=== PATIENT | female | born 1965 | race Caucasian/White ===

== ENCOUNTER → 2016-12-15 | Outpatient (CLI) | payer BC | LOC: M OUTALCOH 13:12 | PROVIDERS: ATTEND Psychiatry & Neurology Psychiatry | DX: Z13.9 Encounter for screening, unspecified (principal); F10.20 Alcohol dependence, uncomplicated ==

== ENCOUNTER 2017-01-05 14:30 | Outpatient (RCR) | payer BC | END 2017-01-07 | LOC: M OUTALCOH 14:30 | PROVIDERS: ATTEND Psychiatry & Neurology Psychiatry | DX: F10.20 Alcohol dependence, uncomplicated (principal); F17.200 Nicotine dependence, unspecified, uncomplicated ==

== ENCOUNTER 2017-02-01 16:00 | Outpatient (RCR) | payer BC, OTHER | END 2017-02-06 | LOC: M OUTALCOH 16:00 | PROVIDERS: ATTEND Psychiatry & Neurology Psychiatry | DX: F10.20 Alcohol dependence, uncomplicated (principal); F17.200 Nicotine dependence, unspecified, uncomplicated ==

== ENCOUNTER → 2017-02-09 | Outpatient (CLI) | payer OTHER, BC ==
--- NOTE | 2017-02-23 00:15 | ECWPNPC ---
PATIENT NAME: LUIS KHALIL : 1965 GENDER: FEMALE VISIT DATE: 02/09/2017 DISCHARGE DATE: 02/09/17 1318 VISIT LOCKED DATE TIME: PHYSICIAN: GEOVANNY WELLS RESOURCE: GEOVANNY WELLS REASON FOR APPOINTMENT 1. W/C NECK, MID/LOW BACK HISTORY OF PRESENT ILLNESS FALL RISK SCREENIN51 Y/O FEMALE REFERRED BY [facility],DR. CABRERA FOR WORK RELATED NECK,MID AND LOW BACK PAIN.PATIENT FELL ON ICE IN [facility] ON October. 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 ER THE FOLLOWING DAY.XRAYS OF MID AND LOWER BACK WERE PERFORMED AND SHE WAS TAKEN OUT OF WORK.SAW FOR FOLLOW UP A FEW WEEKS LATTER AND HE STARTED HER ON MEDICATION AND WAS SENT TO PT.THAT HELPED WITH IMPROVED MOBILITY BUT DIDNT IMPROVE PAIN MUCH.WAS REFERRED TO DR. SHAIKH AT [facility] AND HAD TPI MID BACK X2 WITHOUT IMPROVEMENT.HAD LEFT LUMBAR FACET BLOCK WITH 3 MONTH IMPROVEMENT.HAD LEFT CERVICAL FACET BLOCK WITH ONE MONTH IMPROVEMENT.HAVING SEVERE NECK PAIN TODAY THAT RADIATES INTO SCAPULAR AREA.HAS INTERMITTENT MID BACK PAIN.LOW BACK PAIN IS DESCRIBED INTERMITTENT SEVERE PAIN THAT SHOOTS DOWN BOTH LEGS.REPORTING RIGHT FOOT NUMBNESS AND UPPER BODY ARM AND HAND PARATHESIAS.DENIES BOWEL OR BLADDER INCONTINENCE.CURRENTLY USING HYDROCODONE 5/325 1/2 TO 1 TABLET Q8H PRN PAIN THAT SHE FINDS HELPFUL WITHOUT SIDE EFFECTS.HAS BEEN DEALING WITH SEVERE DAILY HEADACHES SINCE FALL.RATING PAIN VAS 7/10.DENIES RECENT FEVER,ILLNESS OR WEIGHT LOSS.DENIES BOWEL OR BLADDER INCONTINENCE. SCREENING :NO FALLS IN THE PAST YEAR PAIN SCREENING: PATIENT HAS A COMPLAINT OF ACUTE OR CHRONIC PAIN :YES CURRENT MEDICATIONS TAKING MULTIVITAMINS TABLET 1 TAB ORALLY DAILY TAKING VITAMIN B12 100 MCG TABLET 1 TABLET ORALLY ONCE A DAY TAKING OMEPRAZOLE 20 MG CAPSULE DELAYED RELEASE 1 CAPSULE ORALLY BID TAKING ADVAIR DISKUS 250-50 MCG/DOSE AEROSOL POWDER BREATH ACTIVATED 1 PUFF INHALATION TWICE A DAY TAKING ALBUTEROL SULFATE HFA 108 (90 BASE) MCG/ACT AEROSOL SOLUTION 2 PUFFS INHALATION DAILY PRN TAKING AMBIEN CR 12.5 MG TABLET EXTENDED RELEASE 1 TABLET ORALLY BEFORE BEDTIME, NOTES: ISTOP [id number] TAKING LEXAPRO 20 MG TABLET 1 TAB ORALLY ONCE A DAY TAKING BUTORPHANOL TARTRATE 10 MG/ML SOLUTION 1 SPRAY NEEDED NASALLY EVERY 8 HRS PRN MDD=2 TAKING HYDROCODONE-ACETAMINOPHEN 5-325 MG TABLET 1 TABLET NEEDED (MDD 2) ORALLY BID NOT-TAKING LEXAPRO 10 MG TABLET 1 TABLET ORALLY ONCE A DAY NOT-TAKING BUTORPHANOL TARTRATE 10 MG/ML SOLUTION DISP SPRAY 1 ML NEEDED NASALLY EVERY 8 HRS MDD=3ML MEDICATION LIST REVIEWED AND RECONCILED WITH THE PATIENT PAST MEDICAL HISTORY HYPERTENSION ASTHMA GERD ELEVATED CHOLESTEROL PCO S. MIGRANES OBESITY HIGH-203 SVJ=382 BACK INJURY 1986, 2012 ALLERGIES SIMVASTATIN: FATIGUE: SIDE EFFECTS IMITREX: NAUSEA: SIDE EFFECTS MAXALT BILL HIKER: NAUSEA: SIDE EFFECTS SURGICAL HISTORY HYSTERECTOMY 2010 TUBAL LIGATION 1985 EXPLORITORY LAPROSCOPIC 1976 GASTRICBYPASS 05/03/2013 LYMPHECTOMY ON LEFT 07-02-2013 TRIGGER POINT INJECTIONS SHOULDER 2015 FACET JOIN INJECTIONS LUMBAR 2015 FAMILY HISTORY FATHER: , DIABETES, HYPERTENSION, HYPERLIPIDEMIA, DIAGNOSED WITH HEART DISEASE MOTHER: ALIVE, HYPERTENSION, HYPERLIPIDEMIA, DIAGNOSED WITH HYPERTENSION SIBLINGS: ALIVE SON(S): ALIVE 1 BROTHER(S) , 1 SISTER(S) - HEALTHY. 2 SON(S) - HEALTHY. FAMILY HISTORY IS POSITIVE FOR DIABETES, HYPERTENSION, HEART DISEASE. MATERNAL AUNT AND GRANDMOTHER WITH BREAST CANCER. SOCIAL HISTORY GENERAL: TOBACCO USE ARE YOU A:CURRENT SMOKER HOW MANY CIGARETTES A DAY DO YOU SMOKE?6-10 HOW SOON AFTER YOU WAKE UP DO YOU SMOKE YOUR FIRST CIGARETTE?31-60 MIN HOW OFTEN DO YOU SMOKE CIGARETTES?EVERY DAY PATIENT COUNSELED ON THE DANGERS OF TOBACCO USE AND URGED TO QUIT:02/08/2017 ARE YOU INTERESTED IN QUITTING?NOT READY TO QUIT COUNSELED THE PATIENT ON SMOKING EFFECTS, EDUCATION [id number]/02/2017 ALCOHOL SCREENING DID YOU HAVE A DRINK CONTAINING ALCOHOL IN THE PAST YEAR?YES HOW OFTEN DID YOU HAVE SIX OR MORE DRINKS ON ONE OCCASION IN THE PAST YEAR?LESS THAN MONTHLY (1 POINT) HOW MANY DRINKS DID YOU HAVE ON A TYPICAL DAY WHEN YOU WERE DRINKING IN THE PAST YEAR?3 OR 4 (1 POINT) HOW OFTEN DID YOU HAVE A DRINK CONTAINING ALCOHOL IN THE PAST YEAR?TWO TO FOUR TIMES A MONTH (2 POINTS) POINTS4 INTERPRETATIONPOSITIVE RECREATIONAL DRUG USE DENIES. CAFFEINE 1-2/DAY. 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 DIET: REGULAR. EXERCISE: REGULAR. MARITAL STATUS: . OTHERS AT HOME: SPOUSE. PETS: DOG. SCIENTOLOGIST NO MORMONISM BELIEFS THAT WOULD IMPACT HEALTH CARE. LANGUAGE AZERI. 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 LEARNING BARRIERS / SPECIAL NEEDS CHANGE FROM LAST VISIT?NO BARRIERS TO LEARNING?NO HEARING IMPAIRED?NO VISION IMPAIRED?YES COGNITIVELY IMPAIRED?NO :CORRECTIVE LENSES READINESS TO LEARN?YES LEARNING PREFERENCES?NO LEARNING CAPABILITIES PRESENT?YES EMOTIONAL BARRIERS?NO SPECIAL DEVICES?NO GLOBAL MARKETING OPERATIONS MANAGER NEEDED?NO NEW PATIENT PAIN DIARY PATIENT DESCRIBES PAIN :ACHING, BURNING, HAVE IT ALL THE TIME, SHARP, STABBING, TENDER, SORE, SHOOTING FROM 0-10, WHAT LEVEL IS YOUR PAIN TODAY?6 PRECIPITATING FACTORS PT STATES THAT EXCESSIVE LIFTING, BENDING AND WALKING WILL INCREASE PAIN ALLEVIATING FACTORS PAIN MEDS, STRETCHING 3-4 TIMES PER WEEK IMPACT ON FUNCTION LIGHT DUTY AT WORK, RESTRICTS MOBILITY, HAS DIFFICULTY WITH PICKING UP GRANDCHILDREN, UNABLE TO FISH AND KAYAK SHE HAD IN THE PAST WHEN DID YOU LAST EAT?02/09/2017 WHEN DID YOU LAST DRINK?02/09/2017 WHAT DID YOU LAST DRINK? WATER NAME OF PERSON DRIVING YOU HOME SELF IS THERE A CHANCE YOU COULD BE ?NO HAVE YOU BEEN SICK IN THE LAST WEEK (COLD, COUGH, FEVER, FLU, ETC)NO DO YOU TAKE ANY BLOOD THINNERS?NO ANY CHANGE IN BOWEL OR BLADDER CONTROL?YES PT STATES THAT SHE IS HAVING INCREASED ISSUES WITH INCONTINENCE, STATES THAT SHE HAD STRESS INCONTINENCE IN PAST AND NOW IT IS UNCONTROLLED ARE YOU ALLERGIC TO SHELLFISH OR IV DYE?NO ARE YOU DIABETIC?NO DO YOU HAVE A PACEMAKER OR DEFIBRILLATOR?NO ANY NEW PROBLEMS WITH MEDICINES OR NEW ALLERGIESNO ANY NEW PATTERNS OF PAIN OR NUMBNESS?NO ANY CHANGE IN YOUR MEDICAL CONDITION?NO HAVE YOU FALLEN IN THE LAST 6 MONTHS?NO DO YOU USE ANY TYPE OF TOBACCO (SMOKE, SMOKELESS, CHEW, ETC.)YES ARE YOU ABUSED, NEGLECTED, OR IN AN UNSAFE ENVIRONMENT?NO DO YOU HAVE THOUGHTS OF HURTING YOURSELF OR SOMEONE ELSE?NO DO YOU NEED ANY PRESCRIPTIONS?YES WOULD LIKE TO DISCUSS PAIN MEDICATION OPTIONS DO YOU HAVE ANY OTHER QUESTIONS OR CONCERNS?NO INTENSITY SCALE REVIEWEDNUMBER SCORE6 PAIN CLINIC PFS, CLERGY, PUBLIC HEALTH REFERRALS PFS REFERRAL NEEDED?NO WAS THE PROVIDER NOTIFIED OF ANY PERTINENT INFO?YES REVIEWED BY: DS. ADVANCED DIRECTIVES HEALTH CARE PROXY?NO WOULD YOU LIKE MORE INFORMATION?NO QUIT SMOKING AUGUST 2012. HOSPITALIZATION/MAJOR DIAGNOSTIC PROCEDURE HYSTERECTOMY 2011 CHILDBIRTH 1982, 1984 GASTRIC BYPASS 2012 REVIEW OF SYSTEMS CONSTITUTIONAL: ANY CHANGE IN YOUR MEDICAL CONDITION? NO . CHILLS NO . FEVER NO . INFECTION: DO YOU HAVE NEW INFECTIONS? NO . DO YOU HAVE HISTORY OF MRSA? NO . MUSCULOSKELETAL: ANY NEW PATTERNS OF PAIN OR NUMBNESS? NO . SYTEMIC LUPUS NO . GASTROENTEROLOGY: ANY NEW CHANGE IN BOWEL CONTROL? NO . BARRETTS ESOPHAGUS NO . CIRRHOSIS NO . HEPATITIS NO . LIVER FAILURE NO . ACID REFLUX NO . UNEXPLAINED WEIGHT LOSS NO . GENITOURINARY: ANY NEW CHANGE IN BLADDER CONTROL? NO . IS THERE A CHANCE YOU COULD BE ? NO . HEMATOLOGY/LYMPH: DO YOU TAKE ANY BLOOD THINNERS? (FOR EXAMPLE- COUMADIN, PLAVIX, AGGRENOX, PLATEL, PRADAXA, OR XARELTO) NO . WHEN WAS YOUR LAST DOSE? DATE: TIME: . LOW PLATELET COUNT NO . SICKLE CELL DISEASE NO . VON WILLIEBRANDS NO . FACTOR V LEIDEN NO . THALLASEMIA NO . ANEMIA NO . EASY BRUISING NO . NEUROLOGY: HAVE YOU FALLEN IN THE PAST 6 MONTHS? NO . ANY NEW EXTREMITY NUMBNESS OR WEAKNESS? NO . HEAD INJURY NO . DEMENTIA NO . CEREBRAL PALSY NO . MULTIPLE SCLEROSIS NO . DIZZINESS NO . HEADACHE NO . STROKES NO . VERTIGO NO . CARDIOLOGY: DO YOU HAVE A PACEMAKER OR DEFIBRILLATOR? NO . ANGINA NO . HEART ATTACK NO . HEART SURGERY NO . CONGESTIVE HEART FAILURE/FLUID OVERLOAD NO . CHEST PAIN NO . HIGH BLOOD PRESSURE NO . IRREGULAR HEART BEAT NO . RESPIRATORY: HAVE YOU BEEN SICK IN THE PAST WEEK? NO . FEVER NO . FLU LIKE SYMPTOMS? NO . CPAP NO . BYPAP NO . ASTHMA NO . EMPHYSEMA NO . CHRONIC LUNG DISEASES NO . SHORTNESS OF BREATH ON EXERTION NO . COUGH NO . SNORING NO . INTEGUMENTARY: DO YOU HAVE ANY RASHES OR OPEN SORES? NO . ALLERGIC/IMMUNO: ARE YOU ALLERGIC TO SHELLFISH OR IV DYE? NO . ANY NEW ALLERGIES? NO . PSYCHIATRIC: DO YOU HAVE THOUGHTS OF HURTING YOURSELF OR SOMEONE ELSE? NO . ARE YOU ABUSED, NEGLECTED, OR IN AN UNSAFE ENVIRONMENT? NO . ENDOCRINOLOGY: ARE YOU DIABETIC? NO . THYROID DISORDER NO . OTHER: DO YOU NEED ANY PRESCRIPTIONS? NO . IF YES, PLEASE LIST: ____ . ANY NEW PROBLEMS WITH YOUR MEDICATIONS? NO . WHEN DID YOU LAST EAT? ____ . WHEN DID YOU LAST DRINK? ____ . WHAT DID YOU LAST DRINK? ____ . NAME OF PERSON DRIVING YOU HOME? ____ . DO YOU HAVE ANY OTHER QUESTIONS OR CONCERNS PT STATES THAT SHE FELL IN PARKING LOT AT [facility] ON 10/26/2015 WHILE WALKING INTO WORK, SLIPPED ON ICE, BUMPER HIT RIGHT BETWEEN SHOULDER BLADES, HIT HEAD ON ROOF, AND LANDED ON GROUND ON HER LOWER BACK. PT STATES THAT SHE WORKED ALL DAY AND REPORTED TO ED THE FOLLOWING DAY. . REVIEWED BY: PROVIDER: GEOVANNY MARIEE . VITAL SIGNS WT 141 LBS, HT 62.5 IN, BMI 25.38 INDEX, BP 138/65 MM HG, HR 80 /MIN, RR 18 /MIN, TEMP 98.8 F, OXYGEN SAT % 98, SAFE IN ENV? (Y/N) Y, NA INITIALS AW 1148, REVIEWED BY: LIZET. EXAMINATION GENERAL EXAMINATION: GENERAL APPEARANCE:ANXIOUS. PSYCHAFFECT NORMAL. LUNGS:LUNG ARCEO ARE CLEAR TO AUSCULTATION BILATERALLY. GOOD MOVEMENT OF AIR. HEART:S1, S2 IN A REGULAR RATE AND RHYTHM. NO SIGNIFICANT MURMURS, RUBS OR GALLOPS NOTED. ABDOMEN:SOFT, NON-TENDER, NO ORGANOMEGALY, BOWEL SOUNDS ARE NORMAL. CERVICAL SPINE/NECK: RANGE OF MOTION OF NECK:LIMITED IN ALL DIRECTIONS. REFLEXES:2 PLUS BILATERALLY. SENSATIONS:NORMAL BILATERALLY. VERTEBRAL SPINE TENDERNESS:SPECIFIC FACET TENDERNESS C4/5-C67. TRAPEZIUS TENDERNESS:PRESENT BILATERALLY. MYOFASCIAL TRIGGER POINTS:NOTED OVER TRAPEZIOUS BILAT.. LUMBAR SPINE/LOWER BACK: LOWER BACK:THERE IS TENDERNESS AT LOWER BACK AND THE PARA SPINAL MUSCLE GROUP. MOTOR SYSTEM:5/5 BLE. SENSORY EXAM:NORMAL. REFLEXES:2/4 AND SYMMETRIC BLE. ASSESSMENTS CERVICALGIA - M54.2 (PRIMARY) PAIN IN THORACIC SPINE - M54.6 LUMBAGO OF LUMBOSACARAL REGION WITH SCIATICA - M54.40 TREATMENT CERVICALGIA CONTINUE HYDROCODONE-ACETAMINOPHEN TABLET, 5-325 MG, 1 TABLET NEEDED (MDD 2), ORALLY, BID PRN MDD2, 30 DAY(S), 60, REFILLS 0 INJECTION FACET JOINT/NERVE CERVICAL LEFTGEOVANNY WELLS 02/09/2017 1:06:25 PM > BILAT C4/5-C5/6 THERAPEUTIC FACET BLOCK INJECTION FACET JOINT/NERVE CERVICAL RIGHT PROCEDURE CODES FA211 ESTABILISHED PATIENT [facility] FACILITY CHARGE DISPOSITION & COMMUNICATION FOLLOW UP 3 WEEKSF/U W DR FORREST ELECTRONICALLY SIGNED BY JAYLENE PELAEZ ON 02/22/2017 AT 01:47 PM EDT DISCLAIMER : THIS IS A VISIT SUMMARY EXTRACTED FROM THE [employer] CHART. IT IS NOT A COPY OF THE [employer] PROGRESS NOTE. MTDD
== END ==
LOC: M PAIN 11:20
PROVIDERS: ATTEND Nurse Practitioner Family
DX: M54.2 Cervicalgia (principal); M54.6 Pain in thoracic spine; M54.40 Lumbago with sciatica, unspecified side; Z79.891 Long term (current) use of opiate analgesic; Z79.899 Other long term (current) drug therapy; F17.210 Nicotine dependence, cigarettes, uncomplicated; Z88.8 Allergy status to other drugs, medicaments and biological substances

== ENCOUNTER → 2017-02-14 | Outpatient (REF) | payer BC | LOC: M SFHCCLAY 16:35 | PROVIDERS: ATTEND Family Medicine | DX: R35.0 Frequency of micturition (principal) ==

== ENCOUNTER → 2017-03-02 | Outpatient (CLI) | payer OTHER, BC ==
[~2017-03-02] MED LIST: BUTO10SO; GABA-279 PO; HYDR-3713 PO; LEXA1TAB2 PO; OMEP20CA3 PO; TIZA2CAP3 PO; VALI5TAB PO
--- NOTE | 2017-03-13 23:35 | ECWPNPC ---
PATIENT NAME: LUIS KHALIL : 1965 GENDER: FEMALE VISIT DATE: 03/02/2017 DISCHARGE DATE: 03/02/17 1036 VISIT LOCKED DATE TIME: PHYSICIAN: FAIZAN FORREST RESOURCE: FAIZAN FORREST REASON FOR APPOINTMENT 1. W/C NECK/THORACIC/LUMBAR PAIN HISTORY OF PRESENT ILLNESS HISTORY OF PRESENT ILLNESS: PAIN THE PATIENT DESCRIBES THE PAIN... 51 YEAR OLD FEMALE PATIENT WITH HISTORY OF CHRONIC BACK PAIN. PATIENT DESCRIBES THE PAIN ACHING, SHARP, STABBING, SORE, AND SHOOTING WITH A PAIN SCORE OF 7/10. 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 PATIENT HAS RECEIVED INJECTION FROM PAIN SOLUTIONS AND HAD 3 MONTH RELIEF FROM A LUMBAR FACET BLOCK. PATIENT STATES THAT PHYSICAL THERAPY AIDED IN MOBILITY BUT NOT IN PAIN RELIEF. MRS. KHALIL STATES THAT SHE IS USING HYDROCODONE BUT WOULD LIKE A DIFFERENT MEDICATION TO SEE IF SHE IS ABLE TO GET BETTER RELIEF. PATIENT IS ALSO USING TIZANIDINE FOR THE MUSCLE SPASMS AND USING THEM NEEDED. PATIENT REPORTS TRYING CYMBALTA, LYRICA, AND GABAPENTIN BUT DOES NOT WANT TO CONTINUE TO USE IT DUE TO THE WAY IT MADE THE PATIENT FEELS. MRS. KHALIL REPORTS HAVING NUMBNESS AND TINGLY SENSATION DOWN THE ARMS TO THE HANDS. PATIENT DENIES UNEXPLAINABLE WEIGHT LOSS, FEVER, CHILLS, NEW CHANGES ON HER URINARY OR BOWEL CONTROL. FALL RISK SCREENING: SCREENING :NO FALLS IN THE PAST YEAR CURRENT MEDICATIONS TAKING MULTIVITAMINS TABLET 1 TAB ORALLY DAILY TAKING VITAMIN B12 100 MCG TABLET 1 TABLET ORALLY ONCE A DAY TAKING OMEPRAZOLE 20 MG CAPSULE DELAYED RELEASE 1 CAPSULE ORALLY TWICE A DAY TAKING ADVAIR DISKUS 250-50 MCG/DOSE AEROSOL POWDER BREATH ACTIVATED 1 PUFF INHALATION TWICE A DAY TAKING ALBUTEROL SULFATE HFA 108 (90 BASE) MCG/ACT AEROSOL SOLUTION 2 PUFFS INHALATION DAILY PRN TAKING AMBIEN CR 12.5 MG TABLET EXTENDED RELEASE 1 TABLET ORALLY BEFORE BEDTIME, NOTES: ISTOP [id number] TAKING LEXAPRO 20 MG TABLET 1 TAB ORALLY ONCE A DAY TAKING HYDROCODONE-ACETAMINOPHEN 5-325 MG TABLET 1 TABLET NEEDED (MDD 2) ORALLY BID PRN MDD2 TAKING BUTORPHANOL TARTRATE 10 MG/ML SOLUTION 1 SPRAY NEEDED NASALLY EVERY 8 HRS PRN MDD=2 TAKING TIZANIDINE HCL 4 MG TABLET 1 TABLET NEEDED ORALLY THREE TIMES A DAY NOT-TAKING LEXAPRO 10 MG TABLET 1 TABLET ORALLY ONCE A DAY NOT-TAKING BUTORPHANOL TARTRATE 10 MG/ML SOLUTION DISP SPRAY 1 ML NEEDED NASALLY EVERY 8 HRS MDD=3ML MEDICATION LIST REVIEWED AND RECONCILED WITH THE PATIENT PAST MEDICAL HISTORY HYPERTENSION ASTHMA GERD ELEVATED CHOLESTEROL PCO S. MIGRANES OBESITY HIGH-203 VOR=073 BACK INJURY 1986, 2012 ALLERGIES SIMVASTATIN: FATIGUE: SIDE EFFECTS IMITREX: NAUSEA: SIDE EFFECTS MAXALT PRICE CLERK: NAUSEA: SIDE EFFECTS SURGICAL HISTORY HYSTERECTOMY 2010 TUBAL LIGATION 1985 EXPLORITORY LAPROSCOPIC 1977 GASTRICBYPASS 05/03/2013 LYMPHECTOMY ON LEFT 07-02-2013 TRIGGER POINT INJECTIONS SHOULDER 2015 FACET JOIN INJECTIONS LUMBAR 2015 FAMILY HISTORY FATHER: , DIABETES, HYPERTENSION, HYPERLIPIDEMIA, DIAGNOSED WITH HEART DISEASE MOTHER: ALIVE, HYPERTENSION, HYPERLIPIDEMIA, DIAGNOSED WITH HYPERTENSION SIBLINGS: ALIVE SON(S): ALIVE 1 BROTHER(S) , 1 SISTER(S) - HEALTHY. 2 SON(S) - HEALTHY. FAMILY HISTORY IS POSITIVE FOR DIABETES, HYPERTENSION, HEART DISEASE. MATERNAL AUNT AND GRANDMOTHER WITH BREAST CANCER. SOCIAL HISTORY GENERAL: TOBACCO USE ARE YOU A:CURRENT SMOKER HOW MANY CIGARETTES A DAY DO YOU SMOKE?6-10 HOW SOON AFTER YOU WAKE UP DO YOU SMOKE YOUR FIRST CIGARETTE?31-60 MIN HOW OFTEN DO YOU SMOKE CIGARETTES?EVERY DAY PATIENT COUNSELED ON THE DANGERS OF TOBACCO USE AND URGED TO QUIT:02/14/2017 ARE YOU INTERESTED IN QUITTING?NOT READY TO QUIT COUNSELED THE PATIENT ON SMOKING EFFECTS, EDUCATION [id number]/08/2017 SMOKING CESSATION INFORMATION GIVEN02/14/2017 ALCOHOL SCREENING DID YOU HAVE A DRINK CONTAINING ALCOHOL IN THE PAST YEAR?YES HOW OFTEN DID YOU HAVE SIX OR MORE DRINKS ON ONE OCCASION IN THE PAST YEAR?LESS THAN MONTHLY (1 POINT) HOW MANY DRINKS DID YOU HAVE ON A TYPICAL DAY WHEN YOU WERE DRINKING IN THE PAST YEAR?3 OR 4 (1 POINT) HOW OFTEN DID YOU HAVE A DRINK CONTAINING ALCOHOL IN THE PAST YEAR?TWO TO FOUR TIMES A MONTH (2 POINTS) POINTS4 INTERPRETATIONPOSITIVE RECREATIONAL DRUG USE DENIES. CAFFEINE 1-2/DAY. 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 DIET: REGULAR. EXERCISE: REGULAR. MARITAL STATUS: . OTHERS AT HOME: SPOUSE. PETS: DOG. RESTORATIONIST NO YAZIDISM BELIEFS THAT WOULD IMPACT HEALTH CARE. LANGUAGE PALESTINIAN. 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 LEARNING BARRIERS / SPECIAL NEEDS CHANGE FROM LAST VISIT?NO BARRIERS TO LEARNING?NO HEARING IMPAIRED?NO VISION IMPAIRED?YES :CORRECTIVE LENSES COGNITIVELY IMPAIRED?NO READINESS TO LEARN?YES LEARNING PREFERENCES?NO LEARNING CAPABILITIES PRESENT?YES EMOTIONAL BARRIERS?NO SPECIAL DEVICES?NO AUDIO VIDEO REPAIRER NEEDED?NO NEW PATIENT PAIN DIARY PATIENT DESCRIBES PAIN :ACHING, BURNING, HAVE IT ALL THE TIME, SHARP, STABBING, TENDER, SORE, SHOOTING FROM 0-10, WHAT LEVEL IS YOUR PAIN TODAY?6 PRECIPITATING FACTORS PT STATES THAT EXCESSIVE LIFTING, BENDING AND WALKING WILL INCREASE PAIN ALLEVIATING FACTORS PAIN MEDS, STRETCHING 3-4 TIMES PER WEEK IMPACT ON FUNCTION LIGHT DUTY AT WORK, RESTRICTS MOBILITY, HAS DIFFICULTY WITH PICKING UP GRANDCHILDREN, UNABLE TO FISH AND KAYAK SHE HAD IN THE PAST WHEN DID YOU LAST EAT?02/09/2017 WHEN DID YOU LAST DRINK?02/09/2017 WHAT DID YOU LAST DRINK? WATER NAME OF PERSON DRIVING YOU HOME SELF IS THERE A CHANCE YOU COULD BE ?NO HAVE YOU BEEN SICK IN THE LAST WEEK (COLD, COUGH, FEVER, FLU, ETC)NO DO YOU TAKE ANY BLOOD THINNERS?NO ANY CHANGE IN BOWEL OR BLADDER CONTROL?YES PT STATES THAT SHE IS HAVING INCREASED ISSUES WITH INCONTINENCE, STATES THAT SHE HAD STRESS INCONTINENCE IN PAST AND NOW IT IS UNCONTROLLED ARE YOU ALLERGIC TO SHELLFISH OR IV DYE?NO ARE YOU DIABETIC?NO DO YOU HAVE A PACEMAKER OR DEFIBRILLATOR?NO ANY NEW PROBLEMS WITH MEDICINES OR NEW ALLERGIESNO ANY NEW PATTERNS OF PAIN OR NUMBNESS?NO ANY CHANGE IN YOUR MEDICAL CONDITION?NO HAVE YOU FALLEN IN THE LAST 6 MONTHS?NO DO YOU USE ANY TYPE OF TOBACCO (SMOKE, SMOKELESS, CHEW, ETC.)YES ARE YOU ABUSED, NEGLECTED, OR IN AN UNSAFE ENVIRONMENT?NO DO YOU HAVE THOUGHTS OF HURTING YOURSELF OR SOMEONE ELSE?NO DO YOU NEED ANY PRESCRIPTIONS?YES WOULD LIKE TO DISCUSS PAIN MEDICATION OPTIONS DO YOU HAVE ANY OTHER QUESTIONS OR CONCERNS?NO INTENSITY SCALE REVIEWEDNUMBER SCORE6 PAIN CLINIC PFS, CLERGY, PUBLIC HEALTH REFERRALS PFS REFERRAL NEEDED?NO WAS THE PROVIDER NOTIFIED OF ANY PERTINENT INFO?YES REVIEWED BY: DS. ADVANCED DIRECTIVES HEALTH CARE PROXY?NO WOULD YOU LIKE MORE INFORMATION?NO QUIT SMOKING AUGUST 2012. HOSPITALIZATION/MAJOR DIAGNOSTIC PROCEDURE HYSTERECTOMY 2011 CHILDBIRTH 1982, 1984 GASTRIC BYPASS 2012 REVIEW OF SYSTEMS CONSTITUTIONAL: ANY CHANGE IN YOUR MEDICAL CONDITION? NO . CHILLS NO . FEVER NO . INFECTION: DO YOU HAVE NEW INFECTIONS? NO . DO YOU HAVE HISTORY OF MRSA? NO . MUSCULOSKELETAL: ANY NEW PATTERNS OF PAIN OR NUMBNESS? NO . GASTROENTEROLOGY: ANY NEW CHANGE IN BOWEL CONTROL? NO . GENITOURINARY: ANY NEW CHANGE IN BLADDER CONTROL? NO . IS THERE A CHANCE YOU COULD BE ? NO . HEMATOLOGY/LYMPH: DO YOU TAKE ANY BLOOD THINNERS? (FOR EXAMPLE- COUMADIN, PLAVIX, AGGRENOX, PLATEL, PRADAXA, OR XARELTO) NO . WHEN WAS YOUR LAST DOSE? DATE: TIME: . NEUROLOGY: HAVE YOU FALLEN IN THE PAST 6 MONTHS? NO . ANY NEW EXTREMITY NUMBNESS OR WEAKNESS? NO . CARDIOLOGY: DO YOU HAVE A PACEMAKER OR DEFIBRILLATOR? NO . RESPIRATORY: HAVE YOU BEEN SICK IN THE PAST WEEK? NO . FEVER NO . FLU LIKE SYMPTOMS? NO . COUGH NO . INTEGUMENTARY: DO YOU HAVE ANY RASHES OR OPEN SORES? NO . ALLERGIC/IMMUNO: ARE YOU ALLERGIC TO SHELLFISH OR IV DYE? NO . ANY NEW ALLERGIES? NO . PSYCHIATRIC: DO YOU HAVE THOUGHTS OF HURTING YOURSELF OR SOMEONE ELSE? NO . ARE YOU ABUSED, NEGLECTED, OR IN AN UNSAFE ENVIRONMENT? NO . ENDOCRINOLOGY: ARE YOU DIABETIC? NO . OTHER: DO YOU NEED ANY PRESCRIPTIONS? YES . IF YES, PLEASE LIST: PAIN MEDS HYDROCODONE . ANY NEW PROBLEMS WITH YOUR MEDICATIONS? NO . WHEN DID YOU LAST EAT? ____ . WHEN DID YOU LAST DRINK? ____ . WHAT DID YOU LAST DRINK? ____ . NAME OF PERSON DRIVING YOU HOME? ____ . DO YOU HAVE ANY OTHER QUESTIONS OR CONCERNS NO . REVIEWED BY: PROVIDER: FAIZAN FORREST MD . VITAL SIGNS WT 142 LBS, HT 62.5 IN, BMI 25.56 INDEX, BP 135/66 MM HG, HR 54 /MIN, RR 16 /MIN, TEMP 97.1 F, OXYGEN SAT % 99%, NA INITIALS SC 08:46, REVIEWED BY: NICOLE. EXAMINATION : PATIENT IS ALERT O X 3 AND COOPERATIVE. TENDERNESS IN THE CERVICAL AREA AND PARASPINAL MUSCLE GROUP. BANDS OF TISSUE, RESTRICTION OF MOVEMENT, AND PRESENCE OF TRIGGER POINTS IN THE CERVICAL AREA. PATIENT ABLE TO EXTEND AND FLEX THE NECK 10 DEGREES AND LATERAL ROTATION TO THE LEFT 10 DEGREES AND RIGHT 5 DEGREES. MRI OF THE CERVICAL SPINE DONE ON 07/20/16 SHOWS SPONDYLOSIS, ATROPHY, AND MULTIPLE BULGING DISCS. TENDERNESS IN THE LOWER BACK AND PARASPINAL MUSCLE GROUP. PATIENT HAVE TO FLEX THE BACK 45 DEGREES AND EXTEND 15 DEGREES. RIGHT LEG IS WEAKER THEN THE LEFT AT EXTENSION AND FLEXION. MRI DONE ON 01/30/16 SHOWS BULGING DISC AND ATROPHY CHANGES. ASSESSMENTS SPONDYLOSIS WITHOUT MYELOPATHY OR RADICULOPATHY, CERVICAL REGION - M47.812 (PRIMARY) SPONDYLOSIS WITHOUT MYELOPATHY OR RADICULOPATHY, LUMBAR REGION - M47.816 SPONDYLOSIS WITHOUT MYELOPATHY OR RADICULOPATHY, LUMBOSACRAL REGION - M47.817 MYALGIA - M79.1 TREATMENT SPONDYLOSIS WITHOUT MYELOPATHY OR RADICULOPATHY, CERVICAL REGION REFILL HYDROCODONE-ACETAMINOPHEN TABLET, 5-325 MG, 1 TABLET NEEDED, ORALLY, EVERY 6 HOURS NEEDED MDD3, 30 DAY(S), 75, REFILLS 0 REFILL TIZANIDINE HCL TABLET, 2 MG, 1 TO 2 TABLET NEEDED, ORALLY FOR SPASMS AND PAIN, EVERY 8 HOURS NEEDED MDD4, 30 DAY(S), 40, REFILLS 2 START GABAPENTIN CAPSULE, 100 MG, DIRECTED, ORALLY FOR PAIN, BEFORE BEDTIME, 30 DAY(S), 30, REFILLS 2 NOTES: WE DISCUSSED SEVERAL ISSUES WITH MRS. KHALIL'S PAIN MANAGEMENT CASE. AT THIS TIME THE PATIENT WILL CONTINUE TO USE HYDROCODONE FOR THE SOMATIC PAIN AND TIZANIDINE FOR THE MUSCLE SPASMS. I WOULD LIKE THE PATIENT TO START USING GABAPENTIN FOR THE NEUROPATHIC PAIN DOWN THE ARMS AND LEGS. PATIENT DENIES ABUSE OF ANY MEDICATION, DENIES USE OF ILLEGAL SUBSTANCES, AND STATES THAT SHE IS ONLY USING THE MEDICATION FOR PAIN MANAGEMENT. WE DISCUSSED INJECTIONS THAT MAY AID THE PATIENT IN PAIN RELIEF. DUE TO THE MOST SEVERE PAIN IN THE NECK AND THE ARTHRITIS I WOULD LIKE TO MOVE FORWARD WITH A CERVICAL FACET BLOCK WITH IV SEDATION DUE TO PAIN, DISCOMFORT, AND ANXIETY ASSOCIATED WITH THE PROCEDURE. WE DISCUSSED THE RISKS, BENEFITS, AND ALTNERATIVES OF THE INJECTION AND THE PATIENT WOULD LIKE TO PROCEED AT THIS TIME. INSTRUCTIONS WERE GIVEN, QUESTIONS WERE ANSWERED, PATIENT REPORTS UNDERSTANDING AND AGREES WITH THE PLAN. I, YOSHI NEFF, DOCUMENTED THE ABOVE INFORMATION ACTING A SCRIBE FOR DR. FORREST. I HAVE REVIEWED THE ABOVE DOCUMENT, WRITTEN BY YOSHI CANO AND I VERIFY THAT IT IS ACCURATE. PROCEDURES PN WORKMANS' COMP OPINION IN YOUR OPINION, WAS THE INCIDENT THAT THE PATIENT DESCRIBED THE COMPETENT MEDICAL CAUSE OF THIS INJURY/ILLNESS? YES ARE THE PATIENT'S COMPLAINTS CONSISTENT WITH HIS/HER HISTORY OF THE INJURY/ILLNESS? YES IS THE PATIENT'S HISTORY OF THE INJURY/ILLNESS CONSISTENT WITH YOUR OBJECTIVE FINDING? YES WHAT IS THE PERCENTAGE OF TEMPORARY IMPAIRMENT? MODERATE TO MARKED = 66.7% IS THE PATIENT WORKING? YES LIGHT DUTY DOCTOR ON SITE: FAIZAN SETVENS MD PROCEDURE CODES FA211 ESTABILISHED PATIENT [facility] FACILITY CHARGE G8427 DOC MEDS VERIFIED W/PT OR RE G8730 PAIN ASSESS POS TOOL F/U PLAN DOC DISPOSITION & COMMUNICATION FOLLOW UP CFBT AFTER APPROVAL ELECTRONICALLY SIGNED BY FAIZAN FORREST MD ON 03/13/2017 AT 06:03 PM EDT DISCLAIMER : THIS IS A VISIT SUMMARY EXTRACTED FROM THE [employer] CHART. IT IS NOT A COPY OF THE [employer] PROGRESS NOTE. CARMITA
== END ==
LOC: M PAIN 08:30
PROVIDERS: ATTEND Anesthesiology
DX: M47.812 Spondylosis without myelopathy or radiculopathy, cervical region (principal); M47.816 Spondylosis without myelopathy or radiculopathy, lumbar region; M47.817 Spondylosis without myelopathy or radiculopathy, lumbosacral region; M79.1 Myalgia; Z79.891 Long term (current) use of opiate analgesic; Z79.899 Other long term (current) drug therapy; F17.210 Nicotine dependence, cigarettes, uncomplicated; Z88.8 Allergy status to other drugs, medicaments and biological substances

== ENCOUNTER 2017-03-08 16:00 | Outpatient (RCR) | payer BC | END 2017-03-09 | LOC: M OUTALCOH 16:00 | PROVIDERS: ATTEND Psychiatry & Neurology Psychiatry | DX: F10.20 Alcohol dependence, uncomplicated (principal); F17.200 Nicotine dependence, unspecified, uncomplicated ==

== ENCOUNTER 2017-03-11 07:27 | Emergency (ER) | payer BC, OTHER ==
[~2017-03-11] VITALS: Ht 157.5 cm; Wt 63.5 kg
[2017-03-11] MEDS ORDERED: TIZA2CAP3 PO (07:38)
[2017-03-11] MEDS ORDERED: OMEP20CA3 PO (07:38)
[2017-03-11] MEDS ORDERED: GABA-279 PO (07:38)
[2017-03-11] MEDS ORDERED: HYDR-3713 PO (07:38)
[2017-03-11] MEDS ORDERED: BUTO10SO (07:38)
[2017-03-11] MEDS ORDERED: LEXA1TAB2 PO (07:38)
[2017-03-11] MEDS ORDERED: KETOROLAC 60 MG/2 ML VIAL (J1885) IM ONE (08:30)
[2017-03-11] MEDS ORDERED: VALI5TAB PO (08:35)
[2017-03-11 08:46] VITALS: BP 116/60
== END 2017-03-11 08:49 | disposition home or self-care (01) ==
LOC: M ED 08:00
DX: S20.401A Unspecified superficial injuries of right back wall of thorax, initial encounter (principal); X58.XXXA Exposure to other specified factors, initial encounter; Y92.89 Other specified places as the place of occurrence of the external cause; Y93.89 Activity, other specified; Y99.8 Other external cause status; J45.909 Unspecified asthma, uncomplicated; F33.9 Major depressive disorder, recurrent, unspecified; K21.9 Gastro-esophageal reflux disease without esophagitis; Z98.84 Bariatric surgery status; Z79.899 Other long term (current) drug therapy; F17.210 Nicotine dependence, cigarettes, uncomplicated
CPT/HCPCS: 96372; 99282; J1885

== ENCOUNTER → 2017-03-16 | Outpatient (CLI) | payer BC ==
[2017-03-16 07:45] LABS: BASO % 0.8 % (0.0-1.0); EOS # 0.2 K/mm3 (0.0-0.50); EOS % 4.3 % (0.0-3.0); LARGE UNSTAINED CELL # 0.1 K/mm3 (0.0-0.4); LARGE UNSTAINED CELL % 2.6 % (0.0-4.0); LYMPH # 1.9 K/mm3 (1.5-4.5); LYMPH % 45.4 % (24.0-44.0); MEAN CORPUSCULAR HEMOGLOBIN 30.6 pg (27.0-33.0); MEAN CORPUSCULAR HGB CONC 33.8 g/dl (32.0-36.5); MEAN CORPUSCULAR VOLUME 90.7 fl (80.0-96.0); MONO # 0.3 K/mm3 (0.0-0.8); MONO % 6.4 % (0.0-5.0); NEUTROPHILS # 1.6 K/mm3 (1.8-7.7); NEUTROPHILS % 40.5 % (36.0-66.0); PLATELET COUNT, AUTOMATED 240 k/mm3 (150-450); RED CELL DISTRIBUTION WIDTH 12.7 % (11.5-14.5)
[2017-03-16 08:11] LABS: ALBUMIN 4.1 GM/DL (3.2-5.2); ALBUMIN/GLOBULIN RATIO 1.37 (1.00-1.93); ALKALINE PHOSPHATASE 71 U/L (45-117); ALT/SGPT 33 U/L (12-78); ANION GAP 6 MEQ/L (8-16); AST/SGOT 19 U/L (15-37); BILIRUBIN,TOTAL 0.5 MG/DL (0.2-1.0); BLOOD UREA NITROGEN 12 MG/DL (7-18); CALCIUM LEVEL 8.8 MG/DL (8.5-10.1); CARBON DIOXIDE LEVEL 28 MEQ/L (21-32); CHLORIDE LEVEL 105 MEQ/L (98-107); CHOLESTEROL LEVEL 222 MG/DL (<200); CREATININE FOR GFR 0.69 MG/DL (0.55-1.02); FERRITIN 10 NG/ML (8-252); GLOMERULAR FILTRATION RATE > 60.0 (>51); GLUCOSE, FASTING 84 MG/DL (70-105); PERCENT SATURATION 10.5 % (13.2-37.4); SODIUM LEVEL 139 MEQ/L (136-145); TOTAL IRON BINDING CAPACITY 496 UG/DL (250-450); TOTAL PROTEIN 7.1 GM/DL (6.4-8.2); TRIGLYCERIDES LEVEL 85 MG/DL (<150)
[2017-03-16 09:55] LABS: VITAMIN B12 LEVEL 1010 PG/ML
[2017-03-16 09:56] LABS: FOLATE > 24.0 NG/ML
== END ==
LOC: M LAB 06:39
PROVIDERS: ATTEND Nurse Practitioner Family
DX: Z98.84 Bariatric surgery status (principal)

== ENCOUNTER 2017-04-01 14:30 | Outpatient (RCR) | payer BC | END 2017-04-08 | LOC: M OUTALCOH 14:30 | PROVIDERS: ATTEND Psychiatry & Neurology Psychiatry | DX: F10.20 Alcohol dependence, uncomplicated (principal); F17.200 Nicotine dependence, unspecified, uncomplicated ==

== ENCOUNTER 2017-05-02 15:00 | Outpatient (RCR) | payer BC | END 2017-05-09 | LOC: M OUTALCOH 15:00 | PROVIDERS: ATTEND Psychiatry & Neurology Psychiatry | DX: F10.20 Alcohol dependence, uncomplicated (principal); F17.200 Nicotine dependence, unspecified, uncomplicated ==

== ENCOUNTER → 2017-05-18 | Outpatient (CLI) | payer BC ==
[~2017-05-18] MED LIST changes: +BUPIVACAINE HCL 0.25% 30 ML VIAL As Ordered ONE; +ISOVUE-M 300 61% 15ML VIAL (Q9967) As Ordered ONE; +LIDOCAINE 1% SDV INJ 30 ML VIAL As Ordered ONE; +TRIAMCINOLONE ACETONIDE SUSP 40 MG/ML VIAL (J3301) As Ordered ONE; +diazePAM 5 MG TAB As Ordered ONE; +oxyCODONE 5MG TAB As Ordered ONE
--- NOTE | 2017-05-18 17:06 | REP ---
FACET BLOCK: The images were reviewed with Dr. Coburn. The patient has a history of neck pain. The portable C-Arm was provided in the OR for Dr. Ramires for fluoroscopic guidance. One intraoperative fluoroscopic spot film was obtained for needle placement verification for bilateral cervical facet injection. The film is on the PACs system and is available for review. 8 seconds of fluoroscopy time was utilized for this procedure. Reviewed by MARLENI Dominguez 05/19/2017 05:28 PEdited and Signed by Bijan Coburn MD 05/20/2017 04:56 P
--- NOTE | 2017-06-07 01:51 | ECWPNPC ---
PATIENT NAME: LUIS KHALIL : 1965 GENDER: FEMALE VISIT DATE: 05/18/2017 DISCHARGE DATE: 05/18/17 1135 VISIT LOCKED DATE TIME: PHYSICIAN: FAIZAN FORREST RESOURCE: FAIZAN FORREST REASON FOR APPOINTMENT 1. CERVICAL FACET WC HISTORY OF PRESENT ILLNESS HISTORY OF PRESENT ILLNESS: PAIN THE PATIENT DESCRIBES THE PAIN... FALL RISK SCREENING: SCREENING :NO FALLS IN THE PAST YEAR CURRENT MEDICATIONS TAKING MULTIVITAMINS TABLET 1 TAB ORALLY DAILY, NOTES: 05/17/17@299 TAKING VITAMIN B12 100 MCG TABLET 1 TABLET ORALLY ONCE A DAY, NOTES: 05/17/17 TAKING OMEPRAZOLE 20 MG CAPSULE DELAYED RELEASE 1 CAPSULE ORALLY TWICE A DAY, NOTES: 05/17/17 TAKING ADVAIR DISKUS 250-50 MCG/DOSE AEROSOL POWDER BREATH ACTIVATED 1 PUFF INHALATION TWICE A DAY, NOTES: 1 MONTH AGO TAKING ALBUTEROL SULFATE HFA 108 (90 BASE) MCG/ACT AEROSOL SOLUTION 2 PUFFS INHALATION DAILY PRN, NOTES: 2 WEEKS AGO TAKING LEXAPRO 20 MG TABLET 1 TAB ORALLY ONCE A DAY, NOTES: 1 1/2 MONTHS AGO TAKING TIZANIDINE HCL 2 MG TABLET 1 TO 2 TABLET NEEDED ORALLY FOR SPASMS AND PAIN EVERY 8 HOURS NEEDED MDD4, NOTES: @1300 TAKING BUTORPHANOL TARTRATE 10 MG/ML SOLUTION 1 SPRAY NEEDED NASALLY EVERY 8 HRS PRN MDD=2, NOTES: 1 MONTH AGO TAKING AMBIEN CR 12.5 MG TABLET EXTENDED RELEASE 1 TABLET ORALLY BEFORE BEDTIME, NOTES: 05/17/17 TAKING HYDROCODONE-ACETAMINOPHEN 5-325 MG TABLET 1 TABLET NEEDED ORALLY EVERY 6 HOURS NEEDED MDD3, NOTES: 05/17/17 NOT-TAKING GABAPENTIN 100 MG CAPSULE DIRECTED ORALLY FOR PAIN BEFORE BEDTIME MEDICATION LIST REVIEWED AND RECONCILED WITH THE PATIENT PAST MEDICAL HISTORY HYPERTENSION ASTHMA GERD ELEVATED CHOLESTEROL PCO S. MIGRANES OBESITY HIGH-203 DCU=991 BACK INJURY 1986, 2012 ALLERGIES SIMVASTATIN: FATIGUE: SIDE EFFECTS IMITREX: NAUSEA: SIDE EFFECTS MAXALT REMOTE INPATIENT CODER: NAUSEA: SIDE EFFECTS SURGICAL HISTORY HYSTERECTOMY 2010 TUBAL LIGATION 1986 EXPLORITORY LAPROSCOPIC 1977 GASTRICBYPASS 05/03/2013 LYMPHECTOMY ON LEFT 07-02-2013 TRIGGER POINT INJECTIONS SHOULDER 2016 FACET JOIN INJECTIONS LUMBAR 2016 SOCIAL HISTORY GENERAL: TOBACCO USE ARE YOU A:CURRENT SMOKER HOW MANY CIGARETTES A DAY DO YOU SMOKE?6-10 HOW SOON AFTER YOU WAKE UP DO YOU SMOKE YOUR FIRST CIGARETTE?31-60 MIN HOW OFTEN DO YOU SMOKE CIGARETTES?EVERY DAY PATIENT COUNSELED ON THE DANGERS OF TOBACCO USE AND URGED TO QUIT:05/18/2017 ARE YOU INTERESTED IN QUITTING?NOT READY TO QUIT COUNSELED THE PATIENT ON SMOKING EFFECTS, EDUCATION [id number]/09/2017 SMOKING CESSATION INFORMATION GIVEN05/18/2017 ALCOHOL SCREENING DID YOU HAVE A DRINK CONTAINING ALCOHOL IN THE PAST YEAR?YES HOW OFTEN DID YOU HAVE A DRINK CONTAINING ALCOHOL IN THE PAST YEAR?TWO TO FOUR TIMES A MONTH (2 POINTS) HOW MANY DRINKS DID YOU HAVE ON A TYPICAL DAY WHEN YOU WERE DRINKING IN THE PAST YEAR?3 OR 4 (1 POINT) HOW OFTEN DID YOU HAVE SIX OR MORE DRINKS ON ONE OCCASION IN THE PAST YEAR?LESS THAN MONTHLY (1 POINT) POINTS4 INTERPRETATIONPOSITIVE RECREATIONAL DRUG USE DENIES. CAFFEINE 1-2/DAY. 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 DIET: REGULAR. EXERCISE: REGULAR. MARITAL STATUS: . OTHERS AT HOME: SPOUSE. PETS: DOG. HINDU NO JEWISH BELIEFS THAT WOULD IMPACT HEALTH CARE. LANGUAGE [employer]. 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 LEARNING BARRIERS / SPECIAL NEEDS CHANGE FROM LAST VISIT?NO BARRIERS TO LEARNING?NO HEARING IMPAIRED?NO VISION IMPAIRED?YES :CORRECTIVE LENSES COGNITIVELY IMPAIRED?NO READINESS TO LEARN?YES LEARNING PREFERENCES?NO LEARNING CAPABILITIES PRESENT?YES EMOTIONAL BARRIERS?NO SPECIAL DEVICES?NO POACHER OPERATOR NEEDED?NO NEW PATIENT PAIN DIARY PATIENT DESCRIBES PAIN :ACHING, BURNING, HAVE IT ALL THE TIME, SHARP, STABBING, TENDER, SORE, SHOOTING FROM 0-10, WHAT LEVEL IS YOUR PAIN TODAY?6 PRECIPITATING FACTORS PT STATES THAT EXCESSIVE LIFTING, BENDING AND WALKING WILL INCREASE PAIN ALLEVIATING FACTORS PAIN MEDS, STRETCHING 3-4 TIMES PER WEEK IMPACT ON FUNCTION LIGHT DUTY AT WORK, RESTRICTS MOBILITY, HAS DIFFICULTY WITH PICKING UP GRANDCHILDREN, UNABLE TO FISH AND KAYAK SHE HAD IN THE PAST WHEN DID YOU LAST EAT?02/09/2017 WHEN DID YOU LAST DRINK?02/09/2017 WHAT DID YOU LAST DRINK? WATER NAME OF PERSON DRIVING YOU HOME SELF IS THERE A CHANCE YOU COULD BE ?NO HAVE YOU BEEN SICK IN THE LAST WEEK (COLD, COUGH, FEVER, FLU, ETC)NO DO YOU TAKE ANY BLOOD THINNERS?NO ANY CHANGE IN BOWEL OR BLADDER CONTROL?YES PT STATES THAT SHE IS HAVING INCREASED ISSUES WITH INCONTINENCE, STATES THAT SHE HAD STRESS INCONTINENCE IN PAST AND NOW IT IS UNCONTROLLED ARE YOU ALLERGIC TO SHELLFISH OR IV DYE?NO ARE YOU DIABETIC?NO DO YOU HAVE A PACEMAKER OR DEFIBRILLATOR?NO ANY NEW PROBLEMS WITH MEDICINES OR NEW ALLERGIESNO ANY NEW PATTERNS OF PAIN OR NUMBNESS?NO ANY CHANGE IN YOUR MEDICAL CONDITION?NO HAVE YOU FALLEN IN THE LAST 6 MONTHS?NO DO YOU USE ANY TYPE OF TOBACCO (SMOKE, SMOKELESS, CHEW, ETC.)YES ARE YOU ABUSED, NEGLECTED, OR IN AN UNSAFE ENVIRONMENT?NO DO YOU HAVE THOUGHTS OF HURTING YOURSELF OR SOMEONE ELSE?NO DO YOU NEED ANY PRESCRIPTIONS?YES WOULD LIKE TO DISCUSS PAIN MEDICATION OPTIONS DO YOU HAVE ANY OTHER QUESTIONS OR CONCERNS?NO INTENSITY SCALE REVIEWEDNUMBER SCORE6 PAIN CLINIC PFS, CLERGY, PUBLIC HEALTH REFERRALS PFS REFERRAL NEEDED?NO WAS THE PROVIDER NOTIFIED OF ANY PERTINENT INFO?YES REVIEWED BY: DS. ADVANCE DIRECTIVES HEALTH CARE PROXY?NO WOULD YOU LIKE MORE INFORMATION?NO DOMESTIC VIOLENCE DO YOU FEEL SAFE IN YOUR ENVIRONMENT?YES QUIT SMOKING AUGUST 2012. HOSPITALIZATION/MAJOR DIAGNOSTIC PROCEDURE HYSTERECTOMY 2011 CHILDBIRTH 1982, 1984 GASTRIC BYPASS 2012 SURGERY REVIEW OF SYSTEMS REVIEWED BY: PROVIDER: . CONSTITUTIONAL: ANY CHANGE IN YOUR MEDICAL CONDITION? NO . CHILLS NO . FEVER NO . INFECTION: DO YOU HAVE NEW INFECTIONS? NO . DO YOU HAVE HISTORY OF MRSA? NO . MUSCULOSKELETAL: ANY NEW PATTERNS OF PAIN OR NUMBNESS? NO . GASTROENTEROLOGY: ANY NEW CHANGE IN BOWEL CONTROL? NO . GENITOURINARY: ANY NEW CHANGE IN BLADDER CONTROL? YES . IS THERE A CHANCE YOU COULD BE ? NO . HEMATOLOGY/LYMPH: DO YOU TAKE ANY BLOOD THINNERS? (FOR EXAMPLE- COUMADIN, PLAVIX, AGGRENOX, PLATEL, PRADAXA, OR XARELTO) NO . WHEN WAS YOUR LAST DOSE? DATE: TIME: . NEUROLOGY: HAVE YOU FALLEN IN THE PAST 6 MONTHS? NO . ANY NEW EXTREMITY NUMBNESS OR WEAKNESS? NO . CARDIOLOGY: DO YOU HAVE A PACEMAKER OR DEFIBRILLATOR? NO . RESPIRATORY: HAVE YOU BEEN SICK IN THE PAST WEEK? NO . FEVER NO . FLU LIKE SYMPTOMS? NO . COUGH NO . INTEGUMENTARY: DO YOU HAVE ANY RASHES OR OPEN SORES? NO . ALLERGIC/IMMUNO: ARE YOU ALLERGIC TO SHELLFISH OR IV DYE? NO . ANY NEW ALLERGIES? NO . PSYCHIATRIC: DO YOU HAVE THOUGHTS OF HURTING YOURSELF OR SOMEONE ELSE? NO . ARE YOU ABUSED, NEGLECTED, OR IN AN UNSAFE ENVIRONMENT? NO . ENDOCRINOLOGY: ARE YOU DIABETIC? NO . OTHER: DO YOU NEED ANY PRESCRIPTIONS? YES . IF YES, PLEASE LIST: ____HYDROCODONE 5/325 . ANY NEW PROBLEMS WITH YOUR MEDICATIONS? NO . WHEN DID YOU LAST EAT? ____/04/25 . WHEN DID YOU LAST DRINK? ____0500 . WHAT DID YOU LAST DRINK? ____WATER . NAME OF PERSON DRIVING YOU HOME? ____PHYLLIS . DO YOU HAVE ANY OTHER QUESTIONS OR CONCERNS NO . VITAL SIGNS WT 142 LBS,1 LBS, HT 62.5 IN, BMI 255.73 INDEX, BP 138/60 MM HG, HR 65 /MIN, RR 18 /MIN, TEMP 98.1 F, OXYGEN SAT % 99%, NA INITIALS SC 08:47, REVIEWED BY: VD. ASSESSMENTS SPONDYLOSIS WITHOUT MYELOPATHY OR RADICULOPATHY, CERVICAL REGION - M47.812 (PRIMARY) TREATMENT OTHERS START HYDROCODONE-ACETAMINOPHEN TABLET, 5-325 MG, 1 TABLET NEEDED, ORALLY FOR PAIN, EVERY 6 HRS MDD3, 30 DAY(S), 75, REFILLS 0 PROCEDURES PN CERVICAL FACET BLOCK LOW BILATERAL CERVICAL PRE PROCEDURE DIAGNOSIS CERVICAL SPONDYLOSIS POST PROCEDURE DIAGNOSIS CERVICAL SPONDYLOSIS PROCEDURE BILATERAL C4-C5 AND BILATERAL C5-C6 CERVICAL FACET BLOCK SURGEON DR. FAIZAN FORREST FILM TECHNICIAN NONE ANESTHESIA LOCAL PRE PROCEDURE NOTE THE PATIENT HAS HISTORY OF CHRONIC CERVICAL PAIN. I EVALUATE THE PATIENT AND REVIEWED THE CHART. I WENT OVER THE RISKS, ALTERNATIVES, AND BENEFITS ASSOCIATED WITH THIS PROCEDURE. THE PATIENT WOULD LIKE TO PROCEED AND GIVE CONSENT TO PERFORMED THE PROCEDURE. THE PATIENT DENIES UNEXPLAINABLE WEIGHT LOSS, FEVER, CHILLS, OR NEW CHANGES IN URINARY OR BOWEL CONTROL. DESCRIPTION OF PROCEDURE THE PATIENT WAS BROUGHT TO THE PROCEDURE ROOM AND PLACED IN THE PRONE POSITION. THE CERVICOTHORACIC AREA WAS CLEANED WITH CHLORAPREP SOLUTION AND DRAPED ASEPTICALLY. THE PROCEDURE WAS DONE UNDER STERILE CONDITIONS. I CHECKED LATERALITY AND THE LEVEL WHERE THE PROCEDURE WAS GOING TO BE PERFORMED WITH THE PATIENT AND THE SUPPORTING STAFF AT THE MOMENT OF THE TIME OUT IN THE PROCEDURE ROOM. UNDER FLUOROSCOPIC GUIDANCE, TARGET POINT WAS SELECTED AT THE RIGHT AND LEFT C4-C5 AND RIGHT AND LEFT C5-C6 CERVICAL FACET JOINT. TARGET POINTS WERE SELECTED AFTER LATERAL ROTATION AND TILT OF THE MAGNIFIER OF THE C-ARM. LIDOCAINE 0.5% WAS USED TO NUMB THE SKIN AND THE SUBCUTANEOUS TISSUE BELOW IT. SPINAL NEEDLES, 22-GAUGE, WERE ADVANCED UNDER FLUOROSCOPIC GUIDANCE AND FOLLOWING PATIENT FEEDBACK UNTIL THE TARGETS WERE TOUCHED. THE POSITION OF THE NEEDLES WAS VERIFIED WITH AP AND LATERAL VIEWS. AFTER PROPER POSITION OF THE NEEDLES WAS ACHIEVED, ISOVUE M DYE 30, 0.1 ML WAS INJECTED SHOWING SPREAD OF THE DYE. THEN A SOLUTION OF 0.9 ML OF BUPIVACAINE 0.125% AND KENALOG 10 MG WAS INJECTED AT EACH SITE. THERE WAS NO EVIDENCE OF BLOOD, PARESTHESIA OR CEREBROSPINAL FLUID DURING THE PROCEDURE. THE PATIENT WAS SENT TO THE RECOVERY ROOM. THE PATIENT WAS MOVING THE EXTREMITIES AND DOING WELL. THERE WAS NO COMPLICATION DURING THE PROCEDURE. FLUOROSCOPY TIME WAS [] SECONDS POST PROCEDURE NOTE THE PATIENT WILL BE SEEN IN A FOLLOW UP IN THE NEXT FEW WEEKS. INSTRUCTIONS WERE GIVEN, QUESTIONS WERE ANSWERED, AND THE PATIENT EXPRESSED UNDERSTANDING AND AGREES WITH THE PLAN. I, YOSHI NEFF, DOCUMENTED THE ABOVE INFORMATION ACTING A SCRIBE FOR DR. FORREST. I HAVE REVIEWED THE ABOVE DOCUMENT, WRITTEN BY YOSHI CANO AND I VERIFY THAT IT IS ACCURATE PN WORKMANS' COMP OPINION IN YOUR OPINION, WAS THE INCIDENT THAT THE PATIENT DESCRIBED THE COMPETENT MEDICAL CAUSE OF THIS INJURY/ILLNESS? YES ARE THE PATIENT'S COMPLAINTS CONSISTENT WITH HIS/HER HISTORY OF THE INJURY/ILLNESS? YES IS THE PATIENT'S HISTORY OF THE INJURY/ILLNESS CONSISTENT WITH YOUR OBJECTIVE FINDING? YES WHAT IS THE PERCENTAGE OF TEMPORARY IMPAIRMENT? MODERATE TO MARKED = 66.7% IS THE PATIENT WORKING? NO DOCTOR ON SITE: FAIZAN STEVENS MD DIAGNOSTIC IMAGING [facility] FACET BLOCK (PAIN)[id number] PROCEDURE CODES 64039 INJ PARAVERT F JNT C/T 1 LEV 98198 INJ PARAVERT F JNT C/T 2 LEV 6045F RADXPS IN END [id number] PXD DISPOSITION & COMMUNICATION FOLLOW UP 3 WEEKS ELECTRONICALLY SIGNED BY FAIZAN FORREST MD ON 06/06/2017 AT 11:39 AM EDT DISCLAIMER : THIS IS A VISIT SUMMARY EXTRACTED FROM THE [employer] CHART. IT IS NOT A COPY OF THE [employer] PROGRESS NOTE. CARMITA
== END ==
LOC: M PAIN 09:00
PROVIDERS: ATTEND Anesthesiology
DX: G89.29 Other chronic pain (principal); M47.812 Spondylosis without myelopathy or radiculopathy, cervical region; Z79.891 Long term (current) use of opiate analgesic; Z79.899 Other long term (current) drug therapy; F17.210 Nicotine dependence, cigarettes, uncomplicated; Z88.8 Allergy status to other drugs, medicaments and biological substances; I10 Essential (primary) hypertension; E78.5 Hyperlipidemia, unspecified; J45.909 Unspecified asthma, uncomplicated; K21.9 Gastro-esophageal reflux disease without esophagitis; Z98.84 Bariatric surgery status; E55.9 Vitamin D deficiency, unspecified; R73.9 Hyperglycemia, unspecified; F41.8 Other specified anxiety disorders
CPT/HCPCS: 64490; 64491; J3301; Q9967

== ENCOUNTER 2017-05-24 09:00 | Outpatient (RCR) | payer BC ==
[~2017-05-24 09:00] MED LIST changes: -BUPIVACAINE HCL 0.25% 30 ML VIAL As Ordered ONE; -ISOVUE-M 300 61% 15ML VIAL (Q9967) As Ordered ONE; -LIDOCAINE 1% SDV INJ 30 ML VIAL As Ordered ONE; -TRIAMCINOLONE ACETONIDE SUSP 40 MG/ML VIAL (J3301) As Ordered ONE; -diazePAM 5 MG TAB As Ordered ONE; -oxyCODONE 5MG TAB As Ordered ONE
== END 2017-06-09 ==
LOC: M OUTALCOH 09:00
PROVIDERS: ATTEND Psychiatry & Neurology Psychiatry
DX: F10.20 Alcohol dependence, uncomplicated (principal); F17.200 Nicotine dependence, unspecified, uncomplicated

== ENCOUNTER → 2017-05-25 | Outpatient (CLI) | payer OTHER, BC ==
--- NOTE | 2017-06-23 00:34 | ECWPNPC ---
PATIENT NAME: LUIS KHALIL : 1965 GENDER: FEMALE VISIT DATE: 05/25/2017 DISCHARGE DATE: 05/25/17 1415 VISIT LOCKED DATE TIME: PHYSICIAN: GEOVANNY WELLS RESOURCE: GEOVANNY WELLS REASON FOR APPOINTMENT 1. POST CERV FACET HISTORY OF PRESENT ILLNESS HISTORY OF PRESENT ILLNESS: PAIN THE PATIENT DESCRIBES THE PAIN... FALL RISK SCREENIN51 Y/O FEMALE REFERRED BY [facility],DR. CABRERA FOR WORK RELATED NECK,MID AND LOW BACK PAIN.PATIENT FELL ON ICE IN [facility] PARKING [facility] ON October. HERE FOR POST PROCEDURE F/U.HAD BILAT CERVICAL FACET BLOCK ON 05-18-17.REPORTING >75% IMPROVEMENT THAT CONTINUES TODAY.REPORTING IMPROVEMENT WITH ROJM OF NECK.REPORTING SIDE EFFECTS WITH GABAPENTIN THAT WAS STARTED AT LAST VISIT.MAKES HER DROWSY.CHIEF AREA OF PAIN IS BILATERAL TRAPEZIUS AND RHOMBOID MUSCULATURE. HAS INTERMITTENT MID BACK PAIN.LOW BACK PAIN IS DESCRIBED INTERMITTENT SEVERE PAIN THAT SHOOTS DOWN BOTH LEGS.CURRENTLY USING HYDROCODONE 5/325 1/2 TO 1 TABLET Q8H PRN PAIN THAT SHE FINDS HELPFUL WITHOUT SIDE EFFECTS.RATING PAIN VAS 6/10.DENIES RECENT FEVER,ILLNESS OR WEIGHT LOSS.DENIES BOWEL OR BLADDER INCONTINENCE. SCREENING :NO FALLS IN THE PAST YEAR :NO FALLS IN THE PAST YEAR CURRENT MEDICATIONS TAKING MULTIVITAMINS TABLET 1 TAB ORALLY DAILY TAKING VITAMIN B12 100 MCG TABLET 1 TABLET ORALLY ONCE A DAY TAKING OMEPRAZOLE 20 MG CAPSULE DELAYED RELEASE 1 CAPSULE ORALLY TWICE A DAY TAKING ADVAIR DISKUS 250-50 MCG/DOSE AEROSOL POWDER BREATH ACTIVATED 1 PUFF INHALATION TWICE A DAY TAKING ALBUTEROL SULFATE HFA 108 (90 BASE) MCG/ACT AEROSOL SOLUTION 2 PUFFS INHALATION DAILY PRN TAKING LEXAPRO 20 MG TABLET 1 TAB ORALLY ONCE A DAY TAKING TIZANIDINE HCL 2 MG TABLET 1 TO 2 TABLET NEEDED ORALLY FOR SPASMS AND PAIN EVERY 8 HOURS NEEDED MDD4 TAKING BUTORPHANOL TARTRATE 10 MG/ML SOLUTION 1 SPRAY NEEDED NASALLY EVERY 8 HRS PRN MDD=2 TAKING AMBIEN CR 12.5 MG TABLET EXTENDED RELEASE 1 TABLET ORALLY BEFORE BEDTIME TAKING HYDROCODONE-ACETAMINOPHEN 5-325 MG TABLET 1 TABLET NEEDED ORALLY EVERY 6 HOURS NEEDED MDD3 TAKING GABAPENTIN 100 MG CAPSULE DIRECTED ORALLY FOR PAIN BEFORE BEDTIME TAKING HYDROCODONE-ACETAMINOPHEN 5-325 MG TABLET 1 TABLET NEEDED ORALLY FOR PAIN EVERY 6 HRS MDD3 TAKING TIZANIDINE HCL 2 MG CAPSULE 1 CAPSULE NEEDED ORALLY FOR SPSMS AND PAIN BEFORE BEDTIME MDD1 MEDICATION LIST REVIEWED AND RECONCILED WITH THE PATIENT PAST MEDICAL HISTORY HYPERTENSION ASTHMA GERD ELEVATED CHOLESTEROL PCO S. MIGRANES OBESITY HIGH-203 QKE=789 BACK INJURY 1986, 2012 ALLERGIES SIMVASTATIN: FATIGUE: SIDE EFFECTS IMITREX: NAUSEA: SIDE EFFECTS MAXALT CHIEF CONTROLLER: NAUSEA: SIDE EFFECTS REVIEW OF SYSTEMS REVIEWED BY: PROVIDER: GEOVANNY MARIEE . CONSTITUTIONAL: ANY CHANGE IN YOUR MEDICAL CONDITION? NO . CHILLS NO . FEVER NO . INFECTION: DO YOU HAVE NEW INFECTIONS? NO . DO YOU HAVE HISTORY OF MRSA? NO . MUSCULOSKELETAL: ANY NEW PATTERNS OF PAIN OR NUMBNESS? NO . GASTROENTEROLOGY: ANY NEW CHANGE IN BOWEL CONTROL? NO . GENITOURINARY: ANY NEW CHANGE IN BLADDER CONTROL? YES, IS FOLLOWING UP WITH UROLOGY . IS THERE A CHANCE YOU COULD BE ? NO . HEMATOLOGY/LYMPH: DO YOU TAKE ANY BLOOD THINNERS? (FOR EXAMPLE- COUMADIN, PLAVIX, AGGRENOX, PLATEL, PRADAXA, OR XARELTO) NO . WHEN WAS YOUR LAST DOSE? DATE: TIME: . NEUROLOGY: HAVE YOU FALLEN IN THE PAST 6 MONTHS? NO . ANY NEW EXTREMITY NUMBNESS OR WEAKNESS? NO . CARDIOLOGY: DO YOU HAVE A PACEMAKER OR DEFIBRILLATOR? NO . RESPIRATORY: HAVE YOU BEEN SICK IN THE PAST WEEK? NO . FEVER NO . FLU LIKE SYMPTOMS? NO . COUGH NO . INTEGUMENTARY: DO YOU HAVE ANY RASHES OR OPEN SORES? NO . ALLERGIC/IMMUNO: ARE YOU ALLERGIC TO SHELLFISH OR IV DYE? NO . ANY NEW ALLERGIES? NO . PSYCHIATRIC: DO YOU HAVE THOUGHTS OF HURTING YOURSELF OR SOMEONE ELSE? NO . ARE YOU ABUSED, NEGLECTED, OR IN AN UNSAFE ENVIRONMENT? NO . ENDOCRINOLOGY: ARE YOU DIABETIC? NO . OTHER: DO YOU NEED ANY PRESCRIPTIONS? NO . IF YES, PLEASE LIST: ____ . ANY NEW PROBLEMS WITH YOUR MEDICATIONS? NO . WHEN DID YOU LAST EAT? ____ . WHEN DID YOU LAST DRINK? ____ . WHAT DID YOU LAST DRINK? ____ . NAME OF PERSON DRIVING YOU HOME? ____ . DO YOU HAVE ANY OTHER QUESTIONS OR CONCERNS NO . VITAL SIGNS WT 140 LBS, HT 62.5 IN, BMI 25.20 INDEX, BP 117/73 MM HG, HR 61 /MIN, RR 18 /MIN, TEMP 98.2 F, OXYGEN SAT % 99%, NA INITIALS AW 1354, REVIEWED BY: NL. EXAMINATION GENERAL EXAMINATION: GENERAL APPEARANCE:ANXIOUS. PSYCHAFFECT NORMAL. LUNGS:LUNG ARCEO ARE CLEAR TO AUSCULTATION BILATERALLY. GOOD MOVEMENT OF AIR. HEART:S1, S2 IN A REGULAR RATE AND RHYTHM. NO SIGNIFICANT MURMURS, RUBS OR GALLOPS NOTED. ABDOMEN:SOFT, NON-TENDER, NO ORGANOMEGALY, BOWEL SOUNDS ARE NORMAL. CERVICAL SPINE/NECK: RANGE OF MOTION OF NECK:LIMITED IN ALL DIRECTIONS. REFLEXES:2 PLUS BILATERALLY. SENSATIONS:NORMAL BILATERALLY. VERTEBRAL SPINE TENDERNESS:SPECIFIC FACET TENDERNESS C4/5-C67. TRAPEZIUS TENDERNESS:PRESENT BILATERALLY. MYOFASCIAL TRIGGER POINTS:NOTED OVER TRAPEZIOUS BILAT.. LUMBAR SPINE/LOWER BACK: LOWER BACK:THERE IS TENDERNESS AT LOWER BACK AND THE PARA SPINAL MUSCLE GROUP. MOTOR SYSTEM:5/5 BLE. SENSORY EXAM:NORMAL. REFLEXES:2/4 AND SYMMETRIC BLE. ASSESSMENTS CERVICALGIA - M54.2 (PRIMARY) PAIN IN THORACIC SPINE - M54.6 LUMBAGO OF LUMBOSACARAL REGION WITH SCIATICA - M54.40 MYALGIA - M79.1 TREATMENT CERVICALGIA REFILL HYDROCODONE-ACETAMINOPHEN TABLET, 5-325 MG, 1 TABLET NEEDED, ORALLY FOR PAIN, EVERY 6 HRS MDD3, 30 DAY(S), 75, REFILLS 0 STOP GABAPENTIN CAPSULE, 100 MG, DIRECTED, ORALLY FOR PAIN, BEFORE BEDTIME REFILL TIZANIDINE HCL CAPSULE, 2 MG, 1 CAPSULE NEEDED, ORALLY FOR SPSMS AND PAIN, BEFORE BEDTIME MDD1, 30 DAY(S), 30, REFILLS 1 NOTES: REQUEST TPI NECK COMP. OTHERS NOTES: TRIGGER POINT INJECTION MATERIAL WAS PRINTED. PROCEDURES PN WORKMANS' COMP OPINION IN YOUR OPINION, WAS THE INCIDENT THAT THE PATIENT DESCRIBED THE COMPETENT MEDICAL CAUSE OF THIS INJURY/ILLNESS? YES ARE THE PATIENT'S COMPLAINTS CONSISTENT WITH HIS/HER HISTORY OF THE INJURY/ILLNESS? YES IS THE PATIENT'S HISTORY OF THE INJURY/ILLNESS CONSISTENT WITH YOUR OBJECTIVE FINDING? YES WHAT IS THE PERCENTAGE OF TEMPORARY IMPAIRMENT? MODERATE TO MARKED = 66.7% IS THE PATIENT WORKING? YES DOCTOR ON SITE: FAIZAN STEVENS MD PREVENTIVE MEDICINE GAVE INFO ON TRIGGER POINT INJECTIONS AND PRE PROCEDURE CARE / PT EXPRESSED UNDERSTANDING. PROCEDURE CODES FA211 ESTABILISHED PATIENT [facility] FACILITY CHARGE DISPOSITION & COMMUNICATION FOLLOW UP 6 WEEKS (REASON: REUEST TPI NECK COMP) ELECTRONICALLY SIGNED BY JAYLENE PELAEZ ON 06/22/2017 AT 04:34 PM EDT DISCLAIMER : THIS IS A VISIT SUMMARY EXTRACTED FROM THE [employer] CHART. IT IS NOT A COPY OF THE [employer] PROGRESS NOTE. CARMITA
== END ==
LOC: M PAIN 13:30
PROVIDERS: ATTEND Nurse Practitioner Family
DX: M54.2 Cervicalgia (principal); M54.6 Pain in thoracic spine; M54.40 Lumbago with sciatica, unspecified side; M79.1 Myalgia; I10 Essential (primary) hypertension; J45.909 Unspecified asthma, uncomplicated; K21.9 Gastro-esophageal reflux disease without esophagitis; E78.5 Hyperlipidemia, unspecified; E78.00 Pure hypercholesterolemia, unspecified; G43.909 Migraine, unspecified, not intractable, without status migrainosus; Z79.891 Long term (current) use of opiate analgesic; Z79.899 Other long term (current) drug therapy; Z88.8 Allergy status to other drugs, medicaments and biological substances

== ENCOUNTER → 2017-06-14 | Outpatient (REF) | payer BC ==
[2017-06-14 14:31] LABS: CALCIUM OXALATE CRYSTALS LARGE
== END ==
LOC: M LAB REF 14:04
PROVIDERS: ATTEND Physician Assistant Medical
DX: N39.0 Urinary tract infection, site not specified (principal)

== ENCOUNTER → 2017-06-14 | Outpatient (CLI) | payer BC ==
--- NOTE | 2017-06-14 13:07 | REPMRS ---
Patient History The patient states she had a clinical breast exam in 2016. Patient is postmenopausal. Family history of breast cancer in maternal aunt at age 65 and breast cancer in maternal grandmother at age 70. Digital Mammo Screening Bilat: June 14, 2017 - Exam #: [id number] Bilateral CC and MLO view(s) were taken. Technologist: Soledad Gonzalez Technologist Prior study comparison: April 07, 2015, digital mammo diagnostic bilateral performed at [facility]. April 04, 2014, digital mammo diagnostic bilateral performed at [facility]. January 25, 2013, bilateral digital mammo screening bilat performed at [facility]. FINDINGS: There are scattered fibroglandular densities. There has been no change in the appearance of the mammogram from the prior studies. There is a mild amount of scattered fibroglandular density which is fairly symmetric. There is no interval development of dominant mass, architectural distortion, or clustered microcalcification suggestive of malignancy. ASSESSMENT: BI-RADS/ACR category 1 mammogram. Negative. Recommendation Routine screening mammogram in 1 year (for women over age 40). This mammogram was interpreted with the aid of an FDA-approved computer-aided dectection system. Electronically Signed By: Chinmay Leon MD 06/14/17 0283
== END ==
LOC: M RAD 12:36
PROVIDERS: ATTEND Nurse Practitioner Family
DX: Z12.31 Encounter for screening mammogram for malignant neoplasm of breast (principal)

== ENCOUNTER → 2017-07-08 | Outpatient (CLI) | payer OTHER, BC ==
--- NOTE | 2017-07-18 23:48 | ECWPNPC ---
PATIENT NAME: LUIS KHALIL : 1965 GENDER: FEMALE VISIT DATE: 07/08/2017 DISCHARGE DATE: 07/08/17 1203 VISIT LOCKED DATE TIME: PHYSICIAN: FAIZAN FORREST RESOURCE: FAIZAN FORREST REASON FOR APPOINTMENT 1. NECK PAIN W.C HISTORY OF PRESENT ILLNESS HISTORY OF PRESENT ILLNESS: PAIN THE PATIENT DESCRIBES THE PAIN... 51 YEAR OLD FEMALE PATIENT WITH HISTORY OF CHRONIC BACK PAIN. PATIENT DESCRIBES THE PAIN ACHING, SHARP, STABBING, SORE, AND SHOOTING WITH A PAIN SCORE OF 7/10. 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 PATIENT WENT TO THE ER A DAY LATER. PATIENT STATES THAT PHYSICAL THERAPY AIDED IN MOBILITY BUT NOT IN PAIN RELIEF. MRS. KHALIL STATES THAT SHE IS USING HYDROCODONE AND TIZANIDINE AND STATES THAT THE MEDICATION TAKES THE EDGE OFF BUT SHE STILL HAS SIGNIFICANT PAIN. MRS. KHALIL REPORTS HAVING NUMBNESS AND TINGLY SENSATION DOWN THE ARMS TO THE HANDS. PATIENT DENIES UNEXPLAINABLE WEIGHT LOSS, FEVER, CHILLS, NEW CHANGES ON HER URINARY OR BOWEL CONTROL. FALL RISK SCREENING: SCREENING :NO FALLS IN THE PAST YEAR CURRENT MEDICATIONS TAKING MULTIVITAMINS TABLET 1 TAB ORALLY DAILY TAKING VITAMIN B12 100 MCG TABLET 1 TABLET ORALLY ONCE A DAY TAKING TIZANIDINE HCL 2 MG TABLET 1 TO 2 TABLET NEEDED ORALLY FOR SPASMS AND PAIN EVERY 8 HOURS NEEDED MDD4 TAKING HYDROCODONE-ACETAMINOPHEN 5-325 MG TABLET 1 TABLET NEEDED ORALLY FOR PAIN EVERY 6 HRS MDD3 TAKING ADVAIR DISKUS 250-50 MCG/DOSE AEROSOL POWDER BREATH ACTIVATED 1 PUFF INHALATION TWICE A DAY TAKING OMEPRAZOLE 20 MG CAPSULE DELAYED RELEASE 1 CAPSULE ORALLY TWICE A DAY TAKING LEXAPRO 20 MG TABLET 1 TAB ORALLY ONCE A DAY TAKING AMBIEN CR 12.5 MG TABLET EXTENDED RELEASE 1 TABLET ORALLY BEFORE BEDTIME TAKING ALBUTEROL SULFATE HFA 108 (90 BASE) MCG/ACT AEROSOL SOLUTION 2 PUFFS INHALATION DAILY PRN TAKING BUTORPHANOL TARTRATE 10 MG/ML SOLUTION 1 SPRAY NEEDED NASALLY EVERY 8 HRS PRN MDD=2 NOT-TAKING HYDROCODONE-ACETAMINOPHEN 5-325 MG TABLET 1 TABLET NEEDED ORALLY EVERY 6 HOURS NEEDED MDD3 NOT-TAKING TIZANIDINE HCL 2 MG CAPSULE 1 CAPSULE NEEDED ORALLY FOR SPSMS AND PAIN BEFORE BEDTIME MDD1 MEDICATION LIST REVIEWED AND RECONCILED WITH THE PATIENT PAST MEDICAL HISTORY HYPERTENSION ASTHMA GERD ELEVATED CHOLESTEROL PCO S. MIGRANES OBESITY HIGH-203 XNS=116 BACK INJURY 1986, 2012 ALLERGIES SIMVASTATIN: FATIGUE: SIDE EFFECTS IMITREX: NAUSEA: SIDE EFFECTS MAXALT STEMMER MACHINE: NAUSEA: SIDE EFFECTS SURGICAL HISTORY HYSTERECTOMY 2011 TUBAL LIGATION 1986 EXPLORITORY LAPROSCOPIC 1977 GASTRICBYPASS 05/03/2013 LYMPHECTOMY ON LEFT 07-02-2013 TRIGGER POINT INJECTIONS SHOULDER 2016 FACET JOIN INJECTIONS LUMBAR 2016 SOCIAL HISTORY GENERAL: TOBACCO USE ARE YOU A:CURRENT SMOKER HOW MANY CIGARETTES A DAY DO YOU SMOKE?6-10 HOW SOON AFTER YOU WAKE UP DO YOU SMOKE YOUR FIRST CIGARETTE?31-60 MIN HOW OFTEN DO YOU SMOKE CIGARETTES?EVERY DAY PATIENT COUNSELED ON THE DANGERS OF TOBACCO USE AND URGED TO QUIT:05/18/2017 ARE YOU INTERESTED IN QUITTING?NOT READY TO QUIT COUNSELED THE PATIENT ON SMOKING EFFECTS, EDUCATION [id number]/09/2017 SMOKING CESSATION INFORMATION GIVEN05/18/2017 ALCOHOL SCREENING DID YOU HAVE A DRINK CONTAINING ALCOHOL IN THE PAST YEAR?YES HOW OFTEN DID YOU HAVE A DRINK CONTAINING ALCOHOL IN THE PAST YEAR?TWO TO FOUR TIMES A MONTH (2 POINTS) HOW MANY DRINKS DID YOU HAVE ON A TYPICAL DAY WHEN YOU WERE DRINKING IN THE PAST YEAR?3 OR 4 (1 POINT) HOW OFTEN DID YOU HAVE SIX OR MORE DRINKS ON ONE OCCASION IN THE PAST YEAR?LESS THAN MONTHLY (1 POINT) POINTS4 INTERPRETATIONPOSITIVE RECREATIONAL DRUG USE DENIES. CAFFEINE 1-2/DAY. 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 DIET: REGULAR. EXERCISE: REGULAR. MARITAL STATUS: . OTHERS AT HOME: SPOUSE. PETS: DOG. WORSHIP NO HINDUISM BELIEFS THAT WOULD IMPACT HEALTH CARE. LANGUAGE [employer]. 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 WATER NAME OF PERSON DRIVING YOU HOME SELF IS THERE A CHANCE YOU COULD BE ?NO HAVE YOU BEEN SICK IN THE LAST WEEK (COLD, COUGH, FEVER, FLU, ETC)NO DO YOU TAKE ANY BLOOD THINNERS?NO ANY CHANGE IN BOWEL OR BLADDER CONTROL?YES PT STATES THAT SHE IS HAVING INCREASED ISSUES WITH INCONTINENCE, STATES THAT SHE HAD STRESS INCONTINENCE IN PAST AND NOW IT IS UNCONTROLLED ARE YOU ALLERGIC TO SHELLFISH OR IV DYE?NO ARE YOU DIABETIC?NO DO YOU HAVE A PACEMAKER OR DEFIBRILLATOR?NO ANY NEW PROBLEMS WITH MEDICINES OR NEW ALLERGIESNO ANY NEW PATTERNS OF PAIN OR NUMBNESS?NO ANY CHANGE IN YOUR MEDICAL CONDITION?NO HAVE YOU FALLEN IN THE LAST 6 MONTHS?NO DO YOU USE ANY TYPE OF TOBACCO (SMOKE, SMOKELESS, CHEW, ETC.)YES ARE YOU ABUSED, NEGLECTED, OR IN AN UNSAFE ENVIRONMENT?NO DO YOU HAVE THOUGHTS OF HURTING YOURSELF OR SOMEONE ELSE?NO DO YOU NEED ANY PRESCRIPTIONS?YES WOULD LIKE TO DISCUSS PAIN MEDICATION OPTIONS DO YOU HAVE ANY OTHER QUESTIONS OR CONCERNS?NO INTENSITY SCALE REVIEWEDNUMBER SCORE6 PAIN CLINIC PFS, CLERGY, PUBLIC HEALTH REFERRALS PFS REFERRAL NEEDED?NO WAS THE PROVIDER NOTIFIED OF ANY PERTINENT INFO?YES HAS THE PATIENT BEEN EDUCATED REGARDING HIS/HER PLAN OF CARE?YES HAS THE PATIENT BEEN EDUCATED REGARDING PAIN, THE RISK FOR PAIN, THE IMPORTANCE OF EFFECTIVE PAIN MANAGEMENT, AND THE PAIN ASSESSMENT PROCESS?YES REVIEWED BY: LIZET. ADVANCE DIRECTIVES HEALTH CARE PROXY?NO WOULD YOU LIKE MORE INFORMATION?NO DOMESTIC VIOLENCE DO YOU FEEL SAFE IN YOUR ENVIRONMENT?YES QUIT SMOKING AUGUST 2012. HOSPITALIZATION/MAJOR DIAGNOSTIC PROCEDURE HYSTERECTOMY 2010 CHILDBIRTH 1982, 1984 GASTRIC BYPASS 2012 SURGERY REVIEW OF SYSTEMS REVIEWED BY: PROVIDER: FAIZAN FORREST MD . CONSTITUTIONAL: ANY CHANGE IN YOUR MEDICAL CONDITION? YES, LEFT LEG HAS GIVEN OUT X2 CAUSING FALLS, PT C/O LEG CRAMPS . CHILLS NO . FEVER NO . INFECTION: DO YOU HAVE NEW INFECTIONS? NO . DO YOU HAVE HISTORY OF MRSA? NO . MUSCULOSKELETAL: ANY NEW PATTERNS OF PAIN OR NUMBNESS? NO . GASTROENTEROLOGY: ANY NEW CHANGE IN BOWEL CONTROL? NO . GENITOURINARY: ANY NEW CHANGE IN BLADDER CONTROL? NO . IS THERE A CHANCE YOU COULD BE ? NO . HEMATOLOGY/LYMPH: DO YOU TAKE ANY BLOOD THINNERS? (FOR EXAMPLE- COUMADIN, PLAVIX, AGGRENOX, PLATEL, PRADAXA, OR XARELTO) NO . WHEN WAS YOUR LAST DOSE? DATE: TIME: . NEUROLOGY: HAVE YOU FALLEN IN THE PAST 6 MONTHS? YES, PT STATES SHE FELL X2 FOR LEFT LEG GIVING OUT, PT DENIES SEEKING MEDICAL [place] . ANY NEW EXTREMITY NUMBNESS OR WEAKNESS? NO . CARDIOLOGY: DO YOU HAVE A PACEMAKER OR DEFIBRILLATOR? NO . RESPIRATORY: HAVE YOU BEEN SICK IN THE PAST WEEK? NO . FEVER NO . FLU LIKE SYMPTOMS? NO . COUGH NO . INTEGUMENTARY: DO YOU HAVE ANY RASHES OR OPEN SORES? NO . ALLERGIC/IMMUNO: ARE YOU ALLERGIC TO SHELLFISH OR IV DYE? NO . ANY NEW ALLERGIES? NO . PSYCHIATRIC: DO YOU HAVE THOUGHTS OF HURTING YOURSELF OR SOMEONE ELSE? NO . ARE YOU ABUSED, NEGLECTED, OR IN AN UNSAFE ENVIRONMENT? NO . ENDOCRINOLOGY: ARE YOU DIABETIC? NO . OTHER: DO YOU NEED ANY PRESCRIPTIONS? YES, HYDROCODONE . IF YES, PLEASE LIST: ____ . ANY NEW PROBLEMS WITH YOUR MEDICATIONS? NO . WHEN DID YOU LAST EAT? ____ . WHEN DID YOU LAST DRINK? ____ . WHAT DID YOU LAST DRINK? ____ . NAME OF PERSON DRIVING YOU HOME? ____ . DO YOU HAVE ANY OTHER QUESTIONS OR CONCERNS YES, LEFT LEG HAS GIVEN OUT ON PT X2. PT EXPRESSES FRUSTRATION WITH COMMUNICATION WITH PAIN CLINIC VIA TELEPHONE . VITAL SIGNS WT 140 LBS, HT 62.5 IN, BMI 25.20 INDEX, BP 155/90 MM HG, HR 68 /MIN, RR 16 /MIN, TEMP 98.6 F, OXYGEN SAT % 99, REVIEWED BY: EM. EXAMINATION : PATIENT IS ALERT O X 3 AND COOPERATIVE. TENDERNESS IN THE CERVICAL AREA AND PARASPINAL MUSCLE GROUP. BANDS OF TISSUE, RESTRICTION OF MOVEMENT, AND PRESENCE OF TRIGGER POINTS IN THE CERVICAL AREA. PATIENT ABLE TO EXTEND AND FLEX THE NECK 10 DEGREES AND LATERAL ROTATION TO THE LEFT 10 DEGREES AND RIGHT 5 DEGREES. MRI OF THE CERVICAL SPINE DONE ON 07/20/16 SHOWS SPONDYLOSIS, ATROPHY, AND MULTIPLE BULGING DISCS. TENDERNESS IN THE LOWER BACK AND PARASPINAL MUSCLE GROUP. PATIENT HAVE TO FLEX THE BACK 45 DEGREES AND EXTEND 15 DEGREES. RIGHT LEG IS WEAKER THEN THE LEFT AT EXTENSION AND FLEXION. MRI DONE ON 01/30/16 SHOWS BULGING DISC AND ATROPHY CHANGES. ASSESSMENTS SACROILIITIS, NOT ELSEWHERE CLASSIFIED - M46.1 (PRIMARY) SPONDYLOSIS OF CERVICAL REGION WITHOUT MYELOPATHY OR RADICULOPATHY - M47.812 CERVICALGIA - M54.2 SPONDYLOSIS OF LUMBAR REGION WITHOUT MYELOPATHY OR RADICULOPATHY - M47.816 SPONDYLOSIS OF LUMBOSACRAL REGION WITHOUT MYELOPATHY OR RADICULOPATHY - M47.817 TREATMENT SACROILIITIS, NOT ELSEWHERE CLASSIFIED NOTES: WE DISCUSSED SEVERAL ISSUES WITH MRS. KHALIL'S PAIN MANAGEMENT CASE. AT THIS TIME THE PATIENT WILL CONTINUE TO USE HYDROCODONE FOR THE SOMATIC PAIN AND TIZANIDINE FOR THE MUSCLE SPASMS. PATIENT REPORTS THE GABAPENTIN AND CYMBALTA NOT AIDING IN NEUROPATHIC PAIN RELIEF. PATIENT DENIES ABUSE OF ANY MEDICATION, DENIES USE OF ILLEGAL SUBSTANCES, AND STATES THAT SHE IS ONLY USING THE MEDICATION FOR PAIN MANAGEMENT. [employer] REVIEWED [id number]. PATIENT WAS REMINDED TO BRING ALL MEDICATIONS TO EVERY VISIT. DUE TO THE SEVERE PAIN IN THE LOWER BACK AND WHERE THE PATIENT STATES HER WORST PAIN IS I WOULD LIKE TO PROCEED WITH A SACROILIAC JOINT INJECTION. WE DISCUSSED THE RISKS, BENENFITS, AND ALTNERATIVES OF THE INJECTION AND THE PATIENT WOULD LIKE TO PROCEED AT THIS TIME. PATIENT RECEIVED A BILATERAL CERVICAL FACET BLOCK ON 05/17/17 AND REPORTS HAVING OVER 50% RELIEF FROM THE INJECTION FOR OVER 7 WEEKS WITH INCREASED MOBILITY AND FUNCTIONALITY. PATIENT REPORTS SHE IS ABLE TO TURN HER HEAD A LOT EASIER AND WAS ABLE TO REDUCE HER MEDICATION USAGE FROM THE INJECTION. INSTRUCTIONS WERE GIVEN, QUESTIONS WERE ANSWERED, PATIENT REPORTS UNDERSTANDING AND AGREES WITH THE PLAN. I, YOSHI NEFF, DOCUMENTED THE ABOVE INFORMATION ACTING A SCRIBE FOR DR. FORREST. I HAVE REVIEWED THE ABOVE DOCUMENT, WRITTEN BY YOSHI CANO AND I VERIFY THAT IT IS ACCURATE. CERVICALGIA CONTINUE HYDROCODONE-ACETAMINOPHEN TABLET, 5-325 MG, 1 TABLET NEEDED, ORALLY FOR PAIN, EVERY 6 HRS MDD3, 30 DAYS, 75, REFILLS 0 NOTES: SACROILIAC JOINT BLOCK AFTER APPROVAL. OTHERS REFILL TIZANIDINE HCL TABLET, 4 MG, 1 TABLET NEEDED, ORALLY, BEFORE BEDTIME MAY REPEAT IN 5 HRS MDD2, 30 DAY(S), 50, REFILLS 1 PROCEDURES PN WORKMANS' COMP OPINION IN YOUR OPINION, WAS THE INCIDENT THAT THE PATIENT DESCRIBED THE COMPETENT MEDICAL CAUSE OF THIS INJURY/ILLNESS? YES ARE THE PATIENT'S COMPLAINTS CONSISTENT WITH HIS/HER HISTORY OF THE INJURY/ILLNESS? YES IS THE PATIENT'S HISTORY OF THE INJURY/ILLNESS CONSISTENT WITH YOUR OBJECTIVE FINDING? YES WHAT IS THE PERCENTAGE OF TEMPORARY IMPAIRMENT? MODERATE TO MARKED = 66.7% IS THE PATIENT WORKING? YES DOCTOR ON SITE: FAIZAN STEVENS MD PROCEDURE CODES FA211 ESTABILISHED PATIENT [facility] FACILITY CHARGE [id number] DOC MEDS VERIFIED W/PT OR RE G8730 PAIN ASSESS POS TOOL F/U PLAN DOC DISPOSITION & COMMUNICATION FOLLOW UP SIJ AFTER APPROVAL ELECTRONICALLY SIGNED BY FAIZAN FORREST MD ON 07/18/2017 AT 04:42 PM EDT DISCLAIMER : THIS IS A VISIT SUMMARY EXTRACTED FROM THE [employer] CHART. IT IS NOT A COPY OF THE [employer] PROGRESS NOTE. CARMITA
== END ==
LOC: M PAIN 09:30
PROVIDERS: ATTEND Anesthesiology
DX: M46.1 Sacroiliitis, not elsewhere classified (principal); M47.812 Spondylosis without myelopathy or radiculopathy, cervical region; M54.2 Cervicalgia; M47.816 Spondylosis without myelopathy or radiculopathy, lumbar region; M47.817 Spondylosis without myelopathy or radiculopathy, lumbosacral region; G89.29 Other chronic pain; I10 Essential (primary) hypertension; E78.5 Hyperlipidemia, unspecified; J45.909 Unspecified asthma, uncomplicated; K21.9 Gastro-esophageal reflux disease without esophagitis; Z79.891 Long term (current) use of opiate analgesic; Z79.899 Other long term (current) drug therapy; F17.210 Nicotine dependence, cigarettes, uncomplicated; Z88.8 Allergy status to other drugs, medicaments and biological substances; Z98.84 Bariatric surgery status

== ENCOUNTER → 2017-09-16 | Outpatient (CLI) | payer OTHER, BC ==
--- NOTE | 2017-10-03 23:13 | ECWPNPC ---
PATIENT NAME: LUIS KHALIL : 1965 GENDER: FEMALE VISIT DATE: 09/16/2017 DISCHARGE DATE: 09/16/17 1012 VISIT LOCKED DATE TIME: PHYSICIAN: FAIZAN FORREST RESOURCE: FAIZAN FORREST REASON FOR APPOINTMENT 1. W/C NECK AND BACK PAIN HISTORY OF PRESENT ILLNESS HISTORY OF PRESENT ILLNESS: PAIN THE PATIENT DESCRIBES THE PAIN... 52 YEAR OLD FEMALE PATIENT WITH HISTORY OF CHRONIC BACK PAIN. PATIENT DESCRIBES THE PAIN ACHING, SHARP, STABBING, SORE, AND SHOOTING WITH A PAIN SCORE OF 7/10. 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 PATIENT WENT TO THE ER A DAY LATER. PATIENT STATES THAT PHYSICAL THERAPY AIDED IN MOBILITY BUT NOT IN PAIN RELIEF. MRS. KHALIL STATES THAT SHE IS USING HYDROCODONE AND TIZANIDINE AND STATES THAT THE MEDICATION TAKES THE EDGE OFF BUT SHE STILL HAS SIGNIFICANT PAIN. MRS. KHALIL REPORTS HAVING SEVERE NECK PAIN WITH RADIATION TO THE HEAD. PAIN HAS BEEN INCENSING IN NEXT MONTH AFFECTING SEVERELY NORMAL ACTIVITIES. PATIENT REPORTS DROPPING THINGS DUE TO NUMBNESS IN THE ARMS AND HANDS. PATIENT DENIES UNEXPLAINABLE WEIGHT LOSS, FEVER, CHILLS, NEW CHANGES ON HER URINARY OR BOWEL CONTROL. FALL RISK SCREENING: SCREENING :NO FALLS IN THE PAST YEAR CURRENT MEDICATIONS TAKING MULTIVITAMINS TABLET 1 TAB ORALLY DAILY TAKING VITAMIN B12 100 MCG TABLET 1 TABLET ORALLY ONCE A DAY TAKING ADVAIR DISKUS 250-50 MCG/DOSE AEROSOL POWDER BREATH ACTIVATED 1 PUFF INHALATION TWICE A DAY TAKING OMEPRAZOLE 20 MG CAPSULE DELAYED RELEASE 1 CAPSULE ORALLY TWICE A DAY TAKING LEXAPRO 20 MG TABLET 1 TAB ORALLY ONCE A DAY TAKING ALBUTEROL SULFATE HFA 108 (90 BASE) MCG/ACT AEROSOL SOLUTION 2 PUFFS INHALATION DAILY PRN TAKING HYDROCODONE-ACETAMINOPHEN 5-325 MG TABLET 1 TABLET NEEDED ORALLY FOR PAIN EVERY 6 HRS MDD3 TAKING TIZANIDINE HCL 4 MG TABLET 1 TABLET NEEDED ORALLY BEFORE BEDTIME MAY REPEAT IN 5 HRS MDD2 TAKING BUTORPHANOL TARTRATE 10 MG/ML SOLUTION 1 SPRAY NEEDED NASALLY EVERY 8 HRS PRN MDD=2 TAKING AMBIEN CR 12.5 MG TABLET EXTENDED RELEASE 1 TABLET ORALLY BEFORE BEDTIME UNKNOWN HYDROCODONE-ACETAMINOPHEN 5-325 MG TABLET 1 TABLET NEEDED ORALLY EVERY 6 HOURS NEEDED MDD3 UNKNOWN TIZANIDINE HCL 2 MG CAPSULE 1 CAPSULE NEEDED ORALLY FOR SPSMS AND PAIN BEFORE BEDTIME MDD1 MEDICATION LIST REVIEWED AND RECONCILED WITH THE PATIENT PAST MEDICAL HISTORY HYPERTENSION ASTHMA GERD ELEVATED CHOLESTEROL PCO S. MIGRANES OBESITY HIGH-203 SBX=566 BACK INJURY 1986, 2012 ALLERGIES SIMVASTATIN: FATIGUE: SIDE EFFECTS IMITREX: NAUSEA: SIDE EFFECTS MAXALT FILBERT GROWER: NAUSEA: SIDE EFFECTS REVIEW OF SYSTEMS REVIEWED BY: PROVIDER: FAIZAN FORREST MD . CONSTITUTIONAL: ANY CHANGE IN YOUR MEDICAL CONDITION? NO . CHILLS NO . FEVER NO . INFECTION: DO YOU HAVE NEW INFECTIONS? NO . DO YOU HAVE HISTORY OF MRSA? NO . MUSCULOSKELETAL: ANY NEW PATTERNS OF PAIN OR NUMBNESS? NEW NUMBNESS IN FACE FROM MIGRAINE, YES . GASTROENTEROLOGY: ANY NEW CHANGE IN BOWEL CONTROL? NO . GENITOURINARY: ANY NEW CHANGE IN BLADDER CONTROL? NO . IS THERE A CHANCE YOU COULD BE ? NO . HEMATOLOGY/LYMPH: DO YOU TAKE ANY BLOOD THINNERS? (FOR EXAMPLE- COUMADIN, PLAVIX, AGGRENOX, PLATEL, PRADAXA, OR XARELTO) NO . WHEN WAS YOUR LAST DOSE? DATE: TIME: . NEUROLOGY: HAVE YOU FALLEN IN THE PAST 6 MONTHS? NO . ANY NEW EXTREMITY NUMBNESS OR WEAKNESS? NO . CARDIOLOGY: DO YOU HAVE A PACEMAKER OR DEFIBRILLATOR? NO . RESPIRATORY: HAVE YOU BEEN SICK IN THE PAST WEEK? NO . FEVER NO . FLU LIKE SYMPTOMS? NO . COUGH NO . INTEGUMENTARY: DO YOU HAVE ANY RASHES OR OPEN SORES? NO . ALLERGIC/IMMUNO: ARE YOU ALLERGIC TO SHELLFISH OR IV DYE? NO . ANY NEW ALLERGIES? NO . PSYCHIATRIC: DO YOU HAVE THOUGHTS OF HURTING YOURSELF OR SOMEONE ELSE? NO . ARE YOU ABUSED, NEGLECTED, OR IN AN UNSAFE ENVIRONMENT? NO . ENDOCRINOLOGY: ARE YOU DIABETIC? NO . OTHER: DO YOU NEED ANY PRESCRIPTIONS? YES PT IS OUT OF HYDROCODONE . IF YES, PLEASE LIST: ____ . ANY NEW PROBLEMS WITH YOUR MEDICATIONS? NO . WHEN DID YOU LAST EAT? ____ . WHEN DID YOU LAST DRINK? ____ . WHAT DID YOU LAST DRINK? ____ . NAME OF PERSON DRIVING YOU HOME? ____ . DO YOU HAVE ANY OTHER QUESTIONS OR CONCERNS NO . VITAL SIGNS WT 141.2 LBS, HT 62.5 IN, BMI 25.41 INDEX, BP 142/78 MM HG, HR 77 /MIN, RR 16 /MIN, TEMP 97.7 F, OXYGEN SAT % 100%, NA INITIALS TL 0912. EXAMINATION : PATIENT IS ALERT O X 3 AND COOPERATIVE. TENDERNESS IN THE CERVICAL AREA AND PARASPINAL MUSCLE GROUP. BANDS OF TISSUE, RESTRICTION OF MOVEMENT, AND PRESENCE OF TRIGGER POINTS IN THE CERVICAL AREA. PATIENT ABLE TO EXTEND 20 DEGREES AND FLEX THE NECK 30 DEGREES AND LATERAL ROTATION TO THE LEFT 55 DEGREES AND RIGHT 45 DEGREES. ABLE TO ABDUCT THE ARMS TO SHOULDER LEVEL. MRI OF THE CERVICAL SPINE DONE ON 07/20/16 SHOWS SPONDYLOSIS, ATROPHY, AND MULTIPLE BULGING DISCS. TENDERNESS IN THE LOWER BACK AND PARASPINAL MUSCLE GROUP. PATIENT HAVE TO FLEX THE BACK 45 DEGREES AND EXTEND 15 DEGREES. RIGHT LEG IS WEAKER THEN THE LEFT AT EXTENSION AND FLEXION. MRI DONE ON 01/30/16 SHOWS BULGING DISC AND ATROPHY CHANGES. 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 KHALIL'S PAIN MANAGEMENT CASE. PATIENT WILL CONTINUE TO USE TIZANIDINE AT NIGHT TO AID IN FROM THE MUSCLE SPASTICITY NEEDED. HYDROCODONE WILL BE INCREASED TO 7.5 MG DUE TO THE PATIENT NOT GETTING GOOD RELIEF FROM THE 5MG. MRS. KHALIL IS USING THIS MEDICATION FOR THE SOMATIC PAIN. PATIENT HAS TRIED OTHER MEDICATIONS BUT HAS HAD ADVERSE SIDE EFFECTS FROM THE MEDICATION. PATIENT DENIES ABUSE OF ANY MEDICATION, DENIES USE OF ILLEGAL SUBSTACNES, AND STATES THAT SHE IS ONLY USING THE MEDICATION FOR PAIN MANAGEMENT. [facility] REVIEWED [id number]. PATIENT WILL PERFORM A URINE TOXICOLOGY AT TODAY'S VISIT. NARCOTIC AGREEMENT WAS SIGNED 02/09/17. PATIENT RECEIVED A BILATERAL CERVICAL FACET BLOCK ON 05/17/17 AND REPORTS HAVING OVER 75% RELIEF FROM THE INJECTION FOR OVER 2 MONTHS WITH INCREASED MOBILITY AND FUNCTIONALITY. PATIENT REPORTS SHE WAS ABLE TO TURN HER HEAD A LOT EASIER AND WAS ABLE TO REDUCE HER MEDICATION USAGE FROM THE INJECTION. DUE TO THE PAIN RETURNING AND BECOMING SEVERE I WOULD LIKE TO PROCEED WITH ANOTHER BILATERAL CERVICAL FACET BLOCK AT C4-C5 AND BILATERAL C5-C6. WE DISCUSSED THE RISKS, BENEFITS, AND ALTNERATIVES OF THE INJECTION INSTRUCTIONS WERE GIVEN, QUESTIONS WERE ANSWERED, PATIENT REPORTS UNDERSTANDING AND AGREES WITH THE PLAN. I, YOSHI NEFF, DOCUMENTED THE ABOVE INFORMATION ACTING A SCRIBE FOR DR. FORREST. I HAVE REVIEWED THE ABOVE DOCUMENT, WRITTEN BY YOSHI CANO AND I VERIFY THAT IT IS ACCURATE. PROCEDURES PN WORKMANS' COMP OPINION IN YOUR OPINION, WAS THE INCIDENT THAT THE PATIENT DESCRIBED THE COMPETENT MEDICAL CAUSE OF THIS INJURY/ILLNESS? YES ARE THE PATIENT'S COMPLAINTS CONSISTENT WITH HIS/HER HISTORY OF THE INJURY/ILLNESS? YES IS THE PATIENT'S HISTORY OF THE INJURY/ILLNESS CONSISTENT WITH YOUR OBJECTIVE FINDING? YES WHAT IS THE PERCENTAGE OF TEMPORARY IMPAIRMENT? MODERATE TO MARKED = 66.7% IS THE PATIENT WORKING? YES DOCTOR ON SITE: FAIZAN STEVENS MD PROCEDURE CODES FA211 ESTABILISHED PATIENT [facility] FACILITY CHARGE G8427 DOC MEDS VERIFIED W/PT OR RE G8730 PAIN ASSESS POS TOOL F/U PLAN DOC DISPOSITION & COMMUNICATION FOLLOW UP CFBT AFTER APPROVAL ELECTRONICALLY SIGNED BY FAIZAN FORREST MD ON 10/03/2017 AT 06:58 PM EST DISCLAIMER : THIS IS A VISIT SUMMARY EXTRACTED FROM THE [employer] ([employer] CHART. IT IS NOT A COPY OF THE [employer] PROGRESS NOTE. CARMITA
== END ==
LOC: M PAIN 09:15
PROVIDERS: ATTEND Anesthesiology
DX: M47.812 Spondylosis without myelopathy or radiculopathy, cervical region (principal); M54.2 Cervicalgia; M47.816 Spondylosis without myelopathy or radiculopathy, lumbar region; M47.817 Spondylosis without myelopathy or radiculopathy, lumbosacral region; G89.29 Other chronic pain; G43.909 Migraine, unspecified, not intractable, without status migrainosus; Z79.891 Long term (current) use of opiate analgesic; Z79.899 Other long term (current) drug therapy; Z88.8 Allergy status to other drugs, medicaments and biological substances

== ENCOUNTER → 2017-10-18 | Outpatient (CLI) | payer OTHER, BC | LOC: M PAIN 08:30 | DX: G89.29 Other chronic pain (principal); M47.812 Spondylosis without myelopathy or radiculopathy, cervical region; I10 Essential (primary) hypertension; K21.9 Gastro-esophageal reflux disease without esophagitis; J45.909 Unspecified asthma, uncomplicated; F17.210 Nicotine dependence, cigarettes, uncomplicated; Z79.891 Long term (current) use of opiate analgesic; Z79.899 Other long term (current) drug therapy | CPT/HCPCS: 64490 ==

== ENCOUNTER → 2017-11-09 | Outpatient (CLI) | payer OTHER | LOC: M PAIN 13:00 | DX: M47.812 Spondylosis without myelopathy or radiculopathy, cervical region (principal); G43.909 Migraine, unspecified, not intractable, without status migrainosus; I10 Essential (primary) hypertension; J45.909 Unspecified asthma, uncomplicated; K21.9 Gastro-esophageal reflux disease without esophagitis; E78.00 Pure hypercholesterolemia, unspecified; F17.210 Nicotine dependence, cigarettes, uncomplicated; Z79.899 Other long term (current) drug therapy; Z88.8 Allergy status to other drugs, medicaments and biological substances | CPT/HCPCS: G0463 ==

== ENCOUNTER → 2017-12-09 | Outpatient (CLI) | payer BC, OTHER | LOC: M PAIN 13:15 | DX: Z53.29 Procedure and treatment not carried out because of patient's decision for other reasons (principal) ==

== ENCOUNTER → 2018-01-12 | Outpatient (CLI) | payer OTHER | LOC: M PAIN 09:30 | DX: M51.26 Other intervertebral disc displacement, lumbar region (principal); M47.812 Spondylosis without myelopathy or radiculopathy, cervical region; M79.1 Myalgia; M54.16 Radiculopathy, lumbar region; I10 Essential (primary) hypertension; J45.909 Unspecified asthma, uncomplicated; K21.9 Gastro-esophageal reflux disease without esophagitis; E78.00 Pure hypercholesterolemia, unspecified; G43.909 Migraine, unspecified, not intractable, without status migrainosus; F17.210 Nicotine dependence, cigarettes, uncomplicated; Z79.899 Other long term (current) drug therapy; Z88.8 Allergy status to other drugs, medicaments and biological substances | CPT/HCPCS: G0463 ==

== ENCOUNTER → 2018-02-14 | Outpatient (CLI) | payer OTHER | LOC: M PAIN 13:00 | DX: M79.1 Myalgia (principal); M54.2 Cervicalgia; G89.29 Other chronic pain; I10 Essential (primary) hypertension; J45.909 Unspecified asthma, uncomplicated; K21.9 Gastro-esophageal reflux disease without esophagitis; E78.00 Pure hypercholesterolemia, unspecified; G43.909 Migraine, unspecified, not intractable, without status migrainosus; Z79.891 Long term (current) use of opiate analgesic; Z79.899 Other long term (current) drug therapy | CPT/HCPCS: G0463 ==

== ENCOUNTER → 2018-04-07 | Outpatient (CLI) | payer BC, SELFPAY ==
[2018-04-07 10:45] LABS: APPEARANCE, URINE MANUAL CLEAR (CLEAR); BILIRUBIN, URINE MANUAL NEGATIVE (NEGATIVE); BLOOD URINE MANUAL NEGATIVE (NEGATIVE); COLOR, URINE MANUAL YELLOW (YELLOW); GLUCOSE, URINE (UA) MANUAL NEGATIVE (NEGATIVE); KETONE, URINE MANUAL 1+ mg/dL (NEGATIVE); LEUKOCYTE ESTERASE, URINE MAN NEGATIVE (NEGATIVE); NITRITE, URINE MANUAL NEGATIVE (NEGATIVE); PROTEIN, URINE MANUAL NEGATIVE (NEGATIVE); SPECIFIC GRAVITY,URINE MANUAL 1.025 (1.002-1.035); UROBILINOGEN, URINE MANUAL NORMAL (NORMAL)
[2018-04-07 10:46] LABS: MICROSCOPIC INDICATED? MAN YES (NO)
[2018-04-07 10:58] LABS: RBC, URINE NONE SEEN /hpf (0-3); SQUAMOUS EPITHELIAL CELL URINE SMALL AMOUNT /hpf (SMALL AMT); WBC, URINE NONE SEEN /hpf (0-3)
[2018-04-07 10:59] LABS: BACTERIA, URINE SMALL AMOUNT; HYALINE CAST, URINE NONE SEEN /lpf (0-1); MICROSCOPIC EXAM PERFORMED; MUCUS, URINE SMALL AMOUNT (NEGATIVE)
== END ==
LOC: M LAB 10:08
DX: R30.0 Dysuria (principal)
CPT/HCPCS: 81000

== ENCOUNTER 2018-04-19 12:55 | Outpatient (RCR) | payer OTHER | END 2018-05-09 | LOC: M PT 12:55 | DX: Z51.89 Encounter for other specified aftercare (principal); M54.2 Cervicalgia; M79.1 Myalgia | CPT/HCPCS: 97010 ==

== ENCOUNTER → 2018-05-04 | Outpatient (CLI) | payer OTHER | LOC: M PAIN 09:15 | DX: M51.26 Other intervertebral disc displacement, lumbar region (principal); M47.812 Spondylosis without myelopathy or radiculopathy, cervical region; M79.1 Myalgia; M54.16 Radiculopathy, lumbar region; I10 Essential (primary) hypertension; J45.909 Unspecified asthma, uncomplicated; K21.9 Gastro-esophageal reflux disease without esophagitis; G43.909 Migraine, unspecified, not intractable, without status migrainosus; F17.210 Nicotine dependence, cigarettes, uncomplicated; Z79.891 Long term (current) use of opiate analgesic; Z79.899 Other long term (current) drug therapy; Z88.8 Allergy status to other drugs, medicaments and biological substances; Z98.84 Bariatric surgery status | CPT/HCPCS: G0463 ==

== ENCOUNTER 2018-05-10 13:07 | Outpatient (RCR) | payer OTHER | END 2018-06-09 | LOC: M PT 05-24 12:56 | DX: Z51.89 Encounter for other specified aftercare (principal); M79.1 Myalgia; M54.2 Cervicalgia | CPT/HCPCS: 97010 ==

== ENCOUNTER 2018-06-16 06:27 | Emergency (ER) | payer OTHER, BC ==
[2018-06-16] MEDS: ONDANSETRON 4 MG TAB (S0181) PO (07:26)
[2018-06-16 07:39] LABS: BASO # 0.1 10^3/uL (0.0-0.2); EOS # 0.2 10^3/uL (0.0-0.50); EOS % 3.7 % (0.0-3.0); HEMATOCRIT 37.3 % (36.0-47.0); HEMOGLOBIN 12.3 g/dl (12.0-15.5); IMMATURE GRANULOCYTE % 0.2 % (0-3.0); LYMPH # 2.1 10^3/uL (1.5-4.5); LYMPH % 42.6 % (24.0-44.0); MEAN CORPUSCULAR HEMOGLOBIN 28.5 pg (27.0-33.0); MEAN CORPUSCULAR VOLUME 86.3 fl (80.0-96.0); MONO # 0.4 10^3/uL (0.0-0.8); MONO % 7.5 % (0.0-5.0); NEUTROPHILS # 2.2 10^3/uL (1.8-7.7); PLATELET COUNT, AUTOMATED 233 10^3/uL (150-450); RED BLOOD COUNT 4.32 10^6/uL (4.00-5.40); RED CELL DISTRIBUTION WIDTH 13.9 % (11.5-14.5); WHITE BLOOD COUNT 4.9 10^3/uL (4.0-10.0)
[2018-06-16 08:00] LABS: ANION GAP 10 MEQ/L (8-16); BLOOD UREA NITROGEN 19 MG/DL (7-18); CALCIUM LEVEL 8.3 MG/DL (8.5-10.1); CARBON DIOXIDE LEVEL 22 MEQ/L (21-32); CHLORIDE LEVEL 107 MEQ/L (98-107); CREATININE FOR GFR 0.56 MG/DL (0.55-1.30); GLOMERULAR FILTRATION RATE > 60.0 (>51); GLUCOSE, FASTING 82 MG/DL (70-100); POTASSIUM SERUM 3.6 MEQ/L (3.5-5.1); SODIUM LEVEL 139 MEQ/L (136-145)
[2018-06-16 08:55] LABS: APPEARANCE, URINE CLOUDY (CLEAR); BACTERIA, URINE AUTO 1+ (NEGATIVE); BILIRUBIN, URINE AUTO NEGATIVE (NEGATIVE); BLOOD, URINE BLOOD 1+ (NEGATIVE); COLOR, URINE YELLOW (YELLOW); GLUCOSE, URINE (UA) AUTO NEGATIVE (NEGATIVE); KETONE, URINE AUTO 1+ mg/dL (NEGATIVE); LEUKOCYTE ESTERASE, URINE AUTO NEGATIVE (NEGATIVE); MUCUS, URINE LARGE (NEGATIVE); NITRITE, URINE AUTO NEGATIVE (NEGATIVE); PROTEIN, URINE AUTO NEGATIVE (NEGATIVE); RBC, URINE AUTO 13 /HPF (0-3); SPECIFIC GRAVITY URINE AUTO 1.027 (1.002-1.035); SQUAMOUS EPITHELIAL CELL UR AU 14 /HPF (0-6); UROBILINOGEN, URINE AUTO 0.2 mg/dL (0.0-2.0); WBC, URINE AUTO 1 /HPF (0-3)
== END 2018-06-16 09:23 | disposition home or self-care (01) ==
LOC: M ED 06:27
DX: S06.0X0A Concussion without loss of consciousness, initial encounter (principal); R03.0 Elevated blood-pressure reading, without diagnosis of hypertension; M54.2 Cervicalgia; W01.198A Fall on same level from slipping, tripping and stumbling with subsequent striking against other object, initial encounter; Y92.89 Other specified places as the place of occurrence of the external cause; Z79.899 Other long term (current) drug therapy
CPT/HCPCS: 72072

== ENCOUNTER 2018-06-19 07:56 | Outpatient (RCR) | payer OTHER | END 2018-07-09 | LOC: M PT 07:56 | DX: Z51.89 Encounter for other specified aftercare (principal); M54.2 Cervicalgia; M79.1 Myalgia | CPT/HCPCS: 97010 ==

== ENCOUNTER 2018-07-21 12:56 | Outpatient (RCR) | payer OTHER | END 2018-08-09 | LOC: M PT 12:56 | DX: M54.2 Cervicalgia (principal); M79.10 Myalgia, unspecified site | CPT/HCPCS: 97010 ==

== ENCOUNTER → 2018-08-02 | Outpatient (CLI) | payer BC | LOC: M RAD 06:41 | DX: M79.89 Other specified soft tissue disorders (principal) | CPT/HCPCS: 77066 ==

== ENCOUNTER → 2018-08-21 | Outpatient (CLI) | payer OTHER ==
[~2018-08-21] MED LIST changes: -BUTO10SO; -GABA-279 PO; -HYDR-3713 PO; +ISOVUE-M 300 61% 15ML VIAL (Q9967) As Ordered; -LEXA1TAB2 PO; +LIDOCAINE 1% SDV INJ 30 ML VIAL As Ordered; -OMEP20CA3 PO; -TIZA2CAP3 PO; -VALI5TAB PO; +diazePAM 5 MG TAB As Ordered; +methylPREDNISolone SUSP 40 MG/ML (DEPO-medrol) VIAL (J1030) As Ordered; +oxyCODONE 5MG TAB As Ordered
== END ==
LOC: M PAIN 08:30
DX: G89.29 Other chronic pain (principal); M51.16 Intervertebral disc disorders with radiculopathy, lumbar region; I10 Essential (primary) hypertension; J45.909 Unspecified asthma, uncomplicated; K21.9 Gastro-esophageal reflux disease without esophagitis; E78.00 Pure hypercholesterolemia, unspecified; G43.909 Migraine, unspecified, not intractable, without status migrainosus; F17.210 Nicotine dependence, cigarettes, uncomplicated; Z79.899 Other long term (current) drug therapy; Z88.8 Allergy status to other drugs, medicaments and biological substances; Z98.84 Bariatric surgery status
CPT/HCPCS: J1030

== ENCOUNTER → 2018-09-11 | Outpatient (CLI) | payer OTHER | LOC: M PAIN 12:45 | DX: M50.10 Cervical disc disorder with radiculopathy, unspecified cervical region (principal); M54.5 Low back pain; M51.16 Intervertebral disc disorders with radiculopathy, lumbar region; G89.29 Other chronic pain; I10 Essential (primary) hypertension; J45.909 Unspecified asthma, uncomplicated; E78.00 Pure hypercholesterolemia, unspecified; G43.909 Migraine, unspecified, not intractable, without status migrainosus; F17.210 Nicotine dependence, cigarettes, uncomplicated; Z79.899 Other long term (current) drug therapy; Z88.8 Allergy status to other drugs, medicaments and biological substances; Z87.39 Personal history of other diseases of the musculoskeletal system and connective tissue; Z98.84 Bariatric surgery status | CPT/HCPCS: G0463 ==

== ENCOUNTER 2018-10-06 12:56 | Outpatient (RCR) | payer OTHER ==
[~2018-10-06 12:56] MED LIST changes: +BUTO10SO; +GABA-1171 PO; +HYDR-3713 PO; -ISOVUE-M 300 61% 15ML VIAL (Q9967) As Ordered; +LEXA1TAB2 PO; -LIDOCAINE 1% SDV INJ 30 ML VIAL As Ordered; +OMEP20CA3 PO; +TIZA2CAP PO; +VALI5TAB PO; -diazePAM 5 MG TAB As Ordered; -methylPREDNISolone SUSP 40 MG/ML (DEPO-medrol) VIAL (J1030) As Ordered; -oxyCODONE 5MG TAB As Ordered
== END 2018-10-09 ==
LOC: M PT 12:56
PROVIDERS: ATTEND Anesthesiology
DX: M79.10 Myalgia, unspecified site (principal)

== ENCOUNTER → 2018-10-18 | Outpatient (CLI) | payer OTHER ==
--- NOTE | 2018-11-06 01:07 | ECWPNPC ---
PATIENT NAME: LUIS KHALIL : 1965 GENDER: FEMALE VISIT DATE: 10/18/2018 DISCHARGE DATE: 10/18/18 1452 VISIT LOCKED DATE TIME: PHYSICIAN: FAIZAN FORREST MD RESOURCE: FAIZAN FORREST MD REASON FOR APPOINTMENT 1. W/C MEDICATION REVIEW HISTORY OF PRESENT ILLNESS HISTORY OF PRESENT ILLNESS: PAIN THE PATIENT DESCRIBES THE PAIN... 53 YEAR OLD FEMALE PATIENT WITH A HISTORY OF CHRONIC NECK AND BACK PAIN. THE PATIENT DESCRIBES THE PAIN ACHING, BURNING, SORE, TENDER, SHARP, STABBING, SHOOTING, AND CONTINUOUS WITH A PAIN SCORE OF 6-10/10 DEPENDING ON PHYSICAL ACTIVITY. 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 THE PATIENT SAYS THAT THE PAIN IN HER MID BACK AREA IS THE WORST RIGHT NOW. THE PATIENT IS CURRENTLY USING HYDROCODONE AND TIZANIDINE TO AID IN PAIN RELIEF. THE PATIENT SAYS THE TIZANIDINE HELPS WITH THE SPASMS AT NIGHT, BUT THE HYDROCODONE HAS NOT BEEN HELPING MUCH LATELY. THE PATIENT TRIED USING NUCYNTA, BUT SAYS THAT SHE DID NOT LIKE THE WAY IT MADE HER FEEL. PATIENT DENIES UNEXPLAINABLE WEIGHT LOSS, FEVER, CHILLS, NEW CHANGES ON HER URINARY OR BOWEL CONTROL. FALL RISK SCREENING: SCREENING :NO FALLS IN THE PAST YEAR CURRENT MEDICATIONS TAKING NUCYNTA 50 MG TABLET 1 TABLET ORALLY EVERY 6 HRS PRN FOR PAIN MDD3 TAKING ALBUTEROL SULFATE HFA 108 (90 BASE) MCG/ACT AEROSOL SOLUTION 2 PUFFS INHALATION DAILY PRN- CHET TAKING BUTORPHANOL TARTRATE 10 MG/ML SOLUTION 1 SPRAY NEEDED NASALLY EVERY 8 HRS PRN MDD=2 TAKING OMEPRAZOLE 20 MG CAPSULE DELAYED RELEASE 1 CAPSULE ORALLY TWICE A DAY TAKING VITAMIN D-3 1000 UNIT CAPSULE 1 CAPSULE ORALLY ONCE A DAY TAKING VITAMIN B12 100 MCG TABLET 1 TABLET ORALLY ONCE A DAY TAKING MULTIVITAMINS TABLET 1 TAB ORALLY DAILY TAKING BIOTIN 10 MG CAPSULE ORALLY DAILY TAKING TIZANIDINE HCL 4 MG TABLET 1 TABLET NEEDED ORALLY BEFORE BEDTIME MAY REPEAT IN 5 HRS MDD2 TAKING HYDROCODONE-ACETAMINOPHEN 7.5-325 MG TABLET 1 TABLET NEEDED ORALLY EVERY 6 HRS PRN PAIN MDD3, NOTES: OKAY TO FILL NOW TAKING AMBIEN CR 12.5 MG TABLET EXTENDED RELEASE 1 TABLET ORALLY BEFORE BEDTIME, NOTES: [id number] NOT-TAKING ADVAIR DISKUS 250-50 MCG/DOSE AEROSOL POWDER BREATH ACTIVATED 1 PUFF INHALATION TWICE A DAY, NOTES: NONE RECENTLY MEDICATION LIST REVIEWED AND RECONCILED WITH THE PATIENT PAST MEDICAL HISTORY HYPERTENSION ASTHMA GERD ELEVATED CHOLESTEROL PCO S. MIGRANES OBESITY HIGH-203 RCV=584 BACK INJURY 1986, 2015 ALLERGIES SIMVASTATIN: FATIGUE: SIDE EFFECTS IMITREX: NAUSEA: SIDE EFFECTS MAXALT RIB SAWYER: NAUSEA: SIDE EFFECTS LYRICA: CONFUSION: SIDE EFFECTS GABAPENTIN: CONFUSION: SIDE EFFECTS SURGICAL HISTORY HYSTERECTOMY 2010 TUBAL LIGATION 1985 EXPLORITORY LAPROSCOPIC 1976 GASTRICBYPASS 05/03/2013 LYMPHECTOMY ON LEFT 07-02-2013 TRIGGER POINT INJECTIONS SHOULDER 2015 FACET JOIN INJECTIONS LUMBAR 2015 FAMILY HISTORY FATHER: , DIABETES, HYPERTENSION, HYPERLIPIDEMIA, DIAGNOSED WITH HEART DISEASE MOTHER: ALIVE, HYPERTENSION, HYPERLIPIDEMIA, DIAGNOSED WITH HYPERTENSION SIBLINGS: ALIVE SON(S): ALIVE 1 BROTHER(S) , 1 SISTER(S) - HEALTHY. 2 SON(S) - HEALTHY. FAMILY HISTORY IS POSITIVE FOR DIABETES, HYPERTENSION, HEART DISEASE. MATERNAL AUNT AND GRANDMOTHER WITH BREAST CANCER. SOCIAL HISTORY GENERAL: TOBACCO USE ARE YOU A:CURRENT SMOKER ARE YOU INTERESTED IN QUITTING?NOT READY TO QUIT COUNSELED THE PATIENT ON SMOKING EFFECTS, EDUCATION [id number]/09/2019 HOW MANY CIGARETTES A DAY DO YOU SMOKE?11-20 HOW OFTEN DO YOU SMOKE CIGARETTES?EVERY DAY PATIENT COUNSELED ON THE DANGERS OF TOBACCO USE AND URGED TO QUIT:10/18/2018 SMOKING CESSATION INFORMATION GIVEN09/11/2018 DECLINED ANY DEIRE TO QUIT SMOKING AT THIS TIME VAPORNO E-CIGARETTENO ALCOHOL SCREENING DID YOU HAVE A DRINK CONTAINING ALCOHOL IN THE PAST YEAR?YES HOW OFTEN DID YOU HAVE SIX OR MORE DRINKS ON ONE OCCASION IN THE PAST YEAR?NEVER (0 POINTS) HOW MANY DRINKS DID YOU HAVE ON A TYPICAL DAY WHEN YOU WERE DRINKING IN THE PAST YEAR?1 OR 2 (0 POINTS) HOW OFTEN DID YOU HAVE A DRINK CONTAINING ALCOHOL IN THE PAST YEAR?MONTHLY OR LESS (1 POINT) POINTS1 INTERPRETATIONNEGATIVE RECREATIONAL DRUG USE DRUG USE?NO CAFFEINE CAFFEINE USE?YES HOW OFTEN AND HOW MUCH? TWICE WEEKLY HIV / HEP-C SCREENING HIV TEST OFFERED TO PATIENT:YES DATE OFFERED:07/24/2018 TEST ACCEPTED:NO HEP-C TEST OFFERED TO PATIENT:YES DATE OFFERED:07/24/2018 REASON:PATIENT DECLINED TEST ACCEPTED:NO REASON:PATIENT DECLINED BROCHURE PROVIDED TO PATIENTYES LATTER DAY NO YARSANI BELIEFS THAT WOULD IMPACT HEALTH CARE. LANGUAGE SAMOAN. 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 LEARNING BARRIERS / SPECIAL NEEDS CHANGE FROM LAST VISIT?NO BARRIERS TO LEARNING?NO HEARING IMPAIRED?YES VISION IMPAIRED?YES COGNITIVELY IMPAIRED?NO : LEFT EAR NO HEARING AIDS : CORRECTED LENSES READINESS TO LEARN?YES LEARNING PREFERENCES?NO LEARNING CAPABILITIES PRESENT?YES EMOTIONAL BARRIERS?NO SPECIAL DEVICES?NO WINDOWS SERVER SUPPORT TECHNICIAN NEEDED?NO DOMESTIC VIOLENCE DO YOU FEEL SAFE IN YOUR ENVIRONMENT?YES OCCUPATION: [employer]. DIET: REGULAR. EXERCISE: REGULAR. MARITAL STATUS: . OTHERS AT HOME: SPOUSE. 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 WATER NAME OF PERSON DRIVING YOU HOME SELF IS THERE A CHANCE YOU COULD BE ?NO HAVE YOU BEEN SICK IN THE LAST WEEK (COLD, COUGH, FEVER, FLU, ETC)NO DO YOU TAKE ANY BLOOD THINNERS?NO ANY CHANGE IN BOWEL OR BLADDER CONTROL?NO PT STATES THAT SHE IS HAVING INCREASED ISSUES WITH INCONTINENCE, STATES THAT SHE HAD STRESS INCONTINENCE IN PAST AND NOW IT IS UNCONTROLLED ARE YOU ALLERGIC TO SHELLFISH OR IV DYE?NO ARE YOU DIABETIC?NO DO YOU HAVE A PACEMAKER OR DEFIBRILLATOR?NO ANY NEW PROBLEMS WITH MEDICINES OR NEW ALLERGIESNO ANY NEW PATTERNS OF PAIN OR NUMBNESS?NO ANY CHANGE IN YOUR MEDICAL CONDITION?NO HAVE YOU FALLEN IN THE LAST 6 MONTHS?NO DO YOU USE ANY TYPE OF TOBACCO (SMOKE, SMOKELESS, CHEW, ETC.)YES ARE YOU ABUSED, NEGLECTED, OR IN AN UNSAFE ENVIRONMENT?NO DO YOU HAVE THOUGHTS OF HURTING YOURSELF OR SOMEONE ELSE?NO DO YOU NEED ANY PRESCRIPTIONS?NO DO YOU HAVE ANY OTHER QUESTIONS OR CONCERNS?NO INTENSITY SCALE REVIEWEDNUMBER SCORE6 PAIN CLINIC PFS, CLERGY, PUBLIC HEALTH REFERRALS PFS REFERRAL NEEDED?NO WAS THE PROVIDER NOTIFIED OF ANY PERTINENT INFO?YES HAS THE PATIENT BEEN EDUCATED REGARDING HIS/HER PLAN OF CARE?YES HAS THE PATIENT BEEN EDUCATED REGARDING PAIN, THE RISK FOR PAIN, THE IMPORTANCE OF EFFECTIVE PAIN MANAGEMENT, AND THE PAIN ASSESSMENT PROCESS?YES PLEASE DOCUMENT ANY ADDTIONAL DETAILS. CERVICAL FACET BLOCK ADVANCE DIRECTIVE ADVANCE DIRECTIVE DISCUSSED WITH PATIENT:YES DECLINED INFORMATION ON HCP. REVIEWED NL 09/11/18REVIEWED WITH PATIENT 10/18/18 1336 JS. HOSPITALIZATION/MAJOR DIAGNOSTIC PROCEDURE HYSTERECTOMY 2011 CHILDBIRTH 1982, 1984 GASTRIC BYPASS 2013 SURGERY [id number] 05/2018 REVIEW OF SYSTEMS REVIEWED BY: PROVIDER: FAIZAN FORREST MD . CONSTITUTIONAL: ANY CHANGE IN YOUR MEDICAL CONDITION? NO . CHILLS NO . FEVER NO . INFECTION: DO YOU HAVE NEW INFECTIONS? NO . DO YOU HAVE HISTORY OF MRSA? NO . MUSCULOSKELETAL: ANY NEW PATTERNS OF PAIN OR NUMBNESS? NO . GASTROENTEROLOGY: ANY NEW CHANGE IN BOWEL CONTROL? NO . GENITOURINARY: ANY NEW CHANGE IN BLADDER CONTROL? NO . IS THERE A CHANCE YOU COULD BE ? NO . HEMATOLOGY/LYMPH: DO YOU TAKE ANY BLOOD THINNERS? (FOR EXAMPLE- COUMADIN, PLAVIX, AGGRENOX, PLATEL, PRADAXA, OR XARELTO) NO . WHEN WAS YOUR LAST DOSE? DATE: TIME: . NEUROLOGY: HAVE YOU FALLEN IN THE PAST 6 MONTHS? YES, STATES FALL THIS SUMMER, DISCUSSED AT PREVIOUS VISIT . ANY NEW EXTREMITY NUMBNESS OR WEAKNESS? YES, STATES LEFT ARM NUMBNESS AND WEAKNESS, WORSENING WITH DECREASED ROM . CARDIOLOGY: DO YOU HAVE A PACEMAKER OR DEFIBRILLATOR? NO . RESPIRATORY: HAVE YOU BEEN SICK IN THE PAST WEEK? NO . FEVER NO . FLU LIKE SYMPTOMS? NO . COUGH NO . INTEGUMENTARY: DO YOU HAVE ANY RASHES OR OPEN SORES? NO . ALLERGIC/IMMUNO: ARE YOU ALLERGIC TO SHELLFISH OR IV DYE? NO . ANY NEW ALLERGIES? NO . PSYCHIATRIC: DO YOU HAVE THOUGHTS OF HURTING YOURSELF OR SOMEONE ELSE? NO . ARE YOU ABUSED, NEGLECTED, OR IN AN UNSAFE ENVIRONMENT? NO . ENDOCRINOLOGY: ARE YOU DIABETIC? NO . OTHER: DO YOU NEED ANY PRESCRIPTIONS? YES . IF YES, PLEASE LIST: ____HYDROCODONE . ANY NEW PROBLEMS WITH YOUR MEDICATIONS? YES, STATES PROBLEMS WITH NUCYNTA, MAKES HER EXTREMELY DAZED, DROWSY,AND CONFUSED . WHEN DID YOU LAST EAT? ____ . WHEN DID YOU LAST DRINK? ____ . WHAT DID YOU LAST DRINK? ____ . NAME OF PERSON DRIVING YOU HOME? ____ . DO YOU HAVE ANY OTHER QUESTIONS OR CONCERNS NO . VITAL SIGNS WT 139.6 LBS, HT 62.5 IN, BMI 25.12 INDEX, BP 171/91 MM HG, REPEAT BP 132/72 MANUAL, HR 86 /MIN, RR 16 /MIN, TEMP 98.1 F, OXYGEN SAT % 99%, SAFE IN ENV? (Y/N) YES, NA INITIALS AW 1321, REVIEWED BY: JS. EXAMINATION GENERAL EXAMINATION: PATIENT IS ALERT O X 3 AND COOPERATIVE. TENDERNESS IN THE MID BACK AREA. PAIN INCREASES OVER THE THORACIC FACET JOINTS WITH EXTENSION AND LATERAL ROTATION OF THE BACK. ASSESSMENTS SPONDYLOSIS OF THORACIC REGION WITHOUT MYELOPATHY OR RADICULOPATHY - M47.814 (PRIMARY) LUMBAR DISC DISPLACEMENT WITHOUT MYELOPATHY - M51.26 TREATMENT SPONDYLOSIS OF THORACIC REGION WITHOUT MYELOPATHY OR RADICULOPATHY CLINICAL NOTES: WE DISCUSSED SEVERAL ISSUES WITH MRS. KHALIL'S PAIN MANAGEMENT CASE. DUE TO THE THORACIC SPONDYLOSIS, I WOULD LIKE TO MOVE FORWARD WITH A BILATERAL THORACIC THERAPEUTIC FACET BLOCK AT THIS TIME. WE DISCUSSED THE BENEFITS, RISKS, AND ALTERNATIVES OF THE INJECTION AND THE PATIENT WOULD LIKE TO PROCEED. I WOULD LIKE THE PATIENT TO START USING OXYCODONE TO SEE IF THAT WILL GET HER PAIN UNDER CONTROL AND I WILL REFILL HER HYDROCODONE A BACK UP IF THE NEW MEDICATION DOES NOT HELP. ISTOP [id number] WAS REVIEWED. URINE TOXICOLOGY DONE ON 05/04/2018 SHOWS CONCURRENT RESULTS. THE PATIENT BROUGHT THE MEDICATIONS TO TODAY'S VISIT IN THE ORIGINAL BOTTLES. WE WILL DESTROY THE NUCYNTA TODAY. THE PATIENT WILL FOLLOW UP IN 3 WEEKS. INSTRUCTIONS WERE GIVEN, QUESTIONS WERE ANSWERED, PATIENT REPORTS UNDERSTANDING AND AGREES WITH THE PLAN. I, FELICITAS ORTEGA, DOCUMENTED THE ABOVE INFORMATION ACTING A SCRIBE FOR DR. FORREST. I HAVE REVIEWED THE ABOVE DOCUMENT, WRITTEN BY FELICITAS CANO AND I VERIFY THAT IT IS ACCURATE. LUMBAR DISC DISPLACEMENT WITHOUT MYELOPATHY REFILL HYDROCODONE-ACETAMINOPHEN TABLET, 7.5-325 MG, 1 TABLET NEEDED, ORALLY, EVERY 6 HRS PRN PAIN MDD3, 30 DAY(S), 75, REFILLS 0, NOTES: OKAY TO FILL NOW START OXYCODONE HCL TABLET, 5 MG, 1 TABLET NEEDED, ORALLY FOR PAIN, EVERY 6 HRS MDD3, 5 DAY(S), 15, REFILLS 0 PROCEDURES PN WORKMANS' COMP OPINION IN YOUR OPINION, WAS THE INCIDENT THAT THE PATIENT DESCRIBED THE COMPETENT MEDICAL CAUSE OF THIS INJURY/ILLNESS? YES ARE THE PATIENT'S COMPLAINTS CONSISTENT WITH HIS/HER HISTORY OF THE INJURY/ILLNESS? YES IS THE PATIENT'S HISTORY OF THE INJURY/ILLNESS CONSISTENT WITH YOUR OBJECTIVE FINDING? YES WHAT IS THE PERCENTAGE OF TEMPORARY IMPAIRMENT? MODERATE TO MARKED = 66.7% IS THE PATIENT WORKING? YES DOCTOR ON SITE: FAIZAN STEVENS MD PROCEDURE CODES FA211 ESTABILISHED PATIENT [facility] FACILITY CHARGE [id number] CURRENT MEDS W/DOSAGES DOCUMENTED [id number] PAIN ASSESS POS TOOL F/U PLAN DOC DISPOSITION & COMMUNICATION FOLLOW UP 3 WEEKS ELECTRONICALLY SIGNED BY FAIZAN FORREST MD, ON 11/05/2018 AT 04:27 PM EST DISCLAIMER : THIS IS A VISIT SUMMARY EXTRACTED FROM THE [employer] [facility] CHART. IT IS NOT A COPY OF THE [employer] PROGRESS NOTE. CARMITA
== END ==
LOC: M PAIN 13:00
PROVIDERS: ATTEND Anesthesiology
DX: M47.814 Spondylosis without myelopathy or radiculopathy, thoracic region (principal); M51.26 Other intervertebral disc displacement, lumbar region; I10 Essential (primary) hypertension; J45.909 Unspecified asthma, uncomplicated; K21.9 Gastro-esophageal reflux disease without esophagitis; E78.00 Pure hypercholesterolemia, unspecified; G43.909 Migraine, unspecified, not intractable, without status migrainosus; F17.210 Nicotine dependence, cigarettes, uncomplicated; Z79.899 Other long term (current) drug therapy; Z88.8 Allergy status to other drugs, medicaments and biological substances; Z98.84 Bariatric surgery status

== ENCOUNTER → 2018-11-01 | Outpatient (CLI) | payer OTHER ==
--- NOTE | 2018-11-20 00:05 | ECWPNPC ---
PATIENT NAME: LUIS KHALIL : 1965 GENDER: FEMALE VISIT DATE: 11/01/2018 DISCHARGE DATE: 11/01/18 1033 VISIT LOCKED DATE TIME: PHYSICIAN: FAIZAN FORREST MD RESOURCE: FAIZAN FORREST MD REASON FOR APPOINTMENT 1. W/C MEDS- PT IS WORKING PLEASE MAKE APPT QUICK HISTORY OF PRESENT ILLNESS HISTORY OF PRESENT ILLNESS: PAIN THE PATIENT DESCRIBES THE PAIN... THE PATIENT DESCRIBES THE PAIN... 53 YEAR OLD FEMALE PATIENT WITH A HISTORY OF CHRONIC NECK AND BACK PAIN. THE PATIENT DESCRIBES THE PAIN ACHING, BURNING, SORE, TENDER, SHARP, STABBING, SHOOTING, AND CONTINUOUS WITH A PAIN SCORE OF 6-8/10 DEPENDING ON PHYSICAL ACTIVITY. 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 THE PATIENT IS CURRENTLY USING TIZANIDINE FOR SPASMS, HYDROCODONE FOR SOMATIC PAIN, AND OXYCODONE FOR SOMATIC PAIN. THE PATIENT SAYS THAT THE HYDROCODONE HAS NOT BEEN HELPING MUCH, BUT THE OXYCODONE HAS. THE PATIENT SAYS THAT THE USE OF THESE MEDICATIONS HELP HER REMAIN MOBILE AND FUNCTIONAL. PATIENT DENIES UNEXPLAINABLE WEIGHT LOSS, FEVER, CHILLS, NEW CHANGES ON HER URINARY OR BOWEL CONTROL. FALL RISK SCREENING: SCREENING :NO FALLS IN THE PAST YEAR CURRENT MEDICATIONS TAKING ALBUTEROL SULFATE HFA 108 (90 BASE) MCG/ACT AEROSOL SOLUTION 2 PUFFS INHALATION DAILY PRN- CHET TAKING BUTORPHANOL TARTRATE 10 MG/ML SOLUTION 1 SPRAY NEEDED NASALLY EVERY 8 HRS PRN MDD=2 TAKING OMEPRAZOLE 20 MG CAPSULE DELAYED RELEASE 1 CAPSULE ORALLY TWICE A DAY TAKING VITAMIN D-3 1000 UNIT CAPSULE 1 CAPSULE ORALLY ONCE A DAY TAKING VITAMIN B12 100 MCG TABLET 1 TABLET ORALLY ONCE A DAY TAKING MULTIVITAMINS TABLET 1 TAB ORALLY DAILY TAKING BIOTIN 10 MG CAPSULE ORALLY DAILY TAKING TIZANIDINE HCL 4 MG TABLET 1 TABLET NEEDED ORALLY BEFORE BEDTIME MAY REPEAT IN 5 HRS MDD2 TAKING AMBIEN CR 12.5 MG TABLET EXTENDED RELEASE 1 TABLET ORALLY BEFORE BEDTIME, NOTES: [id number] TAKING HYDROCODONE-ACETAMINOPHEN 7.5-325 MG TABLET 1 TABLET NEEDED ORALLY EVERY 6 HRS PRN PAIN MDD3, NOTES: OKAY TO FILL NOW NOT-TAKING ADVAIR DISKUS 250-50 MCG/DOSE AEROSOL POWDER BREATH ACTIVATED 1 PUFF INHALATION TWICE A DAY, NOTES: NONE RECENTLY DISCONTINUED NUCYNTA 50 MG TABLET 1 TABLET ORALLY EVERY 6 HRS PRN FOR PAIN MDD3 DISCONTINUED OXYCODONE HCL 5 MG TABLET 1 TABLET NEEDED ORALLY FOR PAIN EVERY 6 HRS MDD3 MEDICATION LIST REVIEWED AND RECONCILED WITH THE PATIENT PAST MEDICAL HISTORY HYPERTENSION ASTHMA GERD ELEVATED CHOLESTEROL PCO S. MIGRANES OBESITY HIGH-203 CGQ=826 BACK INJURY 1986, 2015 ALLERGIES SIMVASTATIN: FATIGUE: SIDE EFFECTS IMITREX: NAUSEA: SIDE EFFECTS MAXALT BANK EXAMINER: NAUSEA: SIDE EFFECTS LYRICA: CONFUSION: SIDE EFFECTS GABAPENTIN: CONFUSION: SIDE EFFECTS SURGICAL HISTORY HYSTERECTOMY 2010 TUBAL LIGATION 1985 EXPLORITORY LAPROSCOPIC 1977 GASTRICBYPASS 05/03/2013 LYMPHECTOMY ON LEFT 07-02-2013 TRIGGER POINT INJECTIONS SHOULDER 2016 FACET JOIN INJECTIONS LUMBAR 2016 FAMILY HISTORY FATHER: , DIABETES, HYPERTENSION, HYPERLIPIDEMIA, DIAGNOSED WITH HEART DISEASE MOTHER: ALIVE, HYPERTENSION, HYPERLIPIDEMIA, DIAGNOSED WITH HYPERTENSION SIBLINGS: ALIVE SON(S): ALIVE 1 BROTHER(S) , 1 SISTER(S) - HEALTHY. 2 SON(S) - HEALTHY. FAMILY HISTORY IS POSITIVE FOR DIABETES, HYPERTENSION, HEART DISEASE. MATERNAL AUNT AND GRANDMOTHER WITH BREAST CANCER. SOCIAL HISTORY GENERAL: TOBACCO USE ARE YOU A:CURRENT SMOKER ARE YOU INTERESTED IN QUITTING?NOT READY TO QUIT COUNSELED THE PATIENT ON SMOKING EFFECTS, EDUCATION [id number]/23/2019 HOW MANY CIGARETTES A DAY DO YOU SMOKE?11-20 HOW OFTEN DO YOU SMOKE CIGARETTES?EVERY DAY PATIENT COUNSELED ON THE DANGERS OF TOBACCO USE AND URGED TO QUIT:10/18/2018 SMOKING CESSATION INFORMATION GIVEN11/01/2018 DECLINED ANY DEIRE TO QUIT SMOKING AT THIS TIME VAPORNO E-CIGARETTENO ALCOHOL SCREENING DID YOU HAVE A DRINK CONTAINING ALCOHOL IN THE PAST YEAR?YES HOW OFTEN DID YOU HAVE SIX OR MORE DRINKS ON ONE OCCASION IN THE PAST YEAR?NEVER (0 POINTS) HOW MANY DRINKS DID YOU HAVE ON A TYPICAL DAY WHEN YOU WERE DRINKING IN THE PAST YEAR?1 OR 2 (0 POINTS) HOW OFTEN DID YOU HAVE A DRINK CONTAINING ALCOHOL IN THE PAST YEAR?MONTHLY OR LESS (1 POINT) POINTS1 INTERPRETATIONNEGATIVE RECREATIONAL DRUG USE DRUG USE?NO CAFFEINE CAFFEINE USE?YES HOW OFTEN AND HOW MUCH? TWICE WEEKLY HIV / HEP-C SCREENING HIV TEST OFFERED TO PATIENT:YES DATE OFFERED:07/24/2018 TEST ACCEPTED:NO HEP-C TEST OFFERED TO PATIENT:YES DATE OFFERED:07/24/2018 REASON:PATIENT DECLINED TEST ACCEPTED:NO REASON:PATIENT DECLINED BROCHURE PROVIDED TO PATIENTYES CAODAISM NO ANABAPTISM BELIEFS THAT WOULD IMPACT HEALTH CARE. LANGUAGE THAI. 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 LEARNING BARRIERS / SPECIAL NEEDS CHANGE FROM LAST VISIT?NO BARRIERS TO LEARNING?NO HEARING IMPAIRED?YES VISION IMPAIRED?YES COGNITIVELY IMPAIRED?NO : LEFT EAR NO HEARING AIDS : CORRECTED LENSES READINESS TO LEARN?YES LEARNING PREFERENCES?NO LEARNING CAPABILITIES PRESENT?YES EMOTIONAL BARRIERS?NO SPECIAL DEVICES?NO FIELD CROP I FARMWORKER NEEDED?NO DOMESTIC VIOLENCE DO YOU FEEL SAFE IN YOUR ENVIRONMENT?YES OCCUPATION: [employer]. DIET: REGULAR. EXERCISE: REGULAR. MARITAL STATUS: . OTHERS AT HOME: SPOUSE. 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 WATER NAME OF PERSON DRIVING YOU HOME SELF IS THERE A CHANCE YOU COULD BE ?NO HAVE YOU BEEN SICK IN THE LAST WEEK (COLD, COUGH, FEVER, FLU, ETC)NO DO YOU TAKE ANY BLOOD THINNERS?NO ANY CHANGE IN BOWEL OR BLADDER CONTROL?NO PT STATES THAT SHE IS HAVING INCREASED ISSUES WITH INCONTINENCE, STATES THAT SHE HAD STRESS INCONTINENCE IN PAST AND NOW IT IS UNCONTROLLED ARE YOU ALLERGIC TO SHELLFISH OR IV DYE?NO ARE YOU DIABETIC?NO DO YOU HAVE A PACEMAKER OR DEFIBRILLATOR?NO ANY NEW PROBLEMS WITH MEDICINES OR NEW ALLERGIESNO ANY NEW PATTERNS OF PAIN OR NUMBNESS?NO ANY CHANGE IN YOUR MEDICAL CONDITION?NO HAVE YOU FALLEN IN THE LAST 6 MONTHS?NO DO YOU USE ANY TYPE OF TOBACCO (SMOKE, SMOKELESS, CHEW, ETC.)YES ARE YOU ABUSED, NEGLECTED, OR IN AN UNSAFE ENVIRONMENT?NO DO YOU HAVE THOUGHTS OF HURTING YOURSELF OR SOMEONE ELSE?NO DO YOU NEED ANY PRESCRIPTIONS?NO DO YOU HAVE ANY OTHER QUESTIONS OR CONCERNS?NO INTENSITY SCALE REVIEWEDNUMBER SCORE6 PAIN CLINIC PFS, CLERGY, PUBLIC HEALTH REFERRALS PFS REFERRAL NEEDED?NO WAS THE PROVIDER NOTIFIED OF ANY PERTINENT INFO?YES HAS THE PATIENT BEEN EDUCATED REGARDING HIS/HER PLAN OF CARE?YES HAS THE PATIENT BEEN EDUCATED REGARDING PAIN, THE RISK FOR PAIN, THE IMPORTANCE OF EFFECTIVE PAIN MANAGEMENT, AND THE PAIN ASSESSMENT PROCESS?YES PLEASE DOCUMENT ANY ADDTIONAL DETAILS. CERVICAL FACET BLOCK ADVANCE DIRECTIVE ADVANCE DIRECTIVE DISCUSSED WITH PATIENT:YES DECLINED INFORMATION ON HCP. REVIEWED NL 09/11/18REVIEWED WITH PATIENT 10/18/18 1336 JS. HOSPITALIZATION/MAJOR DIAGNOSTIC PROCEDURE HYSTERECTOMY 2011 CHILDBIRTH 1982, 1984 GASTRIC BYPASS 2013 SURGERY [id number] 05/2018 REVIEW OF SYSTEMS REVIEWED BY: PROVIDER: FAIZAN FORREST MD . CONSTITUTIONAL: ANY CHANGE IN YOUR MEDICAL CONDITION? NO . CHILLS NO . FEVER NO . INFECTION: DO YOU HAVE NEW INFECTIONS? NO . DO YOU HAVE HISTORY OF MRSA? NO . MUSCULOSKELETAL: ANY NEW PATTERNS OF PAIN OR NUMBNESS? YES, LEFT ARM NUMBNESS . GASTROENTEROLOGY: ANY NEW CHANGE IN BOWEL CONTROL? NO . GENITOURINARY: ANY NEW CHANGE IN BLADDER CONTROL? NO . IS THERE A CHANCE YOU COULD BE ? NO . HEMATOLOGY/LYMPH: DO YOU TAKE ANY BLOOD THINNERS? (FOR EXAMPLE- COUMADIN, PLAVIX, AGGRENOX, PLATEL, PRADAXA, OR XARELTO) NO . WHEN WAS YOUR LAST DOSE? DATE: TIME: . NEUROLOGY: HAVE YOU FALLEN IN THE PAST 12 MONTHS? NO . ANY NEW EXTREMITY NUMBNESS OR WEAKNESS? NO . CARDIOLOGY: DO YOU HAVE A PACEMAKER OR DEFIBRILLATOR? NO . RESPIRATORY: HAVE YOU BEEN SICK IN THE PAST WEEK? NO . FEVER NO . FLU LIKE SYMPTOMS? NO . COUGH NO . INTEGUMENTARY: DO YOU HAVE ANY RASHES OR OPEN SORES? NO . ALLERGIC/IMMUNO: ARE YOU ALLERGIC TO IV DYE? NO . ANY NEW ALLERGIES? NO . PSYCHIATRIC: DO YOU HAVE THOUGHTS OF HURTING YOURSELF OR SOMEONE ELSE? NO . ARE YOU ABUSED, NEGLECTED, OR IN AN UNSAFE ENVIRONMENT? NO . ENDOCRINOLOGY: ARE YOU DIABETIC? NO . OTHER: DO YOU NEED ANY PRESCRIPTIONS? NO . IF YES, PLEASE LIST: ____OXYCODONE, (TALK ABOUT DOSE ! ) . ANY NEW PROBLEMS WITH YOUR MEDICATIONS? YES . WHEN DID YOU LAST EAT? ____ . WHEN DID YOU LAST DRINK? ____ . WHAT DID YOU LAST DRINK? ____ . NAME OF PERSON DRIVING YOU HOME? ____ . DO YOU HAVE ANY OTHER QUESTIONS OR CONCERNS YES, DID COMP AGREE TO MY SHOTS NERVE CONDUCTION ST OR MRI . NO ONE HAS CALLED HAS BEEN 2WEEKS . VITAL SIGNS WT 141.4 LBS, HT 62.5 IN, BMI 25.45 INDEX, BP 146/83 MM HG, REPEAT BP 157/84 MM HG, HR 76 /MIN, RR 16 /MIN, TEMP 97.6 F, OXYGEN SAT % 99%, SAFE IN ENV? (Y/N) Y, NA INITIALS SC 09:45, REVIEWED BY: VD. EXAMINATION GENERAL EXAMINATION: PATIENT IS ALERT O X 3 AND COOPERATIVE. ASSESSMENTS INTERVERTEBRAL DISC DISORDER WITH RADICULOPATHY OF LUMBAR REGION - M51.16 (PRIMARY) CERVICALGIA - M54.2 LOW BACK PAIN - M54.5 TREATMENT INTERVERTEBRAL DISC DISORDER WITH RADICULOPATHY OF LUMBAR REGION CLINICAL NOTES: WE DISCUSSED SEVERAL ISSUES WITH MRS. KHALIL'S PAIN MANAGEMENT CASE. THE PATIENT STATES THAT THE HYDROCODONE HAS NOT BEEN HELPING AND SHE HAD AN UNUSUAL FEELING WHILE TAKING NUCYNTA, SO I WOULD LIKE HER TO CONTINUE USING THE OXYCODONE BECAUSE SHE SAYS IT HAS BEEN HELPING CONTROL HER PAIN. ISTOP [id number] WAS REVIEWED. URINE TOXICOLOGY DONE ON 05/04/2018 SHOWS CONCURRENT RESULTS AND WE WILL REPEAT IT TODAY. WE DISCUSSED THE RISKS OF USING NARCOTICS SUCH THE DEVELOPMENT OF TOLERANCE AND ADDICTION AND THE PATIENT VERBALIZED UNDERSTANDING. THE PATIENT WILL FOLLOW UP IN 6 WEEKS. INSTRUCTIONS WERE GIVEN, QUESTIONS WERE ANSWERED, PATIENT REPORTS UNDERSTANDING AND AGREES WITH THE PLAN. I, FELICITAS ORTEGA, DOCUMENTED THE ABOVE INFORMATION ACTING A SCRIBE FOR DR. FORREST. I HAVE REVIEWED THE ABOVE DOCUMENT, WRITTEN BY FELICITAS CANO AND I VERIFY THAT IT IS ACCURATE. OTHERS START OXYCODONE HCL TABLET, 5 MG, 1 TABLET NEEDED, ORALLY FOR PAIN, EVERY 6 HRS MDD3, 30 DAY(S), 90, REFILLS 0 REFILL TIZANIDINE HCL TABLET, 4 MG, 1 TABLET NEEDED, ORALLY, BEFORE BEDTIME MAY REPEAT IN 5 HRS MDD2, 30 DAY(S), 60, REFILLS 0 PROCEDURES PN WORKMANS' COMP OPINION IN YOUR OPINION, WAS THE INCIDENT THAT THE PATIENT DESCRIBED THE COMPETENT MEDICAL CAUSE OF THIS INJURY/ILLNESS? YES ARE THE PATIENT'S COMPLAINTS CONSISTENT WITH HIS/HER HISTORY OF THE INJURY/ILLNESS? YES IS THE PATIENT'S HISTORY OF THE INJURY/ILLNESS CONSISTENT WITH YOUR OBJECTIVE FINDING? YES WHAT IS THE PERCENTAGE OF TEMPORARY IMPAIRMENT? MODERATE TO MARKED = 66.7% IS THE PATIENT WORKING? YES DOCTOR ON SITE: FAIZAN STEVENS MD PROCEDURE CODES FA211 ESTABILISHED PATIENT [facility] FACILITY CHARGE G8427 CURRENT MEDS W/DOSAGES DOCUMENTED G8730 PAIN ASSESS POS TOOL F/U PLAN DOC DISPOSITION & COMMUNICATION FOLLOW UP 6 WEEKS (REASON: W/C POST PROC) ELECTRONICALLY SIGNED BY FAIZAN FORREST MD, MD ON 11/19/2018 AT 06:08 PM EST DISCLAIMER : THIS IS A VISIT SUMMARY EXTRACTED FROM THE [employer] CHART. IT IS NOT A COPY OF THE [employer] PROGRESS NOTE. CARMITA
== END ==
LOC: M PAIN 09:30
PROVIDERS: ATTEND Anesthesiology
DX: M51.16 Intervertebral disc disorders with radiculopathy, lumbar region (principal); M54.2 Cervicalgia; M54.5 Low back pain; I10 Essential (primary) hypertension; J45.909 Unspecified asthma, uncomplicated; K21.9 Gastro-esophageal reflux disease without esophagitis; G43.909 Migraine, unspecified, not intractable, without status migrainosus; F17.210 Nicotine dependence, cigarettes, uncomplicated; Z79.899 Other long term (current) drug therapy; Z88.8 Allergy status to other drugs, medicaments and biological substances; Z98.84 Bariatric surgery status

== ENCOUNTER 2018-11-07 08:41 | Outpatient (RCR) | payer OTHER | END 2018-11-09 | LOC: M PT 08:41 | PROVIDERS: ATTEND Anesthesiology | DX: M79.18 Myalgia, other site (principal) ==

== ENCOUNTER → 2018-11-17 | Outpatient (CLI) | payer OTHER ==
--- NOTE | 2018-11-25 23:18 | ECWPNPC ---
PATIENT NAME: LUIS KHALIL : 1965 GENDER: FEMALE VISIT DATE: 11/17/2018 DISCHARGE DATE: 11/17/18 1520 VISIT LOCKED DATE TIME: PHYSICIAN: FAIZAN FORREST MD RESOURCE: FAIZAN FORREST MD REASON FOR APPOINTMENT 1. W/C REVIEW MTG HISTORY OF PRESENT ILLNESS HISTORY OF PRESENT ILLNESS: PAIN THE PATIENT DESCRIBES THE PAIN... 53 YEAR OLD FEMALE PATIENT WITH A HISTORY OF CHRONIC THORACIC AND NECK PAIN. THE PATIENT DESCRIBES THE PAIN ACHING, BURNING, SORE, TENDER, SHARP, SHOOTING, STABBING, AND CONTINUOUS WITH A PAIN SCORE OF 8-10/10 DEPENDING ON PHYSICAL ACTIVITY. 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 THE PATIENT SAYS HER PAIN HAS INCREASED OVER THE LAST MONTH. THE PATIENT SAYS THAT SHE HAS DIFFICULTY DOING DAILY ACTIVITIES SUCH WORKING, CLEANING, COOKING, AND SLEEPING DUE TO THE PAIN. THE PATIENT IS CURRENTLY USING OXYCODONE TO AID IN PAIN RELIEF AND THE PATIENT SAYS THAT THE MEDICATION HELPS HER REMAIN MOBILE AND FUNCTIONAL, BUT THE PAIN HAS INCREASED IN THE LAST FEW MONTHS. SHE HAS DIFFICULTIES DOING HER ACTIVITIES INCLUDING WORKING. PATIENT DENIES UNEXPLAINABLE WEIGHT LOSS, FEVER, CHILLS, NEW CHANGES ON HER URINARY OR BOWEL CONTROL. FALL RISK SCREENING: SCREENING :NO FALLS IN THE PAST YEAR CURRENT MEDICATIONS TAKING OXYCODONE HCL 5 MG TABLET 1 TABLET NEEDED ORALLY FOR PAIN EVERY 6 HRS MDD3 TAKING TIZANIDINE HCL 4 MG TABLET 1 TABLET NEEDED ORALLY BEFORE BEDTIME MAY REPEAT IN 5 HRS MDD2 TAKING AMBIEN CR 12.5 MG TABLET EXTENDED RELEASE 1 TABLET ORALLY BEFORE BEDTIME, NOTES: [id number] TAKING ALBUTEROL SULFATE HFA 108 (90 BASE) MCG/ACT AEROSOL SOLUTION 2 PUFFS INHALATION DAILY PRN- CHET TAKING BUTORPHANOL TARTRATE 10 MG/ML SOLUTION 1 SPRAY NEEDED NASALLY EVERY 8 HRS PRN MDD=2 TAKING OMEPRAZOLE 20 MG CAPSULE DELAYED RELEASE 1 CAPSULE ORALLY TWICE A DAY TAKING VITAMIN D-3 1000 UNIT CAPSULE 1 CAPSULE ORALLY ONCE A DAY TAKING VITAMIN B12 100 MCG TABLET 1 TABLET ORALLY ONCE A DAY TAKING MULTIVITAMINS TABLET 1 TAB ORALLY DAILY TAKING BIOTIN 10 MG CAPSULE ORALLY DAILY NOT-TAKING ADVAIR DISKUS 250-50 MCG/DOSE AEROSOL POWDER BREATH ACTIVATED 1 PUFF INHALATION TWICE A DAY, NOTES: NONE RECENTLY NOT-TAKING HYDROCODONE-ACETAMINOPHEN 7.5-325 MG TABLET 1 TABLET NEEDED ORALLY EVERY 6 HRS PRN PAIN MDD3, NOTES: OKAY TO FILL NOW MEDICATION LIST REVIEWED AND RECONCILED WITH THE PATIENT PAST MEDICAL HISTORY HYPERTENSION ASTHMA GERD ELEVATED CHOLESTEROL PCO S. 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 2 SON(S) - HEALTHY. FAMILY HISTORY IS POSITIVE FOR DIABETES, HYPERTENSION, HEART DISEASE. MATERNAL AUNT AND GRANDMOTHER WITH BREAST CANCER. SOCIAL HISTORY GENERAL: TOBACCO USE ARE YOU A:CURRENT SMOKER ARE YOU INTERESTED IN QUITTING?NOT READY TO QUIT COUNSELED THE PATIENT ON SMOKING EFFECTS, EDUCATION [id number]/23/2019 HOW MANY CIGARETTES A DAY DO YOU SMOKE?11-20 HOW OFTEN DO YOU SMOKE CIGARETTES?EVERY DAY PATIENT COUNSELED ON THE DANGERS OF TOBACCO USE AND URGED TO QUIT:10/18/2018 SMOKING CESSATION INFORMATION GIVEN11/01/2018 DECLINED ANY DEIRE TO QUIT SMOKING AT THIS TIME VAPORNO E-CIGARETTENO ALCOHOL SCREENING DID YOU HAVE A DRINK CONTAINING ALCOHOL IN THE PAST YEAR?YES HOW OFTEN DID YOU HAVE SIX OR MORE DRINKS ON ONE OCCASION IN THE PAST YEAR?NEVER (0 POINTS) HOW MANY DRINKS DID YOU HAVE ON A TYPICAL DAY WHEN YOU WERE DRINKING IN THE PAST YEAR?1 OR 2 (0 POINTS) HOW OFTEN DID YOU HAVE A DRINK CONTAINING ALCOHOL IN THE PAST YEAR?MONTHLY OR LESS (1 POINT) POINTS1 INTERPRETATIONNEGATIVE RECREATIONAL DRUG USE DRUG USE?NO CAFFEINE CAFFEINE USE?YES HOW OFTEN AND HOW MUCH? TWICE WEEKLY HIV / HEP-C SCREENING HIV TEST OFFERED TO PATIENT:YES DATE OFFERED:07/24/2018 TEST ACCEPTED:NO HEP-C TEST OFFERED TO PATIENT:YES DATE OFFERED:07/24/2018 REASON:PATIENT DECLINED TEST ACCEPTED:NO REASON:PATIENT DECLINED BROCHURE PROVIDED TO PATIENTYES MANDAEN NO YAZIDISM BELIEFS THAT WOULD IMPACT HEALTH CARE. 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 LEARNING BARRIERS / SPECIAL NEEDS CHANGE FROM LAST VISIT?NO BARRIERS TO LEARNING?NO HEARING IMPAIRED?YES VISION IMPAIRED?YES COGNITIVELY IMPAIRED?NO : LEFT EAR NO HEARING AIDS : CORRECTED LENSES READINESS TO LEARN?YES LEARNING PREFERENCES?NO LEARNING CAPABILITIES PRESENT?YES EMOTIONAL BARRIERS?NO SPECIAL DEVICES?NO SENIOR REACTOR OPERATOR NEEDED?NO DOMESTIC VIOLENCE DO YOU FEEL SAFE IN YOUR ENVIRONMENT?YES OCCUPATION: [employer]. DIET: REGULAR. EXERCISE: REGULAR. MARITAL STATUS: . OTHERS AT HOME: SPOUSE. 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 WATER NAME OF PERSON DRIVING YOU HOME SELF IS THERE A CHANCE YOU COULD BE ?NO HAVE YOU BEEN SICK IN THE LAST WEEK (COLD, COUGH, FEVER, FLU, ETC)NO DO YOU TAKE ANY BLOOD THINNERS?NO ANY CHANGE IN BOWEL OR BLADDER CONTROL?NO PT STATES THAT SHE IS HAVING INCREASED ISSUES WITH INCONTINENCE, STATES THAT SHE HAD STRESS INCONTINENCE IN PAST AND NOW IT IS UNCONTROLLED ARE YOU ALLERGIC TO SHELLFISH OR IV DYE?NO ARE YOU DIABETIC?NO DO YOU HAVE A PACEMAKER OR DEFIBRILLATOR?NO ANY NEW PROBLEMS WITH MEDICINES OR NEW ALLERGIESNO ANY NEW PATTERNS OF PAIN OR NUMBNESS?NO ANY CHANGE IN YOUR MEDICAL CONDITION?NO HAVE YOU FALLEN IN THE LAST 6 MONTHS?NO DO YOU USE ANY TYPE OF TOBACCO (SMOKE, SMOKELESS, CHEW, ETC.)YES ARE YOU ABUSED, NEGLECTED, OR IN AN UNSAFE ENVIRONMENT?NO DO YOU HAVE THOUGHTS OF HURTING YOURSELF OR SOMEONE ELSE?NO DO YOU NEED ANY PRESCRIPTIONS?NO DO YOU HAVE ANY OTHER QUESTIONS OR CONCERNS?NO INTENSITY SCALE REVIEWEDNUMBER SCORE6 PAIN CLINIC ELISHA, RAJANIGY, PUBLIC HEALTH REFERRALS PFS REFERRAL NEEDED?NO WAS THE PROVIDER NOTIFIED OF ANY PERTINENT INFO?YES HAS THE PATIENT BEEN EDUCATED REGARDING HIS/HER PLAN OF CARE?YES HAS THE PATIENT BEEN EDUCATED REGARDING PAIN, THE RISK FOR PAIN, THE IMPORTANCE OF EFFECTIVE PAIN MANAGEMENT, AND THE PAIN ASSESSMENT PROCESS?YES PLEASE DOCUMENT ANY ADDTIONAL DETAILS. CERVICAL FACET BLOCK ADVANCE DIRECTIVE ADVANCE DIRECTIVE DISCUSSED WITH PATIENT:YES DECLINED INFORMATION AND ASSISTANCE WITH HCP FORM 11/17/18 REVIEWED NL 09/11/18REVIEWED WITH PATIENT 10/18/18 1336 JSREVEIWED WITH PT 11/17/18 1433 BV. HOSPITALIZATION/MAJOR DIAGNOSTIC PROCEDURE HYSTERECTOMY 2011 CHILDBIRTH 1982, 1984 GASTRIC BYPASS 2013 SURGERY [id number] 05/2018 REVIEW OF SYSTEMS REVIEWED BY: PROVIDER: FAIZAN FORREST MD . CONSTITUTIONAL: ANY CHANGE IN YOUR MEDICAL CONDITION? NO . CHILLS NO . FEVER NO . INFECTION: DO YOU HAVE NEW INFECTIONS? NO . DO YOU HAVE HISTORY OF MRSA? NO . MUSCULOSKELETAL: ANY NEW PATTERNS OF PAIN OR NUMBNESS? NO . GASTROENTEROLOGY: ANY NEW CHANGE IN BOWEL CONTROL? NO . GENITOURINARY: ANY NEW CHANGE IN BLADDER CONTROL? NO . IS THERE A CHANCE YOU COULD BE ? NO . HEMATOLOGY/LYMPH: DO YOU TAKE ANY BLOOD THINNERS? (FOR EXAMPLE- COUMADIN, PLAVIX, AGGRENOX, PLATEL, PRADAXA, OR XARELTO) NO . WHEN WAS YOUR LAST DOSE? DATE: TIME: . NEUROLOGY: HAVE YOU FALLEN IN THE PAST 12 MONTHS? YES, PT HAD A FALL YESTERDAY, SLIPPED AND FELL ON ICE. DENIES ANY ED VISIT ASSOCIATED WITH FALL. . ANY NEW EXTREMITY NUMBNESS OR WEAKNESS? NO . CARDIOLOGY: DO YOU HAVE A PACEMAKER OR DEFIBRILLATOR? NO . RESPIRATORY: HAVE YOU BEEN SICK IN THE PAST WEEK? NO . FEVER NO . FLU LIKE SYMPTOMS? NO . COUGH NO . INTEGUMENTARY: DO YOU HAVE ANY RASHES OR OPEN SORES? NO . ALLERGIC/IMMUNO: ARE YOU ALLERGIC TO IV DYE? NO . ANY NEW ALLERGIES? NO . PSYCHIATRIC: DO YOU HAVE THOUGHTS OF HURTING YOURSELF OR SOMEONE ELSE? NO . ARE YOU ABUSED, NEGLECTED, OR IN AN UNSAFE ENVIRONMENT? NO . ENDOCRINOLOGY: ARE YOU DIABETIC? NO . OTHER: DO YOU NEED ANY PRESCRIPTIONS? NO . IF YES, PLEASE LIST: ____ . ANY NEW PROBLEMS WITH YOUR MEDICATIONS? NO . WHEN DID YOU LAST EAT? ____ . WHEN DID YOU LAST DRINK? ____ . WHAT DID YOU LAST DRINK? ____ . NAME OF PERSON DRIVING YOU HOME? ____ . DO YOU HAVE ANY OTHER QUESTIONS OR CONCERNS NO . VITAL SIGNS WT 141 LBS, HT 62.5 IN, BMI 25.38 INDEX, BP 156/71 MM HG, HR 77 /MIN, RR 16 /MIN, TEMP 100%, OXYGEN SAT % 100%, REVIEWED BY: BV. EXAMINATION GENERAL EXAMINATION: PATIENT IS ALERT O X 3 AND COOPERATIVE. SEVERE TENDERNESS AND HYPERPATHIA OVER THE UPPER THORACIC AND LOWER CERVICAL AREAS. MELCHOR INCREASES OVER THE CERVICAL AND THORACIC FACET JOINTS WITH EXTENSION AND LATERAL ROTATION OF THE NECK AND BACK. MRI OF THE THORACIC SPINE DONE ON 07/20/2016 SHOWS FACET ARTHROPATHY CHANGES AT MULTIPLE LEVELS. MRI OF THE CERVICAL SPINE DONE ON 07/20/2016 SHOWS FACET ARTHROPATHY CHANGES AT MULTIPLE LEVELS. 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 KHALIL'S PAIN MANAGEMENT CASE. DUE TO THE SEVERE AND ACUTE PAIN AND THE CERVICOTHORACIC SPONDYLOSIS, I WOULD LIKE TO MOVE FORWARD WITH A BILATERAL C6-C7 AND T1-T2 THERAPEUTIC FACET BLOCK AT THIS TIME. WE DISCUSSED THE BENEFITS, RISKS, AND ALTERNATIVES OF THE INJECTION AND THE PATIENT WOULD LIKE TO PROCEED. THE PATIENT WILL CONTINUE USING THE OXYCODONE FOR SOMATIC PAIN. THE PATIENT WILL FOLLOW UP IN 2 MONTHS. INSTRUCTIONS WERE GIVEN, QUESTIONS WERE ANSWERED, PATIENT REPORTS UNDERSTANDING AND AGREES WITH THE PLAN. I, FELICITAS ORTEGA, DOCUMENTED THE ABOVE INFORMATION ACTING A SCRIBE FOR DR. FORREST. I HAVE REVIEWED THE ABOVE DOCUMENT, WRITTEN BY FELICITAS EDWARDSIBUrvashi AND I VERIFY THAT IT IS ACCURATE. PROCEDURE CODES FA211 ESTABILISHED PATIENT [facility] FACILITY CHARGE [id number] CURRENT MEDS W/DOSAGES DOCUMENTED G8730 PAIN ASSESS POS TOOL F/U PLAN DOC DISPOSITION & COMMUNICATION FOLLOW UP 2 MONTHS (REASON: W/C NECK & THORACIC) ELECTRONICALLY SIGNED BY FAIZAN FORREST MD, MD ON 11/25/2018 AT 08:52 PM EST DISCLAIMER : THIS IS A VISIT SUMMARY EXTRACTED FROM THE [facility] CHART. IT IS NOT A COPY OF THE [facility] PROGRESS NOTE. CARMITA
== END ==
LOC: M PAIN 13:45
PROVIDERS: ATTEND Anesthesiology
DX: M47.812 Spondylosis without myelopathy or radiculopathy, cervical region (principal); M47.813 Spondylosis without myelopathy or radiculopathy, cervicothoracic region; M47.814 Spondylosis without myelopathy or radiculopathy, thoracic region; I10 Essential (primary) hypertension; J45.909 Unspecified asthma, uncomplicated; K21.9 Gastro-esophageal reflux disease without esophagitis; E78.00 Pure hypercholesterolemia, unspecified; G43.909 Migraine, unspecified, not intractable, without status migrainosus; F17.210 Nicotine dependence, cigarettes, uncomplicated; E66.9 Obesity, unspecified; Z98.84 Bariatric surgery status; Z90.710 Acquired absence of both cervix and uterus; Z79.899 Other long term (current) drug therapy; Z79.891 Long term (current) use of opiate analgesic; Z88.8 Allergy status to other drugs, medicaments and biological substances

== ENCOUNTER 2018-11-30 11:00 | Outpatient (RCR) | payer OTHER | END 2018-12-07 | LOC: M PT 11:00 | PROVIDERS: ATTEND Anesthesiology | DX: M79.18 Myalgia, other site (principal) ==

== ENCOUNTER → 2019-02-06 | Outpatient (CLI) | payer OTHER ==
[~2019-02-06] MED LIST changes: +BUPIVACAINE HCL 0.25% 30 ML VIAL As Ordered ONE; +ISOVUE-M 300 61% 15ML VIAL (Q9967) As Ordered ONE; +LIDOCAINE 1% SDV INJ 30 ML VIAL As Ordered ONE; +TRIAMCINOLONE ACETONIDE SUSP 40 MG/ML VIAL (J3301) As Ordered ONE; +diazePAM 5 MG TAB As Ordered ONE; +oxyCODONE 5MG TAB As Ordered ONE
--- NOTE | 2019-02-19 00:15 | ECWPNPC ---
PATIENT NAME: LUIS KHALIL : 1965 GENDER: FEMALE VISIT DATE: 02/06/2019 DISCHARGE DATE: 02/06/19 1134 VISIT LOCKED DATE TIME: PHYSICIAN: FAIZAN FORREST MD RESOURCE: FAIZAN FORREST MD REASON FOR APPOINTMENT 1. AVANI C6/C7-C7/T1 THERAPEUTIC FACET BLOCK W/C HISTORY OF PRESENT ILLNESS HISTORY OF PRESENT ILLNESS: PAIN THE PATIENT DESCRIBES THE PAIN... FALL RISK SCREENING: SCREENING :NO FALLS REPORTED IN THE LAST YEAR CURRENT MEDICATIONS TAKING TIZANIDINE HCL 4 MG TABLET 1 TABLET NEEDED ORALLY BEFORE BEDTIME MAY REPEAT IN 5 HRS MDD2, NOTES: 02/05 8PM TAKING ALBUTEROL SULFATE HFA 108 (90 BASE) MCG/ACT AEROSOL SOLUTION 2 PUFFS INHALATION DAILY PRN- CHET, NOTES: 3 WEEKS AGO TAKING OMEPRAZOLE 20 MG CAPSULE DELAYED RELEASE 1 CAPSULE ORALLY TWICE A DAY, NOTES: 02/05 8PM TAKING VITAMIN D-3 1000 UNIT CAPSULE 1 CAPSULE ORALLY ONCE A DAY, NOTES: 02/05 9PM TAKING VITAMIN B12 100 MCG TABLET 1 TABLET ORALLY ONCE A DAY, NOTES: 02/05 8PM TAKING MULTIVITAMINS TABLET 1 TAB ORALLY DAILY, NOTES: 02/05 9PM TAKING BIOTIN 10 MG CAPSULE ORALLY DAILY, NOTES: 02/05 9PM TAKING HYDROCODONE-ACETAMINOPHEN 7.5-325 MG TABLET 1 TABLET NEEDED ORALLY EVERY 6 HRS PRN PAIN MDD3, NOTES: OKAY TO FILL NOW TAKING OXYCODONE HCL 5 MG TABLET 1 TABLET NEEDED ORALLY FOR PAIN EVERY 6 HRS MDD3, NOTES: 02/05 12NOON TAKING AMBIEN CR 12.5 MG TABLET EXTENDED RELEASE 1 TABLET ORALLY BEFORE BEDTIME, NOTES: [id number] 02/05 8PM TAKING BUTORPHANOL TARTRATE 10 MG/ML SOLUTION 1 SPRAY NEEDED NASALLY EVERY 8 HRS PRN MDD=2, NOTES: 2 WEEKS AGO NOT-TAKING ADVAIR DISKUS 250-50 MCG/DOSE AEROSOL POWDER BREATH ACTIVATED 1 PUFF INHALATION TWICE A DAY, NOTES: NONE RECENTLY MEDICATION LIST REVIEWED AND RECONCILED WITH THE PATIENT PAST MEDICAL HISTORY HYPERTENSION ASTHMA GERD ELEVATED CHOLESTEROL PCO S. MIGRANES OBESITY HIGH-203 BGW=094 BACK INJURY 1986, 2015 ALLERGIES SIMVASTATIN: FATIGUE - SIDE EFFECTS IMITREX: NAUSEA - SIDE EFFECTS MAXALT OSTOMY NURSE: NAUSEA - SIDE EFFECTS LYRICA: CONFUSION - SIDE EFFECTS GABAPENTIN: CONFUSION - SIDE EFFECTS SURGICAL HISTORY HYSTERECTOMY 2010 TUBAL LIGATION 1986 EXPLORITORY LAPROSCOPIC 1977 GASTRICBYPASS 05/03/2013 LYMPHECTOMY ON LEFT 07-02-2013 TRIGGER POINT INJECTIONS SHOULDER 2015 FACET JOIN INJECTIONS LUMBAR 2016 FAMILY HISTORY FATHER: , DIABETES, HYPERTENSION, HYPERLIPIDEMIA, DIAGNOSED WITH HEART DISEASE MOTHER: ALIVE, HYPERTENSION, HYPERLIPIDEMIA, HYPERTENSION SIBLINGS: ALIVE SON(S): ALIVE 1 BROTHER(S) , 1 SISTER(S) - HEALTHY. 2 SON(S) - HEALTHY. FAMILY HISTORY IS POSITIVE FOR DIABETES, HYPERTENSION, HEART DISEASE. MATERNAL AUNT AND GRANDMOTHER WITH BREAST CANCER. SOCIAL HISTORY GENERAL: TOBACCO USE ARE YOU A:CURRENT SMOKER ARE YOU INTERESTED IN QUITTING?NOT READY TO QUIT COUNSELED THE PATIENT ON SMOKING EFFECTS, EDUCATION JTKEINBU98/23/2019 HOW MANY CIGARETTES A DAY DO YOU SMOKE?11-20 HOW OFTEN DO YOU SMOKE CIGARETTES?EVERY DAY PATIENT COUNSELED ON THE DANGERS OF TOBACCO USE AND URGED TO QUIT:10/18/2018 SMOKING CESSATION INFORMATION GIVEN02/06/2019 DECLINED ANY DEIRE TO QUIT SMOKING AT THIS TIME VAPORNO E-CIGARETTENO HIV / HEP-C SCREENING HIV TEST OFFERED TO PATIENT:YES DATE OFFERED:07/24/2018 TEST ACCEPTED:NO HEP-C TEST OFFERED TO PATIENT:YES DATE OFFERED:07/24/2018 REASON:PATIENT DECLINED TEST ACCEPTED:NO REASON:PATIENT DECLINED BROCHURE PROVIDED TO PATIENTYES OTHERS AT HOME: SPOUSE. 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 DIET: REGULAR. LANGUAGE AUSTRALIAN. DOMESTIC VIOLENCE DO YOU FEEL SAFE IN YOUR ENVIRONMENT?YES NEW PATIENT PAIN DIARY PATIENT DESCRIBES PAIN :ACHING, HAVE IT ALL THE TIME, SHARP, STABBING, SORE, SHOOTING FROM 0-10, WHAT LEVEL IS YOUR PAIN TODAY?7 PRECIPITATING FACTORS PT STATES THAT EXCESSIVE LIFTING, BENDING AND WALKING WILL INCREASE PAIN ALLEVIATING FACTORS PAIN MEDS, STRETCHING 3-4 TIMES PER WEEK IMPACT ON FUNCTION LIGHT DUTY AT WORK, RESTRICTS MOBILITY, HAS DIFFICULTY WITH PICKING UP GRANDCHILDREN, UNABLE TO FISH AND KAYAK SHE HAD IN THE PAST WHEN DID YOU LAST EAT?02/14/2018 WHEN DID YOU LAST DRINK?02/14/2018 WHAT DID YOU LAST DRINK? WATER NAME OF PERSON DRIVING YOU HOME SELF IS THERE A CHANCE YOU COULD BE ?NO HAVE YOU BEEN SICK IN THE LAST WEEK (COLD, COUGH, FEVER, FLU, ETC)NO DO YOU TAKE ANY BLOOD THINNERS?NO ANY CHANGE IN BOWEL OR BLADDER CONTROL?NO PT STATES THAT SHE IS HAVING INCREASED ISSUES WITH INCONTINENCE, STATES THAT SHE HAD STRESS INCONTINENCE IN PAST AND NOW IT IS UNCONTROLLED ARE YOU ALLERGIC TO SHELLFISH OR IV DYE?NO ARE YOU DIABETIC?NO DO YOU HAVE A PACEMAKER OR DEFIBRILLATOR?NO ANY NEW PROBLEMS WITH MEDICINES OR NEW ALLERGIESNO ANY NEW PATTERNS OF PAIN OR NUMBNESS?NO ANY CHANGE IN YOUR MEDICAL CONDITION?NO HAVE YOU FALLEN IN THE LAST 6 MONTHS?NO DO YOU USE ANY TYPE OF TOBACCO (SMOKE, SMOKELESS, CHEW, ETC.)YES ARE YOU ABUSED, NEGLECTED, OR IN AN UNSAFE ENVIRONMENT?NO DO YOU HAVE THOUGHTS OF HURTING YOURSELF OR SOMEONE ELSE?NO DO YOU NEED ANY PRESCRIPTIONS?NO DO YOU HAVE ANY OTHER QUESTIONS OR CONCERNS?NO INTENSITY SCALE REVIEWEDNUMBER SCORE6 RECREATIONAL DRUG USE DRUG USE?NO EXERCISE: REGULAR. LEARNING BARRIERS / SPECIAL NEEDS CHANGE FROM LAST VISIT?NO BARRIERS TO LEARNING?NO HEARING IMPAIRED?YES VISION IMPAIRED?YES COGNITIVELY IMPAIRED?NO : LEFT EAR NO HEARING AIDS : CORRECTED LENSES READINESS TO LEARN?YES LEARNING PREFERENCES?NO LEARNING CAPABILITIES PRESENT?YES EMOTIONAL BARRIERS?NO SPECIAL DEVICES?NO OIL AND GAS SUPERINTENDENT NEEDED?NO PAIN CLINIC PFS, CLERGY, PUBLIC HEALTH REFERRALS PFS REFERRAL NEEDED?NO WAS THE PROVIDER NOTIFIED OF ANY PERTINENT INFO?YES HAS THE PATIENT BEEN EDUCATED REGARDING HIS/HER PLAN OF CARE?YES HAS THE PATIENT BEEN EDUCATED REGARDING PAIN, THE RISK FOR PAIN, THE IMPORTANCE OF EFFECTIVE PAIN MANAGEMENT, AND THE PAIN ASSESSMENT PROCESS?YES PLEASE DOCUMENT ANY ADDTIONAL DETAILS. CERVICAL FACET BLOCK LATEX QUESTIONNAIRE LATEX ALLERGY : HAVE YOU EVER DEVELOPED ANY TYPE OF REACTION AFTER HANDLING LATEX PRODUCTS SUCH RUBBER GLOVES, CONDOMS, DIAPHRAGMS, BALLOONS, SOCKS, OR UNDERWEAR?NO LATEX ALLERGY : HAVE YOU EVER DEVELOPED ANY TYPE OF REACTION DURING OR AFTER DENTAL APPOINTMENT, VAGINAL/RECTAL EXAMINATION, SURGICAL PROCEDURE, OR ANY OTHER EXPOSURE?NO LATEX RISK : HAVE YOU EVER HAD ANY DIFFICULTY BREATHING OR HIVES AFTER EATING OR HANDLING ANY FRUITS, OR VEGETABLES; SUCH KIWI, BANANAS, STONE FRUITS, OR CHESTNUTSNO LATEX RISK : DO YOU HAVE A PREVIOUS PERSONAL HISTORY OF MORE THAN NINE SURGERIES, SPINA BIFIDA, OR REPEATED CATHERTIZATIONS? NO LATEX RISK : ARE YOU FREQUENTLY EXPOSED TO LATEX PRODUCTS IN YOUR OCCUPATION?NO DATE ASKED : 02/06/2019 CAFFEINE CAFFEINE USE?YES HOW OFTEN AND HOW MUCH? TWICE WEEKLY ADVANCE DIRECTIVE ADVANCE DIRECTIVE DISCUSSED WITH PATIENT:YES DECLINED INFORMATION AND ASSISTANCE WITH HCP RASTAFARIAN NO EVANGELICAL BELIEFS THAT WOULD IMPACT HEALTH CARE. MARITAL STATUS: . ALCOHOL SCREENING DID YOU HAVE A DRINK CONTAINING ALCOHOL IN THE PAST YEAR?YES HOW OFTEN DID YOU HAVE SIX OR MORE DRINKS ON ONE OCCASION IN THE PAST YEAR?NEVER (0 POINTS) HOW MANY DRINKS DID YOU HAVE ON A TYPICAL DAY WHEN YOU WERE DRINKING IN THE PAST YEAR?1 OR 2 (0 POINTS) HOW OFTEN DID YOU HAVE A DRINK CONTAINING ALCOHOL IN THE PAST YEAR?MONTHLY OR LESS (1 POINT) POINTS1 INTERPRETATIONNEGATIVE OCCUPATION: [employer]. REVIEWED NL 09/11/18REVIEWED WITH PATIENT 10/18/18 1336 JSREVEIWED WITH PT 11/17/18 1433 BV. HOSPITALIZATION/MAJOR DIAGNOSTIC PROCEDURE HYSTERECTOMY 2011 CHILDBIRTH 1982, 1984 GASTRIC BYPASS 2013 SURGERY ADQ-[id number] 05/2018 REVIEW OF SYSTEMS REVIEWED BY: PROVIDER: . CONSTITUTIONAL: ANY CHANGE IN YOUR MEDICAL CONDITION? NO . CHILLS NO . FEVER NO . INFECTION: DO YOU HAVE NEW INFECTIONS? NO . DO YOU HAVE HISTORY OF MRSA? NO . MUSCULOSKELETAL: ANY NEW PATTERNS OF PAIN OR NUMBNESS? NO . GASTROENTEROLOGY: ANY NEW CHANGE IN BOWEL CONTROL? NO . GENITOURINARY: ANY NEW CHANGE IN BLADDER CONTROL? NO . IS THERE A CHANCE YOU COULD BE ? NO . HEMATOLOGY/LYMPH: DO YOU TAKE ANY BLOOD THINNERS? (FOR EXAMPLE- COUMADIN, PLAVIX, AGGRENOX, PLATEL, PRADAXA, OR XARELTO) NO . WHEN WAS YOUR LAST DOSE? DATE: TIME: . NEUROLOGY: HAVE YOU FALLEN IN THE PAST 12 MONTHS? NO . ANY NEW EXTREMITY NUMBNESS OR WEAKNESS? YES, LEFT ARM NUMBNESS AND RADIATING DOWN TO FINGERS . CARDIOLOGY: DO YOU HAVE A PACEMAKER OR DEFIBRILLATOR? NO . RESPIRATORY: HAVE YOU BEEN SICK IN THE PAST WEEK? NO . FEVER NO . FLU LIKE SYMPTOMS? NO . COUGH NO . INTEGUMENTARY: DO YOU HAVE ANY RASHES OR OPEN SORES? NO . ALLERGIC/IMMUNO: ARE YOU ALLERGIC TO IV DYE? NO . ANY NEW ALLERGIES? NO . PSYCHIATRIC: DO YOU HAVE THOUGHTS OF HURTING YOURSELF OR SOMEONE ELSE? NO . ARE YOU ABUSED, NEGLECTED, OR IN AN UNSAFE ENVIRONMENT? NO . ENDOCRINOLOGY: ARE YOU DIABETIC? NO . OTHER: DO YOU NEED ANY PRESCRIPTIONS? NO . IF YES, PLEASE LIST: ____ . ANY NEW PROBLEMS WITH YOUR MEDICATIONS? NO . WHEN DID YOU LAST EAT? 02/05/19 8PM . WHEN DID YOU LAST DRINK? 02/05/19 8PM . WHAT DID YOU LAST DRINK? WATER . NAME OF PERSON DRIVING YOU HOME? INNA ODDAshwini . DO YOU HAVE ANY OTHER QUESTIONS OR CONCERNS PT REQUESTING TO BE SWITCHED TO HYDROCODONE 7.5/325 WILL SEND NOTE TO . VITAL SIGNS WT 140.8 LBS, HT 62.5 IN, BMI 25.34 INDEX, BP 142/67 MM HG, HR 74 /MIN, RR 18 /MIN, TEMP 97.9 F, OXYGEN SAT % 100%, SAFE IN ENV? (Y/N) Y, NA INITIALS PR 09:03, REVIEWED BY: LIZET. 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 PROCEDURES PN CERVICAL FACET BLOCK LOW BILATERAL CERVICAL PRE PROCEDURE DIAGNOSIS CERVICAL SPONDYLOSIS, CERVICOTHORACIC SPONDYLOSIS POST PROCEDURE DIAGNOSIS CERVICAL SPONDYLOSIS, CERVICOTHORACIC SPONDYLOSIS PROCEDURE BILATERAL C6-C7 AND BILATERAL C7-T1 CERVICAL FACET BLOCKS SURGEON DR. FAIZAN FORREST ENGRAVING PATTERNMAKER NONE ANESTHESIA LOCAL PRE PROCEDURE NOTE THE PATIENT HAS HISTORY OF CHRONIC CERVICAL PAIN. I EVALUATED THE PATIENT AND REVIEWED THE CHART. I WENT OVER THE RISKS, ALTERNATIVES, AND BENEFITS ASSOCIATED WITH THIS PROCEDURE. THE PATIENT WOULD LIKE TO PROCEED AND GIVE CONSENT TO PERFORMED THE PROCEDURE. THE PATIENT DENIES UNEXPLAINABLE WEIGHT LOSS, FEVER, CHILLS, OR NEW CHANGES IN URINARY OR BOWEL CONTROL. DESCRIPTION OF PROCEDURE THE PATIENT WAS BROUGHT TO THE PROCEDURE ROOM AND PLACED IN THE PRONE POSITION. THE CERVICOTHORACIC AREA WAS CLEANED WITH CHLORAPREP SOLUTION AND DRAPED ASEPTICALLY. THE PROCEDURE WAS DONE UNDER STERILE CONDITIONS. I CHECKED LATERALITY AND THE LEVEL WHERE THE PROCEDURE WAS GOING TO BE PERFORMED WITH THE PATIENT AND THE SUPPORTING STAFF AT THE MOMENT OF THE TIME OUT IN THE PROCEDURE ROOM. UNDER FLUOROSCOPIC GUIDANCE, TARGET POINT WAS SELECTED AT THE RIGHT AND LEFT C6-C7 AND RIGHT AND LEFT C7-T1 CERVICAL FACET JOINTS. TARGET POINTS WERE SELECTED AFTER LATERAL ROTATION AND TILT OF THE MAGNIFIER OF THE C-ARM. LIDOCAINE 0.5% WAS USED TO NUMB THE SKIN AND THE SUBCUTANEOUS TISSUE BELOW IT. SPINAL NEEDLES, 22-GAUGE, WERE ADVANCED UNDER FLUOROSCOPIC GUIDANCE AND FOLLOWING PATIENT FEEDBACK UNTIL THE TARGETS WERE TOUCHED. THE POSITION OF THE NEEDLES WAS VERIFIED WITH AP AND LATERAL VIEWS. AFTER PROPER POSITION OF THE NEEDLES WAS ACHIEVED, ISOVUE M DYE 30, 0.1 ML WAS INJECTED SHOWING SPREAD OF THE DYE. THEN A SOLUTION OF 0.9 ML OF BUPIVACAINE 0.125% AND KENALOG 10 MG WAS INJECTED AT EACH SITE. THERE WAS NO EVIDENCE OF BLOOD, PARESTHESIA OR CEREBROSPINAL FLUID DURING THE PROCEDURE. THE PATIENT WAS SENT TO THE RECOVERY ROOM. THE PATIENT WAS MOVING THE EXTREMITIES AND DOING WELL. THERE WAS NO COMPLICATION DURING THE PROCEDURE. FLUOROSCOPY TIME WAS 21 SECONDS POST PROCEDURE NOTE THE PATIENT WILL BE SEEN IN A FOLLOW UP IN THE NEXT FEW WEEKS. INSTRUCTIONS WERE GIVEN, QUESTIONS WERE ANSWERED, AND THE PATIENT EXPRESSED UNDERSTANDING AND AGREES WITH THE PLAN. I, YVONNE SHAW, DOCUMENTED THE ABOVE INFORMATION ACTING A SCRIBE FOR DR. FORREST. I HAVE REVIEWED THE ABOVE DOCUMENT, WRITTEN BY YVONNE CANO AND I VERIFY THAT IT IS ACCURATE. PN WORKMANS' COMP OPINION IN YOUR OPINION, WAS THE INCIDENT THAT THE PATIENT DESCRIBED THE COMPETENT MEDICAL CAUSE OF THIS INJURY/ILLNESS? YES ARE THE PATIENT'S COMPLAINTS CONSISTENT WITH HIS/HER HISTORY OF THE INJURY/ILLNESS? YES IS THE PATIENT'S HISTORY OF THE INJURY/ILLNESS CONSISTENT WITH YOUR OBJECTIVE FINDING? YES WHAT IS THE PERCENTAGE OF TEMPORARY IMPAIRMENT? MODERATE TO MARKED = 66.7% IS THE PATIENT WORKING? YES DOCTOR ON SITE: FAIZAN STEVENS MD PROCEDURE CODES 84936 INJ PARAVERT F JNT C/T 1 LEV, MODIFIERS: 50 [id number] INJ PARAVERT F JNT C/T 2 LEV, MODIFIERS: 50 [id number] RADXPS IN END [id number] PXD DISPOSITION & COMMUNICATION FOLLOW UP 3 WEEKS ELECTRONICALLY SIGNED BY FAIZAN FORREST MD, MD ON 02/18/2019 AT 04:25 PM EDT DISCLAIMER : THIS IS A VISIT SUMMARY EXTRACTED FROM THE [employer] CHART. IT IS NOT A COPY OF THE [employer] PROGRESS NOTE. CARMITA
== END ==
LOC: M PAIN 08:45
PROVIDERS: ATTEND Anesthesiology
DX: G89.29 Other chronic pain (principal); M47.812 Spondylosis without myelopathy or radiculopathy, cervical region; M47.813 Spondylosis without myelopathy or radiculopathy, cervicothoracic region; I10 Essential (primary) hypertension; J45.909 Unspecified asthma, uncomplicated; K21.9 Gastro-esophageal reflux disease without esophagitis; G43.909 Migraine, unspecified, not intractable, without status migrainosus; F17.210 Nicotine dependence, cigarettes, uncomplicated; Z79.899 Other long term (current) drug therapy; Z88.8 Allergy status to other drugs, medicaments and biological substances; Z98.84 Bariatric surgery status
CPT/HCPCS: 64490; 64491; J3301; Q9967

== ENCOUNTER → 2019-03-15 | Outpatient (CLI) | payer BC ==
[~2019-03-15] MED LIST changes: -BUPIVACAINE HCL 0.25% 30 ML VIAL As Ordered ONE; -ISOVUE-M 300 61% 15ML VIAL (Q9967) As Ordered ONE; -LIDOCAINE 1% SDV INJ 30 ML VIAL As Ordered ONE; -TRIAMCINOLONE ACETONIDE SUSP 40 MG/ML VIAL (J3301) As Ordered ONE; -diazePAM 5 MG TAB As Ordered ONE; -oxyCODONE 5MG TAB As Ordered ONE
[2019-03-15 12:45] LABS: BASO # 0.1 10^3/uL (0.0-0.2); BASO % 1.1 % (0.0-1.0); EOS # 0.1 10^3/uL (0.0-0.50); EOS % 1.7 % (0.0-3.0); HEMATOCRIT 34.6 % (36.0-47.0); LYMPH # 2.5 10^3/uL (1.5-4.5); LYMPH % 53.2 % (24.0-44.0); MEAN CORPUSCULAR HEMOGLOBIN 26.7 pg (27.0-33.0); MEAN CORPUSCULAR HGB CONC 31.8 g/dl (32.0-36.5); MONO # 0.5 10^3/uL (0.0-0.8); MONO % 11.1 % (0.0-5.0); NEUTROPHILS # 1.6 10^3/uL (1.8-7.7); NEUTROPHILS % 32.7 % (36.0-66.0); PLATELET COUNT, AUTOMATED 300 10^3/uL (150-450); RED BLOOD COUNT 4.12 10^6/uL (4.00-5.40); WHITE BLOOD COUNT 4.8 10^3/uL (4.0-10.0)
[2019-03-15 13:10] LABS: ALBUMIN 3.6 GM/DL (3.2-5.2); ALT/SGPT 30 U/L (12-78); BILIRUBIN,TOTAL 0.2 MG/DL (0.2-1.0); BLOOD UREA NITROGEN 21 MG/DL (7-18); CALCIUM LEVEL 8.3 MG/DL (8.5-10.1); CARBON DIOXIDE LEVEL 26 MEQ/L (21-32); CHLORIDE LEVEL 106 MEQ/L (98-107); CHOLESTEROL LEVEL 233 MG/DL (<200); CHOLESTEROL RISK RATIO 2.452 (<5); CREATININE FOR GFR 0.65 MG/DL (0.55-1.30); FERRITIN 7 NG/ML (8-252); GLOMERULAR FILTRATION RATE > 60.0 (>51); GLUCOSE, FASTING 116 MG/DL (70-100); HDL CHOLESTEROL 95 MG/DL (>40); IRON (FE) 26 UG/DL (50-170); LDL CHOLESTEROL 105 MG/DL (<100); MAGNESIUM LEVEL 2.3 MG/DL (1.8-2.4); NON-HDL-C 138 MG/DL; PERCENT SATURATION 5.5 % (13.2-45.0); POTASSIUM SERUM 3.5 MEQ/L (3.5-5.1); SODIUM LEVEL 140 MEQ/L (136-145); TOTAL IRON BINDING CAPACITY 474 UG/DL (250-450); TOTAL PROTEIN 6.8 GM/DL (6.4-8.2); TRIGLYCERIDES LEVEL 167 MG/DL (<150)
[2019-03-15 13:17] LABS: FOLATE 12.7 NG/ML (>5.4); TOTAL 25(OH) VITAMIN D 14.1 NG/ML (30.0-100.0); VITAMIN B12 LEVEL 1098 PG/ML (247-911)
== END ==
LOC: M LAB 12:02
PROVIDERS: ATTEND Nurse Practitioner Family
DX: Z98.84 Bariatric surgery status (principal); E78.5 Hyperlipidemia, unspecified

== ENCOUNTER → 2019-05-07 | Outpatient (CLI) | payer BC ==
[~2019-05-07] MED LIST changes: -OMEP20CA3 PO; +OMEP20CA4 PO
--- NOTE | 2019-05-07 16:54 | REP ---
Breast ultrasound for a palpable lump at the 4 o'clock location: There is no accompanying mammogram. The patient complains of pain extending from the 4 o'clock into the axilla. Ultrasonography of the palpable lump at 4 o'clock identifies a glandular parenchyma. There is no focal nodule, mass or cyst by ultrasound. Impression: There is no focal nodule, mass or cyst would correspond to the palpable lump at 4 o'clock. There is nodular parenchyma ultrasound. BIRADS category 1, negative left breast ultrasound. Follow-up imaging should be based on findings at follow-up clinical palpation. Annual breast screening mammography is recommended. A. Negative ultrasound reports should not delay biopsy if a dominant or clinically suspicious mass is present. B. Not all breast cancers are identified by mammography or tomosynthesis. C. Adenosis and dense breasts may obscure an underlying neoplasm. Patient letter M1. Electronically Signed by Bijan Ariza MD 05/07/2019 04:46 P
== END ==
LOC: M RAD 13:47
PROVIDERS: ATTEND Nurse Practitioner Family
DX: N63.24 Unspecified lump in the left breast, lower inner quadrant (principal)

== ENCOUNTER → 2019-05-24 | Outpatient (CLI) | payer BC ==
--- NOTE | 2019-05-24 16:20 | REP ---
Digital diagnostic unilateral right breast mammogram with CAD, 3-D tomography, and focused left breast sonography: History: Left axillary swelling and pain times 2 months. The patient is status post prior benign lumpectomy in this area. Swelling times 2 weeks. Comparison mammography June 14, 2017 and April 07, 2015. Mammographic findings: A skin marker is affixed to the site at the site of the palpable abnormality. This projects over the normal appearing fat replaced lymph node. No spiculation, architectural distortion, or obvious mass lesion is apparent. No other mammographic abnormality or change from the prior study. Sonographic findings: Focused left breast scanning is performed in the axillary region. At the level of the palpable abnormality there is a 2.6 x 1.0 x 2.4 cm complex area with solid components and cystic components. There is some internal blood flow. This is compatible with a mildly hypertrophied lymph node. No other sonographic findings. Impression: BIRADS category 3 probably benign findings. Repeat mammography and sonography recommended in 6 months. BIRADS 3: BI-RADS/ACR category 3 mammogram. Probably Benign Findings. This mammogram was interpreted with the aid of an FDA-approved computer-aided detection system. The patient states she had a clinical breast exam in April 2019. The patient letter being requested is m3. Electronically Signed by Sher Leon MD 05/24/2019 05:41 P
== END ==
LOC: M RAD 09:46
PROVIDERS: ATTEND Nurse Practitioner Family
DX: N64.4 Mastodynia (principal)
CPT/HCPCS: 76642; 77065; G0279

== ENCOUNTER → 2019-06-05 | Outpatient (CLI) | payer BC ==
--- NOTE | 2019-06-06 23:33 | ECWPNPC ---
PATIENT NAME: LUIS KHALIL : 1965 GENDER: FEMALE VISIT DATE: 06/05/2019 DISCHARGE DATE: 06/05/19 1512 VISIT LOCKED DATE TIME: PHYSICIAN: HANDY ACEVES RESOURCE: HANDY ACEVES REASON FOR APPOINTMENT 1. W/C NECK THORACIC LOW BACK HISTORY OF PRESENT ILLNESS HISTORY OF PRESENT ILLNESS: PAIN THE PATIENT DESCRIBES THE PAIN... 54 YEAR OLD FEMALE IN FOR POST FACET BLOCK FOLLOW UP. SHE FEELS THE PROCEDURE WORKED WELL UP UNTIL APRIL. SHE RATES HER PAIN AT AN 8/10 CURRENTLY AND DESCRIBES IT ACHING, SHARP, BURNING, STABBING, SORE, SHOOTING, AND TENDER. FALL RISK SCREENING: SCREENING :NO FALLS REPORTED IN THE LAST YEAR CURRENT MEDICATIONS TAKING ADVAIR DISKUS 250-50 MCG/DOSE AEROSOL POWDER BREATH ACTIVATED 1 PUFF INHALATION TWICE A DAY TAKING TIZANIDINE HCL 4 MG TABLET 1 TABLET NEEDED ORALLY BEFORE BEDTIME MAY REPEAT IN 5 HRS MDD2 TAKING ALBUTEROL SULFATE HFA 108 (90 BASE) MCG/ACT AEROSOL SOLUTION 2 PUFFS INHALATION DAILY PRN- CHET TAKING OMEPRAZOLE 20 MG CAPSULE DELAYED RELEASE 1 CAPSULE ORALLY TWICE A DAY TAKING BIOTIN 10 MG CAPSULE ORALLY DAILY TAKING BUTORPHANOL TARTRATE 10 MG/ML SOLUTION 1 SPRAY NEEDED NASALLY EVERY 8 HRS PRN MDD=2 TAKING VITAMIN B12 100 MCG TABLET 1 TABLET ORALLY EVERY OTHER DAY TAKING VITAMIN D-3 1000 UNIT CAPSULE 1 CAPSULE ORALLY BID TAKING MULTIVITAMINS TABLET 1 TAB ORALLY DAILY TAKING HYDROCODONE-ACETAMINOPHEN 7.5-325 MG TABLET 1 TABLET NEEDED ORALLY EVERY 6 HRS PRN PAIN MDD3, NOTES: NOT WORKING VERY WELL TAKING AMBIEN CR 12.5 MG TABLET EXTENDED RELEASE 1 TABLET ORALLY BEFORE BEDTIME MDD=1 NOT-TAKING OXYCODONE HCL 5 MG TABLET 1 TABLET NEEDED ORALLY FOR PAIN EVERY 6 HRS MDD3, NOTES: NEEDS REFILLED MEDICATION LIST REVIEWED AND RECONCILED WITH THE PATIENT PAST MEDICAL HISTORY HYPERTENSION ASTHMA GERD ELEVATED CHOLESTEROL PCO S. MIGRANES OBESITY HIGH-203 BUO=613 BACK INJURY 1986, 2015 ALLERGIES SIMVASTATIN: FATIGUE - SIDE EFFECTS IMITREX: NAUSEA - SIDE EFFECTS MAXALT BILINGUAL OPERATOR: NAUSEA - SIDE EFFECTS LYRICA: CONFUSION - SIDE EFFECTS GABAPENTIN: CONFUSION - SIDE EFFECTS SURGICAL HISTORY HYSTERECTOMY 2011 TUBAL LIGATION 1986 EXPLORITORY LAPROSCOPIC 1977 GASTRICBYPASS 05/03/2013 LYMPHECTOMY ON LEFT 07-02-2013 TRIGGER POINT INJECTIONS SHOULDER 2016 FACET JOIN INJECTIONS LUMBAR 2016 BLADDER SURGERY (THOMAS) 2019 FAMILY HISTORY FATHER: , DIABETES, HYPERTENSION, HYPERLIPIDEMIA, DIAGNOSED WITH HEART DISEASE MOTHER: ALIVE, HYPERTENSION, HYPERLIPIDEMIA, HYPERTENSION SIBLINGS: ALIVE SON(S): ALIVE 1 BROTHER(S) , 1 SISTER(S) - HEALTHY. 2 SON(S) - HEALTHY. FAMILY HISTORY IS POSITIVE FOR DIABETES, HYPERTENSION, HEART DISEASE. MATERNAL AUNT AND GRANDMOTHER WITH BREAST CANCER. SOCIAL HISTORY GENERAL: TOBACCO USE ARE YOU A:CURRENT SMOKER ARE YOU INTERESTED IN QUITTING?NOT READY TO QUIT COUNSELED THE PATIENT ON SMOKING EFFECTS, EDUCATION [id number]/27/2019 HOW MANY CIGARETTES A DAY DO YOU SMOKE?11-20 HOW OFTEN DO YOU SMOKE CIGARETTES?EVERY DAY PATIENT COUNSELED ON THE DANGERS OF TOBACCO USE AND URGED TO QUIT:10/18/2018 SMOKING CESSATION INFORMATION GIVEN06/05/2019 DECLINED ANY DEIRE TO QUIT SMOKING AT THIS TIME VAPORNO E-CIGARETTENO HIV / HEP-C SCREENING HIV TEST OFFERED TO PATIENT:YES DATE OFFERED:07/24/2018 TEST ACCEPTED:NO HEP-C TEST OFFERED TO PATIENT:YES DATE OFFERED:07/24/2018 REASON:PATIENT DECLINED TEST ACCEPTED:NO REASON:PATIENT DECLINED BROCHURE PROVIDED TO PATIENTYES OTHERS AT HOME: SPOUSE. 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 DIET: REGULAR. LANGUAGE KOREAN. DOMESTIC VIOLENCE DO YOU FEEL SAFE IN YOUR ENVIRONMENT?YES NEW PATIENT PAIN DIARY PATIENT DESCRIBES PAIN :ACHING, HAVE IT ALL THE TIME, SHARP, STABBING, SORE, SHOOTING FROM 0-10, WHAT LEVEL IS YOUR PAIN TODAY?7 PRECIPITATING FACTORS PT STATES THAT EXCESSIVE LIFTING, BENDING AND WALKING WILL INCREASE PAIN ALLEVIATING FACTORS PAIN MEDS, STRETCHING 3-4 TIMES PER WEEK IMPACT ON FUNCTION LIGHT DUTY AT WORK, RESTRICTS MOBILITY, HAS DIFFICULTY WITH PICKING UP GRANDCHILDREN, UNABLE TO FISH AND KAYAK SHE HAD IN THE PAST WHEN DID YOU LAST EAT?02/14/2018 WHEN DID YOU LAST DRINK?02/14/2018 WHAT DID YOU LAST DRINK? WATER NAME OF PERSON DRIVING YOU HOME SELF IS THERE A CHANCE YOU COULD BE ?NO HAVE YOU BEEN SICK IN THE LAST WEEK (COLD, COUGH, FEVER, FLU, ETC)NO DO YOU TAKE ANY BLOOD THINNERS?NO ANY CHANGE IN BOWEL OR BLADDER CONTROL?NO PT STATES THAT SHE IS HAVING INCREASED ISSUES WITH INCONTINENCE, STATES THAT SHE HAD STRESS INCONTINENCE IN PAST AND NOW IT IS UNCONTROLLED ARE YOU ALLERGIC TO SHELLFISH OR IV DYE?NO ARE YOU DIABETIC?NO DO YOU HAVE A PACEMAKER OR DEFIBRILLATOR?NO ANY NEW PROBLEMS WITH MEDICINES OR NEW ALLERGIESNO ANY NEW PATTERNS OF PAIN OR NUMBNESS?NO ANY CHANGE IN YOUR MEDICAL CONDITION?NO HAVE YOU FALLEN IN THE LAST 6 MONTHS?NO DO YOU USE ANY TYPE OF TOBACCO (SMOKE, SMOKELESS, CHEW, ETC.)YES ARE YOU ABUSED, NEGLECTED, OR IN AN UNSAFE ENVIRONMENT?NO DO YOU HAVE THOUGHTS OF HURTING YOURSELF OR SOMEONE ELSE?NO DO YOU NEED ANY PRESCRIPTIONS?NO DO YOU HAVE ANY OTHER QUESTIONS OR CONCERNS?NO INTENSITY SCALE REVIEWEDNUMBER SCORE6 RECREATIONAL DRUG USE DRUG USE?NO EXERCISE: REGULAR. LEARNING BARRIERS / SPECIAL NEEDS CHANGE FROM LAST VISIT?NO BARRIERS TO LEARNING?NO HEARING IMPAIRED?YES VISION IMPAIRED?YES COGNITIVELY IMPAIRED?NO : LEFT EAR NO HEARING AIDS : CORRECTED LENSES READINESS TO LEARN?YES LEARNING PREFERENCES?NO LEARNING CAPABILITIES PRESENT?YES EMOTIONAL BARRIERS?NO SPECIAL DEVICES?NO RADIAL DRILL OPERATOR NEEDED?NO PAIN CLINIC PFS, CLERGY, PUBLIC HEALTH REFERRALS PFS REFERRAL NEEDED?NO WAS THE PROVIDER NOTIFIED OF ANY PERTINENT INFO?YES HAS THE PATIENT BEEN EDUCATED REGARDING HIS/HER PLAN OF CARE?YES HAS THE PATIENT BEEN EDUCATED REGARDING PAIN, THE RISK FOR PAIN, THE IMPORTANCE OF EFFECTIVE PAIN MANAGEMENT, AND THE PAIN ASSESSMENT PROCESS?YES PLEASE DOCUMENT ANY ADDTIONAL DETAILS. CERVICAL FACET BLOCK LATEX QUESTIONNAIRE LATEX ALLERGY : HAVE YOU EVER DEVELOPED ANY TYPE OF REACTION AFTER HANDLING LATEX PRODUCTS SUCH RUBBER GLOVES, CONDOMS, DIAPHRAGMS, BALLOONS, SOCKS, OR UNDERWEAR?NO LATEX ALLERGY : HAVE YOU EVER DEVELOPED ANY TYPE OF REACTION DURING OR AFTER DENTAL APPOINTMENT, VAGINAL/RECTAL EXAMINATION, SURGICAL PROCEDURE, OR ANY OTHER EXPOSURE?NO DATE ASKED : 02/06/2019 LATEX RISK : HAVE YOU EVER HAD ANY DIFFICULTY BREATHING OR HIVES AFTER EATING OR HANDLING ANY FRUITS, OR VEGETABLES; SUCH KIWI, BANANAS, STONE FRUITS, OR CHESTNUTSNO LATEX RISK : DO YOU HAVE A PREVIOUS PERSONAL HISTORY OF MORE THAN NINE SURGERIES, SPINA BIFIDA, OR REPEATED CATHERIZATIONS? NO LATEX RISK : ARE YOU FREQUENTLY EXPOSED TO LATEX PRODUCTS IN YOUR OCCUPATION?NO CAFFEINE CAFFEINE USE?YES HOW OFTEN AND HOW MUCH? TWICE WEEKLY ADVANCE DIRECTIVE ADVANCE DIRECTIVE DISCUSSED WITH PATIENT:YES DECLINED INFORMATION AND ASSISTANCE WITH HCP BUDDHISM NO HINDU BELIEFS THAT WOULD IMPACT HEALTH CARE. MARITAL STATUS: . ALCOHOL SCREENING DID YOU HAVE A DRINK CONTAINING ALCOHOL IN THE PAST YEAR?YES HOW OFTEN DID YOU HAVE SIX OR MORE DRINKS ON ONE OCCASION IN THE PAST YEAR?NEVER (0 POINTS) HOW MANY DRINKS DID YOU HAVE ON A TYPICAL DAY WHEN YOU WERE DRINKING IN THE PAST YEAR?1 OR 2 (0 POINTS) HOW OFTEN DID YOU HAVE A DRINK CONTAINING ALCOHOL IN THE PAST YEAR?MONTHLY OR LESS (1 POINT) POINTS1 INTERPRETATIONNEGATIVE OCCUPATION: [employer]. REVIEWED NL 09/11/18REVIEWED WITH PATIENT 10/18/18 1336 JSREVEIWED WITH PT 11/17/18 1433 BVREVIEWED WITH PATIENT 06/05/19 1308 NLJ. HOSPITALIZATION/MAJOR DIAGNOSTIC PROCEDURE HYSTERECTOMY 2011 CHILDBIRTH 1982, 1984 GASTRIC BYPASS 2013 SURGERY [id number] 05/2018 REVIEW OF SYSTEMS REVIEWED BY: PROVIDER: MG ASH . CONSTITUTIONAL: ANY CHANGE IN YOUR MEDICAL CONDITION? NO . CHILLS NO . FEVER NO . INFECTION: DO YOU HAVE NEW INFECTIONS? NO . DO YOU HAVE HISTORY OF MRSA? NO . MUSCULOSKELETAL: ANY NEW PATTERNS OF PAIN OR NUMBNESS? YES- INCREASED NUMBNESS IN LEFT ARM DOWN INTO HAND AND FINGERS- POINTER FINGER CORA, INCREASED PAIN INTO NECK AND UPPER BACK . GASTROENTEROLOGY: ANY NEW CHANGE IN BOWEL CONTROL? YES- URGENCY . GENITOURINARY: ANY NEW CHANGE IN BLADDER CONTROL? YES- URGENCY AND INCONTINENCE . IS THERE A CHANCE YOU COULD BE ? NO . HEMATOLOGY/LYMPH: DO YOU TAKE ANY BLOOD THINNERS? (FOR EXAMPLE- COUMADIN, PLAVIX, AGGRENOX, PLATEL, PRADAXA, OR XARELTO) NO . WHEN WAS YOUR LAST DOSE? DATE: TIME: . NEUROLOGY: HAVE YOU FALLEN IN THE PAST 12 MONTHS? YES- FELL ABOUT 3 WEEKS AGO TRIPPED, TRIPPED OVER DOG ALSO 3 WEEKS BEFORE THAT, NO INJURIES OR NO MEDICAL CARE RECEIVED . ANY NEW EXTREMITY NUMBNESS OR WEAKNESS? YES- INCREASED NUMBNESS IN LEFT ARM DOWN INTO HAND AND FINGERS . CARDIOLOGY: DO YOU HAVE A PACEMAKER OR DEFIBRILLATOR? NO . RESPIRATORY: HAVE YOU BEEN SICK IN THE PAST WEEK? NO . FEVER NO . FLU LIKE SYMPTOMS? NO . COUGH NO . INTEGUMENTARY: DO YOU HAVE ANY RASHES OR OPEN SORES? NO . ALLERGIC/IMMUNO: ARE YOU ALLERGIC TO IV DYE? NO . ANY NEW ALLERGIES? NO . PSYCHIATRIC: DO YOU HAVE THOUGHTS OF HURTING YOURSELF OR SOMEONE ELSE? NO . ARE YOU ABUSED, NEGLECTED, OR IN AN UNSAFE ENVIRONMENT? NO . ENDOCRINOLOGY: ARE YOU DIABETIC? NO . OTHER: DO YOU NEED ANY PRESCRIPTIONS? YES- WANTS TO DISCUSS . IF YES, PLEASE LIST: ____WANTS TO DISCUSS MEDS, USES HYDROCODONE AND OXY, HAS NOT USED OXY IN ABOUT 6 MONTHS AND HAS BEEN USING HYDROCODONE- NOW NEEDS TO SWITCH HYDROCODONE IS NOT WORKING. . ANY NEW PROBLEMS WITH YOUR MEDICATIONS? NO . WHEN DID YOU LAST EAT? ____ . WHEN DID YOU LAST DRINK? ____ . WHAT DID YOU LAST DRINK? ____ . NAME OF PERSON DRIVING YOU HOME? ____ . DO YOU HAVE ANY OTHER QUESTIONS OR CONCERNS YES- WANTS TO DISCUSS MEDS, WOULD LIKE SOMETHING OTHER THAN NSAIDS FOR PAIN CONTROL, HAS HAD INCREASED BRUISING . VITAL SIGNS WT 143.2 LBS, HT 62.5 IN, BMI 25.77 INDEX, BP 137/74 MM HG, HR 70 /MIN, RR 18 /MIN, TEMP 97.2 F, OXYGEN SAT % 98%, SAFE IN ENV? (Y/N) YES, NA INITIALS AW 1404, REVIEWED BY: JOSE. EXAMINATION GENERAL EXAMINATION: GENERALNO ACUTE DISTRESS, WELL NOURISHED AND HYDRATED. PSYCHAPPROPRIATE MOOD AND AFFECT . NECK:TENDER ALONG CERVICAL SPINE, SURROUNDING SKIN SHOWS NO ERYTHEMA, ECCHYMOSIS, INCREASED WARMTH, AND/OR SKIN ERUPTIONS. INCREASED PAIN WITH FACET LOADING.. LUNGS:CLEAR TO AUSCULTATION BILATERALLY, NO WHEEZES, RHONCHI, RALES. HEART:NO MURMURS, REGULAR RATE AND RHYTHM. ASSESSMENTS SPONDYLOSIS OF CERVICAL REGION WITHOUT MYELOPATHY OR RADICULOPATHY - M47.812 (PRIMARY) TREATMENT SPONDYLOSIS OF CERVICAL REGION WITHOUT MYELOPATHY OR RADICULOPATHY NOTES: BILATERAL THERAPEUTIC FACET BLOCK C6-C7,C7-T1. CLINICAL NOTES: 54 YEAR OLD FEMALE IN FOR POST FACET BLOCK FOLLOW UP. GIVEN PRESENTING SYMPTOMS AND RESULTS OF PHYSICAL EXAMINATION RECOMMENDED REPEAT FACET BLOCK. PATIENT HAS EXPRESSED UNDERSTANDING OF AND WAS IN AGREEMENT WITH TREATMENT PLAN. GIVEN TIME TO ASK QUESTIONS AND EXPRESS CONCERNS. , ISTOP REGISTRY REVIEWED AND DEMONSTRATES COMPLLIANCE. (REF #[id number] ) BRINGS IN MEDICATIONS WHICH IS APPROPRIATE FOR WHAT WAS DISPENSED. RECENT URINE TOXICOLOGY REVIEWED. NO UNAUTHORIZED MEDICATIONS. NO ILLICIT SUBSTANCES AND PRESCRIBED MEDICATIONS WERE PRESENT. , RISKS AND BENEFITS OF NARCOTIC/OPIOD MEDICATIONS WERE REVIEWED WITH PATIENT - THIS INCLUDES BUT IS NOT LIMITED TO RISK OF DEPENDANCE/DEVELOPMENT OF ADDICTION, MOOD DISTURBANCE AND DEPRESSION, OSTEOPOROSIS, HORMONAL AND LABIDAL CHANGES, RESPIRATORY DEPRESSION AND . PATIENT IS ADVISED NOT TO DRIVE OR DRINK ALCOHOL WHILE ON THESE MEDICATIONS. PROCEDURES PN WORKMANS' COMP OPINION IN YOUR OPINION, WAS THE INCIDENT THAT THE PATIENT DESCRIBED THE COMPETENT MEDICAL CAUSE OF THIS INJURY/ILLNESS? YES ARE THE PATIENT'S COMPLAINTS CONSISTENT WITH HIS/HER HISTORY OF THE INJURY/ILLNESS? YES IS THE PATIENT'S HISTORY OF THE INJURY/ILLNESS CONSISTENT WITH YOUR OBJECTIVE FINDING? YES WHAT IS THE PERCENTAGE OF TEMPORARY IMPAIRMENT? MODERATE TO MARKED = 66.7% IS THE PATIENT WORKING? YES DOCTOR ON SITE: FAIZAN STEVENS MD PREVENTIVE MEDICINE PAIN CLINIC TEACHING: PROCEDURE TEACHING CERVICAL FACET BLOCK PROCEDURE REVIEWED WITH PATIENT, PATIENT DECLINED TO TAKE INFORMATION PRINTED 06/05/19 1514 NLJ. PROCEDURE CODES FA211 ESTABILISHED PATIENT [facility] FAC[facility] CHARGE DISPOSITION & COMMUNICATION FOLLOW UP POST PROCEDURE (REASON: BILATERAL THERAPEUTIC FACET BLOCK C6-C7,C7-T1) ELECTRONICALLY SIGNED BY JAYLENE KELLER ON 06/06/2019 AT 01:16 PM EDT DISCLAIMER : THIS IS A VISIT SUMMARY EXTRACTED FROM THE [employer] CHART. IT IS NOT A COPY OF THE [employer] PROGRESS NOTE. CARMITA
== END ==
LOC: M PAIN 14:15
PROVIDERS: ATTEND Family Medicine
DX: M47.812 Spondylosis without myelopathy or radiculopathy, cervical region (principal); I10 Essential (primary) hypertension; J45.909 Unspecified asthma, uncomplicated; K21.9 Gastro-esophageal reflux disease without esophagitis; E78.00 Pure hypercholesterolemia, unspecified; G43.909 Migraine, unspecified, not intractable, without status migrainosus; Z98.84 Bariatric surgery status; F17.210 Nicotine dependence, cigarettes, uncomplicated; Z88.8 Allergy status to other drugs, medicaments and biological substances; Z79.899 Other long term (current) drug therapy

== ENCOUNTER 2019-06-11 05:20 | Emergency (ER) | payer BC ==
[~2019-06-11] VITALS: Ht 157.5 cm; Wt 63.6 kg
[2019-06-11 05:21] VITALS: BP 165/90
[2019-06-11] MEDS ORDERED: ZOLP12.515 (05:28)
[2019-06-11] MEDS ORDERED: HYDR-3716 (05:28)
[2019-06-11] MEDS ORDERED: POLY2.5S OD (06:06)
[2019-06-11] MEDS ORDERED: MUPI2OI TOP (06:06)
== END 2019-06-11 06:17 | disposition home or self-care (01) ==
LOC: M ED 05:20
DX: H10.31 Unspecified acute conjunctivitis, right eye (principal); R03.0 Elevated blood-pressure reading, without diagnosis of hypertension; R01.1 Cardiac murmur, unspecified; R23.4 Changes in skin texture; J45.909 Unspecified asthma, uncomplicated; F33.9 Major depressive disorder, recurrent, unspecified; Z79.899 Other long term (current) drug therapy; F17.210 Nicotine dependence, cigarettes, uncomplicated

== ENCOUNTER → 2019-06-15 | Outpatient (CLI) | payer BC ==
[~2019-06-15] MED LIST changes: +HYDR-3716; +LIDOCAINE 1% MDV 20ML VIAL As Ordered ONE; +MUPI2OI TOP; +POLY2.5S OD; +ZOLP12.515
[2019-06-15 11:45] VITALS: BP 141/72
--- NOTE | 2019-06-15 12:10 | REP ---
POSTBIOPSY MAMMOGRAM LEFT BREAST: Patient had ultrasound-guided biopsy of a left axillary lymph node. Postprocedure mammography is performed in the MLO and axially CC projections. A metallic clip is seen in the axillary region at the site of the biopsy. Electronically Signed by Bijan Coburn MD 06/15/2019 01:18 P
--- NOTE | 2019-06-15 16:48 | REP ---
ULTRASOUND GUIDED LEFT BREAST BIOPSY The procedure was performed under the direct supervision of Dr. Coburn The patient has a history of 8-0.6 x 1 x 2.4 cm complex area was solid components and cystic components in the left axillary region seen on a previous ultrasound dated 05/24/2019. The risks and benefits of the procedure were explained to the patient and informed consent was obtained. The left axillary nodule was localized using ultrasound guidance. The skin was prepped and draped in a sterile fashion. 1% Xylocaine was used as a local anesthetic. Using ultrasound guidance a 17/18 gauge coaxial needle biopsy system was inserted and six core biopsy samples were obtained. A marker clip was placed at the biopsy site. The patient tolerated the procedure well and there were no immediate complications. After the appropriate amount of monitored convalescence the patient was discharged from the department. Reviewed by MARLENI Dominguez 06/15/2019 04:38 P Electronically Signed by Bijan Coburn MD 06/15/2019 04:39 P
== END ==
LOC: M IRPRO 10:22
DX: N63.32 Unspecified lump in axillary tail of the left breast (principal)

== ENCOUNTER → 2019-07-10 | Outpatient (CLI) | payer OTHER, BC ==
[~2019-07-10] MED LIST changes: +BUPIVACAINE HCL 0.25% 30 ML VIAL As Ordered ONE; +ISOVUE-M 300 61% 15ML VIAL (Q9967) As Ordered ONE; -LIDOCAINE 1% MDV 20ML VIAL As Ordered ONE; +LIDOCAINE 1% SDV INJ 30 ML VIAL As Ordered ONE; +TRIAMCINOLONE ACETONIDE SUSP 40 MG/ML VIAL (J3301) As Ordered ONE; +diazePAM 5 MG TAB As Ordered ONE; +oxyCODONE 5MG TAB As Ordered ONE
--- NOTE | 2019-07-10 10:28 | REP ---
Partial cervical spine series: Two views. History: Facet block for pain. 13 seconds of fluoroscopy time is reported. Findings: A sequence of two last image hold fluoroscopically obtained spot radiographs of the cervicothoracic junction document various needle positions and contrast injections associated with injection procedure. Electronically Signed by Sher Leon MD 07/10/2019 10:18 A
== END ==
LOC: M PAIN 08:45
PROVIDERS: ATTEND Anesthesiology
DX: M47.812 Spondylosis without myelopathy or radiculopathy, cervical region (principal); M47.813 Spondylosis without myelopathy or radiculopathy, cervicothoracic region; J45.909 Unspecified asthma, uncomplicated; I10 Essential (primary) hypertension; K21.9 Gastro-esophageal reflux disease without esophagitis; E78.00 Pure hypercholesterolemia, unspecified; G43.909 Migraine, unspecified, not intractable, without status migrainosus; E28.2 Polycystic ovarian syndrome; Z98.84 Bariatric surgery status; Z90.710 Acquired absence of both cervix and uterus; F17.210 Nicotine dependence, cigarettes, uncomplicated; Z79.891 Long term (current) use of opiate analgesic; Z79.899 Other long term (current) drug therapy; Z88.8 Allergy status to other drugs, medicaments and biological substances
CPT/HCPCS: 64490; 64491; J3301; Q9967

== ENCOUNTER → 2019-08-01 | Outpatient (CLI) | payer OTHER, BC ==
[~2019-08-01] MED LIST changes: -BUPIVACAINE HCL 0.25% 30 ML VIAL As Ordered ONE; -ISOVUE-M 300 61% 15ML VIAL (Q9967) As Ordered ONE; -LIDOCAINE 1% SDV INJ 30 ML VIAL As Ordered ONE; -TRIAMCINOLONE ACETONIDE SUSP 40 MG/ML VIAL (J3301) As Ordered ONE; -diazePAM 5 MG TAB As Ordered ONE; -oxyCODONE 5MG TAB As Ordered ONE
== END ==
LOC: M PAIN 14:45
PROVIDERS: ATTEND Family Medicine
DX: M47.812 Spondylosis without myelopathy or radiculopathy, cervical region (principal); Z53.8 Procedure and treatment not carried out for other reasons

== ENCOUNTER → 2019-09-19 | Outpatient (CLI) | payer OTHER, BC ==
[~2019-09-19] MED LIST changes: +OMEP-172 PO; -OMEP20CA4 PO
--- NOTE | 2019-09-25 03:51 | ECWPNPC ---
PATIENT NAME: LUIS KHALIL : 1965 GENDER: FEMALE VISIT DATE: 09/19/2019 DISCHARGE DATE: 09/19/19 1433 VISIT LOCKED DATE TIME: PHYSICIAN: HANDY ACEVES RESOURCE: HANDY ACEVES REASON FOR APPOINTMENT 1. W/C POST FACET HISTORY OF PRESENT ILLNESS GENERAL: ON 10/26/2015 LUIS CAME OUT OF HER CAR IN THE [facility] PARKING LOT, SLUNG HER PURSE OVER HER LEFT SHOULDER AND SLIPPED AND FELL ON THE ICE, HITTING HER MID BACK AGAINST THE BUMPER AND HER BUTTOCKS ON THE GROUND BILATERALLY. 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 X-RAYS WERE READ NEGATIVE EXCEPT FOR MILD SPONDYLOSIS IN THE LOW BACK. ON 07/10/2019 PATIENT HAD A CERVICAL FACET BLOCK DONE AND ADMITS TO 2 MONTHS OF RELIEF OF SYMPTOMS. PATIENT WOULD LIKE TO DISCUSS A REPEAT PROCEDURE WITH THE GOALS OF INCREASED FUNCTIONALITY AND A DECREASE IN PAIN. HISTORY OF PRESENT ILLNESS: PAIN THE PATIENT DESCRIBES THE PAIN... FALL RISK SCREENING: SCREENING :NO FALLS REPORTED IN THE LAST YEAR CURRENT MEDICATIONS TAKING TIZANIDINE HCL 4 MG TABLET 1 TABLET NEEDED ORALLY BEFORE BEDTIME MAY REPEAT IN 5 HRS MDD2 TAKING ALBUTEROL SULFATE HFA 108 (90 BASE) MCG/ACT AEROSOL SOLUTION 2 PUFFS INHALATION DAILY PRN- CHET TAKING MULTIVITAMINS TABLET 1 TAB ORALLY DAILY TAKING AMBIEN CR 12.5 MG TABLET EXTENDED RELEASE 1 TABLET ORALLY BEFORE BEDTIME MDD=1 TAKING HYDROCODONE-ACETAMINOPHEN 7.5-325 MG TABLET 1 TABLET NEEDED ORALLY EVERY 6 HRS PRN PAIN MDD3 TAKING BUTORPHANOL TARTRATE 10 MG/ML SOLUTION 1 SPRAY NEEDED NASALLY EVERY 8 HRS PRN MDD=2 TAKING VITAMIN D-3 1000 UNIT CAPSULE 1 CAPSULE ORALLY BID TAKING VITAMIN B12 100 MCG TABLET 1 TABLET ORALLY EVERY OTHER DAY TAKING BIOTIN 10 MG CAPSULE 1 CAPSULE ORALLY DAILY TAKING OMEPRAZOLE 20 MG CAPSULE DELAYED RELEASE 1 CAPSULE ORALLY TWICE A DAY NOT-TAKING ADVAIR DISKUS 250-50 MCG/DOSE AEROSOL POWDER BREATH ACTIVATED 1 PUFF INHALATION TWICE A DAY MEDICATION LIST REVIEWED AND RECONCILED WITH THE PATIENT PAST MEDICAL HISTORY ASTHMA HYPERTENSION GERD ELEVATED CHOLESTEROL PCO S. MIGRANES OBESITY HIGH-203 QAG=416 BACK INJURY 1986, 2016 ALLERGIES SIMVASTATIN: FATIGUE - SIDE EFFECTS IMITREX: NAUSEA - SIDE EFFECTS [employer] WORKER: NAUSEA - SIDE EFFECTS LYRICA: CONFUSION - SIDE EFFECTS GABAPENTIN: CONFUSION - SIDE EFFECTS SURGICAL HISTORY HYSTERECTOMY 2010 TUBAL LIGATION 1986 EXPLORITORY LAPROSCOPIC 1977 GASTRICBYPASS 05/03/2013 LYMPHECTOMY ON LEFT 07-02-2013 TRIGGER POINT INJECTIONS SHOULDER 2015 FACET JOIN INJECTIONS LUMBAR 2016 BLADDER SURGERY (THOMAS) 2018 FAMILY HISTORY FATHER: , DIABETES, HYPERTENSION, HYPERLIPIDEMIA, DIAGNOSED WITH UNSPECIFIED HEART DISEASE MOTHER: ALIVE, HYPERTENSION, HYPERLIPIDEMIA, HYPERTENSION SIBLINGS: ALIVE SON(S): ALIVE 1 BROTHER(S) , 1 SISTER(S) - HEALTHY. 2 SON(S) - HEALTHY. FAMILY HISTORY IS POSITIVE FOR DIABETES, HYPERTENSION, HEART DISEASE. MATERNAL AUNT AND GRANDMOTHER WITH BREAST CANCER. SOCIAL HISTORY GENERAL: TOBACCO USE ARE YOU A:CURRENT SMOKER ARE YOU INTERESTED IN QUITTING?NOT READY TO QUIT COUNSELED THE PATIENT ON SMOKING EFFECTS, EDUCATION [id number]/11/2019 HOW MANY CIGARETTES A DAY DO YOU SMOKE?11-20 HOW OFTEN DO YOU SMOKE CIGARETTES?EVERY DAY PATIENT COUNSELED ON THE DANGERS OF TOBACCO USE AND URGED TO QUIT:09/19/2019 SMOKING CESSATION INFORMATION GIVEN06/05/2019 DECLINED ANY DEIRE TO QUIT SMOKING AT THIS TIME VAPORNO E-CIGARETTENO HIV / HEP-C SCREENING HIV TEST OFFERED TO PATIENT:YES DATE OFFERED:07/24/2018 TEST ACCEPTED:NO HEP-C TEST OFFERED TO PATIENT:YES DATE OFFERED:07/24/2018 REASON:PATIENT DECLINED TEST ACCEPTED:NO REASON:PATIENT DECLINED BROCHURE PROVIDED TO PATIENTYES OTHERS AT HOME: SPOUSE. 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 DIET: REGULAR. LANGUAGE KOREAN. DOMESTIC VIOLENCE DO YOU FEEL SAFE IN YOUR ENVIRONMENT?YES NEW PATIENT PAIN DIARY PATIENT DESCRIBES PAIN :ACHING, HAVE IT ALL THE TIME, SHARP, STABBING, SORE, SHOOTING FROM 0-10, WHAT LEVEL IS YOUR PAIN TODAY?7 PRECIPITATING FACTORS PT STATES THAT EXCESSIVE LIFTING, BENDING AND WALKING WILL INCREASE PAIN ALLEVIATING FACTORS PAIN MEDS, STRETCHING 3-4 TIMES PER WEEK IMPACT ON FUNCTION LIGHT DUTY AT WORK, RESTRICTS MOBILITY, HAS DIFFICULTY WITH PICKING UP GRANDCHILDREN, UNABLE TO FISH AND KAYAK SHE HAD IN THE PAST WHEN DID YOU LAST EAT?02/14/2018 WHEN DID YOU LAST DRINK?02/14/2018 WHAT DID YOU LAST DRINK? WATER NAME OF PERSON DRIVING YOU HOME SELF IS THERE A CHANCE YOU COULD BE ?NO HAVE YOU BEEN SICK IN THE LAST WEEK (COLD, COUGH, FEVER, FLU, ETC)NO DO YOU TAKE ANY BLOOD THINNERS?NO ANY CHANGE IN BOWEL OR BLADDER CONTROL?NO PT STATES THAT SHE IS HAVING INCREASED ISSUES WITH INCONTINENCE, STATES THAT SHE HAD STRESS INCONTINENCE IN PAST AND NOW IT IS UNCONTROLLED ARE YOU ALLERGIC TO SHELLFISH OR IV DYE?NO ARE YOU DIABETIC?NO DO YOU HAVE A PACEMAKER OR DEFIBRILLATOR?NO ANY NEW PROBLEMS WITH MEDICINES OR NEW ALLERGIESNO ANY NEW PATTERNS OF PAIN OR NUMBNESS?NO ANY CHANGE IN YOUR MEDICAL CONDITION?NO HAVE YOU FALLEN IN THE LAST 6 MONTHS?NO DO YOU USE ANY TYPE OF TOBACCO (SMOKE, SMOKELESS, CHEW, ETC.)YES ARE YOU ABUSED, NEGLECTED, OR IN AN UNSAFE ENVIRONMENT?NO DO YOU HAVE THOUGHTS OF HURTING YOURSELF OR SOMEONE ELSE?NO DO YOU NEED ANY PRESCRIPTIONS?NO DO YOU HAVE ANY OTHER QUESTIONS OR CONCERNS?NO INTENSITY SCALE REVIEWEDNUMBER SCORE6 RECREATIONAL DRUG USE DRUG USE?NO EXERCISE: REGULAR. LEARNING BARRIERS / SPECIAL NEEDS CHANGE FROM LAST VISIT?NO BARRIERS TO LEARNING?NO HEARING IMPAIRED?YES VISION IMPAIRED?YES COGNITIVELY IMPAIRED?NO : LEFT EAR NO HEARING AIDS : CORRECTED LENSES READINESS TO LEARN?YES LEARNING PREFERENCES?NO LEARNING CAPABILITIES PRESENT?YES EMOTIONAL BARRIERS?NO SPECIAL DEVICES?NO BUSINESS INSURANCE AGENT NEEDED?NO PAIN CLINIC PFS, CLERGY, PUBLIC HEALTH REFERRALS PFS REFERRAL NEEDED?NO WAS THE PROVIDER NOTIFIED OF ANY PERTINENT INFO?YES HAS THE PATIENT BEEN EDUCATED REGARDING HIS/HER PLAN OF CARE?YES HAS THE PATIENT BEEN EDUCATED REGARDING PAIN, THE RISK FOR PAIN, THE IMPORTANCE OF EFFECTIVE PAIN MANAGEMENT, AND THE PAIN ASSESSMENT PROCESS?YES PLEASE DOCUMENT ANY ADDTIONAL DETAILS. CERVICAL FACET BLOCK LATEX QUESTIONNAIRE LATEX ALLERGY : HAVE YOU EVER DEVELOPED ANY TYPE OF REACTION AFTER HANDLING LATEX PRODUCTS SUCH RUBBER GLOVES, CONDOMS, DIAPHRAGMS, BALLOONS, SOCKS, OR UNDERWEAR?NO LATEX ALLERGY : HAVE YOU EVER DEVELOPED ANY TYPE OF REACTION DURING OR AFTER DENTAL APPOINTMENT, VAGINAL/RECTAL EXAMINATION, SURGICAL PROCEDURE, OR ANY OTHER EXPOSURE?NO DATE ASKED : 02/06/2019 LATEX RISK : HAVE YOU EVER HAD ANY DIFFICULTY BREATHING OR HIVES AFTER EATING OR HANDLING ANY FRUITS, OR VEGETABLES; SUCH KIWI, BANANAS, STONE FRUITS, OR CHESTNUTSNO LATEX RISK : DO YOU HAVE A PREVIOUS PERSONAL HISTORY OF MORE THAN NINE SURGERIES, SPINA BIFIDA, OR REPEATED CATHERIZATIONS? NO LATEX RISK : ARE YOU FREQUENTLY EXPOSED TO LATEX PRODUCTS IN YOUR OCCUPATION?NO CAFFEINE CAFFEINE USE?YES HOW OFTEN AND HOW MUCH? TWICE WEEKLY ADVANCE DIRECTIVE ADVANCE DIRECTIVE DISCUSSED WITH PATIENT:YES DECLINED INFORMATION AND ASSISTANCE WITH HCP YAZDANISM NO NONDENOMINATIONAL BELIEFS THAT WOULD IMPACT HEALTH CARE. MARITAL STATUS: . ALCOHOL SCREENING DID YOU HAVE A DRINK CONTAINING ALCOHOL IN THE PAST YEAR?YES HOW OFTEN DID YOU HAVE SIX OR MORE DRINKS ON ONE OCCASION IN THE PAST YEAR?NEVER (0 POINTS) HOW MANY DRINKS DID YOU HAVE ON A TYPICAL DAY WHEN YOU WERE DRINKING IN THE PAST YEAR?1 OR 2 (0 POINTS) HOW OFTEN DID YOU HAVE A DRINK CONTAINING ALCOHOL IN THE PAST YEAR?MONTHLY OR LESS (1 POINT) POINTS1 INTERPRETATIONNEGATIVE OCCUPATION: H[employer]. REVIEWED NL 09/11/18REVIEWED WITH PATIENT 10/18/18 1336 JSREVEIWED WITH PT 11/17/18 1433 BVREVIEWED WITH PATIENT 06/05/19 1308 NLJREVIEWED WITH PATIENT 09/19/19 1423 NLJ. HOSPITALIZATION/MAJOR DIAGNOSTIC PROCEDURE HYSTERECTOMY 2011 CHILDBIRTH 1982, 1984 GASTRIC BYPASS 2013 SURGERY [id number] 05/2018 REVIEW OF SYSTEMS REVIEWED BY: PROVIDER: MG MARIEE-C . CONSTITUTIONAL: ANY CHANGE IN YOUR MEDICAL CONDITION? NO . CHILLS NO . FEVER NO . INFECTION: DO YOU HAVE NEW INFECTIONS? NO . DO YOU HAVE HISTORY OF MRSA? NO . MUSCULOSKELETAL: ANY NEW PATTERNS OF PAIN OR NUMBNESS? YES- PRE PROCEDURE PAIN RETURNED THIS PAST TUESDAY, PT ALSO HAS LEFT BREAST PAIN R/T LUMP IN LEFT BREAST- PT TO BE SEEN BY BREAST SPECIALIST THIS Tuesday09/21/19 . GASTROENTEROLOGY: ANY NEW CHANGE IN BOWEL CONTROL? NO . GENITOURINARY: ANY NEW CHANGE IN BLADDER CONTROL? NO . IS THERE A CHANCE YOU COULD BE ? NO . HEMATOLOGY/LYMPH: DO YOU TAKE ANY BLOOD THINNERS? (FOR EXAMPLE- COUMADIN, PLAVIX, AGGRENOX, PLATEL, PRADAXA, OR XARELTO) NO . WHEN WAS YOUR LAST DOSE? DATE: TIME: . NEUROLOGY: HAVE YOU FALLEN IN THE PAST 12 MONTHS? NO . ANY NEW EXTREMITY NUMBNESS OR WEAKNESS? YES- LEFT ARM HAS INCREASED PAIN ANS WEAKNESS . CARDIOLOGY: DO YOU HAVE A PACEMAKER OR DEFIBRILLATOR? NO . RESPIRATORY: HAVE YOU BEEN SICK IN THE PAST WEEK? NO . FEVER NO . FLU LIKE SYMPTOMS? NO . COUGH NO . INTEGUMENTARY: DO YOU HAVE ANY RASHES OR OPEN SORES? NO . ALLERGIC/IMMUNO: ARE YOU ALLERGIC TO IV DYE? NO . ANY NEW ALLERGIES? NO . PSYCHIATRIC: DO YOU HAVE THOUGHTS OF HURTING YOURSELF OR SOMEONE ELSE? NO . ARE YOU ABUSED, NEGLECTED, OR IN AN UNSAFE ENVIRONMENT? NO . ENDOCRINOLOGY: ARE YOU DIABETIC? NO . OTHER: DO YOU NEED ANY PRESCRIPTIONS? YES . IF YES, PLEASE LIST: HYDROCODONE/ACETAMINOPHEN . ANY NEW PROBLEMS WITH YOUR MEDICATIONS? NO . WHEN DID YOU LAST EAT? ____ . WHEN DID YOU LAST DRINK? ____ . WHAT DID YOU LAST DRINK? ____ . NAME OF PERSON DRIVING YOU HOME? ____ . DO YOU HAVE ANY OTHER QUESTIONS OR CONCERNS YES- "WANT A PROCEDURE THAT WILL LAST LONGER" . VITAL SIGNS WT 139.6 LBS, HT 62.5 IN, BMI 25.12 [place] [address] MM HG, HR 83 /MIN, RR 18 /MIN, TEMP 97.3 F, OXYGEN SAT % 100%, SAFE IN ENV? (Y/N) YES, NA INITIALS AW 1400, REVIEWED BY: JOSE. EXAMINATION GENERAL EXAMINATION: GENERALNO ACUTE DISTRESS, WELL NOURISHED AND HYDRATED. PSYCHAPPROPRIATE MOOD AND AFFECT . NECK:POINT TENDER ALONG CERVICAL SPINE, STARTING SKIN SHOWS NO ERYTHEMA, ECCHYMOSIS, INCREASED WARMTH, AND/OR SKIN ERUPTIONS NOTED. PATIENT DOES ENDORSE INCREASED NECK PAIN WITH LIFTING ARMS AGAINST RESISTANCE . LUNGS:CLEAR TO AUSCULTATION BILATERALLY, NO WHEEZES, RHONCHI, RALES. HEART:NO MURMURS, REGULAR RATE AND RHYTHM. ASSESSMENTS SPONDYLOSIS OF CERVICAL REGION WITHOUT MYELOPATHY OR RADICULOPATHY - M47.812 (PRIMARY) TREATMENT SPONDYLOSIS OF CERVICAL REGION WITHOUT MYELOPATHY OR RADICULOPATHY NOTES: CERVICAL FACET BLOCK C5-C6 C6-C7. CLINICAL NOTES: 54-YEAR-OLD FEMALE IN FOR CHRONIC PAIN FOLLOW-UP. GIVEN PRESENTING SYMPTOMS AND RESULTS OF PHYSICAL EXAMINATION RECOMMENDED CERVICAL FACET BLOCK C5-C6 C6-C7 WITH POST PROCEDURAL FOLLOW-UP. PATIENT HAS EXPRESSED UNDERSTANDING OF AND WAS IN AGREEMENT WITH TREATMENT PLAN. GIVEN TIME TO ASK QUESTIONS AND EXPRESS CONCERNS. PROCEDURES PN WORKMANS' COMP OPINION IN YOUR OPINION, WAS THE INCIDENT THAT THE PATIENT DESCRIBED THE COMPETENT MEDICAL CAUSE OF THIS INJURY/ILLNESS? YES ARE THE PATIENT'S COMPLAINTS CONSISTENT WITH HIS/HER HISTORY OF THE INJURY/ILLNESS? YES IS THE PATIENT'S HISTORY OF THE INJURY/ILLNESS CONSISTENT WITH YOUR OBJECTIVE FINDING? YES WHAT IS THE PERCENTAGE OF TEMPORARY IMPAIRMENT? MODERATE TO MARKED = 66.7% IS THE PATIENT WORKING? YES DOCTOR ON SITE: FAIZAN STEVENS MD PREVENTIVE MEDICINE PAIN CLINIC TEACHING: PROCEDURE TEACHING CERVICAL FACET BLOCK PROCEDURE TEACHING REVIEWED WITH PATIENT, PT VERBALIZES UNDERSTANDING OF PROCEDURE WELL PRE-PROEDURE INSTRUCTIONS, PT DECLINED PRINTED PROCEDURE INFORMATION 09/19/19 1427 NLJ. PROCEDURE CODES FA211 ESTABILISHED PATIENT [facility] CHARGE DISPOSITION & COMMUNICATION FOLLOW UP POSTPROCEDURE (REASON: CERVICAL FACET BLOCK) ELECTRONICALLY SIGNED BY JAYLENE KELLER ON 09/24/2019 AT 03:08 PM EST DISCLAIMER : THIS IS A VISIT SUMMARY EXTRACTED FROM THE [employer] CHART. IT IS NOT A COPY OF THE [employer] PROGRESS NOTE. CARMITA
== END ==
LOC: M PAIN 13:45
PROVIDERS: ATTEND Family Medicine
DX: M47.812 Spondylosis without myelopathy or radiculopathy, cervical region (principal); J45.909 Unspecified asthma, uncomplicated; I10 Essential (primary) hypertension; K21.9 Gastro-esophageal reflux disease without esophagitis; G43.909 Migraine, unspecified, not intractable, without status migrainosus; Z98.84 Bariatric surgery status; F17.210 Nicotine dependence, cigarettes, uncomplicated; Z88.8 Allergy status to other drugs, medicaments and biological substances; Z79.899 Other long term (current) drug therapy

== ENCOUNTER → 2019-11-05 | Outpatient (CLI) | payer OTHER ==
[~2019-11-05] MED LIST changes: +BUPIVACAINE HCL 0.25% 30 ML VIAL As Ordered ONE; +ISOVUE-M 300 61% 15ML VIAL (Q9967) As Ordered ONE; +LIDOCAINE 1% SDV INJ 30 ML VIAL As Ordered ONE; -OMEP-172 PO; +OMEP1CAP73 PO; +TRIAMCINOLONE ACETONIDE SUSP 40 MG/ML VIAL (J3301) As Ordered ONE; +diazePAM 5 MG TAB As Ordered ONE; +oxyCODONE 5MG TAB As Ordered ONE
--- NOTE | 2019-11-05 12:36 | REP ---
PA and lateral chest three views, including two PA views, one and end inspiration and the other end expiration: Comparison is 03/07/2013. There is no pneumothorax, hemothorax or pulmonary contusion on the end inspiration or expiration views. The lung platt are clear. The cardiac size is normal. The michelle, mediastinum, and skeletal structures are unremarkable. Impression: Negative PA and lateral chest. Electronically Signed by Bijan Ariza MD 11/05/2019 12:27 P
--- NOTE | 2019-11-05 18:48 | REP ---
C-ARM VIEWS CERVICAL SPINE: CLINICAL HISTORY: Pain. Two C-ARM views cervical spine region were performed during injections by Dr. Ramires. Four needles are seen at the cervical thoracic junction and a small amount of contrast was injected. 15 seconds of fluoroscopy time was utilized. Electronically Signed by Bijan Coburn MD 11/07/2019 12:13 P
--- NOTE | 2019-11-16 01:44 | ECWPNPC ---
PATIENT NAME: LUIS KHALIL : 1965 GENDER: FEMALE VISIT DATE: 11/05/2019 DISCHARGE DATE: 11/05/19 1227 VISIT LOCKED DATE TIME: PHYSICIAN: FAIZAN FORREST MD RESOURCE: FAIZAN FORREST MD REASON FOR APPOINTMENT 1. BILATERAL CFBT C7-T1 , TFBT T2-T3 HISTORY OF PRESENT ILLNESS HISTORY OF PRESENT ILLNESS: PAIN THE PATIENT DESCRIBES THE PAIN... FALL RISK SCREENING: SCREENING :NO FALLS REPORTED IN THE LAST YEAR CURRENT MEDICATIONS TAKING HYDROCODONE-ACETAMINOPHEN 7.5-325 MG TABLET 1 TABLET NEEDED ORALLY EVERY 6 HRS PRN PAIN MDD3, NOTES: 11/03 12NOON TAKING OXYCODONE HCL 5 MG TABLET 1 TABLET NEEDED ORALLY FOR PAIN EVERY 6 HRS MDD3, NOTES: 2 MONTHS AGO TAKING OMEPRAZOLE 20 MG CAPSULE DELAYED RELEASE 1 CAPSULE ORALLY TWICE A DAY, NOTES: 11/04 12NOON TAKING BUTORPHANOL TARTRATE 10 MG/ML SOLUTION 1 SPRAY NEEDED NASALLY EVERY 8 HRS PRN MDD=2, NOTES: 1 MONTH AGO TAKING ALBUTEROL SULFATE HFA 108 (90 BASE) MCG/ACT AEROSOL SOLUTION 2 PUFFS INHALATION DAILY PRN- CHET, NOTES: 11/03 1PM TAKING AMBIEN CR 12.5 MG TABLET EXTENDED RELEASE 1 TABLET ORALLY BEFORE BEDTIME MDD=1, NOTES: [id number] 11/04 9PM TAKING BIOTIN 10 MG CAPSULE 1 CAPSULE ORALLY DAILY, NOTES: 11/04 7AM TAKING VITAMIN B12 100 MCG TABLET 1 TABLET ORALLY EVERY OTHER DAY, NOTES: 11/04 7AM TAKING VITAMIN D-3 1000 UNIT CAPSULE 1 CAPSULE ORALLY BID, NOTES: 11/04 7AM TAKING MULTIVITAMINS TABLET 1 TAB ORALLY ONCE DAILY, NOTES: 11/04 7AM NOT-TAKING TIZANIDINE HCL 4 MG TABLET 1 TABLET NEEDED ORALLY BEFORE BEDTIME MAY REPEAT IN 5 HRS MDD2, NOTES: PT STATES NOT TAKING NOT-TAKING ADVAIR DISKUS 250-50 MCG/DOSE AEROSOL POWDER BREATH ACTIVATED 1 PUFF INHALATION TWICE A DAY MEDICATION LIST REVIEWED AND RECONCILED WITH THE PATIENT PAST MEDICAL HISTORY ASTHMA HYPERTENSION GERD ELEVATED CHOLESTEROL PCO S. 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 2 SON(S) - HEALTHY. FAMILY HISTORY IS POSITIVE FOR DIABETES, HYPERTENSION, HEART DISEASE. MATERNAL AUNT AND GRANDMOTHER WITH BREAST CANCER. SOCIAL HISTORY GENERAL: TOBACCO USE ARE YOU A:CURRENT SMOKER ARE YOU INTERESTED IN QUITTING?NOT READY TO QUIT COUNSELED THE PATIENT ON SMOKING EFFECTS, EDUCATION [id number]/11/2019 HOW MANY CIGARETTES A DAY DO YOU SMOKE?11-20 HOW OFTEN DO YOU SMOKE CIGARETTES?EVERY DAY PATIENT COUNSELED ON THE DANGERS OF TOBACCO USE AND URGED TO QUIT:11/05/2019 SMOKING CESSATION INFORMATION GIVEN06/05/2019 DECLINED ANY DEIRE TO QUIT SMOKING AT THIS TIME VAPORNO E-CIGARETTENO HIV / HEP-C SCREENING HIV TEST OFFERED TO PATIENT:YES DATE OFFERED:07/24/2018 TEST ACCEPTED:NO HEP-C TEST OFFERED TO PATIENT:YES DATE OFFERED:07/24/2018 REASON:PATIENT DECLINED TEST ACCEPTED:NO REASON:PATIENT DECLINED BROCHURE PROVIDED TO PATIENTYES OTHERS AT HOME: SPOUSE. 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 DIET: REGULAR. LANGUAGE MACEDONIAN. DOMESTIC VIOLENCE DO YOU FEEL SAFE IN YOUR ENVIRONMENT?YES NEW PATIENT PAIN DIARY PATIENT DESCRIBES PAIN :ACHING, HAVE IT ALL THE TIME, SHARP, STABBING, SORE, SHOOTING FROM 0-10, WHAT LEVEL IS YOUR PAIN TODAY?7 PRECIPITATING FACTORS PT STATES THAT EXCESSIVE LIFTING, BENDING AND WALKING WILL INCREASE PAIN ALLEVIATING FACTORS PAIN MEDS, STRETCHING 3-4 TIMES PER WEEK IMPACT ON FUNCTION LIGHT DUTY AT WORK, RESTRICTS MOBILITY, HAS DIFFICULTY WITH PICKING UP GRANDCHILDREN, UNABLE TO FISH AND KAYAK SHE HAD IN THE PAST WHEN DID YOU LAST EAT?02/14/2018 WHEN DID YOU LAST DRINK?02/14/2018 WHAT DID YOU LAST DRINK? WATER NAME OF PERSON DRIVING YOU HOME SELF IS THERE A CHANCE YOU COULD BE ?NO HAVE YOU BEEN SICK IN THE LAST WEEK (COLD, COUGH, FEVER, FLU, ETC)NO DO YOU TAKE ANY BLOOD THINNERS?NO ANY CHANGE IN BOWEL OR BLADDER CONTROL?NO PT STATES THAT SHE IS HAVING INCREASED ISSUES WITH INCONTINENCE, STATES THAT SHE HAD STRESS INCONTINENCE IN PAST AND NOW IT IS UNCONTROLLED ARE YOU ALLERGIC TO SHELLFISH OR IV DYE?NO ARE YOU DIABETIC?NO DO YOU HAVE A PACEMAKER OR DEFIBRILLATOR?NO ANY NEW PROBLEMS WITH MEDICINES OR NEW ALLERGIESNO ANY NEW PATTERNS OF PAIN OR NUMBNESS?NO ANY CHANGE IN YOUR MEDICAL CONDITION?NO HAVE YOU FALLEN IN THE LAST 6 MONTHS?NO DO YOU USE ANY TYPE OF TOBACCO (SMOKE, SMOKELESS, CHEW, ETC.)YES ARE YOU ABUSED, NEGLECTED, OR IN AN UNSAFE ENVIRONMENT?NO DO YOU HAVE THOUGHTS OF HURTING YOURSELF OR SOMEONE ELSE?NO DO YOU NEED ANY PRESCRIPTIONS?NO DO YOU HAVE ANY OTHER QUESTIONS OR CONCERNS?NO INTENSITY SCALE REVIEWEDNUMBER SCORE6 RECREATIONAL DRUG USE DRUG USE?NO EXERCISE: REGULAR. LEARNING BARRIERS / SPECIAL NEEDS CHANGE FROM LAST VISIT?NO BARRIERS TO LEARNING?NO HEARING IMPAIRED?YES VISION IMPAIRED?YES COGNITIVELY IMPAIRED?NO : LEFT EAR NO HEARING AIDS : CORRECTED LENSES READINESS TO LEARN?YES LEARNING PREFERENCES?NO LEARNING CAPABILITIES PRESENT?YES EMOTIONAL BARRIERS?NO SPECIAL DEVICES?NO DECK SCALER NEEDED?NO PAIN CLINIC PFS, CLERGY, PUBLIC HEALTH REFERRALS PFS REFERRAL NEEDED?NO WAS THE PROVIDER NOTIFIED OF ANY PERTINENT INFO?YES HAS THE PATIENT BEEN EDUCATED REGARDING HIS/HER PLAN OF CARE?YES HAS THE PATIENT BEEN EDUCATED REGARDING PAIN, THE RISK FOR PAIN, THE IMPORTANCE OF EFFECTIVE PAIN MANAGEMENT, AND THE PAIN ASSESSMENT PROCESS?YES PLEASE DOCUMENT ANY ADDTIONAL DETAILS. CERVICAL FACET BLOCK LATEX QUESTIONNAIRE LATEX ALLERGY : HAVE YOU EVER DEVELOPED ANY TYPE OF REACTION AFTER HANDLING LATEX PRODUCTS SUCH RUBBER GLOVES, CONDOMS, DIAPHRAGMS, BALLOONS, SOCKS, OR UNDERWEAR?NO LATEX ALLERGY : HAVE YOU EVER DEVELOPED ANY TYPE OF REACTION DURING OR AFTER DENTAL APPOINTMENT, VAGINAL/RECTAL EXAMINATION, SURGICAL PROCEDURE, OR ANY OTHER EXPOSURE?NO LATEX RISK : HAVE YOU EVER HAD ANY DIFFICULTY BREATHING OR HIVES AFTER EATING OR HANDLING ANY FRUITS, OR VEGETABLES; SUCH KIWI, BANANAS, STONE FRUITS, OR CHESTNUTSNO LATEX RISK : DO YOU HAVE A PREVIOUS PERSONAL HISTORY OF MORE THAN NINE SURGERIES, SPINA BIFIDA, OR REPEATED CATHERIZATIONS? NO LATEX RISK : ARE YOU FREQUENTLY EXPOSED TO LATEX PRODUCTS IN YOUR OCCUPATION?NO DATE ASKED : 11/05/2019 CAFFEINE CAFFEINE USE?YES OCC HOW OFTEN AND HOW MUCH? TWICE WEEKLY ADVANCE DIRECTIVE ADVANCE DIRECTIVE DISCUSSED WITH PATIENT:YES DECLINED INFORMATION AND ASSISTANCE WITH HCP PAPERWORK. GNOSTICISM NO WORSHIP BELIEFS THAT WOULD IMPACT HEALTH CARE. MARITAL STATUS: . ALCOHOL SCREENING DID YOU HAVE A DRINK CONTAINING ALCOHOL IN THE PAST YEAR?YES HOW OFTEN DID YOU HAVE SIX OR MORE DRINKS ON ONE OCCASION IN THE PAST YEAR?NEVER (0 POINTS) HOW MANY DRINKS DID YOU HAVE ON A TYPICAL DAY WHEN YOU WERE DRINKING IN THE PAST YEAR?1 OR 2 (0 POINTS) HOW OFTEN DID YOU HAVE A DRINK CONTAINING ALCOHOL IN THE PAST YEAR?MONTHLY OR LESS (1 POINT) POINTS1 INTERPRETATIONNEGATIVE OCCUPATION: [employer]. REVIEWED NL 09/11/18REVIEWED WITH PATIENT 10/18/18 1336 JSREVEIWED WITH PT 11/17/18 1433 BVREVIEWED WITH PATIENT 06/05/19 1308 NLJREVIEWED WITH PATIENT 09/19/19 1423 NLJREVIEWED WITH PATIENT 11/05/2019 DS. HOSPITALIZATION/MAJOR DIAGNOSTIC PROCEDURE HYSTERECTOMY 2011 CHILDBIRTH 1982, 1984 GASTRIC BYPASS 2013 SURGERY PTX-TO-[id number] 05/2018 REVIEW OF SYSTEMS REVIEWED BY: PROVIDER: . CONSTITUTIONAL: ANY CHANGE IN YOUR MEDICAL CONDITION? NO . CHILLS NO . FEVER NO . INFECTION: DO YOU HAVE NEW INFECTIONS? NO . DO YOU HAVE HISTORY OF MRSA? NO . MUSCULOSKELETAL: ANY NEW PATTERNS OF PAIN OR NUMBNESS? NO . GASTROENTEROLOGY: ANY NEW CHANGE IN BOWEL CONTROL? NO . GENITOURINARY: ANY NEW CHANGE IN BLADDER CONTROL? NO . IS THERE A CHANCE YOU COULD BE ? NO . HEMATOLOGY/LYMPH: DO YOU TAKE ANY BLOOD THINNERS? (FOR EXAMPLE- COUMADIN, PLAVIX, AGGRENOX, PLATEL, PRADAXA, OR XARELTO) NO . WHEN WAS YOUR LAST DOSE? DATE: TIME: . NEUROLOGY: HAVE YOU FALLEN IN THE PAST 12 MONTHS? NO . ANY NEW EXTREMITY NUMBNESS OR WEAKNESS? YES, NUMBNESS RADIATING DOWN LEFT ARM . CARDIOLOGY: DO YOU HAVE A PACEMAKER OR DEFIBRILLATOR? NO . RESPIRATORY: HAVE YOU BEEN SICK IN THE PAST WEEK? NO . FEVER NO . FLU LIKE SYMPTOMS? NO . COUGH NO . INTEGUMENTARY: DO YOU HAVE ANY RASHES OR OPEN SORES? NO . ALLERGIC/IMMUNO: ARE YOU ALLERGIC TO IV DYE? NO . ANY NEW ALLERGIES? NO . PSYCHIATRIC: DO YOU HAVE THOUGHTS OF HURTING YOURSELF OR SOMEONE ELSE? NO . ARE YOU ABUSED, NEGLECTED, OR IN AN UNSAFE ENVIRONMENT? NO . ENDOCRINOLOGY: ARE YOU DIABETIC? NO . OTHER: DO YOU NEED ANY PRESCRIPTIONS? NO . IF YES, PLEASE LIST: ____ . ANY NEW PROBLEMS WITH YOUR MEDICATIONS? NO . WHEN DID YOU LAST EAT? 11/04/2019 9PM . WHEN DID YOU LAST DRINK? 11/04/2019 9PM . WHAT DID YOU LAST DRINK? WATER . NAME OF PERSON DRIVING YOU HOME? INNA . DO YOU HAVE ANY OTHER QUESTIONS OR CONCERNS NO . VITAL SIGNS WT 138.7 LBS, HT 62.5 IN, BMI 24.96 INDEX, BP 133/26 MM HG, HR 60 /MIN, RR 18 /MIN, TEMP 97.6 F, OXYGEN SAT % 99%, SAFE IN ENV? (Y/N) Y, NA INITIALS AW 0908, REVIEWED BY: LIZET. ASSESSMENTS SPONDYLOSIS WITHOUT MYELOPATHY OR RADICULOPATHY, CERVICOTHORACIC REGION - M47.813 (PRIMARY) SPONDYLOSIS WITHOUT MYELOPATHY OR RADICULOPATHY, THORACIC REGION - M47.814 PROCEDURES PN WORKMANS' COMP OPINION IN YOUR OPINION, WAS THE INCIDENT THAT THE PATIENT DESCRIBED THE COMPETENT MEDICAL CAUSE OF THIS INJURY/ILLNESS? YES ARE THE PATIENT'S COMPLAINTS CONSISTENT WITH HIS/HER HISTORY OF THE INJURY/ILLNESS? YES IS THE PATIENT'S HISTORY OF THE INJURY/ILLNESS CONSISTENT WITH YOUR OBJECTIVE FINDING? YES WHAT IS THE PERCENTAGE OF TEMPORARY IMPAIRMENT? MODERATE TO MARKED = 66.7% IS THE PATIENT WORKING? YES DOCTOR ON SITE: FAIZAN STEVENS MD PN THORACIC FACET BLOCK THERAPEUTIC PRE PROCEDURE DIAGNOSIS CERVICAL SPONDYLOSIS, THORACIC SPONDYLOSIS POST PROCEDURE DIAGNOSIS CERVICAL SPONDYLOSIS, THORACIC SPONDYLOSIS PROCEDURE RIGHT AND LEFT C7-T1 CERVICAL FACET THERAPEUTIC BLOCK, RIGHT AND LEFT T2-T3 THORACIC FACET THERAPEUTIC BLOCK SURGEON DR. FAIZAN FORREST LEARNING SPECIALIST NONE ANESTHESIA LOCAL PRE PROCEDURE NOTE THE PATIENT WITH HISTORY OF CHRONIC CERVICAL AND THORACIC PAIN. I EVALUATED THE PATIENT AND REVIEWED THE CHART. I WENT OVER THE RISKS, ALTERNATIVES AND BENEFITS ASSOCIATED WITH THIS PROCEDURE. THE PATIENT WOULD LIKE TO PROCEED AND GAVE CONSENT TO PERFORM THE PROCEDURE. THE PATIENT DENIES UNEXPLAINABLE WEIGHT LOSS, FEVER, CHILLS, OR NEW CHANGES IN URINARY OR BOWEL CONTROL. DESCRIPTION OF PROCEDURE THE PATIENT WAS BROUGHT TO THE PROCEDURE ROOM AND PLACED IN THE PRONE POSITION. THE THORACIC AREA WAS CLEANED WITH CHLORAPREP SOLUTION AND DRAPED ASEPTICALLY. THE PROCEDURE WAS DONE UNDER STERILE CONDITIONS. I CHECKED LATERALITY AND THE LEVEL WHERE THE PROCEDURE WAS GOING TO BE PERFORMED WITH THE PATIENT AND THE SUPPORTING STAFF AT THE MOMENT OF THE TIMEOUT IN THE PROCEDURE ROOM. UNDER FLUOROSCOPIC GUIDANCE, THE TARGET POINT WAS SELECTED AT THE RIGHT AND LEFT C7-T1 CERVICAL FACET JOINTS AND RIGHT AND LEFT T2-T3 THORACIC FACET JOINTS. TARGET POINT WAS SELECTED AFTER LATERAL ROTATION AND TILT OF THE MAGNIFIER OF THE C-ARM. LIDOCAINE 0.5% WAS USED TO NUMB THE SKIN AND THE SUBCUTANEOUS TISSUE BELOW IT. SPINAL NEEDLES, 22-GAUGE, WERE ADVANCED UNDER FLUOROSCOPIC GUIDANCE AND FOLLOWING PATIENT FEEDBACK UNTIL THE TARGETS WERE TOUCHED. THE POSITION OF THE NEEDLES WAS VERIFIED WITH MULTIPLE X-RAY VIEWS. AFTER PROPER POSITION OF THE NEEDLES WAS ACHIEVED, ISOVUE-M DYE 30% 0.1 ML WAS INJECTED SHOWING ADEQUATE SPREAD OF THE DYE. THEN A SOLUTION OF 0.9 ML OF BUPIVACAINE 0.125% OF KENALOG 10 MG WAS INJECTED AT EACH SITE. THERE WAS NO EVIDENCE OF BLOOD, PARESTHESIA OR CEREBROSPINAL FLUID DURING THE PROCEDURE. THE PATIENT WAS SENT TO THE RECOVERY ROOM. THE PATIENT WAS MOVING THE EXTREMITIES AND DOING WELL. THERE WAS NO COMPLICATION DURING THE PROCEDURE. FLUOROSCOPY TIME WAS 15 SECONDS POST PROCEDURE NOTE THE PATIENT WILL BE SEEN IN A FOLLOWUP IN THE NEXT FEW WEEKS. I AM LOOKING FOR LONG-LASTING PAIN RELIEF WITH THIS PROCEDURE. I AM ORDERING AN AP/LATERAL/INSPIRATION/EXPIRATION CHEST X-RAY STAT TO RULE OUT PNEUMOTHORAX. INSTRUCTIONS WERE GIVEN, QUESTIONS WERE ANSWERED, AND THE PATIENT EXPRESSED UNDERSTANDING AND AGREED WITH THE PLAN. I, GENNY DRAPER, DOCUMENTED THE ABOVE INFORMATION ACTING A SCRIBE FOR DR. FORREST. I HAVE REVIEWED THE ABOVE DOCUMENT, WRITTEN BY JEROME CHEEK, AND I VERIFY THAT IT IS ACCURATE DIAGNOSTIC IMAGING [facility] FLUORO GUIDE SPINE INJECTION (PAIN)[id number] PROCEDURE CODES 83693 INJ PARAVERT F JNT C/T 1 LEV, MODIFIERS: [id number] INJ PARAVERT F JNT C/T 2 LEV, MODIFIERS: 50 [id number] RADXPS IN END [id number] PXD DISPOSITION & COMMUNICATION FOLLOW UP 3 WEEKS ELECTRONICALLY SIGNED BY FAIZAN FORREST MD, MD ON 11/15/2019 AT 05:17 PM EST DISCLAIMER : THIS IS A VISIT SUMMARY EXTRACTED FROM THE [employer] CHART. IT IS NOT A COPY OF THE [employer] PROGRESS NOTE. MTDD
== END ==
LOC: M PAIN 09:15
PROVIDERS: ATTEND Anesthesiology
DX: M47.813 Spondylosis without myelopathy or radiculopathy, cervicothoracic region (principal); M47.814 Spondylosis without myelopathy or radiculopathy, thoracic region; J45.909 Unspecified asthma, uncomplicated; I10 Essential (primary) hypertension; K21.9 Gastro-esophageal reflux disease without esophagitis; G43.909 Migraine, unspecified, not intractable, without status migrainosus; Z98.84 Bariatric surgery status; F17.210 Nicotine dependence, cigarettes, uncomplicated; Z88.8 Allergy status to other drugs, medicaments and biological substances; Z79.899 Other long term (current) drug therapy
CPT/HCPCS: 64490; 64491; 71046; J3301; Q9967

== ENCOUNTER 2019-11-06 12:57 | Outpatient (RCR) | payer BC ==
[~2019-11-06 12:57] MED LIST changes: -BUPIVACAINE HCL 0.25% 30 ML VIAL As Ordered ONE; -ISOVUE-M 300 61% 15ML VIAL (Q9967) As Ordered ONE; -LIDOCAINE 1% SDV INJ 30 ML VIAL As Ordered ONE; -TRIAMCINOLONE ACETONIDE SUSP 40 MG/ML VIAL (J3301) As Ordered ONE; -diazePAM 5 MG TAB As Ordered ONE; -oxyCODONE 5MG TAB As Ordered ONE
== END 2019-11-09 ==
LOC: M PT 12:57
PROVIDERS: ATTEND Surgery
DX: S29.012D Strain of muscle and tendon of back wall of thorax, subsequent encounter (principal); X58.XXXD Exposure to other specified factors, subsequent encounter; Z47.89 Encounter for other orthopedic aftercare

== ENCOUNTER → 2019-11-15 | Outpatient (CLI) | payer BC ==
[2019-11-15 07:31] LABS: BASO % 0.7 % (0.0-1.0); EOS # 0.1 10^3/uL (0.0-0.5); EOS % 1.9 % (0.0-3.0); HEMATOCRIT 29.1 % (36.0-47.0); HEMOGLOBIN 7.7 g/dl (12.0-15.5); LYMPH # 1.5 10^3/uL (1.5-5.0); LYMPH % 36.2 % (24.0-44.0); MEAN CORPUSCULAR HEMOGLOBIN 17.8 pg (27.0-33.0); MEAN CORPUSCULAR HGB CONC 26.5 g/dl (32.0-36.5); MEAN CORPUSCULAR VOLUME 67.4 fl (80.0-96.0); MONO # 0.4 10^3/uL (0.0-0.8); MONO % 10.1 % (0.0-5.0); NEUTROPHILS # 2.2 10^3/uL (1.5-8.5); NEUTROPHILS % 50.9 % (36.0-66.0); PLATELET COUNT, AUTOMATED 418 10^3/uL (150-450); RED BLOOD COUNT 4.32 10^6/uL (4.00-5.40); WHITE BLOOD COUNT 4.3 10^3/uL (4.0-10.0)
[2019-11-15 07:52] LABS: ALBUMIN 3.9 GM/DL (3.2-5.2); ALT/SGPT 38 U/L (12-78); BILIRUBIN,TOTAL 0.4 MG/DL (0.2-1.0); BLOOD UREA NITROGEN 20 MG/DL (7-18); CALCIUM LEVEL 8.4 MG/DL (8.5-10.1); CARBON DIOXIDE LEVEL 25 MEQ/L (21-32); CHLORIDE LEVEL 105 MEQ/L (98-107); CHOLESTEROL LEVEL 227 MG/DL (<200); CHOLESTEROL RISK RATIO 2.225 (<5); CREATININE FOR GFR 0.73 MG/DL (0.55-1.30); FERRITIN 3 NG/ML (8-252); GLOMERULAR FILTRATION RATE > 60.0 (>51); GLUCOSE, FASTING 101 MG/DL (70-100); HDL CHOLESTEROL 102 MG/DL (>40); IRON (FE) 15 UG/DL (50-170); LDL CHOLESTEROL 110 MG/DL (<100); MAGNESIUM LEVEL 2.3 MG/DL (1.8-2.4); NON-HDL-C 125 MG/DL; PERCENT SATURATION 2.5 % (13.2-45.0); POTASSIUM SERUM 3.6 MEQ/L (3.5-5.1); SODIUM LEVEL 139 MEQ/L (136-145); TOTAL IRON BINDING CAPACITY 591 UG/DL (250-450); TOTAL PROTEIN 7.1 GM/DL (6.4-8.2); TRIGLYCERIDES LEVEL 75 MG/DL (<150)
[2019-11-15 11:21] LABS: TOTAL 25(OH) VITAMIN D 16.8 NG/ML (30.0-100.0); VITAMIN B12 LEVEL 941 PG/ML
[2019-11-15 11:22] LABS: FOLATE > 24.0 NG/ML
== END ==
LOC: M LAB 07:01
PROVIDERS: ATTEND Nurse Practitioner Family
DX: E78.5 Hyperlipidemia, unspecified (principal); Z98.84 Bariatric surgery status

== ENCOUNTER → 2019-11-20 | Outpatient (CLI) | payer OTHER ==
--- NOTE | 2019-11-22 02:13 | ECWPNPC ---
PATIENT NAME: LUIS KHALIL : 1965 GENDER: FEMALE VISIT DATE: 11/20/2019 DISCHARGE DATE: 11/20/19 1413 VISIT LOCKED DATE TIME: PHYSICIAN: HANDY ACEVES RESOURCE: HANDY ACEVES REASON FOR APPOINTMENT 1. W/C, POST PROCEDURE HISTORY OF PRESENT ILLNESS HISTORY OF PRESENT ILLNESS: PAIN THE PATIENT DESCRIBES THE PAIN... 54-YEAR-OLD FEMALE IN FOR WORKER'S COMP. POST CERVICAL FACET BLOCK FOLLOW-UP. ON 10/26/2015 LUIS CAME OUT OF HER CAR IN THE [facility] P[facility]ING [facility], SLUNG HER PURSE OVER HER LEFT SHOULDER AND SLIPPED AND FELL ON THE ICE, HITTING HER MID BACK AGAINST THE BUMPER AND HER BUTTOCKS ON THE GROUND BILATERALLY. 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 X-RAYS WERE READ NEGATIVE EXCEPT FOR MILD SPONDYLOSIS IN THE LOW BACK. ON 11/05/2019 PATIENT HAD A CERVICAL FACET BLOCK DONE AND ADMITS TO PRE PROCEDURAL PAIN OF 8-9/10 AND POST PROCEDURAL PAIN OF 4-5/10. SHE FURTHER STATES THE PROCEDURE CONTINUES TO HELP HER TODAY. FALL RISK SCREENING: SCREENING :NO FALLS REPORTED IN THE LAST YEAR CURRENT MEDICATIONS TAKING OMEPRAZOLE 20 MG CAPSULE DELAYED RELEASE 1 CAPSULE ORALLY TWICE A DAY TAKING ALBUTEROL SULFATE HFA 108 (90 BASE) MCG/ACT AEROSOL SOLUTION 2 PUFFS INHALATION DAILY PRN- CHET TAKING BIOTIN 10 MG CAPSULE 1 CAPSULE ORALLY DAILY TAKING VITAMIN B12 100 MCG TABLET 1 TABLET ORALLY EVERY OTHER DAY TAKING VITAMIN D-3 1000 UNIT CAPSULE 1 CAPSULE ORALLY BID TAKING MULTIVITAMINS TABLET 1 TAB ORALLY ONCE DAILY TAKING OXYCODONE HCL 5 MG TABLET 1 TABLET NEEDED ORALLY FOR PAIN EVERY 6 HRS MDD3 TAKING BUTORPHANOL TARTRATE 10 MG/ML SOLUTION 1 SPRAY EACH NOSTRIL NEEDED NASALLY EVERY 8 HRS PRN MDD=4 TAKING AMBIEN CR 12.5 MG TABLET EXTENDED RELEASE 1 TABLET ORALLY BEFORE BEDTIME MDD=1 TAKING IRON (FERROUS SULFATE) 142 (45 FE) MG TABLET EXTENDED RELEASE 1 TABLET ORALLY ONCE A DAY NOT-TAKING TIZANIDINE HCL 4 MG TABLET 1 TABLET NEEDED ORALLY BEFORE BEDTIME MAY REPEAT IN 5 HRS MDD2 NOT-TAKING ADVAIR DISKUS 250-50 MCG/DOSE AEROSOL POWDER BREATH ACTIVATED 1 PUFF INHALATION TWICE A DAY NOT-TAKING HYDROCODONE-ACETAMINOPHEN 7.5-325 MG TABLET 1 TABLET NEEDED ORALLY EVERY 6 HRS PRN PAIN MDD3 MEDICATION LIST REVIEWED AND RECONCILED WITH THE PATIENT PAST MEDICAL HISTORY ASTHMA HYPERTENSION GERD ELEVATED CHOLESTEROL PCO S. MIGRANES OBESITY HIGH-203 JJE=574 BACK INJURY 1986, 2015 ANEMIA ALLERGIES SIMVASTATIN: FATIGUE - SIDE EFFECTS IMITREX: NAUSEA - SIDE EFFECTS MAXALT CREDENTIALING ASSISTANT: NAUSEA - SIDE EFFECTS LYRICA: CONFUSION - SIDE EFFECTS GABAPENTIN: CONFUSION - SIDE EFFECTS SURGICAL HISTORY HYSTERECTOMY 2010 TUBAL LIGATION 1985 EXPLORITORY LAPROSCOPIC 1976 GASTRICBYPASS 05/03/2013 LYMPHECTOMY ON LEFT 07-02-2013 TRIGGER POINT INJECTIONS SHOULDER 2015 FACET JOIN INJECTIONS LUMBAR 2016 BLADDER SURGERY (THOMAS) 2018 FAMILY HISTORY FATHER: , DIABETES, HYPERTENSION, HYPERLIPIDEMIA, DIAGNOSED WITH UNSPECIFIED HEART DISEASE MOTHER: ALIVE, HYPERTENSION, HYPERLIPIDEMIA, HYPERTENSION SIBLINGS: ALIVE SON(S): ALIVE 1 BROTHER(S) , 1 SISTER(S) - HEALTHY. 2 SON(S) - HEALTHY. FAMILY HISTORY IS POSITIVE FOR DIABETES, HYPERTENSION, HEART DISEASE. MATERNAL AUNT AND GRANDMOTHER WITH BREAST CANCER. SOCIAL HISTORY GENERAL: TOBACCO USE ARE YOU A:CURRENT SMOKER ARE YOU INTERESTED IN QUITTING?NOT READY TO QUIT COUNSELED THE PATIENT ON SMOKING EFFECTS, EDUCATION [id number]/11/2019 HOW MANY CIGARETTES A DAY DO YOU SMOKE?11-20 HOW OFTEN DO YOU SMOKE CIGARETTES?EVERY DAY PATIENT COUNSELED ON THE DANGERS OF TOBACCO USE AND URGED TO QUIT:11/20/2019 SMOKING CESSATION INFORMATION GIVEN06/05/2019 DECLINED ANY DEIRE TO QUIT SMOKING AT THIS TIME VAPORNO E-CIGARETTENO HIV / HEP-C SCREENING HIV TEST OFFERED TO PATIENT:YES DATE OFFERED:07/24/2018 TEST ACCEPTED:NO HEP-C TEST OFFERED TO PATIENT:YES DATE OFFERED:07/24/2018 REASON:PATIENT DECLINED TEST ACCEPTED:NO REASON:PATIENT DECLINED BROCHURE PROVIDED TO PATIENTYES OTHERS AT HOME: SPOUSE. 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 DIET: REGULAR. LANGUAGE FAROESE. DOMESTIC VIOLENCE DO YOU FEEL SAFE IN YOUR ENVIRONMENT?YES NEW PATIENT PAIN DIARY PATIENT DESCRIBES PAIN :ACHING, HAVE IT ALL THE TIME, SHARP, STABBING, SORE, SHOOTING FROM 0-10, WHAT LEVEL IS YOUR PAIN TODAY?7 PRECIPITATING FACTORS PT STATES THAT EXCESSIVE LIFTING, BENDING AND WALKING WILL INCREASE PAIN ALLEVIATING FACTORS PAIN MEDS, STRETCHING 3-4 TIMES PER WEEK IMPACT ON FUNCTION LIGHT DUTY AT WORK, RESTRICTS MOBILITY, HAS DIFFICULTY WITH PICKING UP GRANDCHILDREN, UNABLE TO FISH AND KAYAK SHE HAD IN THE PAST WHEN DID YOU LAST EAT?02/14/2018 WHEN DID YOU LAST DRINK?02/14/2018 WHAT DID YOU LAST DRINK? WATER NAME OF PERSON DRIVING YOU HOME SELF IS THERE A CHANCE YOU COULD BE ?NO HAVE YOU BEEN SICK IN THE LAST WEEK (COLD, COUGH, FEVER, FLU, ETC)NO DO YOU TAKE ANY BLOOD THINNERS?NO ANY CHANGE IN BOWEL OR BLADDER CONTROL?NO PT STATES THAT SHE IS HAVING INCREASED ISSUES WITH INCONTINENCE, STATES THAT SHE HAD STRESS INCONTINENCE IN PAST AND NOW IT IS UNCONTROLLED ARE YOU ALLERGIC TO SHELLFISH OR IV DYE?NO ARE YOU DIABETIC?NO DO YOU HAVE A PACEMAKER OR DEFIBRILLATOR?NO ANY NEW PROBLEMS WITH MEDICINES OR NEW ALLERGIESNO ANY NEW PATTERNS OF PAIN OR NUMBNESS?NO ANY CHANGE IN YOUR MEDICAL CONDITION?NO HAVE YOU FALLEN IN THE LAST 6 MONTHS?NO DO YOU USE ANY TYPE OF TOBACCO (SMOKE, SMOKELESS, CHEW, ETC.)YES ARE YOU ABUSED, NEGLECTED, OR IN AN UNSAFE ENVIRONMENT?NO DO YOU HAVE THOUGHTS OF HURTING YOURSELF OR SOMEONE ELSE?NO DO YOU NEED ANY PRESCRIPTIONS?NO DO YOU HAVE ANY OTHER QUESTIONS OR CONCERNS?NO INTENSITY SCALE REVIEWEDNUMBER SCORE6 RECREATIONAL DRUG USE DRUG USE?NO EXERCISE: REGULAR. LEARNING BARRIERS / SPECIAL NEEDS CHANGE FROM LAST VISIT?NO 11/13/2019 BARRIERS TO LEARNING?NO HEARING IMPAIRED?YES VISION IMPAIRED?YES COGNITIVELY IMPAIRED?NO : LEFT EAR NO HEARING AIDS : CORRECTED LENSES READINESS TO LEARN?YES LEARNING PREFERENCES?NO LEARNING CAPABILITIES PRESENT?YES EMOTIONAL BARRIERS?NO SPECIAL DEVICES?NO FORESTRY FARM LABORER NEEDED?NO PAIN CLINIC PFS, CLERGY, PUBLIC HEALTH REFERRALS PFS REFERRAL NEEDED?NO WAS THE PROVIDER NOTIFIED OF ANY PERTINENT INFO?YES HAS THE PATIENT BEEN EDUCATED REGARDING HIS/HER PLAN OF CARE?YES HAS THE PATIENT BEEN EDUCATED REGARDING PAIN, THE RISK FOR PAIN, THE IMPORTANCE OF EFFECTIVE PAIN MANAGEMENT, AND THE PAIN ASSESSMENT PROCESS?YES PLEASE DOCUMENT ANY ADDTIONAL DETAILS. CERVICAL FACET BLOCK LATEX QUESTIONNAIRE LATEX ALLERGY : HAVE YOU EVER DEVELOPED ANY TYPE OF REACTION AFTER HANDLING LATEX PRODUCTS SUCH RUBBER GLOVES, CONDOMS, DIAPHRAGMS, BALLOONS, SOCKS, OR UNDERWEAR?NO LATEX ALLERGY : HAVE YOU EVER DEVELOPED ANY TYPE OF REACTION DURING OR AFTER DENTAL APPOINTMENT, VAGINAL/RECTAL EXAMINATION, SURGICAL PROCEDURE, OR ANY OTHER EXPOSURE?NO DATE ASKED : 11/05/2019 LATEX RISK : HAVE YOU EVER HAD ANY DIFFICULTY BREATHING OR HIVES AFTER EATING OR HANDLING ANY FRUITS, OR VEGETABLES; SUCH KIWI, BANANAS, STONE FRUITS, OR CHESTNUTSNO LATEX RISK : DO YOU HAVE A PREVIOUS PERSONAL HISTORY OF MORE THAN NINE SURGERIES, SPINA BIFIDA, OR REPEATED CATHERIZATIONS? NO LATEX RISK : ARE YOU FREQUENTLY EXPOSED TO LATEX PRODUCTS IN YOUR OCCUPATION?NO CAFFEINE CAFFEINE USE?YES OCC HOW OFTEN AND HOW MUCH? TWICE WEEKLY ADVANCE DIRECTIVE ADVANCE DIRECTIVE DISCUSSED WITH PATIENT:YES DECLINED INFORMATION AND ASSISTANCE WITH HCP PAPERWORK. RASTAFARIAN NO ORTHODOXY BELIEFS THAT WOULD IMPACT HEALTH CARE. MARITAL STATUS: . 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 REVIEWED NL 09/11/18REVIEWED WITH PATIENT 10/18/18 1336 JSREVEIWED WITH PT 11/17/18 1433 BVREVIEWED WITH PATIENT 06/05/19 1308 NLJREVIEWED WITH PATIENT 09/19/19 1423 NLJREVIEWED WITH PATIENT 11/05/2019 DSREVIEWED WITH PATIENT 11/20/2019 1331 NLJ. HOSPITALIZATION/MAJOR DIAGNOSTIC PROCEDURE HYSTERECTOMY 2011 CHILDBIRTH 1982, 1984 GASTRIC BYPASS 2013 SURGERY [id number] 05/2018 REVIEW OF SYSTEMS REVIEWED BY: PROVIDER: MG ASH . CONSTITUTIONAL: ANY CHANGE IN YOUR MEDICAL CONDITION? NO . CHILLS NO . FEVER NO . INFECTION: DO YOU HAVE NEW INFECTIONS? YES- STATES SHE HAD RESP INFECTION, STATES SHE FEELS BETTER NOW . DO YOU HAVE HISTORY OF MRSA? NO . MUSCULOSKELETAL: ANY NEW PATTERNS OF PAIN OR NUMBNESS? YES- STATES SHE HAS PAIN AND TINGLING IN BOTH LEGS BUT MOSTLY IN LEFT . GASTROENTEROLOGY: ANY NEW CHANGE IN BOWEL CONTROL? NO . GENITOURINARY: ANY NEW CHANGE IN BLADDER CONTROL? NO . IS THERE A CHANCE YOU COULD BE ? NO . HEMATOLOGY/LYMPH: DO YOU TAKE ANY BLOOD THINNERS? (FOR EXAMPLE- COUMADIN, PLAVIX, AGGRENOX, PLATEL, PRADAXA, OR XARELTO) NO . WHEN WAS YOUR LAST DOSE? DATE: TIME: . NEUROLOGY: HAVE YOU FALLEN IN THE PAST 12 MONTHS? NO . ANY NEW EXTREMITY NUMBNESS OR WEAKNESS? YES- STATES SHE HAS PAIN AND NUMBNESS IN BILATERAL LEGS WORSE IN LEFT . CARDIOLOGY: DO YOU HAVE A PACEMAKER OR DEFIBRILLATOR? NO . RESPIRATORY: HAVE YOU BEEN SICK IN THE PAST WEEK? NO . FEVER NO . FLU LIKE SYMPTOMS? NO . COUGH NO . INTEGUMENTARY: DO YOU HAVE ANY RASHES OR OPEN SORES? NO . ALLERGIC/IMMUNO: ARE YOU ALLERGIC TO IV DYE? NO . ANY NEW ALLERGIES? NO . PSYCHIATRIC: DO YOU HAVE THOUGHTS OF HURTING YOURSELF OR SOMEONE ELSE? NO . ARE YOU ABUSED, NEGLECTED, OR IN AN UNSAFE ENVIRONMENT? NO . ENDOCRINOLOGY: ARE YOU DIABETIC? NO . OTHER: DO YOU NEED ANY PRESCRIPTIONS? YES . IF YES, PLEASE LIST: ____ . ANY NEW PROBLEMS WITH YOUR MEDICATIONS? NO . WHEN DID YOU LAST EAT? ____ . WHEN DID YOU LAST DRINK? ____ . WHAT DID YOU LAST DRINK? ____ . NAME OF PERSON DRIVING YOU HOME? ____ . DO YOU HAVE ANY OTHER QUESTIONS OR CONCERNS YES- STATES SHE WANTS TO SWITCH BACK TO HYDROCODONE FROM OXYCODONE, STATES BILATERAL THERAPEUTIC CERVICAL FACET BLOCKS WORKED WELL AND SHE CONTINUES TO FEEL SOME RELIEF . VITAL SIGNS WT 139.0 LBS, HT 62.5 IN, BMI 25.02 INDEX, BP 115/55 MM HG, HR 88 /MIN, RR 18 /MIN, TEMP 97.4 F, OXYGEN SAT % 95%, SAFE IN ENV? (Y/N) YES, NA INITIALS [id number], REVIEWED BY: JOSE. EXAMINATION GENERAL EXAMINATION: GENERALNO ACUTE DISTRESS, WELL NOURISHED AND HYDRATED. PSYCHAPPROPRIATE MOOD AND AFFECT . LUNGS:CLEAR TO AUSCULTATION BILATERALLY, NO WHEEZES, RHONCHI, RALES. HEART:NO MURMURS, REGULAR RATE AND RHYTHM. BACK:POINT TENDER BILATERAL LOWER LUMBAR SPINE, SURROUNDING SKIN SHOWS NO ERYTHEMA, ECCHYMOSIS, INCREASED WARMTH, AND/OR SKIN ERUPTIONS NOTED. POSITIVE MODIFIED SLR LEFT SIDE . MUSCULOSKELETAL:EQUAL STRENGTH OF THE LOWER EXTREMITIES BILATERALLY . ASSESSMENTS SPONDYLOSIS OF CERVICAL REGION WITHOUT MYELOPATHY OR RADICULOPATHY - M47.812 (PRIMARY) INTERVERTEBRAL DISC DISORDER WITH RADICULOPATHY OF LUMBAR REGION - M51.16 TREATMENT SPONDYLOSIS OF CERVICAL REGION WITHOUT MYELOPATHY OR RADICULOPATHY NOTES: LESI L4-L5. CLINICAL NOTES: 54-YEAR-OLD FEMALE IN FOR POST CERVICAL FACET BLOCK FOLLOW-UP. SHE ADMITS TO INCREASING LOW BACK PAIN WITH RADICULAR SYMPTOMS. GIVEN PRESENTING SYMPTOMS AND RESULTS OF PHYSICAL EXAMINATION RECOMMENDED LESI L L4-L5 WITH POST PROCEDURAL FOLLOW-UP. PATIENT HAS EXPRESSED UNDERSTANDING OF AND WAS IN AGREEMENT WITH TREATMENT PLAN. GIVEN TIME TO ASK QUESTIONS AND EXPRESS CONCERNS., ISTOP REGISTRY REVIEWED AND DEMONSTRATES COMPLLIANCE. (REF # [id number] ) BRINGS IN MEDICATIONS WHICH IS APPROPRIATE FOR WHAT WAS DISPENSED. RECENT URINE TOXICOLOGY REVIEWED. NO UNAUTHORIZED MEDICATIONS. NO ILLICIT SUBSTANCES AND PRESCRIBED MEDICATIONS WERE PRESENT. PROCEDURES PN WORKMANS' COMP OPINION IN YOUR OPINION, WAS THE INCIDENT THAT THE PATIENT DESCRIBED THE COMPETENT MEDICAL CAUSE OF THIS INJURY/ILLNESS? YES ARE THE PATIENT'S COMPLAINTS CONSISTENT WITH HIS/HER HISTORY OF THE INJURY/ILLNESS? YES IS THE PATIENT'S HISTORY OF THE INJURY/ILLNESS CONSISTENT WITH YOUR OBJECTIVE FINDING? YES WHAT IS THE PERCENTAGE OF TEMPORARY IMPAIRMENT? MODERATE TO MARKED = 66.7% IS THE PATIENT WORKING? YES DOCTOR ON SITE: FAIZAN STEVENS MD PREVENTIVE MEDICINE PAIN CLINIC TEACHING: PROCEDURE TEACHING LUMBAR EPIDURAL STEROID INJECTION PROCEDURE INFORMATION PRINTED AND REVIEWED WITH PT. PATIENT VERBLAIZES UNDERSATNDING OF PROCEDURE AND PRE PROCEDURE INSTRUCTIONS REVIEWED. 11/20/2019 1415 NLJ. PROCEDURE CODES FA211 ESTABILISHED PATIENT [facility] FACILITY CHARGE DISPOSITION & COMMUNICATION FOLLOW UP POSTPROCEDURE (REASON: LESI L4-L5) ELECTRONICALLY SIGNED BY JAYLENE KELLER ON 11/21/2019 AT 08:53 AM EST DISCLAIMER : THIS IS A VISIT SUMMARY EXTRACTED FROM THE [employer] CHART. IT IS NOT A COPY OF THE [employer] PROGRESS NOTE. CARMITA
== END ==
LOC: M PAIN 13:15
PROVIDERS: ATTEND Family Medicine
DX: M47.812 Spondylosis without myelopathy or radiculopathy, cervical region (principal); M51.16 Intervertebral disc disorders with radiculopathy, lumbar region; J45.909 Unspecified asthma, uncomplicated; I10 Essential (primary) hypertension; K21.9 Gastro-esophageal reflux disease without esophagitis; G43.909 Migraine, unspecified, not intractable, without status migrainosus; D50.9 Iron deficiency anemia, unspecified; Z98.84 Bariatric surgery status; F17.210 Nicotine dependence, cigarettes, uncomplicated; Z88.8 Allergy status to other drugs, medicaments and biological substances; Z79.899 Other long term (current) drug therapy

== ENCOUNTER → 2019-12-24 | Outpatient (CLI) | payer BC ==
[2019-12-24 12:15] LABS: BASO % 0.7 % (0.0-1.0); EOS # 0.1 10^3/uL (0.0-0.5); HEMATOCRIT 30.1 % (36.0-47.0); HEMOGLOBIN 8.3 g/dl (12.0-15.5); LYMPH # 1.8 10^3/uL (1.5-5.0); LYMPH % 38.8 % (24.0-44.0); MEAN CORPUSCULAR HEMOGLOBIN 18.1 pg (27.0-33.0); MEAN CORPUSCULAR HGB CONC 27.6 g/dl (32.0-36.5); MEAN CORPUSCULAR VOLUME 65.6 fl (80.0-96.0); MONO # 0.4 10^3/uL (0.0-0.8); NEUTROPHILS # 2.3 10^3/uL (1.5-8.5); NEUTROPHILS % 50.5 % (36.0-66.0); PLATELET COUNT, AUTOMATED 342 10^3/uL (150-450); RED BLOOD COUNT 4.59 10^6/uL (4.00-5.40); WHITE BLOOD COUNT 4.5 10^3/uL (4.0-10.0)
[2019-12-24 12:48] LABS: ALBUMIN 4.2 GM/DL (3.2-5.2); ALT/SGPT 38 U/L (12-78); BILIRUBIN,TOTAL 0.4 MG/DL (0.2-1.0); BLOOD UREA NITROGEN 23 MG/DL (7-18); CARBON DIOXIDE LEVEL 25 MEQ/L (21-32); CHLORIDE LEVEL 107 MEQ/L (98-107); CHOLESTEROL LEVEL 252 MG/DL (<200); CREATININE FOR GFR 0.67 MG/DL (0.55-1.30); FERRITIN 3 NG/ML (8-252); GLOMERULAR FILTRATION RATE > 60.0 (>51); GLUCOSE, FASTING 114 MG/DL (70-100); HDL CHOLESTEROL 102 MG/DL (>40); IRON (FE) 17 UG/DL (50-170); LDL CHOLESTEROL 116 MG/DL (<100); MAGNESIUM LEVEL 2.1 MG/DL (1.8-2.4); NON-HDL-C 150 MG/DL; PERCENT SATURATION 2.9 % (13.2-45.0); POTASSIUM SERUM 3.8 MEQ/L (3.5-5.1); SODIUM LEVEL 139 MEQ/L (136-145); TOTAL IRON BINDING CAPACITY 596 UG/DL (250-450); TOTAL PROTEIN 7.5 GM/DL (6.4-8.2); TRIGLYCERIDES LEVEL 168 MG/DL (<150)
[2019-12-24 12:53] LABS: FOLATE 17.2 NG/ML; TOTAL 25(OH) VITAMIN D 20.8 NG/ML (30.0-100.0); VITAMIN B12 LEVEL 1137 PG/ML
== END ==
LOC: M LAB 10:58
PROVIDERS: ATTEND Nurse Practitioner Family
DX: R07.9 Chest pain, unspecified (principal); K21.9 Gastro-esophageal reflux disease without esophagitis; E55.9 Vitamin D deficiency, unspecified; Z98.84 Bariatric surgery status; E78.5 Hyperlipidemia, unspecified

== ENCOUNTER → 2019-12-29 | Outpatient (REF) | payer BC | LOC: M LAB REF 13:50 | PROVIDERS: ATTEND Physician Assistant Medical | DX: R50.9 Fever, unspecified (principal) ==

== ENCOUNTER → 2020-01-14 | Outpatient (CLI) | payer OTHER ==
[~2020-01-14] MED LIST changes: +LIDOCAINE 1% SDV 30ML VIAL As Ordered ONE; +diazePAM 5 MG TAB As Ordered ONE; +methylPREDNISolone SUSP 40 MG/ML (DEPO-medrol) VIAL (J1030) As Ordered ONE; +oxyCODONE 5MG TAB As Ordered ONE
--- NOTE | 2020-01-14 11:29 | REP ---
C-ARM VIEWS OF THE LUMBAR SPINE: CLINICAL HISTORY: Pain. Three C-arm views of the lumbar spine performed during lumbar epidural injection performed by Dr. Ramires. A needle is seen at the L4-5 level. Contrast is injected. 15 seconds of fluoroscopy time utilized. Electronically Signed by Bijan Coburn MD 01/14/2020 03:10 P
--- NOTE | 2020-01-27 23:47 | ECWPNPC ---
PATIENT NAME: LUIS KHALIL : 1965 GENDER: FEMALE VISIT DATE: 01/14/2020 DISCHARGE DATE: 01/14/20 1038 VISIT LOCKED DATE TIME: PHYSICIAN: FAIZAN FORREST MD RESOURCE: FAIZAN FORREST MD REASON FOR APPOINTMENT 1. W/C LESI HISTORY OF PRESENT ILLNESS HISTORY OF PRESENT ILLNESS: PAIN THE PATIENT DESCRIBES THE PAIN... FALL RISK SCREENING: SCREENING :NO FALLS REPORTED IN THE LAST YEAR CURRENT MEDICATIONS TAKING ADVAIR DISKUS 250-50 MCG/DOSE AEROSOL POWDER BREATH ACTIVATED 1 PUFF INHALATION TWICE A DAY, NOTES: 01/12 6PM TAKING ALBUTEROL SULFATE HFA 108 (90 BASE) MCG/ACT AEROSOL SOLUTION 2 PUFFS INHALATION DAILY PRN- CHET, NOTES: 01/12 6PM TAKING BIOTIN 10 MG CAPSULE 1 CAPSULE ORALLY DAILY, NOTES: 01/13 5AM TAKING VITAMIN B12 1000 MCG TABLET EXTENDED RELEASE 1 TABLET ORALLY ONCE A DAY, NOTES: 01/13 5AM TAKING VITAMIN D-3 1000 UNIT CAPSULE 1 CAPSULE ORALLY BID, NOTES: 01/13 5AM TAKING MULTIVITAMINS TABLET 1 TAB ORALLY ONCE DAILY, NOTES: 01/13 5AM TAKING BUTORPHANOL TARTRATE 10 MG/ML SOLUTION 1 SPRAY EACH NOSTRIL NEEDED NASALLY EVERY 8 HRS PRN MDD=4, NOTES: LAST TUESDAY TAKING HYDROCODONE-ACETAMINOPHEN 7.5-325 MG TABLET 1 TABLET NEEDED ORALLY EVERY 6 HRS PRN PAIN MDD3, NOTES: 01/13 3AM TAKING OMEPRAZOLE 40 MG CAPSULE DELAYED RELEASE 1 CAPSULE 30 MINUTES BEFORE MORNING MEAL ORALLY ONCE A DAY, NOTES: 01/13 5AM TAKING FERREX 150 150 MG CAPSULE 1 CAPSULE ORALLY ONCE A DAY, NOTES: 01/13 5AM TAKING AMBIEN CR 12.5 MG TABLET EXTENDED RELEASE 1 TABLET ORALLY BEFORE BEDTIME MDD=1, NOTES: 01/12 7PM NOT-TAKING TIZANIDINE HCL 4 MG TABLET 1 TABLET NEEDED ORALLY BEFORE BEDTIME MAY REPEAT IN 5 HRS MDD2 MEDICATION LIST REVIEWED AND RECONCILED WITH THE PATIENT PAST MEDICAL HISTORY ASTHMA HYPERTENSION GERD ELEVATED CHOLESTEROL PCO S. MIGRANES OBESITY HIGH-203 PCK=440 BACK INJURY 1986, 2015 ANEMIA ALLERGIES SIMVASTATIN: FATIGUE - SIDE EFFECTS IMITREX: NAUSEA - SIDE EFFECTS MAXALT POWER LINEWORKER: NAUSEA - SIDE EFFECTS LYRICA: CONFUSION - SIDE EFFECTS GABAPENTIN: CONFUSION - SIDE EFFECTS SURGICAL HISTORY HYSTERECTOMY 2011 TUBAL LIGATION 1986 EXPLORITORY LAPROSCOPIC 1977 GASTRICBYPASS 05/03/2013 LYMPHECTOMY ON LEFT 07-02-2013 TRIGGER POINT INJECTIONS SHOULDER 2015 FACET JOIN INJECTIONS LUMBAR 2016 BLADDER SURGERY (THOMAS) 2019 FAMILY HISTORY FATHER: , DIABETES, HYPERTENSION, HYPERLIPIDEMIA, DIAGNOSED WITH UNSPECIFIED HEART DISEASE MOTHER: ALIVE, HYPERTENSION, HYPERLIPIDEMIA, HYPERTENSION SIBLINGS: ALIVE SON(S): ALIVE 1 BROTHER(S) , 1 SISTER(S) - HEALTHY. 2 SON(S) - HEALTHY. FAMILY HISTORY IS POSITIVE FOR DIABETES, HYPERTENSION, HEART DISEASE. MATERNAL AUNT AND GRANDMOTHER WITH BREAST CANCER. SOCIAL HISTORY GENERAL: TOBACCO USE ARE YOU A:CURRENT SMOKER ARE YOU INTERESTED IN QUITTING?NOT READY TO QUIT COUNSELED THE PATIENT ON SMOKING EFFECTS, EDUCATION STDXLSQU97/24/2020 HOW MANY CIGARETTES A DAY DO YOU SMOKE?11-20 HOW OFTEN DO YOU SMOKE CIGARETTES?EVERY DAY PATIENT COUNSELED ON THE DANGERS OF TOBACCO USE AND URGED TO QUIT:01/14/2020 SMOKING CESSATION INFORMATION GIVEN01/01/2020 DECLINED ANY DEIRE TO QUIT SMOKING AT THIS TIME VAPORNO E-CIGARETTENO LATEX QUESTIONNAIRE LATEX ALLERGY : HAVE YOU EVER DEVELOPED ANY TYPE OF REACTION AFTER HANDLING LATEX PRODUCTS SUCH RUBBER GLOVES, CONDOMS, DIAPHRAGMS, BALLOONS, SOCKS, OR UNDERWEAR?NO LATEX ALLERGY : HAVE YOU EVER DEVELOPED ANY TYPE OF REACTION DURING OR AFTER DENTAL APPOINTMENT, VAGINAL/RECTAL EXAMINATION, SURGICAL PROCEDURE, OR ANY OTHER EXPOSURE?NO LATEX RISK : HAVE YOU EVER HAD ANY DIFFICULTY BREATHING OR HIVES AFTER EATING OR HANDLING ANY FRUITS, OR VEGETABLES; SUCH KIWI, BANANAS, STONE FRUITS, OR CHESTNUTSNO LATEX RISK : DO YOU HAVE A PREVIOUS PERSONAL HISTORY OF MORE THAN NINE SURGERIES, SPINA BIFIDA, OR REPEATED CATHERIZATIONS? NO LATEX RISK : ARE YOU FREQUENTLY EXPOSED TO LATEX PRODUCTS IN YOUR OCCUPATION?NO DATE ASKED : 01/14/2020 ALCOHOL SCREENING DID YOU HAVE A DRINK CONTAINING ALCOHOL IN THE PAST YEAR?YES HOW OFTEN DID YOU HAVE SIX OR MORE DRINKS ON ONE OCCASION IN THE PAST YEAR?NEVER (0 POINTS) HOW MANY DRINKS DID YOU HAVE ON A TYPICAL DAY WHEN YOU WERE DRINKING IN THE PAST YEAR?1 OR 2 (0 POINTS) HOW OFTEN DID YOU HAVE A DRINK CONTAINING ALCOHOL IN THE PAST YEAR?MONTHLY OR LESS (1 POINT) POINTS1 INTERPRETATIONNEGATIVE RECREATIONAL DRUG USE DRUG USE?NO CAFFEINE CAFFEINE USE?YES OCC HOW OFTEN AND HOW MUCH? TWICE WEEKLY HIV / HEP-C SCREENING HIV TEST OFFERED TO PATIENT:YES DATE OFFERED:01/01/2020 TEST ACCEPTED:NO HEP-C TEST OFFERED TO PATIENT:YES DATE OFFERED:01/01/2020 REASON:PATIENT DECLINED TEST ACCEPTED:NO REASON:PATIENT DECLINED BROCHURE PROVIDED TO PATIENTYES ISLAM NO SCIENTOLOGY BELIEFS THAT WOULD IMPACT HEALTH CARE. LANGUAGE KOREAN. 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 DIET: REGULAR. EXERCISE: REGULAR. MARITAL STATUS: . OTHERS AT HOME: SPOUSE. 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 WATER NAME OF PERSON DRIVING YOU HOME SPOUSE ASIM IS THERE A CHANCE YOU COULD BE ?NO HAVE YOU BEEN SICK IN THE LAST WEEK (COLD, COUGH, FEVER, FLU, ETC)NO DO YOU TAKE ANY BLOOD THINNERS?NO ANY CHANGE IN BOWEL OR BLADDER CONTROL?YES PT STATES THAT SHE IS TAKING IRON SUPPLEMENTS AND HAVING ISSUES WITH CONSTIPATION ARE YOU ALLERGIC TO SHELLFISH OR IV DYE?NO ARE YOU DIABETIC?NO DO YOU HAVE A PACEMAKER OR DEFIBRILLATOR?NO ANY NEW PROBLEMS WITH MEDICINES OR NEW ALLERGIESNO ANY NEW PATTERNS OF PAIN OR NUMBNESS?NO ANY CHANGE IN YOUR MEDICAL CONDITION?NO HAVE YOU FALLEN IN THE LAST 6 MONTHS?NO DO YOU USE ANY TYPE OF TOBACCO (SMOKE, SMOKELESS, CHEW, ETC.)YES ARE YOU ABUSED, NEGLECTED, OR IN AN UNSAFE ENVIRONMENT?NO DO YOU HAVE THOUGHTS OF HURTING YOURSELF OR SOMEONE ELSE?NO DO YOU NEED ANY PRESCRIPTIONS?NO DO YOU HAVE ANY OTHER QUESTIONS OR CONCERNS?NO INTENSITY SCALE REVIEWEDNUMBER SCORE8 PAIN CLINIC PFS, CLERGY, PUBLIC HEALTH REFERRALS PFS REFERRAL NEEDED?NO WAS THE PROVIDER NOTIFIED OF ANY PERTINENT INFO?YES HAS THE PATIENT BEEN EDUCATED REGARDING HIS/HER PLAN OF CARE?YES HAS THE PATIENT BEEN EDUCATED REGARDING PAIN, THE RISK FOR PAIN, THE IMPORTANCE OF EFFECTIVE PAIN MANAGEMENT, AND THE PAIN ASSESSMENT PROCESS?YES PLEASE DOCUMENT ANY ADDTIONAL DETAILS. CERVICAL FACET BLOCK ADVANCE DIRECTIVE ADVANCE DIRECTIVE DISCUSSED WITH PATIENT:YES DECLINED INFORMATION AND ASSISTANCE WITH HCP PAPERWORK. HOSPITALIZATION/MAJOR DIAGNOSTIC PROCEDURE HYSTERECTOMY 2011 CHILDBIRTH 1982, 1984 GASTRIC BYPASS 2013 SURGERY [id number] 05/2018 REVIEW OF SYSTEMS REVIEWED BY: PROVIDER: FAIZAN FORREST MD . CONSTITUTIONAL: ANY CHANGE IN YOUR MEDICAL CONDITION? NO . CHILLS NO . FEVER NO . INFECTION: DO YOU HAVE NEW INFECTIONS? NO . DO YOU HAVE HISTORY OF MRSA? NO . MUSCULOSKELETAL: ANY NEW PATTERNS OF PAIN OR NUMBNESS? NO . GASTROENTEROLOGY: ANY NEW CHANGE IN BOWEL CONTROL? YES, PT TAKING IRON SUPPLEMENTS, HAVING ISSUES WITH CONSTIPATION . GENITOURINARY: ANY NEW CHANGE IN BLADDER CONTROL? NO . IS THERE A CHANCE YOU COULD BE ? NO . HEMATOLOGY/LYMPH: DO YOU TAKE ANY BLOOD THINNERS? (FOR EXAMPLE- COUMADIN, PLAVIX, AGGRENOX, PLATEL, PRADAXA, OR XARELTO) NO . WHEN WAS YOUR LAST DOSE? DATE: TIME: . NEUROLOGY: HAVE YOU FALLEN IN THE PAST 12 MONTHS? NO . ANY NEW EXTREMITY NUMBNESS OR WEAKNESS? NO . CARDIOLOGY: DO YOU HAVE A PACEMAKER OR DEFIBRILLATOR? NO . RESPIRATORY: HAVE YOU BEEN SICK IN THE PAST WEEK? NO . FEVER NO . FLU LIKE SYMPTOMS? NO . COUGH NO . INTEGUMENTARY: DO YOU HAVE ANY RASHES OR OPEN SORES? NO . ALLERGIC/IMMUNO: ARE YOU ALLERGIC TO IV DYE? NO . ANY NEW ALLERGIES? NO . PSYCHIATRIC: DO YOU HAVE THOUGHTS OF HURTING YOURSELF OR SOMEONE ELSE? NO . ARE YOU ABUSED, NEGLECTED, OR IN AN UNSAFE ENVIRONMENT? NO . ENDOCRINOLOGY: ARE YOU DIABETIC? NO . OTHER: DO YOU NEED ANY PRESCRIPTIONS? NO . IF YES, PLEASE LIST: ____ . ANY NEW PROBLEMS WITH YOUR MEDICATIONS? NO . WHEN DID YOU LAST EAT? 4/5 7PM . WHEN DID YOU LAST DRINK? 01/13 5AM . WHAT DID YOU LAST DRINK? WATER . NAME OF PERSON DRIVING YOU HOME? SPOUSE- . DO YOU HAVE ANY OTHER QUESTIONS OR CONCERNS NO . VITAL SIGNS WT 136.0 LBS, HT 62.5 IN, BMI 24.48 INDEX, BP 137/64 MM HG, HR 91 /MIN, RR 18 /MIN, TEMP 96.1 F, OXYGEN SAT % 100, SAFE IN ENV? (Y/N) Y, REVIEWED BY: DS. ASSESSMENTS SPINAL STENOSIS OF LUMBAR REGION, UNSPECIFIED WHETHER NEUROGENIC CLAUDICATION PRESENT - M48.061 (PRIMARY) INTERVERTEBRAL DISC DISORDER WITH RADICULOPATHY OF LUMBAR REGION - M51.16 TREATMENT INTERVERTEBRAL DISC DISORDER WITH RADICULOPATHY OF LUMBAR REGION [facility] FLUORO GUIDE SPINE INJECTION (PAIN)[id number] PROCEDURES PRE PROCEDURE DIAGNOSIS LUMBAR SPINAL STENOSIS POST PROCEDURE DIAGNOSIS LUMBAR SPINAL STENOSIS PROCEDURE LUMBAR EPIDURAL STEROID INJECTION UNDER FLUOROSCOPIC GUIDANCE SURGEON DR. FAIZAN FORREST COGNOS ANALYST NONE ANESTHESIA LOCAL PRE PROCEDURE NOTE THE PATIENT HAS A HISTORY OF CHRONIC LOW BACK PAIN. I EVALUATED THE PATIENT AND REVIEWED THE CHART. I WENT OVER THE RISKS, ALTERNATIVES, AND BENEFITS ASSOCIATED WITH THIS PROCEDURE. I DISCUSSED WITH THE PATIENT THAT THE USE OF STEROIDS MAY CONTRIBUTE TO IMMUNOSUPPRESSION OF HER BODY AGAINST INFECTIONS SUCH THE [place] VIRUS, COVID-19. SHE IS AWARE OF THE POTENTIAL COMPLICATIONS ASSOCIATED WITH AN INFECTION OF THIS VIRUS INCLUDING . I ALSO DISCUSSED WITH THE PATIENT THE URGENCY OF THIS PROCEDURE. THE PATIENT EXPRESSED THAT SHE CANNOT FUNCTION WITH THE PRESENT PAIN AND THAT THE PAIN AND INABILITY TO FUNCTION HAS INCREASED IN THE LAST FEW WEEKS. THE PATIENT UNDERSTANDS THAT I CANNOT GUARANTEE OUTCOMES WITH THIS PROCEDURE. THE PATIENT GIVES CONSENT TO PERFORM THE PROCEDURE. THE PATIENT DENIES UNEXPLAINABLE WEIGHT LOSS, FEVER, CHILLS, OR NEW CHANGES IN URINARY OR BOWEL CONTROL. DESCRIPTION OF PROCEDURE THE PATIENT WAS BROUGHT TO THE PROCEDURE ROOM AND PLACED IN THE PRONE POSITION. THE LUMBOSACRAL AREA WAS CLEANED WITH BETADINE SOLUTION AND DRAPED ASEPTICALLY. THE PROCEDURE WAS DONE UNDER STERILE CONDITIONS. I CHECKED LATERALITY AND THE LEVEL WHERE THE PROCEDURE WAS GOING TO BE PERFORMED WITH THE PATIENT AND THE SUPPORTING STAFF AT THE MOMENT OF THE TIME OUT IN THE PROCEDURE ROOM. UNDER FLUOROSCOPIC GUIDANCE, THE TARGET POINT WAS SELECTED AT THE INTERLAMINAR LEVEL OF L4-L5. LIDOCAINE WAS USED TO NUMB THE SKIN AND THE SUBCUTANEOUS TISSUE BELOW IT. EPIDURAL TUOHY NEEDLE, 17-GAUGE, WAS ADVANCED UNDER FLUOROSCOPIC GUIDANCE AND FOLLOWING PATIENT FEEDBACK UNTIL THE EPIDURAL SPACE WAS REACHED, 7 CM DEEP INTO THE SKIN BY THE LOSS OF RESISTANCE TECHNIQUE. ISOVUE M DYE 30%, 0.25 ML, WAS INJECTED SHOWING ADEQUATE SPREAD OF THE DYE. THEN, A SOLUTION OF 3 ML OF NORMAL SALINE WITH DEPO-MEDROL 60 MG WAS INJECTED SLOWLY FOLLOWING PATIENT FEEDBACK. THERE WAS NO EVIDENCE OF BLOOD, PARESTHESIA OR CEREBROSPINAL FLUID DURING THE PROCEDURE. THE PATIENT WAS SENT TO THE RECOVERY ROOM. THE PATIENT WAS MOVING THE EXTREMITIES AND DOING WELL. THERE WAS NO COMPLICATION DURING THE PROCEDURE. FLUOROSCOPY TIME WAS 15 SECONDS. POST PROCEDURE NOTE THE PATIENT WILL BE SEEN IN A FOLLOW UP IN THE NEXT FEW WEEKS. I AM LOOKING FOR LONG LASTING PAIN RELIEF FOR THE PATIENT WITH THIS INJECTION. INSTRUCTIONS WERE GIVEN, QUESTIONS WERE ANSWERED, AND THE PATIENT EXPRESSED UNDERSTANDING AND AGREES WITH THE PLAN. I, BOBO JUAREZ , DOCUMENTED THE ABOVE INFORMATION ACTING A SCRIBE FOR DR. FORREST. I HAVE REVIEWED THE ABOVE DOCUMENT, WRITTEN BY JEROME ONEIL, AND I VERIFY THAT IT IS ACCURATE PROCEDURE CODES 77205 LUMBAR/SACRAL W/ IMAGING 6045F RADXPS IN END [id number] PXD DISPOSITION & COMMUNICATION FOLLOW UP 2 WEEKS ELECTRONICALLY SIGNED BY FAIZAN FORREST MD, MD ON 01/27/2020 AT 12:39 PM EDT DISCLAIMER : THIS IS A VISIT SUMMARY EXTRACTED FROM THE [employer] CHART. IT IS NOT A COPY OF THE [employer] PROGRESS NOTE. MTDD
== END ==
LOC: M PAIN 09:00
PROVIDERS: ATTEND Anesthesiology
DX: M48.061 Spinal stenosis, lumbar region without neurogenic claudication (principal); M51.16 Intervertebral disc disorders with radiculopathy, lumbar region; J45.909 Unspecified asthma, uncomplicated; I10 Essential (primary) hypertension; K21.9 Gastro-esophageal reflux disease without esophagitis; G43.909 Migraine, unspecified, not intractable, without status migrainosus; D50.9 Iron deficiency anemia, unspecified; F17.210 Nicotine dependence, cigarettes, uncomplicated; Z88.8 Allergy status to other drugs, medicaments and biological substances; Z98.84 Bariatric surgery status; Z79.899 Other long term (current) drug therapy
CPT/HCPCS: 62323; J1030

== ENCOUNTER → 2020-01-25 | Outpatient (CLI) | payer OTHER ==
[~2020-01-25] MED LIST changes: -LIDOCAINE 1% SDV 30ML VIAL As Ordered ONE; -diazePAM 5 MG TAB As Ordered ONE; -methylPREDNISolone SUSP 40 MG/ML (DEPO-medrol) VIAL (J1030) As Ordered ONE; -oxyCODONE 5MG TAB As Ordered ONE
--- NOTE | 2020-01-30 02:00 | ECWPNPC ---
PATIENT NAME: LUIS KHALIL : 1965 GENDER: FEMALE VISIT DATE: 01/25/2020 DISCHARGE DATE: 01/25/20 1509 VISIT LOCKED DATE TIME: PHYSICIAN: FAIZAN FORREST MD RESOURCE: FAIZAN FORREST MD REASON FOR APPOINTMENT 1. PATIENT DOES NOT WANT ZOOM CHAT, WILL DO PHONE VISIT. HISTORY OF PRESENT ILLNESS HISTORY OF PRESENT ILLNESS: PAIN THE PATIENT DESCRIBES THE PAIN... PERMISSION FROM PATIENT WAS RECEIVED TO DO TELEPHONE OFFICE VISIT. 54 YEAR OLD FEMALE PATIENT WITH A HISTORY OF CHRONIC NECK, THORACIC, AND LOW BACK PAIN. THE PATIENT DESCRIBES THE PAIN ACHING, HAVE IT ALL THE TIME, SHARP, STABBING, TENDER, SORE, SHOOTING WITH A PAIN SCORE OF 5-8/10 DEPENDING ON PHYSICAL ACTIVITY. 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 THE PATIENT RECEIVED A LUMBAR EPIDURAL ON JANUARY 14, 2020 WHICH SHE SAYS HELPED REDUCE HER PAIN FROM A 8 TO 6/10. THE PATIENT SAYS HER NECK AND THORACIC PAIN ARE WORSE WITH A PAIN SCORE OF 8-9/10, WHILE HER LOW BACK PAIN IS AROUND 6/10. THE PATIENT SAYS THAT PRESENTLY HER NECK PAIN IS AFFECTING HER ABILITY TO PERFORM HER DAILY ACTIVITIES SUCH CLEANING HER HOUSE, PICKING UP HER GRANDCHILDREN, AND ENJOYING DAILY LIVING. THE PATIENT STATES SHE IS USING 2-3 TABLETS OF HYDROCODONE-ACETAMINOPHEN 7.5-325 MG DAILY, BUT SHE SAYS MOST DAYS SHE FEELS THE NEED TO USE 3 DAYS TO HELP WITH HER PAIN. THE PATIENT DENIES UNEXPLAINED WEIGHT LOSS, FEVER, CHILLS, NEW CHANGES IN HER URINARY OR BOWEL CONTROL. FALL RISK SCREENING: SCREENING :NO FALLS REPORTED IN THE LAST YEAR CURRENT MEDICATIONS TAKING ALBUTEROL SULFATE HFA 108 (90 BASE) MCG/ACT AEROSOL SOLUTION 2 PUFFS INHALATION DAILY PRN- CHET TAKING BIOTIN 10 MG CAPSULE 1 CAPSULE ORALLY DAILY TAKING VITAMIN B12 1000 MCG TABLET EXTENDED RELEASE 1 TABLET ORALLY ONCE A DAY TAKING VITAMIN D-3 1000 UNIT CAPSULE 1 CAPSULE ORALLY BID TAKING MULTIVITAMINS TABLET 1 TAB ORALLY ONCE DAILY TAKING BUTORPHANOL TARTRATE 10 MG/ML SOLUTION 1 SPRAY EACH NOSTRIL NEEDED NASALLY EVERY 8 HRS PRN MDD=4 TAKING HYDROCODONE-ACETAMINOPHEN 7.5-325 MG TABLET 1 TABLET NEEDED ORALLY EVERY 6 HRS PRN PAIN MDD3 TAKING OMEPRAZOLE 40 MG CAPSULE DELAYED RELEASE 1 CAPSULE 30 MINUTES BEFORE MORNING MEAL ORALLY ONCE A DAY TAKING FERREX 150 150 MG CAPSULE 1 CAPSULE ORALLY ONCE EVERY OTHER DAY TAKING AMBIEN CR 12.5 MG TABLET EXTENDED RELEASE 1 TABLET ORALLY BEFORE BEDTIME MDD=1 TAKING EVENING PRIMROSE OIL 1000 MG CAPSULE TAKE ONE PILL PER DAY WITH FOOD ORALLY ONCE A DAY NOT-TAKING ADVAIR DISKUS 250-50 MCG/DOSE AEROSOL POWDER BREATH ACTIVATED 1 PUFF INHALATION TWICE A DAY, NOTES: 4/5 6PM NOT-TAKING TIZANIDINE HCL 4 MG TABLET 1 TABLET NEEDED ORALLY BEFORE BEDTIME MAY REPEAT IN 5 HRS MDD2 MEDICATION LIST REVIEWED AND RECONCILED WITH THE PATIENT PAST MEDICAL HISTORY ASTHMA HYPERTENSION GERD ELEVATED CHOLESTEROL PCO S. MIGRANES OBESITY HIGH-203 PUC=630 BACK INJURY 1986, 2015 ANEMIA ALLERGIES SIMVASTATIN: FATIGUE - SIDE EFFECTS IMITREX: NAUSEA - SIDE EFFECTS MAXALT LAY UP OPERATOR: NAUSEA - SIDE EFFECTS LYRICA: CONFUSION - SIDE EFFECTS GABAPENTIN: CONFUSION - SIDE EFFECTS SURGICAL HISTORY HYSTERECTOMY 2010 TUBAL LIGATION 1985 EXPLORITORY LAPROSCOPIC 1977 GASTRICBYPASS 05/03/2013 LYMPHECTOMY ON LEFT 07-02-2013 TRIGGER POINT INJECTIONS SHOULDER 2016 FACET JOIN INJECTIONS LUMBAR 2016 BLADDER SURGERY (THOMAS) 2019 FAMILY HISTORY FATHER: , DIABETES, HYPERTENSION, HYPERLIPIDEMIA, DIAGNOSED WITH UNSPECIFIED HEART DISEASE MOTHER: ALIVE, HYPERTENSION, HYPERLIPIDEMIA, HYPERTENSION SIBLINGS: ALIVE SON(S): ALIVE 1 BROTHER(S) , 1 SISTER(S) - HEALTHY. 2 SON(S) - HEALTHY. FAMILY HISTORY IS POSITIVE FOR DIABETES, HYPERTENSION, HEART DISEASE. MATERNAL AUNT AND GRANDMOTHER WITH BREAST CANCER. SOCIAL HISTORY GENERAL: TOBACCO USE ARE YOU A:CURRENT SMOKER ARE YOU INTERESTED IN QUITTING?NOT READY TO QUIT COUNSELED THE PATIENT ON SMOKING EFFECTS, EDUCATION MKOADQTC08/17/2020 HOW MANY CIGARETTES A DAY DO YOU SMOKE?11-20 HOW OFTEN DO YOU SMOKE CIGARETTES?EVERY DAY PATIENT COUNSELED ON THE DANGERS OF TOBACCO USE AND URGED TO QUIT:01/14/2020 SMOKING CESSATION INFORMATION GIVEN01/01/2020 DECLINED ANY DEIRE TO QUIT SMOKING AT THIS TIME VAPORNO E-CIGARETTENO LATEX QUESTIONNAIRE LATEX ALLERGY : HAVE YOU EVER DEVELOPED ANY TYPE OF REACTION AFTER HANDLING LATEX PRODUCTS SUCH RUBBER GLOVES, CONDOMS, DIAPHRAGMS, BALLOONS, SOCKS, OR UNDERWEAR?NO LATEX ALLERGY : HAVE YOU EVER DEVELOPED ANY TYPE OF REACTION DURING OR AFTER DENTAL APPOINTMENT, VAGINAL/RECTAL EXAMINATION, SURGICAL PROCEDURE, OR ANY OTHER EXPOSURE?NO DATE ASKED : 01/14/2020 LATEX RISK : HAVE YOU EVER HAD ANY DIFFICULTY BREATHING OR HIVES AFTER EATING OR HANDLING ANY FRUITS, OR VEGETABLES; SUCH KIWI, BANANAS, STONE FRUITS, OR CHESTNUTSNO LATEX RISK : DO YOU HAVE A PREVIOUS PERSONAL HISTORY OF MORE THAN NINE SURGERIES, SPINA BIFIDA, OR REPEATED CATHERIZATIONS? NO LATEX RISK : ARE YOU FREQUENTLY EXPOSED TO LATEX PRODUCTS IN YOUR OCCUPATION?NO ALCOHOL SCREENING DID YOU HAVE A DRINK CONTAINING ALCOHOL IN THE PAST YEAR?YES HOW OFTEN DID YOU HAVE SIX OR MORE DRINKS ON ONE OCCASION IN THE PAST YEAR?NEVER (0 POINTS) HOW MANY DRINKS DID YOU HAVE ON A TYPICAL DAY WHEN YOU WERE DRINKING IN THE PAST YEAR?1 OR 2 (0 POINTS) HOW OFTEN DID YOU HAVE A DRINK CONTAINING ALCOHOL IN THE PAST YEAR?MONTHLY OR LESS (1 POINT) POINTS1 INTERPRETATIONNEGATIVE RECREATIONAL DRUG USE DRUG USE?NO CAFFEINE CAFFEINE USE?YES OCC HOW OFTEN AND HOW MUCH? TWICE WEEKLY HIV / HEP-C SCREENING HIV TEST OFFERED TO PATIENT:YES DATE OFFERED:01/01/2020 TEST ACCEPTED:NO HEP-C TEST OFFERED TO PATIENT:YES DATE OFFERED:01/01/2020 REASON:PATIENT DECLINED TEST ACCEPTED:NO REASON:PATIENT DECLINED BROCHURE PROVIDED TO PATIENTYES ISLAM NO CAODAISM BELIEFS THAT WOULD IMPACT HEALTH CARE. LANGUAGE [place]. 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 LEARNING BARRIERS / SPECIAL NEEDS CHANGE FROM LAST VISIT?NO UPDATED 01/01/2020 BARRIERS TO LEARNING?NO HEARING IMPAIRED?YES VISION IMPAIRED?YES COGNITIVELY IMPAIRED?NO : LEFT EAR NO HEARING AIDS : CORRECTED LENSES READINESS TO LEARN?YES LEARNING PREFERENCES?NO LEARNING CAPABILITIES PRESENT?YES EMOTIONAL BARRIERS?NO SPECIAL DEVICES?NO EVENT SPECIALIST NEEDED?NO DOMESTIC VIOLENCE DO YOU FEEL SAFE IN YOUR ENVIRONMENT?YES OCCUPATION: [employer]. DIET: REGULAR. EXERCISE: REGULAR. MARITAL STATUS: . OTHERS AT HOME: SPOUSE. NEW PATIENT PAIN DIARY TODAY'S VISIT 01/25/2020 PATIENT DESCRIBES PAIN :ACHING, HAVE IT ALL THE TIME, SHARP, STABBING, TENDER, SORE, SHOOTING FROM 0-10, WHAT LEVEL IS YOUR PAIN TODAY?6 PRECIPITATING FACTORS PT STATES THAT EXCESSIVE LIFTING, BENDING AND WALKING WILL INCREASE PAIN ALLEVIATING FACTORS PAIN MEDS, STRETCHING 3-4 TIMES PER WEEK IMPACT ON FUNCTION LIGHT DUTY AT WORK, RESTRICTS MOBILITY, HAS DIFFICULTY WITH PICKING UP GRANDCHILDREN, UNABLE TO FISH AND KAYAK SHE HAD IN THE PAST WHEN DID YOU LAST EAT?01/11/2018 WHEN DID YOU LAST DRINK?01/14/2020 WHAT DID YOU LAST DRINK? WATER NAME OF PERSON DRIVING YOU HOME SPOUSE ASIM IS THERE A CHANCE YOU COULD BE ?NO HAVE YOU BEEN SICK IN THE LAST WEEK (COLD, COUGH, FEVER, FLU, ETC)NO DO YOU TAKE ANY BLOOD THINNERS?NO ANY CHANGE IN BOWEL OR BLADDER CONTROL?YES PT STATES THAT SHE IS TAKING IRON SUPPLEMENTS AND HAVING ISSUES WITH CONSTIPATION ARE YOU ALLERGIC TO SHELLFISH OR IV DYE?NO ARE YOU DIABETIC?NO DO YOU HAVE A PACEMAKER OR DEFIBRILLATOR?NO ANY NEW PROBLEMS WITH MEDICINES OR NEW ALLERGIESNO ANY NEW PATTERNS OF PAIN OR NUMBNESS?NO ANY CHANGE IN YOUR MEDICAL CONDITION?NO HAVE YOU FALLEN IN THE LAST 6 MONTHS?NO DO YOU USE ANY TYPE OF TOBACCO (SMOKE, SMOKELESS, CHEW, ETC.)YES ARE YOU ABUSED, NEGLECTED, OR IN AN UNSAFE ENVIRONMENT?NO DO YOU HAVE THOUGHTS OF HURTING YOURSELF OR SOMEONE ELSE?NO DO YOU NEED ANY PRESCRIPTIONS?NO DO YOU HAVE ANY OTHER QUESTIONS OR CONCERNS?NO INTENSITY SCALE REVIEWEDNUMBER SCORE8 PAIN CLINIC PFS, CLERGY, PUBLIC HEALTH REFERRALS PFS REFERRAL NEEDED?NO WAS THE PROVIDER NOTIFIED OF ANY PERTINENT INFO?YES HAS THE PATIENT BEEN EDUCATED REGARDING HIS/HER PLAN OF CARE?YES HAS THE PATIENT BEEN EDUCATED REGARDING PAIN, THE RISK FOR PAIN, THE IMPORTANCE OF EFFECTIVE PAIN MANAGEMENT, AND THE PAIN ASSESSMENT PROCESS?YES PLEASE DOCUMENT ANY ADDTIONAL DETAILS. CERVICAL FACET BLOCK ADVANCE DIRECTIVE ADVANCE DIRECTIVE DISCUSSED WITH PATIENT:YES DECLINED INFORMATION AND ASSISTANCE WITH HCP PAPERWORK. HOSPITALIZATION/MAJOR DIAGNOSTIC PROCEDURE HYSTERECTOMY 2011 CHILDBIRTH 1982, 1984 GASTRIC BYPASS 2013 SURGERY [id number] 05/2018 REVIEW OF SYSTEMS REVIEWED BY: PROVIDER: FAIZAN FORREST MD . CONSTITUTIONAL: ANY CHANGE IN YOUR MEDICAL CONDITION? NO . CHILLS NO . FEVER NO . INFECTION: DO YOU HAVE NEW INFECTIONS? NO . DO YOU HAVE HISTORY OF MRSA? NO . MUSCULOSKELETAL: ANY NEW PATTERNS OF PAIN OR NUMBNESS? NO . GASTROENTEROLOGY: ANY NEW CHANGE IN BOWEL CONTROL? YES, PT C/O CONSTIPATION FROM IRON PILLS . GENITOURINARY: ANY NEW CHANGE IN BLADDER CONTROL? NO . IS THERE A CHANCE YOU COULD BE ? NO . HEMATOLOGY/LYMPH: DO YOU TAKE ANY BLOOD THINNERS? (FOR EXAMPLE- COUMADIN, PLAVIX, AGGRENOX, PLATEL, PRADAXA, OR XARELTO) NO . WHEN WAS YOUR LAST DOSE? DATE: TIME: . NEUROLOGY: HAVE YOU FALLEN IN THE PAST 12 MONTHS? NO . ANY NEW EXTREMITY NUMBNESS OR WEAKNESS? NO . CARDIOLOGY: DO YOU HAVE A PACEMAKER OR DEFIBRILLATOR? NO . RESPIRATORY: HAVE YOU BEEN SICK IN THE PAST WEEK? NO . FEVER NO . FLU LIKE SYMPTOMS? NO . COUGH NO . INTEGUMENTARY: DO YOU HAVE ANY RASHES OR OPEN SORES? NO . ALLERGIC/IMMUNO: ARE YOU ALLERGIC TO IV DYE? NO . ANY NEW ALLERGIES? NO . PSYCHIATRIC: DO YOU HAVE THOUGHTS OF HURTING YOURSELF OR SOMEONE ELSE? NO . ARE YOU ABUSED, NEGLECTED, OR IN AN UNSAFE ENVIRONMENT? NO . ENDOCRINOLOGY: ARE YOU DIABETIC? NO . OTHER: DO YOU NEED ANY PRESCRIPTIONS? NO . IF YES, PLEASE LIST: ____ . ANY NEW PROBLEMS WITH YOUR MEDICATIONS? NO . WHEN DID YOU LAST EAT? ____ . WHEN DID YOU LAST DRINK? ____ . WHAT DID YOU LAST DRINK? ____ . NAME OF PERSON DRIVING YOU HOME? ____ . DO YOU HAVE ANY OTHER QUESTIONS OR CONCERNS NO . EXAMINATION GENERAL EXAMINATION: TELEMEDICINE USING ZOOM APPLICATION. PATIENT IS ALERT O X 3 AND COOPERATIVE. MRI OF THE LUMBAR SPINE DONE ON 07/05/2018 SHOWS SPINAL STENOSIS AND DISC BULGES AT MULTIPLE LEVELS. CERVICAL MRI DONE ON 07/20/2016 SHOWS FACET ARTHROPATHY CHANGES. 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 KHALIL'S PAIN MANAGEMENT CASE. THE PATIENT WILL FOLLOW UP WITH ME IN 2 WEEKS TO DISCUSS DOING AN OPIOID ROTATION FROM HYDROCODONE TO OXYCODONE. THE PATIENT IS CURRENTLY HAVING SEVERE NECK AND THORACIC DISCOMFORT, THEREFORE THE PATIENT WAS ADVISED TO INCREASE FROM 2 TO 3 TABLETS OF HYDROCODONE DAILY UNTIL HER NEXT TELEMEDICINE FOLLOW UP WITH ME ON FEBRUARY 05 AT 1:30 PM. THE PATIENT UNDERSTANDS THAT PROCEDURES ARE BEING POSTPONED DUE TO OUR CURRENT SITUATION WITH COVID-19 AND IS WILLING TO WAIT UNTIL WE CAN RESUME. THE TOTAL TIME FOR TODAY'S TELEPHONE VISIT WAS 24 MINUTES. INSTRUCTIONS WERE GIVEN, QUESTIONS WERE ANSWERED, PATIENT REPORTS UNDERSTANDING AND AGREES WITH THE PLAN. I, YVONNE SHAW, DOCUMENTED THE ABOVE INFORMATION ACTING A SCRIBE FOR DR. FORREST. I HAVE REVIEWED THE ABOVE DOCUMENT, WRITTEN BY YVONNE SHAW SCRIBUrvashi AND I VERIFY THAT IT IS ACCURATE. . DISPOSITION & COMMUNICATION FOLLOW UP 1 WEEK (REASON: FEBRUARY 05 @ 1:[address] Marisa JACOME) ELECTRONICALLY SIGNED BY FAIZAN FORREST MD, MD ON 01/29/2020 AT 04:55 PM EDT DISCLAIMER : THIS IS A VISIT SUMMARY EXTRACTED FROM THE [employer] CHART. IT IS NOT A COPY OF THE [employer] PROGRESS NOTE. CARMITA
== END ==
LOC: M PAIN 14:00
PROVIDERS: ATTEND Anesthesiology
DX: M48.061 Spinal stenosis, lumbar region without neurogenic claudication (principal); M51.16 Intervertebral disc disorders with radiculopathy, lumbar region; M47.812 Spondylosis without myelopathy or radiculopathy, cervical region; M54.2 Cervicalgia; G89.29 Other chronic pain; J45.909 Unspecified asthma, uncomplicated; I10 Essential (primary) hypertension; K21.9 Gastro-esophageal reflux disease without esophagitis; G43.909 Migraine, unspecified, not intractable, without status migrainosus; D50.9 Iron deficiency anemia, unspecified; Z98.84 Bariatric surgery status; F17.210 Nicotine dependence, cigarettes, uncomplicated; Z88.8 Allergy status to other drugs, medicaments and biological substances; Z79.899 Other long term (current) drug therapy

== ENCOUNTER → 2020-01-29 | Outpatient (REF) | payer OTHER ==
[2020-01-29 21:49] LABS: HEMATOCRIT 27.8 % (36.0-47.0); HEMOGLOBIN 7.5 g/dl (12.0-15.5); MEAN CORPUSCULAR HEMOGLOBIN 17.9 pg (27.0-33.0); MEAN CORPUSCULAR VOLUME 66.2 fl (80.0-96.0); PLATELET COUNT, AUTOMATED 330 10^3/uL (150-450); WHITE BLOOD COUNT 5.2 10^3/uL (4.0-10.0)
[2020-01-29 22:19] LABS: PERCENT SATURATION 2.4 % (13.2-45.0)
== END ==
LOC: M LAB REF 20:35
PROVIDERS: ATTEND Nurse Practitioner Family
DX: D64.9 Anemia, unspecified (principal)

== ENCOUNTER 2020-02-05 06:38 | Outpatient (CLI) | payer BC, OTHER ==
[~2020-02-05] VITALS: Ht 157.5 cm; Wt 62.2 kg
[2020-02-05 06:53] VITALS: BP 149/71
[2020-02-05] MEDS ORDERED: IRON SUCROSE 25 MG in NS 25 ML IV ONE (07:00)
[2020-02-05] MEDS ORDERED: IRON SUCROSE 475 MG in NS 250 ML IV ONE (08:00)
[2020-02-05 08:02] VITALS: BP 114/58
[2020-02-05 08:59] VITALS: BP 136/61
[2020-02-05 11:00] VITALS: BP 120/74
== END 2020-02-05 11:00 | disposition home or self-care (01) ==
LOC: M INFU 06:38
PROVIDERS: ATTEND Nurse Practitioner Family
DX: D64.9 Anemia, unspecified (principal); Z98.84 Bariatric surgery status
CPT/HCPCS: 96365; 96366; J1756

== ENCOUNTER → 2020-02-06 | Outpatient (CLI) | payer OTHER ==
--- NOTE | 2020-02-12 01:51 | ECWPNPC ---
PATIENT NAME: LUIS KHALIL : 1965 GENDER: FEMALE VISIT DATE: 02/06/2020 DISCHARGE DATE: 02/06/20 1609 VISIT LOCKED DATE TIME: PHYSICIAN: FAIZAN FORREST MD RESOURCE: FAIZAN FORREST MD REASON FOR APPOINTMENT 1. DISCUSS MED ROTATION HISTORY OF PRESENT ILLNESS HISTORY OF PRESENT ILLNESS: PAIN THE PATIENT DESCRIBES THE PAIN... PERMISSION FROM PATIENT WAS RECEIVED TO DO TELEPHONE OFFICE VISIT. 54 YEAR OLD FEMALE PATIENT WITH A HISTORY OF CHRONIC LOW BACK PAIN. THE PATIENT DESCRIBES HER PAIN ACHING, HAVE IT ALL THE TIME, SHARP, STABBING, TENDER, SORE, SHOOTING WITH A PAIN SCORE OF 7-9/10 DEPENDING ON PHYSICAL ACTIVITY. 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 THE PATIENT STATES SHE CONTINUED TO WORK, BUT WENT TO THE ER A DAY LATER DUE TO HER PAIN WORSENING. THE PATIENT SAYS THE LUMBAR EPIDURAL HELPED WITH HER LOW BACK PAIN, AND CURRENTLY HER PAIN IS MORE IN HER NECK AND THORACIC AREAS. THE PATIENT DENIES UNEXPLAINED WEIGHT LOSS, FEVER, CHILLS, NEW CHANGES IN HER URINARY OR BOWEL CONTROL. FALL RISK SCREENING: SCREENING :NO FALLS REPORTED IN THE LAST YEAR CURRENT MEDICATIONS TAKING ALBUTEROL SULFATE HFA 108 (90 BASE) MCG/ACT AEROSOL SOLUTION 2 PUFFS INHALATION DAILY PRN- CHET TAKING BIOTIN 10 MG CAPSULE 1 CAPSULE ORALLY DAILY TAKING VITAMIN B12 1000 MCG TABLET EXTENDED RELEASE 1 TABLET ORALLY ONCE A DAY TAKING VITAMIN D-3 1000 UNIT CAPSULE 1 CAPSULE ORALLY BID TAKING MULTIVITAMINS TABLET 1 TAB ORALLY ONCE DAILY TAKING BUTORPHANOL TARTRATE 10 MG/ML SOLUTION 1 SPRAY EACH NOSTRIL NEEDED NASALLY EVERY 8 HRS PRN MDD=4 TAKING HYDROCODONE-ACETAMINOPHEN 7.5-325 MG TABLET 1 TABLET NEEDED ORALLY EVERY 6 HRS PRN PAIN MDD3 TAKING OMEPRAZOLE 40 MG CAPSULE DELAYED RELEASE 1 CAPSULE 30 MINUTES BEFORE MORNING MEAL ORALLY ONCE A DAY TAKING AMBIEN CR 12.5 MG TABLET EXTENDED RELEASE 1 TABLET ORALLY BEFORE BEDTIME MDD=1 TAKING EVENING PRIMROSE OIL 1000 MG CAPSULE TAKE ONE PILL PER DAY WITH FOOD ORALLY ONCE A DAY TAKING MAY HAVE - - IRON INFUSIONS INTRAVENOUSLY JUST STARTED NOT-TAKING LEXAPRO 10 MG TABLET 1 TABLET ORALLY ONCE A DAY NOT-TAKING ADVAIR DISKUS 250-50 MCG/DOSE AEROSOL POWDER BREATH ACTIVATED 1 PUFF INHALATION TWICE A DAY, NOTES: 4/5 6PM NOT-TAKING TIZANIDINE HCL 4 MG TABLET 1 TABLET NEEDED ORALLY BEFORE BEDTIME MAY REPEAT IN 5 HRS MDD2 NOT-TAKING FERREX 150 150 MG CAPSULE 1 CAPSULE ORALLY ONCE EVERY OTHER DAY MEDICATION LIST REVIEWED AND RECONCILED WITH THE PATIENT PAST MEDICAL HISTORY ASTHMA HYPERTENSION GERD ELEVATED CHOLESTEROL PCO S. 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: NAUSEA - SIDE EFFECTS LYRICA: CONFUSION - SIDE EFFECTS GABAPENTIN: CONFUSION - SIDE EFFECTS PAXIL: DIDNT LIKE FEELING - SIDE EFFECTS SURGICAL HISTORY HYSTERECTOMY 2010 TUBAL LIGATION 1985 EXPLORITORY LAPROSCOPIC 1976 GASTRICBYPASS 05/03/2013 LYMPHECTOMY ON LEFT 07-02-2013 TRIGGER POINT INJECTIONS SHOULDER 2015 FACET JOIN INJECTIONS LUMBAR 2016 BLADDER SURGERY (THOMAS) 2019 FAMILY HISTORY FATHER: , DIABETES, HYPERTENSION, HYPERLIPIDEMIA, DIAGNOSED WITH UNSPECIFIED HEART DISEASE MOTHER: ALIVE, HYPERTENSION, HYPERLIPIDEMIA, HYPERTENSION SIBLINGS: ALIVE SON(S): ALIVE 1 BROTHER(S) , 1 SISTER(S) - HEALTHY. 2 SON(S) - HEALTHY. FAMILY HISTORY IS POSITIVE FOR DIABETES, HYPERTENSION, HEART DISEASE. MATERNAL AUNT AND GRANDMOTHER WITH BREAST CANCER. SOCIAL HISTORY GENERAL: TOBACCO USE ARE YOU A:CURRENT SMOKER ARE YOU INTERESTED IN QUITTING?NOT READY TO QUIT COUNSELED THE PATIENT ON SMOKING EFFECTS, EDUCATION [id number]/29/2020 HOW MANY CIGARETTES A DAY DO YOU SMOKE?11-20 HOW OFTEN DO YOU SMOKE CIGARETTES?EVERY DAY PATIENT COUNSELED ON THE DANGERS OF TOBACCO USE AND URGED TO QUIT:01/14/2020 SMOKING CESSATION INFORMATION GIVEN01/01/2020 DECLINED ANY DEIRE TO QUIT SMOKING AT THIS TIME VAPORNO E-CIGARETTENO LATEX QUESTIONNAIRE LATEX ALLERGY : HAVE YOU EVER DEVELOPED ANY TYPE OF REACTION AFTER HANDLING LATEX PRODUCTS SUCH RUBBER GLOVES, CONDOMS, DIAPHRAGMS, BALLOONS, SOCKS, OR UNDERWEAR?NO LATEX ALLERGY : HAVE YOU EVER DEVELOPED ANY TYPE OF REACTION DURING OR AFTER DENTAL APPOINTMENT, VAGINAL/RECTAL EXAMINATION, SURGICAL PROCEDURE, OR ANY OTHER EXPOSURE?NO DATE ASKED : 01/14/2020 LATEX RISK : HAVE YOU EVER HAD ANY DIFFICULTY BREATHING OR HIVES AFTER EATING OR HANDLING ANY FRUITS, OR VEGETABLES; SUCH KIWI, BANANAS, STONE FRUITS, OR CHESTNUTSNO LATEX RISK : DO YOU HAVE A PREVIOUS PERSONAL HISTORY OF MORE THAN NINE SURGERIES, SPINA BIFIDA, OR REPEATED CATHERIZATIONS? NO LATEX RISK : ARE YOU FREQUENTLY EXPOSED TO LATEX PRODUCTS IN YOUR OCCUPATION?NO ALCOHOL SCREENING DID YOU HAVE A DRINK CONTAINING ALCOHOL IN THE PAST YEAR?YES HOW OFTEN DID YOU HAVE SIX OR MORE DRINKS ON ONE OCCASION IN THE PAST YEAR?NEVER (0 POINTS) HOW MANY DRINKS DID YOU HAVE ON A TYPICAL DAY WHEN YOU WERE DRINKING IN THE PAST YEAR?1 OR 2 (0 POINTS) HOW OFTEN DID YOU HAVE A DRINK CONTAINING ALCOHOL IN THE PAST YEAR?MONTHLY OR LESS (1 POINT) POINTS1 INTERPRETATIONNEGATIVE RECREATIONAL DRUG USE DRUG USE?NO CAFFEINE CAFFEINE USE?YES OCC HOW OFTEN AND HOW MUCH? TWICE WEEKLY HIV / HEP-C SCREENING HIV TEST OFFERED TO PATIENT:YES DATE OFFERED:01/01/2020 TEST ACCEPTED:NO HEP-C TEST OFFERED TO PATIENT:YES DATE OFFERED:01/01/2020 REASON:PATIENT DECLINED TEST ACCEPTED:NO REASON:PATIENT DECLINED BROCHURE PROVIDED TO PATIENTYES HOAHAOISM NO EVANGELICAL BELIEFS THAT WOULD IMPACT HEALTH CARE. LANGUAGE TAJIK. 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 LEARNING BARRIERS / SPECIAL NEEDS CHANGE FROM LAST VISIT?NO UPDATED 01/01/2020 BARRIERS TO LEARNING?NO HEARING IMPAIRED?YES VISION IMPAIRED?YES COGNITIVELY IMPAIRED?NO : LEFT EAR NO HEARING AIDS : CORRECTED LENSES READINESS TO LEARN?YES LEARNING PREFERENCES?NO LEARNING CAPABILITIES PRESENT?YES EMOTIONAL BARRIERS?NO SPECIAL DEVICES?NO LINING STAMPER NEEDED?NO DOMESTIC VIOLENCE DO YOU FEEL SAFE IN YOUR ENVIRONMENT?YES OCCUPATION: [employer]. DIET: REGULAR. EXERCISE: REGULAR. MARITAL STATUS: . OTHERS AT HOME: SPOUSE. 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 WATER NAME OF PERSON DRIVING YOU HOME SPOUSE ASIM IS THERE A CHANCE YOU COULD BE ?NO HAVE YOU BEEN SICK IN THE LAST WEEK (COLD, COUGH, FEVER, FLU, ETC)NO DO YOU TAKE ANY BLOOD THINNERS?NO ANY CHANGE IN BOWEL OR BLADDER CONTROL?YES PT STATES THAT SHE IS TAKING IRON SUPPLEMENTS AND HAVING ISSUES WITH CONSTIPATION ARE YOU ALLERGIC TO SHELLFISH OR IV DYE?NO ARE YOU DIABETIC?NO DO YOU HAVE A PACEMAKER OR DEFIBRILLATOR?NO ANY NEW PROBLEMS WITH MEDICINES OR NEW ALLERGIESNO ANY NEW PATTERNS OF PAIN OR NUMBNESS?NO ANY CHANGE IN YOUR MEDICAL CONDITION?NO HAVE YOU FALLEN IN THE LAST 6 MONTHS?NO DO YOU USE ANY TYPE OF TOBACCO (SMOKE, SMOKELESS, CHEW, ETC.)YES ARE YOU ABUSED, NEGLECTED, OR IN AN UNSAFE ENVIRONMENT?NO DO YOU HAVE THOUGHTS OF HURTING YOURSELF OR SOMEONE ELSE?NO DO YOU NEED ANY PRESCRIPTIONS?NO DO YOU HAVE ANY OTHER QUESTIONS OR CONCERNS?NO INTENSITY SCALE REVIEWEDNUMBER SCORE8 PAIN CLINIC PFS, CLERGY, PUBLIC HEALTH REFERRALS PFS REFERRAL NEEDED?NO WAS THE PROVIDER NOTIFIED OF ANY PERTINENT INFO?YES HAS THE PATIENT BEEN EDUCATED REGARDING HIS/HER PLAN OF CARE?YES HAS THE PATIENT BEEN EDUCATED REGARDING PAIN, THE RISK FOR PAIN, THE IMPORTANCE OF EFFECTIVE PAIN MANAGEMENT, AND THE PAIN ASSESSMENT PROCESS?YES PLEASE DOCUMENT ANY ADDTIONAL DETAILS. CERVICAL FACET BLOCK ADVANCE DIRECTIVE ADVANCE DIRECTIVE DISCUSSED WITH PATIENT:YES DECLINED INFORMATION AND ASSISTANCE WITH HCP PAPERWORK. HOSPITALIZATION/MAJOR DIAGNOSTIC PROCEDURE HYSTERECTOMY 2011 CHILDBIRTH 1982, 1984 GASTRIC BYPASS 2013 SURGERY [id number] 05/2018 REVIEW OF SYSTEMS REVIEWED BY: PROVIDER: FAIZAN FORREST MD . CONSTITUTIONAL: ANY CHANGE IN YOUR MEDICAL CONDITION? YES, IRON INFUSIONS FOR IRON DEFICIENCY . CHILLS NO . FEVER NO . INFECTION: DO YOU HAVE NEW INFECTIONS? NO . DO YOU HAVE HISTORY OF MRSA? NO . MUSCULOSKELETAL: ANY NEW PATTERNS OF PAIN OR NUMBNESS? YES, PAIN GETS BETTER WITH INJECTIONS THEN WORSE WITH TIME . GASTROENTEROLOGY: ANY NEW CHANGE IN BOWEL CONTROL? NO . GENITOURINARY: ANY NEW CHANGE IN BLADDER CONTROL? NO . IS THERE A CHANCE YOU COULD BE ? NO . HEMATOLOGY/LYMPH: DO YOU TAKE ANY BLOOD THINNERS? (FOR EXAMPLE- COUMADIN, PLAVIX, AGGRENOX, PLATEL, PRADAXA, OR XARELTO) NO . WHEN WAS YOUR LAST DOSE? DATE: TIME: . NEUROLOGY: HAVE YOU FALLEN IN THE PAST 12 MONTHS? NO . ANY NEW EXTREMITY NUMBNESS OR WEAKNESS? NO . CARDIOLOGY: DO YOU HAVE A PACEMAKER OR DEFIBRILLATOR? NO . RESPIRATORY: HAVE YOU BEEN SICK IN THE PAST WEEK? NO . FEVER NO . FLU LIKE SYMPTOMS? NO . COUGH NO . INTEGUMENTARY: DO YOU HAVE ANY RASHES OR OPEN SORES? NO . ALLERGIC/IMMUNO: ARE YOU ALLERGIC TO IV DYE? NO . ANY NEW ALLERGIES? NO . PSYCHIATRIC: DO YOU HAVE THOUGHTS OF HURTING YOURSELF OR SOMEONE ELSE? NO . ARE YOU ABUSED, NEGLECTED, OR IN AN UNSAFE ENVIRONMENT? NO . ENDOCRINOLOGY: ARE YOU DIABETIC? NO . OTHER: DO YOU NEED ANY PRESCRIPTIONS? YES, SWITCH TODAY FROM HYDROCODONE TO OXY TODAY . IF YES, PLEASE LIST: ____ . ANY NEW PROBLEMS WITH YOUR MEDICATIONS? NO . WHEN DID YOU LAST EAT? ____ . WHEN DID YOU LAST DRINK? ____ . WHAT DID YOU LAST DRINK? ____ . NAME OF PERSON DRIVING YOU HOME? ____ . DO YOU HAVE ANY OTHER QUESTIONS OR CONCERNS WANTS THORACIC INJECTION . EXAMINATION GENERAL EXAMINATION: TELEPHONE ENCOUNTER. PATIENT IS ALERT O X 3 AND COOPERATIVE. MRI OF THE THORACIC SPINE DONE ON 07/20/2016 SHOWS FACET ARTHROPATHY CHANGES AND DEGENERATIVE CHANGES. ASSESSMENTS SPONDYLOSIS WITHOUT MYELOPATHY OR RADICULOPATHY, LUMBAR REGION - M47.816 (PRIMARY) SPONDYLOSIS WITHOUT MYELOPATHY OR RADICULOPATHY, THORACIC REGION - M47.814 NECK PAIN - M54.2 OTHER CHRONIC PAIN - G89.29 PAIN IN THORACIC SPINE - M54.6 TREATMENT SPONDYLOSIS WITHOUT MYELOPATHY OR RADICULOPATHY, LUMBAR REGION CLINICAL NOTES: WE DISCUSSED SEVERAL ISSUES WITH MS. KHALIL'S PAIN MANAGEMENT CASE. I DISCUSSED WITH THE PATIENT ABOUT CHANGING THE PATIENT'S HYDROCODONE AND THE PATIENT AGREED. THEREFORE, I AM STARTING THE PATIENT ON OXYCODONE HCL TABLET 5 MG 3 TABLETS DAILY NEEDED DAILY, 90 TABLETS FOR THE MONTH. ISTOP # [id number] WAS REVIEWED. I DISCUSSED THE RISKS ASSOCIATED WITH THE USE OF OPIOIDS INCLUDING THE POSSIBLE DEVELOPMENT OF ADDICTION OR TOLERANCE AND THE PATIENT VERBALIZED UNDERSTANDING. THE PATIENT REPORTS THE USE OF THE PRESCRIBED MEDICATION IS ONLY FOR PAIN CONTROL AND THAT NO MISUSE OF THE MEDICATION WILL OCCUR. THE PATIENT DENIES THE USE OF ANY ILLEGAL SUBSTANCES INCLUDING MARIHUANA. THE PATIENT REPORTS UNDERSTANDING AND FOLLOWING THE AGREEMENTS OF THE NARCOTIC AGREEMENT SIGNED WITH OUR PRACTICE. I WOULD LIKE TO REQUEST FOR AN UPDATED CERVICAL AND THORACIC MRI DUE TO THE PATIENT'S LAST MRI STUDIES WERE DONE OVER 4 YEARS AGO AND THE PATIENT IS HAVING INCREASED PAIN. I DISCUSSED WITH THE PATIENT THAT WE MAY CONSIDER TRYING FACET BLOCKS TO CONSIDER RADIOFREQUENCY ABLATION FOR HER UPPER PAIN IN THE FUTURE. THE PATIENT WILL FOLLOW UP WITH THE NURSE PRACTITIONER TO DISCUSS PROCEDURE OPTIONS IN SEVERAL WEEKS. THE TOTAL TIME FOR TODAY'S TELEPHONE VISIT WAS 9 MINUTES. INSTRUCTIONS WERE GIVEN, QUESTIONS WERE ANSWERED, PATIENT REPORTS UNDERSTANDING AND AGREES WITH THE PLAN. I, YVONNE SHAW, DOCUMENTED THE ABOVE INFORMATION ACTING A SCRIBE FOR DR. FORREST. I HAVE REVIEWED THE ABOVE DOCUMENT, WRITTEN BY YVONNE CANO AND I VERIFY THAT IT IS ACCURATE. . NECK PAIN [facility] MRI SPINE, CERVICAL WITHOUT [id number] OTHER CHRONIC PAIN [facility] MRI SPINE, CERVICAL WITHOUT [id number] PAIN IN THORACIC SPINE [facility] MRI SPINE,THORACIC WITHOUT [id number] OTHERS START OXYCODONE HCL TABLET, 5 MG, 1 TABLET NEEDED, ORALLY FOR PAIN, EVERY 8 HRS MDD3, 30 DAYS, 90, REFILLS 0 PROCEDURES PN WORKMANS' COMP OPINION IN YOUR OPINION, WAS THE INCIDENT THAT THE PATIENT DESCRIBED THE COMPETENT MEDICAL CAUSE OF THIS INJURY/ILLNESS? YES ARE THE PATIENT'S COMPLAINTS CONSISTENT WITH HIS/HER HISTORY OF THE INJURY/ILLNESS? YES IS THE PATIENT'S HISTORY OF THE INJURY/ILLNESS CONSISTENT WITH YOUR OBJECTIVE FINDING? YES WHAT IS THE PERCENTAGE OF TEMPORARY IMPAIRMENT? MODERATE TO MARKED = 66.7% IS THE PATIENT WORKING? YES DOCTOR ON SITE: FAIZAN STEVENS MD DISPOSITION & COMMUNICATION FOLLOW UP 4 WEEKS (REASON: RQSTING CREVICAL AND THORACIC MRIS/ F/UP WITH TRAVEL COUNSELOR (PHYSICAL VISIT TO DISCUSS PROCEDURE OPTIONS)) ELECTRONICALLY SIGNED BY FAIZAN FORREST MD, MD ON 02/11/2020 AT 02:17 PM EDT DISCLAIMER : THIS IS A VISIT SUMMARY EXTRACTED FROM THE [employer] CHART. IT IS NOT A COPY OF THE [employer] PROGRESS NOTE. CARMITA
== END ==
LOC: M PAIN 13:30
PROVIDERS: ATTEND Anesthesiology
DX: M47.816 Spondylosis without myelopathy or radiculopathy, lumbar region (principal); M47.814 Spondylosis without myelopathy or radiculopathy, thoracic region; M54.2 Cervicalgia; G89.29 Other chronic pain; M54.6 Pain in thoracic spine; J45.909 Unspecified asthma, uncomplicated; I10 Essential (primary) hypertension; K21.9 Gastro-esophageal reflux disease without esophagitis; G43.909 Migraine, unspecified, not intractable, without status migrainosus; Z98.84 Bariatric surgery status; F17.210 Nicotine dependence, cigarettes, uncomplicated; Z88.8 Allergy status to other drugs, medicaments and biological substances; Z79.899 Other long term (current) drug therapy

== ENCOUNTER → 2020-02-11 | Outpatient (CLI) | payer BC ==
--- NOTE | 2020-02-11 17:32 | REP ---
FOCUSED LEFT BREAST SONOGRAPHY: HISTORY: Left breast mass. Fullness extending from 12-o'clock to 2:30-o'clock position with tenderness. Left breast mass 1- to 2-o'clock position, 12 cm from the nipple. SONOGRAPHIC FINDINGS: Scanning of the left superior breast is performed. In the 1-o'clock position, 12 cm from the nipple there is a hypoechoic area measuring 0.7 x 0.6 x 0.5 cm in diameter. This is quite hypoechoic with a well-defined back wall, however, it does not show enhanced through transmission and there is eccentric internal blood flow. This is not a simple cyst. Adjacent to this, also approximately 12 cm from the nipple at the 1-o'clock position, is a normal-appearing 5 mm lymph node with hyperechoic hilar architecture. The technologist has identified a hyperechoic area in the superficial subdermal soft tissues, in the 1-o'clock position, 2 cm from the nipple, which is not felt to be suspicious. IMPRESSION: There is a 0.7 cm rounded hypoechoic solid area with eccentric blood flow at the 1-o'clock position, 12 cm from the nipple. This is not a simple cyst. BI-RADS category 4 suspicious focused left breast ultrasound. Ultrasound-guided needle biopsy suggested.
== END ==
LOC: M WHC 14:30
PROVIDERS: ATTEND Surgery
DX: R92.8 Other abnormal and inconclusive findings on diagnostic imaging of breast (principal)

== ENCOUNTER → 2020-02-13 | Outpatient (REF) ==
[~2020-02-13] MED LIST changes: +MULTCAP PO
== END ==
LOC: M LAB 12:17
PROVIDERS: ATTEND Nurse Practitioner Adult Health
DX: Z02.89 Encounter for other administrative examinations (principal)

== ENCOUNTER → 2020-02-20 | Outpatient (CLI) | payer BC ==
[2020-02-20 09:29] VITALS: BP 142/74
--- NOTE | 2020-02-20 10:28 | REP ---
DIAGNOSTIC UNILATERAL LEFT BREAST MAMMOGRAPHY WITH CAD, FIVE VIEWS: HISTORY: Marker clip placement views. The patient is status post ultrasound-guided needle biopsy marker clip placement for a lesion at 1-o'clock position, 12 cm from the nipple. Comparison mammography, June 15, 2019, May 24, 2019, and August 06, 2018. Two needle biopsy marker clips were deployed at the biopsy site from today's procedure. FINDINGS: Craniocaudal, laterally exaggerated craniocaudal, true mediolateral, and two mediolateral oblique views are obtained. The second of the two mediolateral oblique views demonstrate two adjacent HydroMARK type needle biopsy marker clips deep in the left axilla. These are somewhat inferior to a previously placed needle biopsy marker clip which was visible on June 15, 2019 film in the same left axilla. There is no evidence of hematoma. The current marker clips are not visualized on the orthogonal CC views. IMPRESSION: Needle biopsy marker clips from today's procedure deep in the left axilla project only on the MLO projection image.
--- NOTE | 2020-02-20 11:01 | REP ---
Focused left breast sonography: History: Left breast mass. Sonographic guidance. Findings: Sonographic guidance is provided to Dr. Melgar who performed ultrasound-guided needle biopsy procedure and marker clip placement. Electronically Signed by Sher Leon MD 02/20/2020 10:53 A
--- NOTE | 2020-02-26 11:33 | ROOPDOC ---
[facility] Report Of Operation Report of Operation DATE OF PROCEDURE: 02/20/20 PREPROCEDURE DIAGNOSES: Left breast mass. POSTPROCEDURE DIAGNOSES: Left breast mass. PROCEDURE: Ultrasound-guided left breast mass biopsy with clip placement. SURGEON: Dago Heath DEVELOPER DESIGNER: ANESTHESIA: Local anesthetic was used. ESTIMATED BLOOD LOSS: Approximately 1 mL. COMPLICATIONS: None. REMARKS: Postbiopsy clip is seen very posteriorly on 1 of the mammogram views. DESCRIPTION OF PROCEDURE: Lidocaine 1% LOT [id number] Expiration 03/2023 Sodium Bicarbonate 8.4% LOT [id number] Expiration 03/2021 Hydromark clip LOT [id number] Expiration 10/2022 SHAPE 4 (not seen on initial postbiopsy mammogram) Hydromark clip LOT [id number] Expiration 09/2022 SHAPE 3 Bx device: BARD [id number] x10 cm LOT [id number] Expiration 11/2022 Informed consent was obtained. The most common risk and possible complications including bleeding, hematoma, bruising, infection, injury to surrounding structures were explained to the patient and she expressed understanding. Patient was placed on the bed in the supine position. Appropriate time out was done stating patients name, date of , and the procedure to be performed. The left breast was prepped and draped in the usual fashion. The ultrasound was used to confirm the location of the lesion in the left breast at 1:00 12 centimeters from the nipple. Plain Lidocaine 1% and 8.4% sodium bicarbonate 10:1 mix was used to anesthetize the skin, the biopsy site and tissues along the anticipated biopsy tract. Small skin incision was made with blade number 11. BARD Marquee 14G cannula with introducer ([id number]) was inserted through the incision and advanced under the ultrasound guidance to position immediately adjacent to the lesion. Next, the introducer was removed and BARD Marquee 14G biopsy device was places in the cannula. Pre-biopsy imaging, and post-biopsy imaging were captured. Five good core biopsies were taken at various levels of the lesion. Specimen was placed in formaldehyde, labeled with appropriate biopsy site and patients name, and sent to pathology for evaluation. Next, the biopsy device was withdrawn and a clip introducer was inserted into the biopsy site via the cannula. The Hydromark clip SHAPE 4 was deployed under sonographic guidance. Post-clip placement image was captured. Manual pressure over the biopsy cavity and tract was held after the clip introducer was withdrawn. No bleeding was noted upon removal of the pressure. Post-biopsy mammogram of the left breast was obtained and failed to show the clip in expected location despite obtaining exacerbated views. Failure of clip deployment was suspected. Patient was brought back to the procedure room and placed on the bed. Left breast was cleaned again in the sterile fashion. The hypoechoic lesion at the 1:00 position 12 CFN was identified and another Hydromark clip SHAPE 3 was deployed under US guidance. Manual pressure was held again. There was no bleeding after release of pressure. Post biopsy mammogram was again obtained and both clips were noted very posterior in the breast. Postprocedural dressing was placed. Patient tolerated procedure well. Discharge instructions were discussed with the patient and she expressed understanding. DAGO HEATH DO February 26, 2020 11:15
== END ==
LOC: M WHCPRO 07:53
PROVIDERS: ATTEND Surgery
DX: N63.20 Unspecified lump in the left breast, unspecified quadrant (principal); R59.9 Enlarged lymph nodes, unspecified

== ENCOUNTER → 2020-02-23 | Outpatient (CLI) | payer BC ==
[2020-02-23 10:49] LABS: HEMATOCRIT 33.4 % (36.0-47.0); HEMOGLOBIN 9.6 g/dl (12.0-15.5); MEAN CORPUSCULAR HEMOGLOBIN 20.6 pg (27.0-33.0); MEAN CORPUSCULAR HGB CONC 28.7 g/dl (32.0-36.5); MEAN CORPUSCULAR VOLUME 71.7 fl (80.0-96.0); PLATELET COUNT, AUTOMATED 344 10^3/uL (150-450); RED BLOOD COUNT 4.66 10^6/uL (4.00-5.40); WHITE BLOOD COUNT 4.8 10^3/uL (4.0-10.0)
[2020-02-25 11:26] LABS: FOLATE 18.5 NG/ML (>5.4)
== END ==
LOC: M LAB 10:18
PROVIDERS: ATTEND Nurse Practitioner Family
DX: D64.9 Anemia, unspecified (principal); N39.0 Urinary tract infection, site not specified

== ENCOUNTER 2020-03-05 09:49 | Outpatient (CLI) | payer BC ==
[~2020-03-05] VITALS: Ht 160 cm; Wt 62.7 kg
[2020-03-05] MEDS ORDERED: diphenhydrAMINE 50MG/ML VIAL (J1200) IV PRN (10:00)
[2020-03-05] MEDS ORDERED: FERRIC CARBOXYMALTOSE INJ 750 MG in NS 250 ML IV ONE (10:00)
[2020-03-05] MEDS ORDERED: EPINEPHrine INJ 1 MG/ML 1ML AMP IM PRN (10:00)
[2020-03-05] MEDS ORDERED: NS 1,000 ML IV SCH (10:00)
[2020-03-05] MEDS ORDERED: ALBUTEROL SULFATE 2.5 MG/0.5 ML INH NEB SOLN INH PRN (10:00)
[2020-03-05] MEDS ORDERED: methylPREDNISolone INJ 125 MG/2 ML VIAL (J2930) IV PRN (10:00)
[2020-03-05 11:09] VITALS: BP 138/80
[2020-03-05 12:13] VITALS: BP 127/78
== END 2020-03-05 12:15 | disposition home or self-care (01) ==
LOC: M INFU 09:49
PROVIDERS: ATTEND Nurse Practitioner Family
DX: D64.9 Anemia, unspecified (principal); Z88.8 Allergy status to other drugs, medicaments and biological substances
CPT/HCPCS: 96365; J1439

== ENCOUNTER → 2020-03-06 | Outpatient (CLI) | payer BC ==
--- NOTE | 2020-03-07 09:30 | REP ---
MRI THORACIC SPINE WITHOUT CONTRAST: HISTORY: Neck pain. Chronic pain. Thoracic pain. Comparison thoracic spine MRI study is from July 20, 2016. TECHNIQUE: Sagittal and axial T1- and T2-weighted scans are acquired in the usual fashion with and without fat saturation. Sequences include spin echo, turbo spin echo, and STIR imaging sequences. MRI FINDINGS: Thoracic vertebral body heights are preserved. Alignment is normal. No bony destructive lesion is seen. There are degenerative disc changes multiple mid and lower thoracic levels. Degenerative disc narrowing is most pronounced at the T11-12, T7-8, and T6-7. There are some reactive marrow changes associated with degenerative disc disease at these levels. No thoracic disc protrusion is seen. No cord compression lesion is seen. No neural foraminal narrowing is observed. There is no evidence of epidural disease. No significant change when compared with the prior study. IMPRESSION: Mild degenerative spondylosis changes. Electronically Signed by Sher Leon MD 03/07/2020 01:41 P
--- NOTE | 2020-03-07 09:31 | REP ---
MRI CERVICAL SPINE WITHOUT CONTRAST: HISTORY: Neck pain thoracic pain. TECHNIQUE: Sagittal and axial T1- and T2-weighted scans are acquired in the usual fashion with and without fat saturation. Sequences include spin echo, turbo spin echo, and STIR imaging sequences. MRI FINDINGS: There is some motion artifact. Vertical vertebral body heights are preserved. Alignment is normal. Cervical cord is normal in coarse, caliber and signal intensity. Central disc bulging mild in degree is noted at the C3-4 disc level. No neural foraminal narrowing or spinal stenosis is seen. At C5-6, there is left central broad-based disc bulging effacing the left ventral margin of the thecal sac. No spinal stenosis is seen. This appears to contact the left ventral margin of the cord. No neural foraminal narrowing. At C6-C7, there is mild diffuse disc bulging. Right-sided uncovertebral spurring is seen with mild right-sided foraminal narrowing. IMPRESSION: Degenerative spondylosis changes as above. Right-sided uncovertebral spurring and mild neural foraminal narrowing at C6-7. Electronically Signed by Sher Leon MD 03/07/2020 01:41 P
== END ==
LOC: M RAD 15:17
PROVIDERS: ATTEND Anesthesiology
DX: M54.6 Pain in thoracic spine (principal); M54.2 Cervicalgia; G89.29 Other chronic pain; M47.814 Spondylosis without myelopathy or radiculopathy, thoracic region; M47.812 Spondylosis without myelopathy or radiculopathy, cervical region

== ENCOUNTER 2020-03-12 07:00 | Outpatient (CLI) | payer BC ==
[~2020-03-12] VITALS: Ht 158.8 cm; Wt 63.6 kg
[~2020-03-12 07:00] MED LIST changes: -ZOLP12.515; +ZOLP12.518
[2020-03-12 12:10] VITALS: BP 144/65
[2020-03-12] MEDS ORDERED: methylPREDNISolone INJ 125 MG/2 ML VIAL (J2930) IV PRN (12:15)
[2020-03-12] MEDS ORDERED: NS 1,000 ML IV SCH (12:15)
[2020-03-12] MEDS ORDERED: EPINEPHrine INJ 1 MG/ML 1ML AMP IM PRN (12:15)
[2020-03-12] MEDS ORDERED: diphenhydrAMINE 50MG/ML VIAL (J1200) IV PRN (12:15)
[2020-03-12] MEDS ORDERED: ALBUTEROL SULFATE 2.5 MG/0.5 ML INH NEB SOLN INH PRN (12:15)
[2020-03-12] MEDS ORDERED: FERRIC CARBOXYMALTOSE INJ 750 MG in NS 250 ML IV ONE (12:15)
[2020-03-12 13:15] VITALS: BP 123/62
[2020-03-12 14:15] VITALS: BP 135/74
== END 2020-03-12 14:15 | disposition home or self-care (01) ==
LOC: M INFU 07:00
PROVIDERS: ATTEND Nurse Practitioner Family
DX: D64.9 Anemia, unspecified (principal); Z98.84 Bariatric surgery status; Z88.8 Allergy status to other drugs, medicaments and biological substances
CPT/HCPCS: 96365; J1439

== ENCOUNTER → 2020-03-14 | Outpatient (CLI) | payer OTHER ==
--- NOTE | 2020-03-18 03:03 | ECWPNPC ---
PATIENT NAME: LUIS KHALIL : 1965 GENDER: FEMALE VISIT DATE: 03/14/2020 DISCHARGE DATE: 03/14/20 1448 VISIT LOCKED DATE TIME: PHYSICIAN: HANDY ACEVES RESOURCE: HANDY ACEVES REASON FOR APPOINTMENT 1. MRI REVIEW HISTORY OF PRESENT ILLNESS GENERAL: -54-YEAR-OLD FEMALE IN FOR WORKER'S COMP. CHRONIC PAIN FOLLOW-UP. SHE RATES HER PAIN CURRENTLY AT A 7-8 OUT OF 10 AND DESCRIBES IT ACHING, BURNING, AND STABBING. SHE HAD A RECENT CERVICAL MRI WHICH WILL BE REVIEWED WITH PATIENT TODAY. SHE FEELS MEDICATIONS ARE HELPFUL AND DENIES MED SIDE EFFECTS THIS TIME.ON 10/26/2015 LUIS CAME OUT OF HER CAR IN THE [facility] PARKING LOT, SLUNG HER PURSE OVER HER LEFT SHOULDER AND SLIPPED AND FELL ON THE ICE, HITTING HER MID BACK AGAINST THE BUMPER AND HER BUTTOCKS ON THE GROUND BILATERALLY. 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 X-RAYS WERE READ NEGATIVE EXCEPT FOR MILD SPONDYLOSIS IN THE LOW BACK. PAIN SCREENING: PATIENT HAS A COMPLAINT OF ACUTE OR CHRONIC PAIN :YES LOCATION OF PAIN:NECK, UPPER BACK, MID BACK, LOW BACK INTENSITY OF PAIN (SCALE OF 1 TO 10):8 WHAT DOES YOUR PAIN FEEL LIKE:ACHING, BURNING, SHARP, STABBING, TENDER, THROBBING, SORE, SHOOTING DURATION:CONTINOUS, CONSTANT, ALL DAY, AWAKENS FROM SLEEP PAIN IS INCREASED BY:ACTIVITIES, PROLONGED STANDING PAIN IS DECREASED BY:USE OF PAIN MEDICATIONS PAIN HAS INTERFERED WITH THE FOLLOWING:MOOD, HOUSEWORK, SLEEP, RELATIONSHIP WITH OTHERS, ENJOYMENT OF LIFE, TRANSPORTATION PLAN/GOALS/TREATMENT/INTERVENTION/FOLLOW UP:SEE PLAN FALL RISK SCREENING: SCREENING :NO FALLS REPORTED IN THE LAST YEAR NURSING NOTE: -. DEPRESSION SCREENING: PHQ-2 (2015 EDITION) LITTLE INTEREST OR PLEASURE IN DOING THINGS?NOT AT ALL FEELING DOWN, DEPRESSED, OR HOPELESS?NOT AT ALL TOTAL SCORE0 PAIN CENTER INTAKE QUESTIONS: DO YOU HAVE A HISTORY OF MRSA? :NO DO YOU TAKE A BLOOD THINNERS? :NO DO YOU HAVE ANY BLEEDING DISORDERS? :NO ANY NEW NUMBNESS OR WEAKNESS IN YOUR LEGS OR ARMS? :NO ANY PACEMAKER,DEFIBRILLATOR, OR DORSAL COLUMN STIMULATOR? :NO DO YOU HAVE ANY RASHES OR OPEN SORES? :NO ARE YOU ALLERGIC TO IV DYE? :NO ARE YOU DIABETIC? :NO ANY NEW PROBLEMS WITH YOUR MEDICATIONS? :NO HAVE YOU RECEIVED A VACCINE IN THE PAST 30 DAYS? :NO DO YOU PLAN TO RECEIVE A VACCINE IN THE NEXT 21 DAYS? :NO DO YOU NEED ANY PRESCRIPTION? :NO DO YOU TAKE ANY IMMUNOSUPPRESSIVE MEDICATIONS? :NO CURRENT MEDICATIONS TAKING ALBUTEROL SULFATE HFA 108 (90 BASE) MCG/ACT AEROSOL SOLUTION 2 PUFFS INHALATION DAILY PRN- CHET TAKING BIOTIN 10 MG CAPSULE 1 CAPSULE ORALLY DAILY TAKING VITAMIN B12 1000 MCG TABLET EXTENDED RELEASE 1 TABLET ORALLY ONCE A DAY TAKING VITAMIN D-3 1000 UNIT CAPSULE 1 CAPSULE ORALLY BID TAKING MULTIVITAMINS TABLET 1 TAB ORALLY ONCE DAILY TAKING OMEPRAZOLE 40 MG CAPSULE DELAYED RELEASE 1 CAPSULE 30 MINUTES BEFORE MORNING MEAL ORALLY ONCE A DAY TAKING MAY HAVE - - IRON INFUSIONS INTRAVENOUSLY JUST STARTED TAKING BUTORPHANOL TARTRATE 10 MG/ML SOLUTION 1 SPRAY EACH NOSTRIL NEEDED NASALLY EVERY 8 HRS PRN MDD=4 TAKING AMBIEN CR 12.5 MG TABLET EXTENDED RELEASE 1 TABLET ORALLY BEFORE BEDTIME MDD=1 TAKING HYDROCODONE-ACETAMINOPHEN 10-325 MG TABLET 1 TABLET NEEDED ORALLY EVERY 6 HRS PRN PAIN MDD3 TAKING CEPHALEXIN 500 MG CAPSULE 1 CAPSULE ORALLY EVERY 12 HRS TAKING FLUCONAZOLE 150 MG TABLET 1 TABLET ORALLY NOT-TAKING EVENING PRIMROSE OIL 1000 MG CAPSULE TAKE ONE PILL PER DAY WITH FOOD ORALLY ONCE A DAY NOT-TAKING BACTRIM DS 800-160 MG TABLET 1 TABLET ORALLY TWICE A DAY NOT-TAKING LEXAPRO 10 MG TABLET 1 TABLET ORALLY ONCE A DAY NOT-TAKING ADVAIR DISKUS 250-50 MCG/DOSE AEROSOL POWDER BREATH ACTIVATED 1 PUFF INHALATION TWICE A DAY, NOTES: 4/5 6PM NOT-TAKING TIZANIDINE HCL 4 MG TABLET 1 TABLET NEEDED ORALLY BEFORE BEDTIME MAY REPEAT IN 5 HRS MDD2 NOT-TAKING FERREX 150 150 MG CAPSULE 1 CAPSULE ORALLY ONCE EVERY OTHER DAY MEDICATION LIST REVIEWED AND RECONCILED WITH THE PATIENT PAST MEDICAL HISTORY ASTHMA HYPERTENSION GERD ELEVATED CHOLESTEROL PCO S. 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 AIDE: NAUSEA - SIDE EFFECTS LYRICA: CONFUSION - SIDE EFFECTS GABAPENTIN: CONFUSION - SIDE EFFECTS PAXIL: DIDNT LIKE FEELING - SIDE EFFECTS SURGICAL HISTORY HYSTERECTOMY 2011 TUBAL LIGATION 1986 EXPLORITORY LAPROSCOPIC 1977 GASTRICBYPASS 05/03/2013 LYMPHECTOMY ON LEFT 07-02-2013 TRIGGER POINT INJECTIONS SHOULDER 2016 FACET JOIN INJECTIONS LUMBAR 2016 BLADDER SURGERY (THOMAS) 2019 FAMILY HISTORY FATHER: , DIABETES, HYPERTENSION, HYPERLIPIDEMIA, DIAGNOSED WITH UNSPECIFIED HEART DISEASE MOTHER: ALIVE, HYPERTENSION, HYPERLIPIDEMIA, HYPERTENSION SIBLINGS: ALIVE SON(S): ALIVE 1 BROTHER(S) , 1 SISTER(S) - HEALTHY. 2 SON(S) - HEALTHY. FAMILY HISTORY IS POSITIVE FOR DIABETES, HYPERTENSION, HEART DISEASE. MATERNAL AUNT AND GRANDMOTHER WITH BREAST CANCER. SOCIAL HISTORY GENERAL: TOBACCO USE ARE YOU A:CURRENT SMOKER ARE YOU INTERESTED IN QUITTING?NOT READY TO QUIT COUNSELED THE PATIENT ON SMOKING EFFECTS, EDUCATION [id number]/19/2020 HOW MANY CIGARETTES A DAY DO YOU SMOKE?11-20 HOW OFTEN DO YOU SMOKE CIGARETTES?EVERY DAY PATIENT COUNSELED ON THE DANGERS OF TOBACCO USE AND URGED TO QUIT:03/14/2020 SMOKING CESSATION INFORMATION GIVEN03/14/2020 DECLINED ANY DEIRE TO QUIT SMOKING AT THIS TIME VAPORNO E-CIGARETTENO LATEX QUESTIONNAIRE LATEX ALLERGY : HAVE YOU EVER DEVELOPED ANY TYPE OF REACTION AFTER HANDLING LATEX PRODUCTS SUCH RUBBER GLOVES, CONDOMS, DIAPHRAGMS, BALLOONS, SOCKS, OR UNDERWEAR?NO LATEX ALLERGY : HAVE YOU EVER DEVELOPED ANY TYPE OF REACTION DURING OR AFTER DENTAL APPOINTMENT, VAGINAL/RECTAL EXAMINATION, SURGICAL PROCEDURE, OR ANY OTHER EXPOSURE?NO LATEX RISK : HAVE YOU EVER HAD ANY DIFFICULTY BREATHING OR HIVES AFTER EATING OR HANDLING ANY FRUITS, OR VEGETABLES; SUCH KIWI, BANANAS, STONE FRUITS, OR CHESTNUTSNO LATEX RISK : DO YOU HAVE A PREVIOUS PERSONAL HISTORY OF MORE THAN NINE SURGERIES, SPINA BIFIDA, OR REPEATED CATHERIZATIONS? NO LATEX RISK : ARE YOU FREQUENTLY EXPOSED TO LATEX PRODUCTS IN YOUR OCCUPATION?NO DATE ASKED : 03/14/2020 ALCOHOL SCREENING DID YOU HAVE A DRINK CONTAINING ALCOHOL IN THE PAST YEAR?YES HOW OFTEN DID YOU HAVE SIX OR MORE DRINKS ON ONE OCCASION IN THE PAST YEAR?NEVER (0 POINTS) HOW MANY DRINKS DID YOU HAVE ON A TYPICAL DAY WHEN YOU WERE DRINKING IN THE PAST YEAR?1 OR 2 (0 POINTS) HOW OFTEN DID YOU HAVE A DRINK CONTAINING ALCOHOL IN THE PAST YEAR?MONTHLY OR LESS (1 POINT) POINTS1 INTERPRETATIONNEGATIVE RECREATIONAL DRUG USE DRUG USE?NO CAFFEINE CAFFEINE USE?YES OCC HOW OFTEN AND HOW MUCH? TWICE WEEKLY HIV / HEP-C SCREENING HIV TEST OFFERED TO PATIENT:YES DATE OFFERED:03/14/2020 TEST ACCEPTED:NO REASON:PATIENT DECLINED BROCHURE PROVIDED TO PATIENTYES HEP-C TEST OFFERED TO PATIENT:YES DATE OFFERED:03/14/2020 TEST ACCEPTED:NO REASON:PATIENT DECLINED ORIENTAL ORTHODOX NO LUTHERAN BELIEFS THAT WOULD IMPACT HEALTH CARE. LANGUAGE MACANESE. 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 LEARNING BARRIERS / SPECIAL NEEDS CHANGE FROM LAST VISIT?NO BARRIERS TO LEARNING?NO HEARING IMPAIRED?YES : LEFT EAR NO HEARING AIDS VISION IMPAIRED?YES : CORRECTED LENSES COGNITIVELY IMPAIRED?NO READINESS TO LEARN?YES LEARNING PREFERENCES?NO LEARNING CAPABILITIES PRESENT?YES EMOTIONAL BARRIERS?NO SPECIAL DEVICES?NO HOT PACKER NEEDED?NO DOMESTIC VIOLENCE DO YOU FEEL SAFE IN YOUR ENVIRONMENT?YES OCCUPATION: [employer]. DIET: REGULAR. EXERCISE: REGULAR. MARITAL STATUS: . OTHERS AT HOME: SPOUSE. NEW PATIENT PAIN DIARY PATIENT DESCRIBES PAIN :ACHING, HAVE IT ALL THE TIME, SHARP, STABBING, TENDER, SORE, SHOOTING FROM 0-10, WHAT LEVEL IS YOUR PAIN TODAY?8 PRECIPITATING FACTORS PT STATES THAT EXCESSIVE LIFTING, BENDING AND WALKING WILL INCREASE PAIN ALLEVIATING FACTORS PAIN MEDS, STRETCHING 3-4 TIMES QD IMPACT ON FUNCTION LIGHT DUTY AT WORK, RESTRICTS MOBILITY, HAS DIFFICULTY WITH PICKING UP GRANDCHILDREN, UNABLE TO FISH AND KAYAK SHE HAD IN THE PAST WHEN DID YOU LAST EAT?01/11/2018 WHEN DID YOU LAST DRINK?01/14/2020 WHAT DID YOU LAST DRINK? WATER NAME OF PERSON DRIVING YOU HOME SPOUSE ASIM IS THERE A CHANCE YOU COULD BE ?NO HAVE YOU BEEN SICK IN THE LAST WEEK (COLD, COUGH, FEVER, FLU, ETC)NO DO YOU TAKE ANY BLOOD THINNERS?NO ANY CHANGE IN BOWEL OR BLADDER CONTROL?YES PT STATES THAT SHE IS TAKING IRON SUPPLEMENTS AND HAVING ISSUES WITH CONSTIPATION ARE YOU ALLERGIC TO SHELLFISH OR IV DYE?NO ARE YOU DIABETIC?NO DO YOU HAVE A PACEMAKER OR DEFIBRILLATOR?NO ANY NEW PROBLEMS WITH MEDICINES OR NEW ALLERGIESNO ANY NEW PATTERNS OF PAIN OR NUMBNESS?NO ANY CHANGE IN YOUR MEDICAL CONDITION?NO HAVE YOU FALLEN IN THE LAST 6 MONTHS?NO DO YOU USE ANY TYPE OF TOBACCO (SMOKE, SMOKELESS, CHEW, ETC.)YES ARE YOU ABUSED, NEGLECTED, OR IN AN UNSAFE ENVIRONMENT?NO DO YOU HAVE THOUGHTS OF HURTING YOURSELF OR SOMEONE ELSE?NO DO YOU NEED ANY PRESCRIPTIONS?NO DO YOU HAVE ANY OTHER QUESTIONS OR CONCERNS?NO INTENSITY SCALE REVIEWEDNUMBER SCORE8 PAIN CLINIC PFS, CLERGY, PUBLIC HEALTH REFERRALS PFS REFERRAL NEEDED?NO WAS THE PROVIDER NOTIFIED OF ANY PERTINENT INFO?YES HAS THE PATIENT BEEN EDUCATED REGARDING HIS/HER PLAN OF CARE?YES HAS THE PATIENT BEEN EDUCATED REGARDING PAIN, THE RISK FOR PAIN, THE IMPORTANCE OF EFFECTIVE PAIN MANAGEMENT, AND THE PAIN ASSESSMENT PROCESS?YES PLEASE DOCUMENT ANY ADDTIONAL DETAILS. CERVICAL FACET BLOCK ADVANCE DIRECTIVE ADVANCE DIRECTIVE DISCUSSED WITH PATIENT:YES DECLINED INFORMATION AND ASSISTANCE WITH HCP PAPERWORK. HOSPITALIZATION/MAJOR DIAGNOSTIC PROCEDURE HYSTERECTOMY 2011 CHILDBIRTH 1982, 1984 GASTRIC BYPASS 2012 SURGERY [id number] 05/2018 REVIEW OF SYSTEMS CONSTITUTIONAL: ANY RECENT FEVER OR ILLNESS NO . CHILLS NO . GASTROENTEROLOGY: BOWEL INCONTINENCE NO . ANY NEW CHANGE IN BOWEL CONTROL? NO . ABDOMINAL PAIN NO . CONSTIPATION NO . GENITOURINARY: ANY NEW CHANGE IN BLADDER CONTROL? NO . URINARY INCONTINENCE NO . CARDIOLOGY: CHEST PRESSURE NO . CHEST PAIN NO . RESPIRATORY: COUGH NO . SHORTNESS OF BREATH NO . VITAL SIGNS WT 138.6 LBS, HT 62.5 IN, BMI 24.94 INDEX, BP 120/56 MM HG, HR 89 /MIN, RR 18 /MIN, TEMP 99%, NA INITIALS AW 1323. EXAMINATION GENERAL EXAMINATION: GENERALNO ACUTE DISTRESS, WELL NOURISHED AND HYDRATED. PSYCHAPPROPRIATE MOOD AND AFFECT . NECK:POINT TENDER ALONG CERVICAL SPINE, STARTING SKIN SHOWS NO ERYTHEMA, ECCHYMOSIS, INCREASED WARMTH, AND/OR SKIN ERUPTIONS NOTED. PATIENT ENDORSES INCREASED PAIN WITH FACET LOADING . LUNGS:CLEAR TO AUSCULTATION BILATERALLY, NO WHEEZES, RHONCHI, RALES. HEART:NO MURMURS, REGULAR RATE AND RHYTHM. ASSESSMENTS SPONDYLOSIS OF CERVICAL REGION WITHOUT MYELOPATHY OR RADICULOPATHY - M47.812 (PRIMARY) TREATMENT SPONDYLOSIS OF CERVICAL REGION WITHOUT MYELOPATHY OR RADICULOPATHY NOTES: LEFT DIAGNOSTIC CERVICAL FACET BLOCK #1 C4-C5 C5-C6. CLINICAL NOTES: 54-YEAR-OLD FEMALE IN FOR CHRONIC PAIN FOLLOW-UP. MRI WAS REVIEWED WITH PATIENT TODAY. GIVEN PRESENTING SYMPTOMS ARE DIAGNOSTIC CERVICAL FACET BLOCK #1 C4-C5 C5-C6 WITH POST PROCEDURAL FOLLOW-UP. PATIENT HAS EXPRESSED UNDERSTANDING OF AND WAS IN AGREEMENT WITH TREATMENT PLAN. GIVEN TIME TO ASK QUESTIONS AND EXPRESS CONCERNS. , ISTOP REGISTRY REVIEWED AND DEMONSTRATES COMPLLIANCE. (REF # [id number] ) BRINGS IN MEDICATIONS WHICH IS APPROPRIATE FOR WHAT WAS DISPENSED. RECENT URINE TOXICOLOGY REVIEWED. NO UNAUTHORIZED MEDICATIONS. NO ILLICIT SUBSTANCES AND PRESCRIBED MEDICATIONS WERE PRESENT. OTHERS NOTES: FACET JOINT INJECTION MATERIAL WAS PRINTED. PROCEDURES PN WORKMANS' COMP OPINION IN YOUR OPINION, WAS THE INCIDENT THAT THE PATIENT DESCRIBED THE COMPETENT MEDICAL CAUSE OF THIS INJURY/ILLNESS? YES ARE THE PATIENT'S COMPLAINTS CONSISTENT WITH HIS/HER HISTORY OF THE INJURY/ILLNESS? YES IS THE PATIENT'S HISTORY OF THE INJURY/ILLNESS CONSISTENT WITH YOUR OBJECTIVE FINDING? YES WHAT IS THE PERCENTAGE OF TEMPORARY IMPAIRMENT? MODERATE TO MARKED = 66.7% IS THE PATIENT WORKING? YES DOCTOR ON SITE: FAIZAN STEVENS MD PROCEDURE CODES [id number] ESTABILISHED PATIENT [facility] CHARGE DISPOSITION & COMMUNICATION FOLLOW UP POSTPROCEDURE (REASON: LEFT DIAGNOSTIC CERVICAL FACET BLOCK #1 C4-C5 C5-C6) ELECTRONICALLY SIGNED BY JAYLENE KELLER ON 03/17/2020 AT 02:25 PM EDT DISCLAIMER : THIS IS A VISIT SUMMARY EXTRACTED FROM THE [employer] CHART. IT IS NOT A COPY OF THE [employer] PROGRESS NOTE. CARMITA
== END ==
LOC: M PAIN 13:45
PROVIDERS: ATTEND Family Medicine
DX: M47.812 Spondylosis without myelopathy or radiculopathy, cervical region (principal)

== ENCOUNTER → 2020-03-19 | Outpatient (CLI) | payer BC ==
[2020-03-19 00:24] LABS: HEMATOCRIT 39.4 % (36.0-47.0); MEAN CORPUSCULAR HEMOGLOBIN 23.5 pg (27.0-33.0); MEAN CORPUSCULAR HGB CONC 30.5 g/dl (32.0-36.5); MEAN CORPUSCULAR VOLUME 77.3 fl (80.0-96.0); PLATELET COUNT, AUTOMATED 240 10^3/uL (150-450); WHITE BLOOD COUNT 4.5 10^3/uL (4.0-10.0)
[2020-03-19 01:43] LABS: PERCENT SATURATION 35.8 % (13.2-45.0)
[2020-03-19 09:35] LABS: FOLATE 9.5 NG/ML (>5.4)
== END ==
LOC: M LAB 03-18 23:13
PROVIDERS: ATTEND Nurse Practitioner Family
DX: D64.9 Anemia, unspecified (principal)

== ENCOUNTER 2020-03-20 21:10 | Emergency (ER) | payer BC ==
[~2020-03-20] VITALS: Ht 157.5 cm; Wt 61.1 kg
--- NOTE | 2020-03-20 22:55 | REPVR ---
PROCEDURE INFORMATION: Exam: CT Head Without Contrast Exam date and time: 03/20/2020 10:45 PM Age: 54 years old Clinical indication: Visual disturbance; Patient HX: Transient diplopia TECHNIQUE: Imaging protocol: Computed tomography of the head without contrast. Radiation optimization: All CT scans at this facility use at least one of these dose optimization techniques: automated exposure control; mA and/or kV adjustment per patient size (includes targeted exams where dose is matched to clinical indication); or iterative reconstruction. COMPARISON: CT Head without contrast 06/16/2018 7:54 AM FINDINGS: Brain: No intracranial hemorrhage or extra-axial fluid collection. No evidence of mass effect or midline shift. Coburn-white matter differentiation is intact. Ventricles: No ventriculomegaly. Bones/joints: No acute osseus lesion or fracture. Sinuses: Unremarkable as visualized. Mastoid air cells: Unremarkable. Soft tissues: Unremarkable. IMPRESSION: No acute intracranial pathology. Electronically signed by: Tano Gómez On 03/20/2020 22:55:12 PM
[2020-03-20 23:06] VITALS: BP 147/66
[2020-03-20 23:10] LABS: BLOOD UREA NITROGEN 17 MG/DL (7-18); CALCIUM LEVEL 8.5 MG/DL (8.5-10.1); CARBON DIOXIDE LEVEL 25 MEQ/L (21-32); CHLORIDE LEVEL 108 MEQ/L (98-107); CREATININE FOR GFR 0.61 MG/DL (0.55-1.30); GLOMERULAR FILTRATION RATE > 60.0 (>51); GLUCOSE, FASTING 91 MG/DL (70-100); POTASSIUM SERUM 3.9 MEQ/L (3.5-5.1); SODIUM LEVEL 139 MEQ/L (136-145)
== END 2020-03-20 23:35 | disposition home or self-care (01) ==
LOC: M ED 21:10
DX: R29.818 Other symptoms and signs involving the nervous system (principal); T50.995A Adverse effect of other drugs, medicaments and biological substances, initial encounter; X58.XXXA Exposure to other specified factors, initial encounter; Y92.89 Other specified places as the place of occurrence of the external cause; I10 Essential (primary) hypertension; J45.909 Unspecified asthma, uncomplicated; E78.5 Hyperlipidemia, unspecified; K21.9 Gastro-esophageal reflux disease without esophagitis; D50.9 Iron deficiency anemia, unspecified; G89.29 Other chronic pain; M54.2 Cervicalgia; Z98.84 Bariatric surgery status; Z79.899 Other long term (current) drug therapy; Z88.8 Allergy status to other drugs, medicaments and biological substances; F17.210 Nicotine dependence, cigarettes, uncomplicated

== ENCOUNTER → 2020-03-28 | Outpatient (CLI) | payer BC ==
[2020-03-29 17:07] LABS: Lyme Disease IgG/IgM Antibodie <0.91 ISR (0.00-0.90); Lyme Disease IgM Ab Quantitati <0.80 index (0.00-0.79)
== END ==
LOC: M LAB 07:13
PROVIDERS: ATTEND Nurse Practitioner Family
DX: R53.83 Other fatigue (principal)

== ENCOUNTER → 2020-04-05 | Outpatient (CLI) | payer BC ==
[2020-04-05 10:05] LABS: HEMATOCRIT 43.3 % (36.0-47.0); HEMOGLOBIN 13.6 g/dl (12.0-15.5); MEAN CORPUSCULAR HEMOGLOBIN 26.8 pg (27.0-33.0); MEAN CORPUSCULAR HGB CONC 31.4 g/dl (32.0-36.5); MEAN CORPUSCULAR VOLUME 85.2 fl (80.0-96.0); PLATELET COUNT, AUTOMATED 251 10^3/uL (150-450); RED BLOOD COUNT 5.08 10^6/uL (4.00-5.40); WHITE BLOOD COUNT 3.9 10^3/uL (4.0-10.0)
[2020-04-07 11:00] LABS: FOLATE 18.3 NG/ML (>5.4)
== END ==
LOC: M LAB 09:25
PROVIDERS: ATTEND Nurse Practitioner Family
DX: D64.9 Anemia, unspecified (principal)

== ENCOUNTER 2020-05-28 08:00 | Outpatient (RCR) | payer OTHER | END 2020-06-09 | disposition home or self-care (01) | LOC: M PT 08:00 | PROVIDERS: ATTEND Family Medicine | DX: M54.2 Cervicalgia (principal) ==

== ENCOUNTER 2020-06-25 09:30 | Outpatient (RCR) | payer OTHER | END 2020-07-09 | LOC: M PT 09:30 | PROVIDERS: ATTEND Family Medicine | DX: M54.2 Cervicalgia (principal) ==

== ENCOUNTER → 2020-08-04 | Outpatient (CLI) | payer OTHER, BC ==
--- NOTE | 2020-08-05 08:41 | ECWPNPC ---
PATIENT NAME: LUIS KHALIL : 1965 GENDER: FEMALE VISIT DATE: 08/04/2020 DISCHARGE DATE: 08/04/20 1111 VISIT LOCKED DATE TIME: PHYSICIAN: HANDY ACEVES PHYSICIAN PAGER NO: ACTIVE RESOURCE: HANDY ACEVES REASON FOR APPOINTMENT 1. WOULD LIKKE RF HISTORY OF PRESENT ILLNESS PAIN CENTER INTAKE QUESTIONS: 55-YEAR-OLD FEMALE IN FOR WORKER'S COMP. CHRONIC PAIN FOLLOW-UP. SHE RATES HER PAIN CURRENTLY AT A 7 OUT OF 10 AND DESCRIBES IT BURNING, CONTINUOUS, STABBING, AND SHOOTING. PATIENT HAS HAD CERVICAL RF PROCEDURES IN THE PAST WITH GOOD RESULTS TO INCLUDE INCREASED FUNCTIONALITY AND A DECREASE IN PAIN. SHE RECENTLY COMPLETED PHYSICAL THERAPY WHICH DID NOT HELP HER PAIN SYMPTOMS. PATIENT'S FIRST DIAGNOSTIC CERVICAL FACET BLOCK HELPED HER TIMES ONE WEEK. WE WOULD LIKE TO ORDER A SECOND DIAGNOSTIC FACET BLOCK WITH THE HOPES OF GETTING RF PROCEDURE TO HELP BETTER MANAGE PATIENT'S PAIN AND INCREASING HER FUNCTIONALITY. ON 10/26/2015 LUIS CAME OUT OF HER CAR IN [facility], SLUNG HER PURSE OVER HER LEFT SHOULDER AND SLIPPED AND FELL ON THE ICE, HITTING HER MID BACK AGAINST THE BUMPER AND HER BUTTOCKS ON THE GROUND BILATERALLY. 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 X-RAYS WERE READ NEGATIVE EXCEPT FOR MILD SPONDYLOSIS IN THE LOW BACK. GENERAL: -. PAIN SCREENING: PATIENT HAS A COMPLAINT OF ACUTE OR CHRONIC PAIN :YES LOCATION OF PAIN:NECK, BOTH SHOULDERS, UPPER BACK INTENSITY OF PAIN (SCALE OF 1 TO 10):7 WHAT DOES YOUR PAIN FEEL LIKE:BURNING, CONTINOUS, STABBING, SHOOTING DURATION:CONTINOUS, CONSTANT, ALL DAY PAIN IS INCREASED BY:ACTIVITIES, PROLONGED STANDING, OTHERS PROLONGED SITTING PAIN IS DECREASED BY:USE OF PAIN MEDICATIONS, OTHERS IMPROVES WITH INJECTIONS NURSING NOTE: -. FALL RISK SCREENING: SCREENING :TWO OR MORE FALLS WITHOUT INJURY IN THE PAST YEAR CURRENT MEDICATIONS TAKING VITAMIN D-3 1000 UNIT CAPSULE 1 CAPSULE ORALLY BID TAKING VITAMIN B12 1000 MCG TABLET EXTENDED RELEASE 1 TABLET ORALLY ONCE A DAY TAKING PLUS/IRON 27-1 MG TABLET 1 TABLET ORALLY ONCE A DAY TAKING BIOTIN 10 MG CAPSULE 1 CAPSULE ORALLY DAILY TAKING MULTIVITAMINS TABLET 1 TAB ORALLY ONCE DAILY TAKING AMBIEN CR 12.5 MG TABLET EXTENDED RELEASE 1 TABLET ORALLY BEFORE BEDTIME MDD=1 TAKING ALBUTEROL SULFATE HFA 108 (90 BASE) MCG/ACT AEROSOL SOLUTION 2 PUFFS INHALATION DAILY PRN- CHET TAKING OMEPRAZOLE 40 MG CAPSULE DELAYED RELEASE 1 CAPSULE 30 MINUTES BEFORE MORNING MEAL ORALLY ONCE A DAY TAKING LORAZEPAM 0.5 MG TABLET 1-2 TAB ORALLY THREE TIMES DAILY NEEDED MDD=6 TAKING BUTORPHANOL TARTRATE 10 MG/ML SOLUTION 1 SPRAY EACH NOSTRIL NEEDED NASALLY EVERY 8 HRS PRN MDD=4 TAKING HYDROCODONE-ACETAMINOPHEN 10-325 MG TABLET 1 TABLET NEEDED ORALLY EVERY 6 HRS MDD 4 75 TO LAST 1 MONTH NOT-TAKING ADVAIR DISKUS 250-50 MCG/DOSE AEROSOL POWDER BREATH ACTIVATED 1 PUFF INHALATION TWICE A DAY, NOTES: 4/5 6PM NOT-TAKING MAY HAVE - - IRON INFUSIONS INTRAVENOUSLY JUST STARTED MEDICATION LIST REVIEWED AND RECONCILED WITH THE PATIENT PAST MEDICAL HISTORY ASTHMA HYPERTENSION GERD ELEVATED CHOLESTEROL PCO S. MIGRANES OBESITY HIGH-203 JIC=156 BACK INJURY 1986, 2015 ANEMIA- RECEIVING IRON INFUSION ALLERGIES SIMVASTATIN: FATIGUE - SIDE EFFECTS IMITREX: NAUSEA - SIDE EFFECTS MAXALT SEO ASSOCIATE: NAUSEA - SIDE EFFECTS LYRICA: CONFUSION - SIDE EFFECTS GABAPENTIN: CONFUSION - SIDE EFFECTS PAXIL: DIDNT LIKE FEELING - SIDE EFFECTS SURGICAL HISTORY HYSTERECTOMY 2010 TUBAL LIGATION 1986 EXPLORITORY LAPROSCOPIC 1977 GASTRICBYPASS 05/03/2013 LYMPHECTOMY ON LEFT 07-02-2013 TRIGGER POINT INJECTIONS SHOULDER 2016 FACET JOIN INJECTIONS LUMBAR 2016 BLADDER SURGERY (THOMAS) 2019 LEFT BREAST BIOPSY FAMILY HISTORY FATHER: , DIABETES, HYPERTENSION, HYPERLIPIDEMIA, DIAGNOSED WITH UNSPECIFIED HEART DISEASE MOTHER: ALIVE, HYPERTENSION, HYPERLIPIDEMIA, HYPERTENSION SIBLINGS: ALIVE SON(S): ALIVE 1 BROTHER(S) , 1 SISTER(S) - HEALTHY. 2 SON(S) - HEALTHY. FAMILY HISTORY IS POSITIVE FOR DIABETES, HYPERTENSION, HEART DISEASE. MATERNAL AUNT AND GRANDMOTHER WITH BREAST CANCER. SOCIAL HISTORY GENERAL: TOBACCO USE ARE YOU A:CURRENT SMOKER ARE YOU INTERESTED IN QUITTING?NOT READY TO QUIT COUNSELED THE PATIENT ON SMOKING EFFECTS, EDUCATION [id number]/26/2020 HOW MANY CIGARETTES A DAY DO YOU SMOKE?11-20 HOW OFTEN DO YOU SMOKE CIGARETTES?EVERY DAY PATIENT COUNSELED ON THE DANGERS OF TOBACCO USE AND URGED TO QUIT:08/04/2020 SMOKING CESSATION INFORMATION GIVEN08/04/2020 DECLINED ANY DEIRE TO QUIT SMOKING AT THIS TIME VAPORNO E-CIGARETTENO LATEX QUESTIONNAIRE LATEX ALLERGY : HAVE YOU EVER DEVELOPED ANY TYPE OF REACTION AFTER HANDLING LATEX PRODUCTS SUCH RUBBER GLOVES, CONDOMS, DIAPHRAGMS, BALLOONS, SOCKS, OR UNDERWEAR?NO LATEX ALLERGY : HAVE YOU EVER DEVELOPED ANY TYPE OF REACTION DURING OR AFTER DENTAL APPOINTMENT, VAGINAL/RECTAL EXAMINATION, SURGICAL PROCEDURE, OR ANY OTHER EXPOSURE?NO LATEX RISK : HAVE YOU EVER HAD ANY DIFFICULTY BREATHING OR HIVES AFTER EATING OR HANDLING ANY FRUITS, OR VEGETABLES; SUCH KIWI, BANANAS, STONE FRUITS, OR CHESTNUTSNO LATEX RISK : DO YOU HAVE A PREVIOUS PERSONAL HISTORY OF MORE THAN NINE SURGERIES, SPINA BIFIDA, OR REPEATED CATHERIZATIONS? NO LATEX RISK : ARE YOU FREQUENTLY EXPOSED TO LATEX PRODUCTS IN YOUR OCCUPATION?NO DATE ASKED : 03/14/2020 ALCOHOL SCREENING DID YOU HAVE A DRINK CONTAINING ALCOHOL IN THE PAST YEAR?YES HOW OFTEN DID YOU HAVE A DRINK CONTAINING ALCOHOL IN THE PAST YEAR?TWO TO FOUR TIMES A MONTH (2 POINTS) HOW MANY DRINKS DID YOU HAVE ON A TYPICAL DAY WHEN YOU WERE DRINKING IN THE PAST YEAR?3 OR 4 (1 POINT) HOW OFTEN DID YOU HAVE SIX OR MORE DRINKS ON ONE OCCASION IN THE PAST YEAR?NEVER (0 POINTS) POINTS3 INTERPRETATIONPOSITIVE RECREATIONAL DRUG USE DRUG USE?NO CAFFEINE CAFFEINE USE?YES OCC HOW OFTEN AND HOW MUCH? TWICE WEEKLY HIV / HEP-C SCREENING HIV TEST OFFERED TO PATIENT:YES DATE OFFERED:03/14/2020 TEST ACCEPTED:NO HEP-C TEST OFFERED TO PATIENT:YES DATE OFFERED:03/14/2020 REASON:PATIENT DECLINED TEST ACCEPTED:NO REASON:PATIENT DECLINED BROCHURE PROVIDED TO PATIENTYES ISLAM NO RESTORATIONISM BELIEFS THAT WOULD IMPACT HEALTH CARE. LANGUAGE [employer]. 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 LEARNING BARRIERS / SPECIAL NEEDS CHANGE FROM LAST VISIT?NO 08/04/2020 BARRIERS TO LEARNING?NO HEARING IMPAIRED?YES : LEFT EAR NO HEARING AIDS VISION IMPAIRED?YES : CORRECTED LENSES COGNITIVELY IMPAIRED?NO READINESS TO LEARN?YES LEARNING PREFERENCES?NO LEARNING CAPABILITIES PRESENT?YES EMOTIONAL BARRIERS?NO SPECIAL DEVICES?NO TECHNOLOGY SALES SPECIALIST NEEDED?NO DOMESTIC VIOLENCE DO YOU FEEL SAFE IN YOUR ENVIRONMENT?YES OCCUPATION: [employer]. DIET: REGULAR. EXERCISE: REGULAR. MARITAL STATUS: . OTHERS AT HOME: SPOUSE. NEW PATIENT PAIN DIARY PATIENT DESCRIBES PAIN :ACHING, HAVE IT ALL THE TIME, SHARP, STABBING, TENDER, SORE, SHOOTING FROM 0-10, WHAT LEVEL IS YOUR PAIN TODAY?8 PRECIPITATING FACTORS PT STATES THAT EXCESSIVE LIFTING, BENDING AND WALKING WILL INCREASE PAIN ALLEVIATING FACTORS PAIN MEDS, STRETCHING 3-4 TIMES QD IMPACT ON FUNCTION LIGHT DUTY AT WORK, RESTRICTS MOBILITY, HAS DIFFICULTY WITH PICKING UP GRANDCHILDREN, UNABLE TO FISH AND KAYAK SHE HAD IN THE PAST WHEN DID YOU LAST EAT?01/11/2018 WHEN DID YOU LAST DRINK?01/14/2020 WHAT DID YOU LAST DRINK? WATER NAME OF PERSON DRIVING YOU HOME SPOUSE ASIM IS THERE A CHANCE YOU COULD BE ?NO HAVE YOU BEEN SICK IN THE LAST WEEK (COLD, COUGH, FEVER, FLU, ETC)NO DO YOU TAKE ANY BLOOD THINNERS?NO ANY CHANGE IN BOWEL OR BLADDER CONTROL?YES PT STATES THAT SHE IS TAKING IRON SUPPLEMENTS AND HAVING ISSUES WITH CONSTIPATION ARE YOU ALLERGIC TO SHELLFISH OR IV DYE?NO ARE YOU DIABETIC?NO DO YOU HAVE A PACEMAKER OR DEFIBRILLATOR?NO ANY NEW PROBLEMS WITH MEDICINES OR NEW ALLERGIESNO ANY NEW PATTERNS OF PAIN OR NUMBNESS?NO ANY CHANGE IN YOUR MEDICAL CONDITION?NO HAVE YOU FALLEN IN THE LAST 6 MONTHS?NO DO YOU USE ANY TYPE OF TOBACCO (SMOKE, SMOKELESS, CHEW, ETC.)YES ARE YOU ABUSED, NEGLECTED, OR IN AN UNSAFE ENVIRONMENT?NO DO YOU HAVE THOUGHTS OF HURTING YOURSELF OR SOMEONE ELSE?NO DO YOU NEED ANY PRESCRIPTIONS?NO DO YOU HAVE ANY OTHER QUESTIONS OR CONCERNS?NO INTENSITY SCALE REVIEWEDNUMBER SCORE8 PAIN CLINIC PFS, CLERGY, PUBLIC HEALTH REFERRALS PFS REFERRAL NEEDED?NO WAS THE PROVIDER NOTIFIED OF ANY PERTINENT INFO?YES HAS THE PATIENT BEEN EDUCATED REGARDING HIS/HER PLAN OF CARE?YES HAS THE PATIENT BEEN EDUCATED REGARDING PAIN, THE RISK FOR PAIN, THE IMPORTANCE OF EFFECTIVE PAIN MANAGEMENT, AND THE PAIN ASSESSMENT PROCESS?YES PLEASE DOCUMENT ANY ADDTIONAL DETAILS. CERVICAL FACET BLOCK ADVANCE DIRECTIVE ADVANCE DIRECTIVE DISCUSSED WITH PATIENT:YES DECLINED INFORMATION AND ASSISTANCE WITH HCP PAPERWORK. HOSPITALIZATION/MAJOR DIAGNOSTIC PROCEDURE HYSTERECTOMY 2011 CHILDBIRTH 1982, 1984 GASTRIC BYPASS 2013 SURGERY [id number] 05/2018 REVIEW OF SYSTEMS CONSTITUTIONAL: ANY RECENT FEVER NO . CHILLS NO . WEIGHT CHANGE OF UNKNOWN REASONS NO . GASTROENTEROLOGY: NEW UNEXPLAINABLE CHANGES IN BOWEL CONTROL NO . CONSTIPATION NO . GENITOURINARY: ANY NEW CHANGE IN BLADDER CONTROL? NO . NEUROLOGY: NEW ONSET DIZZINESS OR NEUROLOGICAL CHANGES NOT MENTIONED NO . NEW NUMBNESS OR PAIN PATTERNS NOT MENTIONED AND PERTINENT TO TODAY'S VISIT NO . CARDIOLOGY: NEW CHEST PRESSURE NO . NEW CHEST PAIN NO . RESPIRATORY: UNEXPLAINABLE COUGH NO . NEW SHORTNESS OF BREATH NO . VITAL SIGNS WT 131.2 LBS, HT 62.5 IN, BMI 23.61 INDEX, BP 133/68 MM HG, HR 71 /MIN, RR 18 /MIN, TEMP 98.7 F, OXYGEN SAT % 99%, SAFE IN ENV? (Y/N) YES, NA INITIALS OR 09:58, REVIEWED BY: CHANDLER. EXAMINATION GENERAL EXAMINATION: GENERALNO ACUTE DISTRESS, WELL NOURISHED AND HYDRATED. PSYCHAPPROPRIATE MOOD AND AFFECT . NECK:POINT TENDER BILATERAL CERVICAL SPINE, SURROUNDING SKIN SHOWS NO ERYTHEMA, ECCHYMOSIS, INCREASED WARMTH, AND/OR SKIN ERUPTIONS NOTED. PATIENT DOES ENDORSE INCREASED PAIN WITH FACET LOADING. . LUNGS:CLEAR TO AUSCULTATION BILATERALLY, NO WHEEZES, RHONCHI, RALES. HEART:NO MURMURS, REGULAR RATE AND RHYTHM. ASSESSMENTS SPONDYLOSIS OF CERVICAL REGION WITHOUT MYELOPATHY OR RADICULOPATHY - M47.812 (PRIMARY) TREATMENT SPONDYLOSIS OF CERVICAL REGION WITHOUT MYELOPATHY OR RADICULOPATHY NOTES: DIAGNOSTIC CERVICAL FACET BLOCK #2 C7-T1. CLINICAL NOTES: 55-YEAR-OLD FEMALE IN FOR WORKER'S COMP. CHRONIC PAIN FOLLOW-UP. GIVEN PRESENTING SYMPTOMS RECOMMEND DIAGNOSTIC CERVICAL FACET BLOCK #2 C7-T1 WITH POSTPROCEDURAL FOLLOW-UP. PATIENT HAS EXPRESSED UNDERSTANDING OF AND WAS IN AGREEMENT WITH TREATMENT PLAN. GIVEN TIME TO ASK QUESTIONS AND EXPRESS CONCERNS. , ISTOP REGISTRY REVIEWED AND DEMONSTRATES COMPLLIANCE. (REF # ) BRINGS IN MEDICATIONS WHICH IS APPROPRIATE FOR WHAT WAS DISPENSED. RECENT URINE TOXICOLOGY REVIEWED. NO UNAUTHORIZED MEDICATIONS. NO ILLICIT SUBSTANCES AND PRESCRIBED MEDICATIONS WERE PRESENT. PROCEDURES PN WORKMANS' COMP OPINION IN YOUR OPINION, WAS THE INCIDENT THAT THE PATIENT DESCRIBED THE COMPETENT MEDICAL CAUSE OF THIS INJURY/ILLNESS? YES ARE THE PATIENT'S COMPLAINTS CONSISTENT WITH HIS/HER HISTORY OF THE INJURY/ILLNESS? YES IS THE PATIENT'S HISTORY OF THE INJURY/ILLNESS CONSISTENT WITH YOUR OBJECTIVE FINDING? YES WHAT IS THE PERCENTAGE OF TEMPORARY IMPAIRMENT? MODERATE TO MARKED = 66.7% IS THE PATIENT WORKING? YES DOCTOR ON SITE: FAIZAN STEVENS MD PREVENT[facility] MEDICINE PAIN CLINIC TEACHING: PROCEDURE TEACHING PRE PROCEDURE CERVICAL FACET TEACHING COMPLETED. PAIENT VERBALIZED UNDERSTANDING OF INSTRUCIONS. PROCEDURE CODES [id number] ESTABILISHED PATIENT [facility] FACILITY CHARGE DISPOSITION & COMMUNICATION FOLLOW UP POSTPROCEDURE (REASON: AGNOSTIC CERVICAL FACET BLOCK #2 C7-T1) ELECTRONICALLY SIGNED BY JAYLENE KELLER ON 08/05/2020 AT 08:33 AM EDT DISCLAIMER : THIS IS A VISIT SUMMARY EXTRACTED FROM THE [employer] CHART. IT IS NOT A COPY OF THE [employer] PROGRESS NOTE. CARMITA
== END ==
LOC: M PAIN 09:30
PROVIDERS: ATTEND Family Medicine
DX: M47.812 Spondylosis without myelopathy or radiculopathy, cervical region (principal); J45.909 Unspecified asthma, uncomplicated; I10 Essential (primary) hypertension; K21.9 Gastro-esophageal reflux disease without esophagitis; E78.00 Pure hypercholesterolemia, unspecified; E28.2 Polycystic ovarian syndrome; G43.909 Migraine, unspecified, not intractable, without status migrainosus; D64.9 Anemia, unspecified; F17.210 Nicotine dependence, cigarettes, uncomplicated; Z79.891 Long term (current) use of opiate analgesic; Z79.899 Other long term (current) drug therapy; Z88.8 Allergy status to other drugs, medicaments and biological substances

== ENCOUNTER → 2020-09-06 | Outpatient (CLI) | payer OTHER, BC | LOC: M LABSMTC 09:07 | PROVIDERS: ATTEND Anesthesiology | DX: Z20.828 Contact with and (suspected) exposure to other viral communicable diseases (principal) ==

== ENCOUNTER → 2020-09-10 | Outpatient (CLI) | payer OTHER, BC ==
[~2020-09-10] MED LIST changes: +BUPIVACAINE HCL 0.25% 30ML VIAL As Ordered ONE; +ISOVUE-M 300 61% 15ML VIAL As Ordered ONE; +LIDOCAINE 1% SDV 30ML VIAL As Ordered ONE
--- NOTE | 2020-09-10 17:34 | REP ---
INDICATION: BILATERAL CERVICAL FACET. Bilateral facet block for pain. COMPARISON: None. TECHNIQUE: Two views. 36.4 seconds of fluoroscopy time is reported. FINDINGS: A sequence of 2 last image hold fluoroscopically obtained spot radiograph(s) of the cervical spine document(s) needle position(s) and contrast injection associated with injection procedure. IMPRESSION: Procedural imaging. <Electronically signed by Chinmay Leon > 09/10/20 [id number]
--- NOTE | 2020-09-18 03:10 | ECWPNPC ---
PATIENT NAME: LUIS KHALIL : 1965 GENDER: FEMALE VISIT DATE: 09/10/2020 DISCHARGE DATE: 09/10/20 1147 VISIT LOCKED DATE TIME: PHYSICIAN: FAIZAN FORREST MD PHYSICIAN PAGER NO: ACTIVE RESOURCE: FAIZAN FORREST MD REASON FOR APPOINTMENT 1. W/C DIAGNOSTIC CERVICAL FACET BLOCK #1 C7-T1 HISTORY OF PRESENT ILLNESS GENERAL: -. FALL RISK SCREENING: SCREENING :NO FALLS REPORTED IN THE LAST YEAR PAIN SCREENING: PATIENT HAS A COMPLAINT OF ACUTE OR CHRONIC PAIN :YES LOCATION OF PAIN:NECK INTENSITY OF PAIN (SCALE OF 1 TO 10):8 WHAT DOES YOUR PAIN FEEL LIKE:BURNING, CONTINOUS, TENDER, SORE NURSING NOTE: -. PAIN CENTER INTAKE QUESTIONS: DO YOU HAVE A HISTORY OF MRSA? :NO DO YOU TAKE A BLOOD THINNERS? :NO DO YOU HAVE ANY BLEEDING DISORDERS? :NO ANY NEW NUMBNESS OR WEAKNESS IN YOUR LEGS OR ARMS? :NO ANY PACEMAKER,DEFIBRILLATOR, OR DORSAL COLUMN STIMULATOR? :NO DO YOU HAVE ANY RASHES OR OPEN SORES? :NO ARE YOU ALLERGIC TO IV DYE? :NO ARE YOU DIABETIC? :NO ANY NEW PROBLEMS WITH YOUR MEDICATIONS? :NO HAVE YOU RECEIVED A VACCINE IN THE PAST 30 DAYS? :NO DO YOU PLAN TO RECEIVE A VACCINE IN THE NEXT 21 DAYS? :NO DO YOU TAKE ANY IMMUNOSUPPRESSIVE MEDICATIONS? :NO ANY HISTORY OF SEIZURES? :NO ANY HISTORY OF CARDIAC ISSUES OR EVENTS? :NO DO YOU HAVE SLEEP APNEA? :NO ANY RECENT HEAD INJURY? :NO DO YOU HAVE ANY NEW INFECTIONS? :NO IS THERE A CHANCE YOU COULD BE ? :NO ARE YOU BREAST FEEDING? :NO WHEN DID YOU LAST EAT? : - WHEN DID YOU LAST DRINK? : -LAST NIGHT AT 1600 WHAT DID YOU LAST DRINK? : -0400 THIS MORNING NAME OF PERSON DRIVING YOU HOME? : -- ASHLEY DO YOU HAVE ANY OTHER QUESTIONS OR CONCERNS? : -PT WAS UNDER THE IMPRESSION THAT THIS WAS DIAGNOSTIC #2 BUT IT WAS EXPLAINED TO THIS PT THAT HER PRIORS HAD BEEN FOR THERAPUETIC AND THAT THIS IS TO DETERMIN IF SHE IS A CANDIDATE FOR A RF. THIS NURSE ANSWERED HER QUESTIONS . CURRENT MEDICATIONS TAKING VITAMIN D-3 1000 UNIT CAPSULE 1 CAPSULE ORALLY BID, NOTES: 09-09-20 0800 TAKING VITAMIN B12 1000 MCG TABLET EXTENDED RELEASE 1 TABLET ORALLY ONCE A DAY, NOTES: 09-09-20899 TAKING BIOTIN 10 MG CAPSULE 1 CAPSULE ORALLY DAILY, NOTES: 09-09-20899 TAKING MULTIVITAMINS TABLET 1 TAB ORALLY ONCE DAILY, NOTES: TAKING ALBUTEROL SULFATE HFA 108 (90 BASE) MCG/ACT AEROSOL SOLUTION 2 PUFFS INHALATION DAILY PRN- CHET, NOTES: 09-10-20699 TAKING OMEPRAZOLE 40 MG CAPSULE DELAYED RELEASE 1 CAPSULE 30 MINUTES BEFORE MORNING MEAL ORALLY ONCE A DAY, NOTES: 899 TAKING LORAZEPAM 0.5 MG TABLET 1-2 TAB ORALLY THREE TIMES DAILY NEEDED MDD=6, NOTES: 09-09-20899 TAKING AMBIEN CR 12.5 MG TABLET EXTENDED RELEASE 1 TABLET ORALLY BEFORE BEDTIME MDD=1, NOTES: 09-09-202099 TAKING BUTORPHANOL TARTRATE 10 MG/ML SOLUTION 1 SPRAY EACH NOSTRIL NEEDED NASALLY EVERY 8 HRS PRN MDD=4, NOTES: 2 WEEKS AGO TAKING HYDROCODONE-ACETAMINOPHEN 10-325 MG TABLET 1 TABLET NEEDED ORALLY EVERY 6 HRS MDD 4 75 TO LAST 1 MONTH, NOTES: 09-09-20899 NOT-TAKING PLUS/IRON 27-1 MG TABLET 1 TABLET ORALLY ONCE A DAY, NOTES: NOT TAKING NOT-TAKING ADVAIR DISKUS 250-50 MCG/DOSE AEROSOL POWDER BREATH ACTIVATED 1 PUFF INHALATION TWICE A DAY, NOTES: 4/5 6PM NOT-TAKING MAY HAVE - - IRON INFUSIONS INTRAVENOUSLY JUST STARTED MEDICATION LIST REVIEWED AND RECONCILED WITH THE PATIENT PAST MEDICAL HISTORY ASTHMA HYPERTENSION GERD ELEVATED CHOLESTEROL PCO S. 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: NAUSEA - SIDE EFFECTS LYRICA: CONFUSION - SIDE EFFECTS GABAPENTIN: CONFUSION - SIDE EFFECTS PAXIL: DIDNT LIKE FEELING - SIDE EFFECTS SURGICAL HISTORY HYSTERECTOMY 2010 TUBAL LIGATION 1986 EXPLORITORY LAPROSCOPIC 1977 GASTRICBYPASS 05/03/2013 LYMPHECTOMY ON LEFT 07-02-2013 TRIGGER POINT INJECTIONS SHOULDER 2016 FACET JOIN INJECTIONS LUMBAR 2016 BLADDER SURGERY (THOMAS) 2019 LEFT BREAST BIOPSY FAMILY HISTORY FATHER: , DIABETES, HYPERTENSION, HYPERLIPIDEMIA, DIAGNOSED WITH UNSPECIFIED HEART DISEASE MOTHER: ALIVE, HYPERTENSION, HYPERLIPIDEMIA, HYPERTENSION SIBLINGS: ALIVE SON(S): ALIVE 1 BROTHER(S) , 1 SISTER(S) - HEALTHY. 2 SON(S) - HEALTHY. FAMILY HISTORY IS POSITIVE FOR DIABETES, HYPERTENSION, HEART DISEASE. MATERNAL AUNT AND GRANDMOTHER WITH BREAST CANCER. SOCIAL HISTORY GENERAL: TOBACCO USE ARE YOU A:CURRENT SMOKER ARE YOU INTERESTED IN QUITTING?NOT READY TO QUIT COUNSELED THE PATIENT ON SMOKING EFFECTS, EDUCATION [id number]/26/2020 HOW MANY CIGARETTES A DAY DO YOU SMOKE?11-20 HOW OFTEN DO YOU SMOKE CIGARETTES?EVERY DAY PATIENT COUNSELED ON THE DANGERS OF TOBACCO USE AND URGED TO QUIT:09/10/2020 SMOKING CESSATION INFORMATION GIVEN08/04/2020 DECLINED ANY DEIRE TO QUIT SMOKING AT THIS TIME VAPORNO E-CIGARETTENO LATEX QUESTIONNAIRE LATEX ALLERGY : HAVE YOU EVER DEVELOPED ANY TYPE OF REACTION AFTER HANDLING LATEX PRODUCTS SUCH RUBBER GLOVES, CONDOMS, DIAPHRAGMS, BALLOONS, SOCKS, OR UNDERWEAR?NO LATEX ALLERGY : HAVE YOU EVER DEVELOPED ANY TYPE OF REACTION DURING OR AFTER DENTAL APPOINTMENT, VAGINAL/RECTAL EXAMINATION, SURGICAL PROCEDURE, OR ANY OTHER EXPOSURE?NO DATE ASKED : 08/08/2020 LATEX RISK : HAVE YOU EVER HAD ANY DIFFICULTY BREATHING OR HIVES AFTER EATING OR HANDLING ANY FRUITS, OR VEGETABLES; SUCH KIWI, BANANAS, STONE FRUITS, OR CHESTNUTSNO LATEX RISK : DO YOU HAVE A PREVIOUS PERSONAL HISTORY OF MORE THAN NINE SURGERIES, SPINA BIFIDA, OR REPEATED CATHERIZATIONS? NO LATEX RISK : ARE YOU FREQUENTLY EXPOSED TO LATEX PRODUCTS IN YOUR OCCUPATION?NO ALCOHOL SCREENING DID YOU HAVE A DRINK CONTAINING ALCOHOL IN THE PAST YEAR?YES HOW OFTEN DID YOU HAVE SIX OR MORE DRINKS ON ONE OCCASION IN THE PAST YEAR?NEVER (0 POINTS) HOW MANY DRINKS DID YOU HAVE ON A TYPICAL DAY WHEN YOU WERE DRINKING IN THE PAST YEAR?3 OR 4 (1 POINT) HOW OFTEN DID YOU HAVE A DRINK CONTAINING ALCOHOL IN THE PAST YEAR?TWO TO FOUR TIMES A MONTH (2 POINTS) POINTS3 INTERPRETATIONPOSITIVE RECREATIONAL DRUG USE DRUG USE?NO CAFFEINE CAFFEINE USE?YES OCC HOW OFTEN AND HOW MUCH? TWICE WEEKLY HIV / HEP-C SCREENING HIV TEST OFFERED TO PATIENT:YES DATE OFFERED:03/14/2020 TEST ACCEPTED:NO HEP-C TEST OFFERED TO PATIENT:YES DATE OFFERED:03/14/2020 REASON:PATIENT DECLINED TEST ACCEPTED:NO REASON:PATIENT DECLINED BROCHURE PROVIDED TO PATIENTYES RESTORATIONISM NO JEWISH BELIEFS THAT WOULD IMPACT HEALTH CARE. LANGUAGE GREEK. 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 LEARNING BARRIERS / SPECIAL NEEDS CHANGE FROM LAST VISIT?NO 08/04/2020 BARRIERS TO LEARNING?NO HEARING IMPAIRED?YES VISION IMPAIRED?YES COGNITIVELY IMPAIRED?NO : LEFT EAR NO HEARING AIDS : CORRECTED LENSES READINESS TO LEARN?YES LEARNING PREFERENCES?NO LEARNING CAPABILITIES PRESENT?YES EMOTIONAL BARRIERS?NO SPECIAL DEVICES?NO SLEEVE TAILOR NEEDED?NO DOMESTIC VIOLENCE DO YOU FEEL SAFE IN YOUR ENVIRONMENT?YES OCCUPATION: [employer]. DIET: REGULAR. EXERCISE: REGULAR. MARITAL STATUS: . OTHERS AT HOME: SPOUSE. 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 WATER NAME OF PERSON DRIVING YOU HOME SPOUSE ASIM IS THERE A CHANCE YOU COULD BE ?NO HAVE YOU BEEN SICK IN THE LAST WEEK (COLD, COUGH, FEVER, FLU, ETC)NO DO YOU TAKE ANY BLOOD THINNERS?NO ANY CHANGE IN BOWEL OR BLADDER CONTROL?YES PT STATES THAT SHE IS TAKING IRON SUPPLEMENTS AND HAVING ISSUES WITH CONSTIPATION ARE YOU ALLERGIC TO SHELLFISH OR IV DYE?NO ARE YOU DIABETIC?NO DO YOU HAVE A PACEMAKER OR DEFIBRILLATOR?NO ANY NEW PROBLEMS WITH MEDICINES OR NEW ALLERGIESNO ANY NEW PATTERNS OF PAIN OR NUMBNESS?NO ANY CHANGE IN YOUR MEDICAL CONDITION?NO HAVE YOU FALLEN IN THE LAST 6 MONTHS?NO DO YOU USE ANY TYPE OF TOBACCO (SMOKE, SMOKELESS, CHEW, ETC.)YES ARE YOU ABUSED, NEGLECTED, OR IN AN UNSAFE ENVIRONMENT?NO DO YOU HAVE THOUGHTS OF HURTING YOURSELF OR SOMEONE ELSE?NO DO YOU NEED ANY PRESCRIPTIONS?NO DO YOU HAVE ANY OTHER QUESTIONS OR CONCERNS?NO INTENSITY SCALE REVIEWEDNUMBER SCORE8 PAIN CLINIC PFS, CLERGY, PUBLIC HEALTH REFERRALS PFS REFERRAL NEEDED?NO WAS THE PROVIDER NOTIFIED OF ANY PERTINENT INFO?YES HAS THE PATIENT BEEN EDUCATED REGARDING HIS/HER PLAN OF CARE?YES HAS THE PATIENT BEEN EDUCATED REGARDING PAIN, THE RISK FOR PAIN, THE IMPORTANCE OF EFFECTIVE PAIN MANAGEMENT, AND THE PAIN ASSESSMENT PROCESS?YES PLEASE DOCUMENT ANY ADDTIONAL DETAILS. CERVICAL FACET BLOCK ADVANCE DIRECTIVE ADVANCE DIRECTIVE DISCUSSED WITH PATIENT:YES DECLINED INFORMATION AND ASSISTANCE WITH HCP PAPERWORK. HOSPITALIZATION/MAJOR DIAGNOSTIC PROCEDURE HYSTERECTOMY 2011 CHILDBIRTH 1982, 1985 GASTRIC BYPASS 2013 SURGERY [id number] 05/2018 VITAL SIGNS WT 133.2 LBS, HT 62.5 IN, BMI 23.97 INDEX, BP 162/81 MM HG, HR 75 /MIN, RR 18 /MIN, TEMP 96.0 F, OXYGEN SAT % 99%, SAFE IN ENV? (Y/N) YES, NA INITIALS AW 1002, REVIEWED BY: HENRRY GOLDSTEIN. EXAMINATION GENERAL EXAMINATION: THE PATIENT IS ALERT, ORIENTED TIMES THREE AND COOPERATIVE. HEART SHOWS REGULAR RHYTHM, NO MURMURS AND NO GALLOPS. LUNGS ARE CLEAR TO AUSCULTATION. ASSESSMENTS SPONDYLOSIS OF CERVICAL REGION WITHOUT MYELOPATHY OR RADICULOPATHY - M47.812 (PRIMARY), RISK: (NULL) TREATMENT SPONDYLOSIS OF CERVICAL REGION WITHOUT MYELOPATHY OR RADICULOPATHY [facility] FACET BLOCK (PAIN)[id number] SALINE BERT MACHADO 09/10/2020 11:00:13 AM > STARTED 22 G RIGHT AC 1ST ATTEMPT PROCEDURES PAIN NURSING RECORD PRE-PROCEDURE IV STARTED # 22, IV STARTED BY: Alisa ORTIZ RN, IV ATTEMPTS 1 IST ATTEMPT, PRE-PROCEDURE ORAL MEDICATIONS NA DIAGNOSTIC PROCEDURE IN ROOM 1105, PHYSICIAN IN ROOM 1115, START 1122, FINISH 1130, PHYSICIAN OUT OF ROOM 1134, OUT OF ROOM 1139, STEROID N/A, O2 N/A, ECG NORMAL SINUS KELIN SINUS AT TIMES, PATIENT SHIELDED YES, SAFETY STRAP YES, PREP CHLOROPREP Tyler MCKEON RN, IV INFUSED N/A, DRESSING TEGADERM DR FORREST APPLIED LOC: 1. ALERT, ORIENTED, BERT ORTIZ 09/10/2020 11:21:55 AM > RESP: 1. REGULAR, NO DYSPNEA, BERT ORTIZ 09/10/2020 11:22:03 AM > COLOR: 1. PINKANGEL KAREN 09/10/2020 11:22:07 AM > SKIN: 1. WARM, DRY, BERT ORTIZ 09/10/2020 11:22:12 AM > POSITION: 1. PRONEANGEL KAREN 09/10/2020 11:22:18 AM > VITALS: 1115 142/65 62 97% 18 KGULLO RN 1130 135/87 59 96% 18 KGULLO RN % NOTES POST PROCEDURE VITALS 132/65 56 99% 18 KGULLO CONTACT CENTER TEAM LEAD: POST PAIN 8 TENDER FROM INJECTIONS, DRESSING SITE SITE IS CLEAR TEGADERM INTACT, IV DISCONTINUED, SITE CLEAR, CATHETER INTACT, GAIT STEADY, TEACHING COMPLETED, PATIENT ACKNOWLEDGES UNDERSTANDING YES WENT OVER ENTIRE DC INCLUDING THE IMPORTANCE OF PAIN DIARY AND TO BRING IT TO NEXT APPT, PATIENT DISCHARGED AT 1148 PN WORKMANS' COMP OPINION IN YOUR OPINION, WAS THE INCIDENT THAT THE PATIENT DESCRIBED THE COMPETENT MEDICAL CAUSE OF THIS INJURY/ILLNESS? YES ARE THE PATIENT'S COMPLAINTS CONSISTENT WITH HIS/HER HISTORY OF THE INJURY/ILLNESS? YES IS THE PATIENT'S HISTORY OF THE INJURY/ILLNESS CONSISTENT WITH YOUR OBJECTIVE FINDING? YES WHAT IS THE PERCENTAGE OF TEMPORARY IMPAIRMENT? MODERATE TO MARKED = 66.7% . IS THE PATIENT WORKING? YES DOCTOR ON SITE: FAIZAN STEVENS MD PRE PROCEDURE DIAGNOSIS CERVICAL SPONDYLOSIS POST PROCEDURE DIAGNOSIS CERVICAL SPONDYLOSIS PROCEDURE BILATERAL C7-T1 DIAGNOSTIC CERVICAL FACET BLOCK NUMBER [address] FAIZAN FORREST BRIM CURLER NONE ANESTHESIA LOCAL PRE PROCEDURE NOTE THE PATIENT HAS HISTORY OF CHRONIC CERVICAL PAIN. I EVALUATED THE PATIENT AND REVIEWED THE CHART. I WENT OVER THE RISKS, ALTERNATIVES, AND BENEFITS ASSOCIATED WITH THIS PROCEDURE. THE PATIENT WOULD LIKE TO PROCEED AND GIVE CONSENT TO PERFORMED THE PROCEDURE. AGREED WITH THE PATIENT, WE ARE DOING THIS PROCEDURE TO DETERMINE IF THE PATIENT IS A CANDIDATE FOR A RADIOFREQUENCY ABLATION OF THE FACETS JOINTS. THE PATIENT DENIES UNEXPLAINABLE WEIGHT LOSS, FEVER, CHILLS, OR NEW CHANGES IN URINARY OR BOWEL CONTROL DESCRIPTION OF PROCEDURE THE PATIENT WAS BROUGHT TO THE PROCEDURE ROOM AND PLACED IN THE PRONE POSITION. THE CERVICOTHORACIC AREA WAS CLEANED WITH CHLORAPREP SOLUTION AND DRAPED ASEPTICALLY. THE PROCEDURE WAS DONE UNDER STERILE CONDITIONS. A TIMEOUT WAS PERFORMED WHERE LATERALITY AND THE SITE OF THE PROCEDURE WERE CHECKED AND CONFIRMED WITH EVERYONE IN THE ROOM. UNDER FLUOROSCOPIC GUIDANCE, TARGET POINT WAS SELECTED MEDIAL TO THE SUPERIOR LATERAL CORNER OF THE RIGHT AND LEFT TRANSVERSE PROCESS OF T1 AND JUST SUPERIOR TO THE MORE MEDIAL POINT OF THE CONCAVE CURSE AT THE MID POINT OF THE RIGHT AND LEFT LATERAL ARTICULAR PROCESS OF C7. TARGET POINTS WERE SELECTED AFTER LATERAL ROTATION AND TILT OF THE MAGNIFIER OF THE C-ARM. I CONFIRMED AGAIN WITH EVERYONE IN THE ROOM THE LATERALITY AND SITE OF THE TARGET AT 1120. LIDOCAINE 0.5% WAS USED TO NUMB THE SKIN AND THE SUBCUTANEOUS TISSUE BELOW IT. SPINAL NEEDLES, 22-GAUGE, WERE ADVANCED UNDER FLUOROSCOPIC GUIDANCE AND FOLLOWING PATIENT FEEDBACK UNTIL THE TARGETS WERE TOUCHED. THE POSITION OF THE NEEDLES WAS VERIFIED WITH AP AND LATERAL VIEWS. AFTER PROPER POSITION OF THE NEEDLES WAS ACHIEVED, ISOVUE-M DYE 30%, 0.2 ML, WAS INJECTED SHOWING SPREAD OF THE DYE. THEN A SOLUTION OF 0.25 ML OF BUPIVACAINE 0.25% WAS INJECTED AT EACH SITE. THE MEDICATION WAS VERIFIED WITH THE NURSE. THERE WAS NO EVIDENCE OF BLOOD, PARESTHESIA OR CEREBROSPINAL FLUID DURING THE PROCEDURE. THE PATIENT WAS SENT TO THE RECOVERY ROOM. THE PATIENT WAS MOVING THE EXTREMITIES AND DOING WELL. THERE WERE NO COMPLICATIONS DURING THE PROCEDURE. ESTIMATED BLOOD LOSS WAS LESS THAN 5 ML. FLUOROSCOPY TIME WAS 36 SECONDS POST PROCEDURE NOTE THE PATIENT WILL DOCUMENT PAIN LEVEL AND RESPONSE TO THIS PROCEDURE PER PAIN DIARY. THE PATIENT WILL BE SEEN IN A FOLLOW UP IN THE NEXT FEW WEEKS. INSTRUCTIONS WERE GIVEN, QUESTIONS WERE ANSWERED, AND THE PATIENT EXPRESSED UNDERSTANDING AND AGREES WITH THE PLAN. I, BOBO JUAREZ, DOCUMENTED THE ABOVE INFORMATION ACTING A SCRIBE FOR DR. FORREST. I HAVE REVIEWED THE ABOVE DOCUMENT, WRITTEN BY BOBO JUAREZ, ADVERTISING ACCOUNT MANAGER, AND I VERIFY THAT IT IS ACCURATE. PROCEDURE CODES 09545 INJ PARAVERT F JNT C/T 1 LEV DISPOSITION & COMMUNICATION FOLLOW UP FOLLOW UP WITH CARBON BRUSHES ASSEMBLER (REASON: W/C POST BILATERAL FACET BLOCK DIAGNOSTIC #1 C7-T1) ELECTRONICALLY SIGNED BY FAIZAN FORREST MD, MD ON 09/17/2020 AT 10:11 AM EST DISCLAIMER : THIS IS A VISIT SUMMARY EXTRACTED FROM THE Flotype CHART. IT IS NOT A COPY OF THE Flotype PROGRESS NOTE. CARMITA
== END ==
LOC: M PAIN 10:00
PROVIDERS: ATTEND Anesthesiology
DX: M47.812 Spondylosis without myelopathy or radiculopathy, cervical region (principal); J45.909 Unspecified asthma, uncomplicated; I10 Essential (primary) hypertension; K21.9 Gastro-esophageal reflux disease without esophagitis; E78.00 Pure hypercholesterolemia, unspecified; G43.909 Migraine, unspecified, not intractable, without status migrainosus; F17.210 Nicotine dependence, cigarettes, uncomplicated; D64.9 Anemia, unspecified; Z79.891 Long term (current) use of opiate analgesic; Z79.899 Other long term (current) drug therapy; Z88.8 Allergy status to other drugs, medicaments and biological substances
CPT/HCPCS: 64490; Q9967

== ENCOUNTER → 2020-09-16 | Outpatient (REF) | payer BC ==
[~2020-09-16] MED LIST changes: -BUPIVACAINE HCL 0.25% 30ML VIAL As Ordered ONE; -ISOVUE-M 300 61% 15ML VIAL As Ordered ONE; -LIDOCAINE 1% SDV 30ML VIAL As Ordered ONE
== END ==
LOC: M SFHCCLAY 14:08
PROVIDERS: ATTEND Physician Assistant
DX: R30.0 Dysuria (principal)

== ENCOUNTER → 2020-09-24 | Outpatient (CLI) | payer OTHER ==
--- NOTE | 2020-09-26 04:36 | ECWPNPC ---
PATIENT NAME: LUIS KHALIL : 1965 GENDER: FEMALE VISIT DATE: 09/24/2020 DISCHARGE DATE: 09/24/20 1232 VISIT LOCKED DATE TIME: PHYSICIAN: HANDY ACEVES PHYSICIAN PAGER NO: ACTIVE RESOURCE: HANDY ACEVES REASON FOR APPOINTMENT 1. W/C DIAGNOSTIC CERVICAL FACET BLOCK #1 C7-T1 HISTORY OF PRESENT ILLNESS GENERAL: 55-YEAR-OLD FEMALE IN FOR POST DIAGNOSTIC CERVICAL FACET BLOCK #1 FOLLOW-UP. PATIENT RATES HER PAIN PREPROCEDURE AT A 8 OUT OF 10 AND POSTPROCEDURE AT A 2 OUT OF 10. PATIENT HAD PAIN RELIEF FOR PROXIMALLY 6 HOURS. SHE RATES HER PAIN CURRENTLY AT A DESCRIBES IT A -ON 10/26/2015 LUIS CAME OUT OF HER CAR IN THE [facility] PARKING [facility], SLUNG HER PURSE OVER HER LEFT SHOULDER AND SLIPPED AND FELL ON THE ICE, HITTING HER MID BACK AGAINST THE BUMPER AND HER BUTTOCKS ON THE GROUND BILATERALLY. 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 X-RAYS WERE READ NEGATIVE EXCEPT FOR MILD SPONDYLOSIS IN THE LOW BACK. FALL RISK SCREENING: SCREENING :NO FALLS REPORTED IN THE LAST YEAR PAIN SCREENING: PATIENT HAS A COMPLAINT OF ACUTE OR CHRONIC PAIN :YES LOCATION OF PAIN:NECK, UPPER BACK, LOW BACK INTENSITY OF PAIN (SCALE OF 1 TO 10):8 WHAT DOES YOUR PAIN FEEL LIKE:ACHING, SHARP, STABBING, SHOOTING DURATION:CONTINOUS, CONSTANT PAIN IS INCREASED BY:ACTIVITIES PAIN IS DECREASED BY:USE OF PAIN MEDICATIONS LYING DOWN RESTING TREATMENT/MEDICATIONS USED TO MANAGE PAIN:OPIOIDS LEVEL OF RELIEF FROM PAIN TREATMENTS IN THE PAST:50% PAIN HAS INTERFERED WITH THE FOLLOWING:SLEEP BENDING NURSING NOTE: -. PAIN CENTER INTAKE QUESTIONS: DO YOU HAVE A HISTORY OF MRSA? :NO DO YOU TAKE A BLOOD THINNERS? :NO DO YOU HAVE ANY BLEEDING DISORDERS? :NO ANY NEW NUMBNESS OR WEAKNESS IN YOUR LEGS OR ARMS? :YES NUMBNESS IN RIGHT ARM ANY PACEMAKER,DEFIBRILLATOR, OR DORSAL COLUMN STIMULATOR? :NO DO YOU HAVE ANY RASHES OR OPEN SORES? :NO ARE YOU ALLERGIC TO IV DYE? :NO ARE YOU DIABETIC? :NO ANY NEW PROBLEMS WITH YOUR MEDICATIONS? :NO HAVE YOU RECEIVED A VACCINE IN THE PAST 30 DAYS? :NO DO YOU PLAN TO RECEIVE A VACCINE IN THE NEXT 21 DAYS? :YES IF SO WHAT VACCINE AND WHEN? HOPING FOR COVID VACCINE DO YOU NEED ANY PRESCRIPTION? :YES OXYCODONE DO YOU TAKE ANY IMMUNOSUPPRESSIVE MEDICATIONS? :NO IS THERE A CHANCE YOU COULD BE ? :NO ARE YOU BREAST FEEDING? :NO CURRENT MEDICATIONS TAKING VITAMIN D-3 1000 UNIT CAPSULE 1 CAPSULE ORALLY BID TAKING VITAMIN B12 1000 MCG TABLET EXTENDED RELEASE 1 TABLET ORALLY ONCE A DAY TAKING BIOTIN 10 MG CAPSULE 1 CAPSULE ORALLY DAILY TAKING MULTIVITAMINS TABLET 1 TAB ORALLY ONCE DAILY TAKING ALBUTEROL SULFATE HFA 108 (90 BASE) MCG/ACT AEROSOL SOLUTION 2 PUFFS INHALATION DAILY PRN- CHET TAKING OMEPRAZOLE 40 MG CAPSULE DELAYED RELEASE 1 CAPSULE 30 MINUTES BEFORE MORNING MEAL ORALLY ONCE A DAY TAKING AMBIEN CR 12.5 MG TABLET EXTENDED RELEASE 1 TABLET ORALLY BEFORE BEDTIME MDD=1 TAKING BUTORPHANOL TARTRATE 10 MG/ML SOLUTION 1 SPRAY EACH NOSTRIL NEEDED NASALLY EVERY 8 HRS PRN MDD=4 TAKING HYDROCODONE-ACETAMINOPHEN 10-325 MG TABLET 1 TABLET NEEDED ORALLY EVERY 6 HRS MDD 4 75 TO LAST 1 MONTH NOT-TAKING LORAZEPAM 0.5 MG TABLET 1-2 TAB ORALLY THREE TIMES DAILY NEEDED MDD=6 NOT-TAKING PREDNISONE 10 MG TABLET 3 TABLETS ORALLY ONCE A DAY NOT-TAKING TRIAMCINOLONE ACETONIDE 0.1 % CREAM 1 APPLICATION TO GROIN EXTERNALLY TWICE A DAY NOT-TAKING PLUS/IRON 27-1 MG TABLET 1 TABLET ORALLY ONCE A DAY, NOTES: NOT TAKING NOT-TAKING ADVAIR DISKUS 250-50 MCG/DOSE AEROSOL POWDER BREATH ACTIVATED 1 PUFF INHALATION TWICE A DAY, NOTES: 4/5 6PM NOT-TAKING MAY HAVE - - IRON INFUSIONS INTRAVENOUSLY JUST STARTED MEDICATION LIST REVIEWED AND RECONCILED WITH THE PATIENT PAST MEDICAL HISTORY ASTHMA HYPERTENSION GERD ELEVATED CHOLESTEROL PCO S. MIGRANES OBESITY HIGH-203 ILR=982 BACK INJURY 1986, 2015 ANEMIA- RECEIVING IRON INFUSION ALLERGIES SIMVASTATIN: FATIGUE - SIDE EFFECTS IMITREX: NAUSEA - SIDE EFFECTS MAXALT LINER ROLL CHANGER: NAUSEA - SIDE EFFECTS LYRICA: CONFUSION - SIDE EFFECTS GABAPENTIN: CONFUSION - SIDE EFFECTS PAXIL: DIDNT LIKE FEELING - SIDE EFFECTS SURGICAL HISTORY HYSTERECTOMY 2010 TUBAL LIGATION 1986 EXPLORITORY LAPROSCOPIC 1977 GASTRICBYPASS 05/03/2013 LYMPHECTOMY ON LEFT 07-02-2013 TRIGGER POINT INJECTIONS SHOULDER 2016 FACET JOIN INJECTIONS LUMBAR 2016 BLADDER SURGERY (THOMAS) 2019 LEFT BREAST BIOPSY FAMILY HISTORY FATHER: , DIABETES, HYPERTENSION, HYPERLIPIDEMIA, DIAGNOSED WITH UNSPECIFIED HEART DISEASE MOTHER: ALIVE, HYPERTENSION, HYPERLIPIDEMIA, HYPERTENSION SIBLINGS: ALIVE SON(S): ALIVE 1 BROTHER(S) , 1 SISTER(S) - HEALTHY. 2 SON(S) - HEALTHY. FAMILY HISTORY IS POSITIVE FOR DIABETES, HYPERTENSION, HEART DISEASE. MATERNAL AUNT AND GRANDMOTHER WITH BREAST CANCER. SOCIAL HISTORY GENERAL: TOBACCO USE ARE YOU A:CURRENT SMOKER HOW OFTEN DO YOU SMOKE CIGARETTES?EVERY DAY HOW MANY CIGARETTES A DAY DO YOU SMOKE?11-20 ARE YOU INTERESTED IN QUITTING?NOT READY TO QUIT PATIENT COUNSELED ON THE DANGERS OF TOBACCO USE AND URGED TO QUIT:09/10/2020 COUNSELED THE PATIENT ON SMOKING EFFECTS, EDUCATION [id number]/26/2020 VAPORNO E-CIGARETTENO SMOKING CESSATION INFORMATION GIVEN08/04/2020 DECLINED ANY DEIRE TO QUIT SMOKING AT THIS TIME LATEX QUESTIONNAIRE LATEX ALLERGY : HAVE YOU EVER DEVELOPED ANY TYPE OF REACTION AFTER HANDLING LATEX PRODUCTS SUCH RUBBER GLOVES, CONDOMS, DIAPHRAGMS, BALLOONS, SOCKS, OR UNDERWEAR?NO LATEX ALLERGY : HAVE YOU EVER DEVELOPED ANY TYPE OF REACTION DURING OR AFTER DENTAL APPOINTMENT, VAGINAL/RECTAL EXAMINATION, SURGICAL PROCEDURE, OR ANY OTHER EXPOSURE?NO DATE ASKED : 08/08/2020 LATEX RISK : HAVE YOU EVER HAD ANY DIFFICULTY BREATHING OR HIVES AFTER EATING OR HANDLING ANY FRUITS, OR VEGETABLES; SUCH KIWI, BANANAS, STONE FRUITS, OR CHESTNUTSNO LATEX RISK : DO YOU HAVE A PREVIOUS PERSONAL HISTORY OF MORE THAN NINE SURGERIES, SPINA BIFIDA, OR REPEATED CATHERIZATIONS? NO LATEX RISK : ARE YOU FREQUENTLY EXPOSED TO LATEX PRODUCTS IN YOUR OCCUPATION?NO ALCOHOL SCREENING DID YOU HAVE A DRINK CONTAINING ALCOHOL IN THE PAST YEAR?YES HOW OFTEN DID YOU HAVE SIX OR MORE DRINKS ON ONE OCCASION IN THE PAST YEAR?NEVER (0 POINTS) HOW MANY DRINKS DID YOU HAVE ON A TYPICAL DAY WHEN YOU WERE DRINKING IN THE PAST YEAR?3 OR 4 (1 POINT) HOW OFTEN DID YOU HAVE A DRINK CONTAINING ALCOHOL IN THE PAST YEAR?TWO TO FOUR TIMES A MONTH (2 POINTS) POINTS3 INTERPRETATIONPOSITIVE RECREATIONAL DRUG USE DRUG USE?NO CAFFEINE CAFFEINE USE?YES OCC HOW OFTEN AND HOW MUCH? TWICE WEEKLY HIV / HEP-C SCREENING HIV TEST OFFERED TO PATIENT:YES DATE OFFERED:03/14/2020 TEST ACCEPTED:NO HEP-C TEST OFFERED TO PATIENT:YES DATE OFFERED:03/14/2020 REASON:PATIENT DECLINED TEST ACCEPTED:NO REASON:PATIENT DECLINED BROCHURE PROVIDED TO PATIENTYES JEWISH NO JUDAISM BELIEFS THAT WOULD IMPACT HEALTH CARE. LANGUAGE [place] [employer]. 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 LEARNING BARRIERS / SPECIAL NEEDS CHANGE FROM LAST VISIT?NO 08/04/2020 BARRIERS TO LEARNING?NO HEARING IMPAIRED?YES VISION IMPAIRED?YES COGNITIVELY IMPAIRED?NO : LEFT EAR NO HEARING AIDS : CORRECTED LENSES READINESS TO LEARN?YES LEARNING PREFERENCES?NO LEARNING CAPABILITIES PRESENT?YES EMOTIONAL BARRIERS?NO SPECIAL DEVICES?NO WINDOW SHADE CUTTER NEEDED?NO DOMESTIC VIOLENCE DO YOU FEEL SAFE IN YOUR ENVIRONMENT?YES OCCUPATION: [employer]. DIET: REGULAR. EXERCISE: REGULAR. MARITAL STATUS: . OTHERS AT HOME: SPOUSE. 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 WATER NAME OF PERSON DRIVING YOU HOME SPOUSE ASIM IS THERE A CHANCE YOU COULD BE ?NO HAVE YOU BEEN SICK IN THE LAST WEEK (COLD, COUGH, FEVER, FLU, ETC)NO DO YOU TAKE ANY BLOOD THINNERS?NO ANY CHANGE IN BOWEL OR BLADDER CONTROL?YES PT STATES THAT SHE IS TAKING IRON SUPPLEMENTS AND HAVING ISSUES WITH CONSTIPATION ARE YOU ALLERGIC TO SHELLFISH OR IV DYE?NO ARE YOU DIABETIC?NO DO YOU HAVE A PACEMAKER OR DEFIBRILLATOR?NO ANY NEW PROBLEMS WITH MEDICINES OR NEW ALLERGIESNO ANY NEW PATTERNS OF PAIN OR NUMBNESS?NO ANY CHANGE IN YOUR MEDICAL CONDITION?NO HAVE YOU FALLEN IN THE LAST 6 MONTHS?NO DO YOU USE ANY TYPE OF TOBACCO (SMOKE, SMOKELESS, CHEW, ETC.)YES ARE YOU ABUSED, NEGLECTED, OR IN AN UNSAFE ENVIRONMENT?NO DO YOU HAVE THOUGHTS OF HURTING YOURSELF OR SOMEONE ELSE?NO DO YOU NEED ANY PRESCRIPTIONS?NO DO YOU HAVE ANY OTHER QUESTIONS OR CONCERNS?NO INTENSITY SCALE REVIEWEDNUMBER SCORE8 PAIN CLINIC PFS, CLERGY, PUBLIC HEALTH REFERRALS PFS REFERRAL NEEDED?NO WAS THE PROVIDER NOTIFIED OF ANY PERTINENT INFO?YES HAS THE PATIENT BEEN EDUCATED REGARDING HIS/HER PLAN OF CARE?YES HAS THE PATIENT BEEN EDUCATED REGARDING PAIN, THE RISK FOR PAIN, THE IMPORTANCE OF EFFECTIVE PAIN MANAGEMENT, AND THE PAIN ASSESSMENT PROCESS?YES PLEASE DOCUMENT ANY ADDTIONAL DETAILS. CERVICAL FACET BLOCK ADVANCE DIRECTIVE ADVANCE DIRECTIVE DISCUSSED WITH PATIENT:YES DECLINED INFORMATION AND ASSISTANCE WITH HCP PAPERWORK. HOSPITALIZATION/MAJOR DIAGNOSTIC PROCEDURE HYSTERECTOMY 2011 CHILDBIRTH 1982, 1984 GASTRIC BYPASS 2013 SURGERY [id number] 05/2018 REVIEW OF SYSTEMS CONSTITUTIONAL: ANY RECENT FEVER NO . CHILLS NO . WEIGHT CHANGE OF UNKNOWN REASONS NO . GASTROENTEROLOGY: NEW UNEXPLAINABLE CHANGES IN BOWEL CONTROL NO . CONSTIPATION NO . GENITOURINARY: ANY NEW CHANGE IN BLADDER CONTROL? NO . NEUROLOGY: NEW ONSET DIZZINESS OR NEUROLOGICAL CHANGES NOT MENTIONED NO . NEW NUMBNESS OR PAIN PATTERNS NOT MENTIONED AND PERTINENT TO TODAY'S VISIT NO . CARDIOLOGY: NEW CHEST PRESSURE NO . NEW CHEST PAIN NO . RESPIRATORY: UNEXPLAINABLE COUGH NO . NEW SHORTNESS OF BREATH NO . VITAL SIGNS WT 131 LBS, HT 62.5 IN, BMI 23.58 INDEX, BP 137/66 MM HG, HR 72 /MIN, RR 18 /MIN, TEMP 96.1 F, OXYGEN SAT % 100%, SAFE IN ENV? (Y/N) Y, NA INITIALS CA 11:36, REVIEWED BY: ROBERTA. EXAMINATION GENERAL EXAMINATION: GENERALNO ACUTE DISTRESS, WELL NOURISHED AND HYDRATED. PSYCHAPPROPRIATE MOOD AND AFFECT . NECK:POINT TENDER ALONG CERVICAL SPINE, SURROUNDING SKIN SHOWS NO ERYTHEMA, ECCHYMOSIS, INCREASED WARMTH, AND/OR SKIN ERUPTIONS NOTED. . LUNGS:CLEAR TO AUSCULTATION BILATERALLY, NO WHEEZES, RHONCHI, RALES. HEART:NO MURMURS, REGULAR RATE AND RHYTHM. ASSESSMENTS SPONDYLOSIS OF CERVICAL REGION WITHOUT MYELOPATHY OR RADICULOPATHY - M47.812 (PRIMARY) TREATMENT SPONDYLOSIS OF CERVICAL REGION WITHOUT MYELOPATHY OR RADICULOPATHY NOTES: 55-YEAR-OLD FEMALE IN FOR POST CERVICAL DIAGNOSTIC FACET BLOCK #1 FOLLOW-UP. GIVEN PRESENTING SYMPTOMS RECOMMENDED CERVICAL DIAGNOSTIC FACET BLOCK #2 LEFT SIDE C7-T1 WITH POST PROCEDURAL FOLLOW-UP. PATIENT HAS EXPRESSED UNDERSTANDING OF AND WAS IN AGREEMENT WITH TREATMENT PLAN. GIVEN TIME TO ASK QUESTIONS AND EXPRESS CONCERNS. , ISTOP REGISTRY REVIEWED AND DEMONSTRATES COMPLLIANCE. (REF # ) BRINGS IN MEDICATIONS WHICH IS APPROPRIATE FOR WHAT WAS DISPENSED. RECENT URINE TOXICOLOGY REVIEWED. NO UNAUTHORIZED MEDICATIONS. NO ILLICIT SUBSTANCES AND PRESCRIBED MEDICATIONS WERE PRESENT. NEED TO SWITCH PAT NARC. PROCEDURES PN WORKMANS' COMP OPINION IN YOUR OPINION, WAS THE INCIDENT THAT THE PATIENT DESCRIBED THE COMPETENT MEDICAL CAUSE OF THIS INJURY/ILLNESS? YES ARE THE PATIENT'S COMPLAINTS CONSISTENT WITH HIS/HER HISTORY OF THE INJURY/ILLNESS? YES IS THE PATIENT'S HISTORY OF THE INJURY/ILLNESS CONSISTENT WITH YOUR OBJECTIVE FINDING? YES WHAT IS THE PERCENTAGE OF TEMPORARY IMPAIRMENT? MODERATE TO MARKED = 66.7% IS THE PATIENT WORKING? YES DOCTOR ON SITE: FAIZAN STEVENS MD PROCEDURE CODES FA211 ESTABILISHED PATIENT [facility] CHARGE DISPOSITION & COMMUNICATION FOLLOW UP POSTPROCEDURE (REASON: CERVICAL DIAGNOSTIC FACET BLOCK #2 LEFT SIDE C7-T1) ELECTRONICALLY SIGNED BY JAYLENE KELLER ON 09/25/2020 AT 01:30 PM EST DISCLAIMER : THIS IS A VISIT SUMMARY EXTRACTED FROM THE [employer] CHART. IT IS NOT A COPY OF THE [employer] PROGRESS NOTE. CARMITA
== END ==
LOC: M PAIN 11:30
PROVIDERS: ATTEND Family Medicine
DX: M47.812 Spondylosis without myelopathy or radiculopathy, cervical region (principal); J45.909 Unspecified asthma, uncomplicated; I10 Essential (primary) hypertension; K21.9 Gastro-esophageal reflux disease without esophagitis; E78.00 Pure hypercholesterolemia, unspecified; G43.909 Migraine, unspecified, not intractable, without status migrainosus; D64.9 Anemia, unspecified; F17.210 Nicotine dependence, cigarettes, uncomplicated; Z79.891 Long term (current) use of opiate analgesic; Z79.899 Other long term (current) drug therapy; Z88.8 Allergy status to other drugs, medicaments and biological substances

== ENCOUNTER → 2020-10-24 | Outpatient (CLI) | payer OTHER | LOC: M LABSMTC 13:00 | PROVIDERS: ATTEND Anesthesiology | DX: Z20.822 Contact with and (suspected) exposure to COVID-19 (principal) ==

== ENCOUNTER → 2020-10-29 | Outpatient (CLI) | payer OTHER ==
[~2020-10-29] MED LIST changes: +BUPIVACAINE HCL 0.25% 30ML VIAL As Ordered ONE; +ISOVUE-M 300 61% 15ML VIAL As Ordered ONE; +LIDOCAINE 1% SDV 30ML VIAL As Ordered ONE
--- NOTE | 2020-10-29 12:00 | REP ---
INDICATION: LEFT CERVICAL DIAGNOSTIC FACET BLOCK. COMPARISON: None. TECHNIQUE: Two views. 24.7 seconds of fluoroscopy time is reported. FINDINGS: A sequence of 2 last image hold fluoroscopically obtained spot radiograph(s) of the cervical spine document(s) needle position(s) and contrast injection associated with injection procedure. IMPRESSION: Procedural imaging. <Electronically signed by Chinmay Leon > 10/29/20 [id number]
--- NOTE | 2020-10-30 02:26 | ECWPNPC ---
PATIENT NAME: LUIS KHLAIL : 1965 GENDER: FEMALE VISIT DATE: 10/29/2020 DISCHARGE DATE: 10/29/20 1216 VISIT LOCKED DATE TIME: PHYSICIAN: FAIZAN FORREST MD PHYSICIAN PAGER NO: ACTIVE RESOURCE: FAIZAN FORREST MD REASON FOR APPOINTMENT 1. LEFT CERVICAL DIAGNOSTIC FACET BLOCK #2 HISTORY OF PRESENT ILLNESS GENERAL: -. FALL RISK SCREENING: SCREENING :NO FALLS REPORTED IN THE LAST YEAR PAIN SCREENING: PATIENT HAS A COMPLAINT OF ACUTE OR CHRONIC PAIN :YES LOCATION OF PAIN:NECK, LEFT SHOULDER, UPPER BACK INTENSITY OF PAIN (SCALE OF 1 TO 10):9 WHAT DOES YOUR PAIN FEEL LIKE:ACHING, BURNING, SHARP, STABBING, THROBBING, SHOOTING DURATION:CONTINOUS, CONSTANT PAIN IS INCREASED BY:ACTIVITIES PAIN IS DECREASED BY:USE OF PAIN MEDICATIONS TREATMENT/MEDICATIONS USED TO MANAGE PAIN:OPIOIDS LEVEL OF RELIEF FROM PAIN TREATMENTS IN THE PAST:75% PAIN HAS INTERFERED WITH THE FOLLOWING:BATHING/DRESSING, WALKING ABILITY, HOUSEWORK, SLEEP, TRANSPORTATION, TOILETING NURSING NOTE: -. PAIN CENTER INTAKE QUESTIONS: DO YOU HAVE A HISTORY OF MRSA? :NO DO YOU TAKE A BLOOD THINNERS? :NO DO YOU HAVE ANY BLEEDING DISORDERS? :NO ANY NEW NUMBNESS OR WEAKNESS IN YOUR LEGS OR ARMS? :NO ANY PACEMAKER,DEFIBRILLATOR, OR DORSAL COLUMN STIMULATOR? :NO DO YOU HAVE ANY RASHES OR OPEN SORES? :NO ARE YOU ALLERGIC TO IV DYE? :NO ARE YOU DIABETIC? :NO ANY NEW PROBLEMS WITH YOUR MEDICATIONS? :NO HAVE YOU RECEIVED A VACCINE IN THE PAST 30 DAYS? :YES IF SO WHAT VACCINE AND WHEN? SECOND COVID VACCINE RECEIVED LAST TUESDAY DO YOU PLAN TO RECEIVE A VACCINE IN THE NEXT 21 DAYS? :NO DO YOU TAKE ANY IMMUNOSUPPRESSIVE MEDICATIONS? :NO ANY HISTORY OF SEIZURES? :NO ANY HISTORY OF CARDIAC ISSUES OR EVENTS? :NO DO YOU HAVE SLEEP APNEA? :NO ANY RECENT HEAD INJURY? :NO DO YOU HAVE ANY NEW INFECTIONS? :NO IS THERE A CHANCE YOU COULD BE ? :NO ARE YOU BREAST FEEDING? :NO WHEN DID YOU LAST EAT? : 10/28/20 10MP WHEN DID YOU LAST DRINK? : 10/29/20 0845 AM WHAT DID YOU LAST DRINK? : WATER NAME OF PERSON DRIVING YOU HOME? : MOM DO YOU HAVE ANY OTHER QUESTIONS OR CONCERNS? : - CURRENT MEDICATIONS TAKING VITAMIN D-3 1000 UNIT CAPSULE 1 CAPSULE ORALLY BID TAKING VITAMIN B12 1000 MCG TABLET EXTENDED RELEASE 1 TABLET ORALLY ONCE A DAY TAKING BIOTIN 10 MG CAPSULE 1 CAPSULE ORALLY DAILY TAKING MULTIVITAMINS TABLET 1 TAB ORALLY ONCE DAILY TAKING ALBUTEROL SULFATE HFA 108 (90 BASE) MCG/ACT AEROSOL SOLUTION 2 PUFFS INHALATION DAILY PRN- CHET TAKING OMEPRAZOLE 40 MG CAPSULE DELAYED RELEASE 1 CAPSULE 30 MINUTES BEFORE MORNING MEAL ORALLY ONCE A DAY TAKING BUTORPHANOL TARTRATE 10 MG/ML SOLUTION 1 SPRAY EACH NOSTRIL NEEDED NASALLY EVERY 8 HRS PRN MDD=4 TAKING OXYCODONE HCL 10 MG TABLET 1 TABLET NEEDED ORALLY EVERY 8 HRS PRN PAIN, NOTES: 10/25/20 TAKING AMBIEN CR 12.5 MG TABLET EXTENDED RELEASE 1 TABLET ORALLY BEFORE BEDTIME MDD=1, NOTES: 10/27/20 NOT-TAKING HYDROCODONE-ACETAMINOPHEN 10-325 MG TABLET 1 TABLET NEEDED ORALLY EVERY 6 HRS MDD 4 75 TO LAST 1 MONTH NOT-TAKING LORAZEPAM 0.5 MG TABLET 1-2 TAB ORALLY THREE TIMES DAILY NEEDED MDD=6 NOT-TAKING PREDNISONE 10 MG TABLET 3 TABLETS ORALLY ONCE A DAY NOT-TAKING TRIAMCINOLONE ACETONIDE 0.1 % CREAM 1 APPLICATION TO GROIN EXTERNALLY TWICE A DAY NOT-TAKING PLUS/IRON 27-1 MG TABLET 1 TABLET ORALLY ONCE A DAY, NOTES: NOT TAKING NOT-TAKING ADVAIR DISKUS 250-50 MCG/DOSE AEROSOL POWDER BREATH ACTIVATED 1 PUFF INHALATION TWICE A DAY, NOTES: 4/5 6PM NOT-TAKING MAY HAVE - - IRON INFUSIONS INTRAVENOUSLY JUST STARTED MEDICATION LIST REVIEWED AND RECONCILED WITH THE PATIENT PAST MEDICAL HISTORY ASTHMA HYPERTENSION GERD ELEVATED CHOLESTEROL PCO S. 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 - SIDE EFFECTS LYRICA: CONFUSION - SIDE EFFECTS GABAPENTIN: CONFUSION - SIDE EFFECTS PAXIL: DIDNT LIKE FEELING - SIDE EFFECTS SOCIAL HISTORY GENERAL: TOBACCO USE ARE YOU A:CURRENT SMOKER ARE YOU INTERESTED IN QUITTING?NOT READY TO QUIT COUNSELED THE PATIENT ON SMOKING EFFECTS, EDUCATION [id number]/20/2021 HOW MANY CIGARETTES A DAY DO YOU SMOKE?11-20 HOW OFTEN DO YOU SMOKE CIGARETTES?EVERY DAY PATIENT COUNSELED ON THE DANGERS OF TOBACCO USE AND URGED TO QUIT:09/10/2020 SMOKING CESSATION INFORMATION GIVEN08/04/2020 DECLINED ANY DEIRE TO QUIT SMOKING AT THIS TIME VAPORNO E-CIGARETTENO LATEX QUESTIONNAIRE LATEX ALLERGY : HAVE YOU EVER DEVELOPED ANY TYPE OF REACTION AFTER HANDLING LATEX PRODUCTS SUCH RUBBER GLOVES, CONDOMS, DIAPHRAGMS, BALLOONS, SOCKS, OR UNDERWEAR?NO LATEX ALLERGY : HAVE YOU EVER DEVELOPED ANY TYPE OF REACTION DURING OR AFTER DENTAL APPOINTMENT, VAGINAL/RECTAL EXAMINATION, SURGICAL PROCEDURE, OR ANY OTHER EXPOSURE?NO LATEX RISK : HAVE YOU EVER HAD ANY DIFFICULTY BREATHING OR HIVES AFTER EATING OR HANDLING ANY FRUITS, OR VEGETABLES; SUCH KIWI, BANANAS, STONE FRUITS, OR CHESTNUTSNO LATEX RISK : DO YOU HAVE A PREVIOUS PERSONAL HISTORY OF MORE THAN NINE SURGERIES, SPINA BIFIDA, OR REPEATED CATHERIZATIONS? NO LATEX RISK : ARE YOU FREQUENTLY EXPOSED TO LATEX PRODUCTS IN YOUR OCCUPATION?NO DATE ASKED : 10/29/2020 ALCOHOL SCREENING DID YOU HAVE A DRINK CONTAINING ALCOHOL IN THE PAST YEAR?YES HOW OFTEN DID YOU HAVE SIX OR MORE DRINKS ON ONE OCCASION IN THE PAST YEAR?NEVER (0 POINTS) HOW MANY DRINKS DID YOU HAVE ON A TYPICAL DAY WHEN YOU WERE DRINKING IN THE PAST YEAR?3 OR 4 (1 POINT) HOW OFTEN DID YOU HAVE A DRINK CONTAINING ALCOHOL IN THE PAST YEAR?TWO TO FOUR TIMES A MONTH (2 POINTS) POINTS3 INTERPRETATIONPOSITIVE RECREATIONAL DRUG USE DRUG USE?NO CAFFEINE CAFFEINE USE?YES OCC HOW OFTEN AND HOW MUCH? TWICE WEEKLY HIV / HEP-C SCREENING HIV TEST OFFERED TO PATIENT:YES DATE OFFERED:03/14/2020 TEST ACCEPTED:NO HEP-C TEST OFFERED TO PATIENT:YES DATE OFFERED:03/14/2020 REASON:PATIENT DECLINED TEST ACCEPTED:NO REASON:PATIENT DECLINED BROCHURE PROVIDED TO PATIENTYES FAITH NO MANDAEISM BELIEFS THAT WOULD IMPACT HEALTH CARE. 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 DIET: REGULAR. EXERCISE: REGULAR. MARITAL STATUS: . OTHERS AT HOME: SPOUSE. 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 WATER NAME OF PERSON DRIVING YOU HOME SPOUSE ASIM IS THERE A CHANCE YOU COULD BE ?NO HAVE YOU BEEN SICK IN THE LAST WEEK (COLD, COUGH, FEVER, FLU, ETC)NO DO YOU TAKE ANY BLOOD THINNERS?NO ANY CHANGE IN BOWEL OR BLADDER CONTROL?YES PT STATES THAT SHE IS TAKING IRON SUPPLEMENTS AND HAVING ISSUES WITH CONSTIPATION ARE YOU ALLERGIC TO SHELLFISH OR IV DYE?NO ARE YOU DIABETIC?NO DO YOU HAVE A PACEMAKER OR DEFIBRILLATOR?NO ANY NEW PROBLEMS WITH MEDICINES OR NEW ALLERGIESNO ANY NEW PATTERNS OF PAIN OR NUMBNESS?NO ANY CHANGE IN YOUR MEDICAL CONDITION?NO HAVE YOU FALLEN IN THE LAST 6 MONTHS?NO DO YOU USE ANY TYPE OF TOBACCO (SMOKE, SMOKELESS, CHEW, ETC.)YES ARE YOU ABUSED, NEGLECTED, OR IN AN UNSAFE ENVIRONMENT?NO DO YOU HAVE THOUGHTS OF HURTING YOURSELF OR SOMEONE ELSE?NO DO YOU NEED ANY PRESCRIPTIONS?NO DO YOU HAVE ANY OTHER QUESTIONS OR CONCERNS?NO INTENSITY SCALE REVIEWEDNUMBER SCORE8 - PFS REFERRAL NEEDED?NO WAS THE PROVIDER NOTIFIED OF ANY PERTINENT INFO?YES HAS THE PATIENT BEEN EDUCATED REGARDING HIS/HER PLAN OF CARE?YES HAS THE PATIENT BEEN EDUCATED REGARDING PAIN, THE RISK FOR PAIN, THE IMPORTANCE OF EFFECTIVE PAIN MANAGEMENT, AND THE PAIN ASSESSMENT PROCESS?YES PLEASE DOCUMENT ANY ADDTIONAL DETAILS. CERVICAL FACET BLOCK ADVANCE DIRECTIVE ADVANCE DIRECTIVE DISCUSSED WITH PATIENT:YES DECLINED INFORMATION AND ASSISTANCE WITH HCP PAPERWORK. VITAL SIGNS WT 133.6 LBS, HT 62.5 IN, BMI 24.04 INDEX, BP 164/73 MM HG, HR 86 /MIN, RR 18 /MIN, TEMP 97.9 F, OXYGEN SAT % 98%, SAFE IN ENV? (Y/N) Y, NA INITIALS AW 0938, REVIEWED BY: EM. EXAMINATION GENERAL EXAMINATION: THE PATIENT IS ALERT, ORIENTED TIMES THREE AND COOPERATIVE. LUNGS ARE CLEAR TO AUSCULTATION. HEART SHOWS REGULAR RHYTHM, NO MURMURS AND NO GALLOPS. ASSESSMENTS SPONDYLOSIS OF CERVICAL REGION WITHOUT MYELOPATHY OR RADICULOPATHY - M47.812 (PRIMARY) TREATMENT SPONDYLOSIS OF CERVICAL REGION WITHOUT MYELOPATHY OR RADICULOPATHY SMC FACET BLOCK (PAIN)[id number] SALINE LOCKBRADLEY,BOLIVAR 10/29/2020 11:15:50 AM > SALINE LOCK STARTED IN RFA COMPLETION OF PROCEDURAL VISIT WHEN MEETS CRITERIA PROCEDURES PAIN NURSING RECORD PROCEDURE IN ROOM 1125, PHYSICIAN IN ROOM 1138, START 1143, FINISH 1152, PHYSICIAN OUT OF ROOM 1153, OUT OF ROOM 1200, ECG NORMAL SINUS, PATIENT SHIELDED YES, SAFETY STRAP YES, PREP OTHER DURAPREP, DRESSING TEGADERM BY DR FORREST LOC: . 10/29/2020 1130 TBRADLEYRN ALERT, ORIENTED RESP: 10/29/2020 1130 TBRADLEYRN , 1. REGULAR, NO DYSPNEA COLOR: 1. 10/29/2020 1130 TBRADLEYRN PINK SKIN: 1. 10/29/2020 1130 TBRADLEYRN WARM, DRY POSITION: 1. 10/29/2020 1130 TBRADLEYRN PRONE VITALS: 10/29/2020 1130 TBRADLEYRN 67, 97%, 144/79 10/29/2020 1145 TBRADLEYRN 67, 97%, 151/79 NOTES Scott KNOX RN COMPLETION OF PROCEDURE APPOINTMENT: POST PAIN 7, DRESSING SITE DRY AND INTACT LEFT UPPER BACK, IV DISCONTINUED, SITE CLEAR, CATHETER INTACT, GAIT STEADY, TEACHING COMPLETED, PATIENT ACKNOWLEDGES UNDERSTANDING YES, PROCEDURE APPOINTMENT COMPLETED AT 1215 BY: Scott KNOX RN PN WORKMANS' COMP OPINION IN YOUR OPINION, WAS THE INCIDENT THAT THE PATIENT DESCRIBED THE COMPETENT MEDICAL CAUSE OF THIS INJURY/ILLNESS? YES ARE THE PATIENT'S COMPLAINTS CONSISTENT WITH HIS/HER HISTORY OF THE INJURY/ILLNESS? YES IS THE PATIENT'S HISTORY OF THE INJURY/ILLNESS CONSISTENT WITH YOUR OBJECTIVE FINDING? YES WHAT IS THE PERCENTAGE OF TEMPORARY IMPAIRMENT? MODERATE TO MARKED = 66.7% . IS THE PATIENT WORKING? YES DOCTOR ON SITE: FAIZAN STEVENS MD PRE PROCEDURE DIAGNOSIS CERVICAL SPONDYLOSIS POST PROCEDURE DIAGNOSIS CERVICAL SPONDYLOSIS PROCEDURE LEFT C7-T1 DIAGNOSTIC CERVICAL FACET BLOCK NUMBER [address] FAIZAN FORREST GEOPHYSICAL OPERATOR NONE ANESTHESIA LOCAL PRE PROCEDURE NOTE THE PATIENT HAS HISTORY OF CHRONIC CERVICAL PAIN. I EVALUATED THE PATIENT AND REVIEWED THE CHART. I WENT OVER THE RISKS, ALTERNATIVES, AND BENEFITS ASSOCIATED WITH THIS PROCEDURE. THE PATIENT WOULD LIKE TO PROCEED AND GIVE CONSENT TO PERFORMED THE PROCEDURE. AGREED WITH THE PATIENT, WE ARE DOING THIS PROCEDURE TO DETERMINE IF THE PATIENT IS A CANDIDATE FOR A RADIOFREQUENCY ABLATION OF THE FACETS JOINTS. THE PATIENT DENIES UNEXPLAINABLE WEIGHT LOSS, FEVER, CHILLS, OR NEW CHANGES IN URINARY OR BOWEL CONTROL DESCRIPTION OF PROCEDURE THE PATIENT WAS BROUGHT TO THE PROCEDURE ROOM AND PLACED IN THE PRONE POSITION. THE CERVICOTHORACIC AREA WAS CLEANED WITH DURAPREP SOLUTION AND DRAPED ASEPTICALLY. THE PATIENT IS ALLERGIC TO CHLOROPREP. THE PROCEDURE WAS DONE UNDER STERILE CONDITIONS. A TIMEOUT WAS PERFORMED WHERE LATERALITY AND THE SITE OF THE PROCEDURE WERE CHECKED AND CONFIRMED WITH EVERYONE IN THE ROOM. UNDER FLUOROSCOPIC GUIDANCE, THE TARGET POINT WAS SELECTED AT MEDIAL TO THE SUPERIOR LATERAL CORNER OF THE LEFT TRANSVERSE PROCESS OF T1 AND JUST SUPERIOR TO THE MORE MEDIAL POINT OF THE CONCAVE CURSE AT THE MID POINT OF THE LEFT LATERAL ARTICULAR PROCESS OF C7. TARGET POINTS WERE SELECTED AFTER LATERAL ROTATION AND TILT OF THE MAGNIFIER OF THE C-ARM. I CONFIRMED AGAIN WITH EVERYONE IN THE ROOM THE LATERALITY AND SITE OF THE TARGET AT 1147. LIDOCAINE 0.5% WAS USED TO NUMB THE SKIN AND THE SUBCUTANEOUS TISSUE BELOW IT. SPINAL NEEDLES, 22-GAUGE, WERE ADVANCED UNDER FLUOROSCOPIC GUIDANCE AND FOLLOWING PATIENT FEEDBACK UNTIL THE TARGETS WERE TOUCHED. THE POSITION OF THE NEEDLES WAS VERIFIED WITH AP AND LATERAL VIEWS. AFTER PROPER POSITION OF THE NEEDLES WAS ACHIEVED, ISOVUE-M DYE 30%, 0.2 ML, WAS INJECTED SHOWING SPREAD OF THE DYE. THEN A SOLUTION OF 0.25 ML OF BUPIVACAINE 0.25% WAS INJECTED AT EACH SITE. THE MEDICATION WAS VERIFIED WITH THE NURSE. THERE WAS NO EVIDENCE OF BLOOD, PARESTHESIA OR CEREBROSPINAL FLUID DURING THE PROCEDURE. THE PATIENT WAS SENT TO THE RECOVERY ROOM. THE PATIENT WAS MOVING THE EXTREMITIES AND DOING WELL. THERE WERE NO COMPLICATIONS DURING THE PROCEDURE. ESTIMATED BLOOD LOSS WAS LESS THAN 5 ML. FLUOROSCOPY TIME WAS 24 SECONDS POST PROCEDURE NOTE THE PATIENT WILL DOCUMENT PAIN LEVEL AND RESPONSE TO THIS PROCEDURE PER PAIN DIARY. THE PATIENT WILL BE SEEN IN A FOLLOW UP IN THE NEXT FEW WEEKS. INSTRUCTIONS WERE GIVEN, QUESTIONS WERE ANSWERED, AND THE PATIENT EXPRESSED UNDERSTANDING AND AGREES WITH THE PLAN. I, BOBO JUAREZ, DOCUMENTED THE ABOVE INFORMATION ACTING A SCRIBE FOR DR. FORREST. I HAVE REVIEWED THE ABOVE DOCUMENT, WRITTEN BY BOBO JUAREZ, CONTRACT SPECIALIST, AND I VERIFY THAT IT IS ACCURATE. PROCEDURE CODES 28006 INJ PARAVERT F JNT C/T 1 LEV, MODIFIERS: LT DISPOSITION & COMMUNICATION FOLLOW UP FOLLOW UP WITH ANDROID UI DEVELOPER (REASON: POST LEFT DIAGNOSTIC CERVICAL FACET BLOCK #2 C7-T1) ELECTRONICALLY SIGNED BY FAIZAN FORREST MD, MD ON 10/29/2020 AT 05:20 PM EST DISCLAIMER : THIS IS A VISIT SUMMARY EXTRACTED FROM THE [employer] CHART. IT IS NOT A COPY OF THE [employer] PROGRESS NOTE. JUND
== END ==
LOC: M PAIN 10:00
PROVIDERS: ATTEND Anesthesiology
DX: M47.812 Spondylosis without myelopathy or radiculopathy, cervical region (principal); J45.909 Unspecified asthma, uncomplicated; I10 Essential (primary) hypertension; K21.9 Gastro-esophageal reflux disease without esophagitis; E78.00 Pure hypercholesterolemia, unspecified; G43.909 Migraine, unspecified, not intractable, without status migrainosus; D64.9 Anemia, unspecified; F17.210 Nicotine dependence, cigarettes, uncomplicated; Z79.891 Long term (current) use of opiate analgesic; Z79.899 Other long term (current) drug therapy; Z88.8 Allergy status to other drugs, medicaments and biological substances
CPT/HCPCS: 64490; Q9967

== ENCOUNTER → 2020-12-15 | Outpatient (CLI) | payer OTHER ==
[~2020-12-15] MED LIST changes: -BUPIVACAINE HCL 0.25% 30ML VIAL As Ordered ONE; -ISOVUE-M 300 61% 15ML VIAL As Ordered ONE; -LIDOCAINE 1% SDV 30ML VIAL As Ordered ONE
--- NOTE | 2020-12-17 03:15 | ECWPNPC ---
PATIENT NAME: LUIS KHALIL : 1965 GENDER: FEMALE VISIT DATE: 12/15/2020 DISCHARGE DATE: 12/15/20 1342 VISIT LOCKED DATE TIME: PHYSICIAN: HANDY ACEVES PHYSICIAN PAGER NO: ACTIVE RESOURCE: HANDY ACEVES REASON FOR APPOINTMENT 1. LEFT CERVICAL DIAGNOSTIC FACET BLOCK #2 HISTORY OF PRESENT ILLNESS DEPRESSION SCREENING: PHQ-2 (2015 EDITION) LITTLE INTEREST OR PLEASURE IN DOING THINGS?NOT AT ALL FEELING DOWN, DEPRESSED, OR HOPELESS?NOT AT ALL TOTAL SCORE0 55-YEAR-OLD FEMALE IN FOR POST DIAGNOSTIC CERVICAL FACET BLOCK #2 FOLLOW-UP. PATIENT FEELS THE PROCEDURE WAS HELPFUL RATING HER PAIN PREPROCEDURE AT A 9 OUT OF 10 AND POSTPROCEDURE AT A 2 OUT OF 10X7-8 HOURS. PATIENT RATES HER PAIN CURRENTLY AT A 9 OUT OF 10 AND DESCRIBES IT ACHING, BURNING, SHARP, STABBING, THROBBING, AND SHOOTING. ON 10/26/2015 LUIS CAME OUT OF HER CAR IN THE [facility] PARKING LOT, SLUNG HER PURSE OVER HER LEFT SHOULDER AND SLIPPED AND FELL ON THE ICE, HITTING HER MID BACK AGAINST THE BUMPER AND HER BUTTOCKS ON THE GROUND BILATERALLY. GENERAL: C/O HPI -. FALL RISK SCREENING: SCREENING : NO FALLS REPORTED IN THE LAST YEAR. PAIN SCREENING: PATIENT HAS A COMPLAINT OF ACUTE OR CHRONIC PAIN :YES LOCATION OF PAIN:NECK, UPPER BACK INTENSITY OF PAIN (SCALE OF 1 TO 10):9 WHAT DOES YOUR PAIN FEEL LIKE:ACHING, BURNING, SHARP, STABBING, THROBBING, SHOOTING DURATION:CONTINOUS, CONSTANT PAIN IS INCREASED BY:ACTIVITIES PAIN IS DECREASED BY:USE OF PAIN MEDICATIONS NURSING NOTE: -. PAIN CENTER INTAKE QUESTIONS: DO YOU HAVE A HISTORY OF MRSA? :NO DO YOU TAKE A BLOOD THINNERS? :NO DO YOU HAVE ANY BLEEDING DISORDERS? :NO ANY NEW NUMBNESS OR WEAKNESS IN YOUR LEGS OR ARMS? :NO ANY PACEMAKER,DEFIBRILLATOR, OR DORSAL COLUMN STIMULATOR? :NO DO YOU HAVE ANY RASHES OR OPEN SORES? :NO ARE YOU ALLERGIC TO IV DYE? :NO ARE YOU DIABETIC? :NO ANY NEW PROBLEMS WITH YOUR MEDICATIONS? :NO HAVE YOU RECEIVED A VACCINE IN THE PAST 30 DAYS? :NO DO YOU PLAN TO RECEIVE A VACCINE IN THE NEXT 21 DAYS? :NO DO YOU NEED ANY PRESCRIPTION? :NO DO YOU TAKE ANY IMMUNOSUPPRESSIVE MEDICATIONS? :NO DO YOU HAVE ANY KIDNEY OR LIVER DISEASE? :NO IS THERE A CHANCE YOU COULD BE ? :NO ARE YOU BREAST FEEDING? :NO CURRENT MEDICATIONS TAKING ALBUTEROL SULFATE HFA 108 (90 BASE) MCG/ACT AEROSOL SOLUTION 2 PUFFS INHALATION DAILY PRN- CHET TAKING BUTORPHANOL TARTRATE 10 MG/ML SOLUTION 1 SPRAY EACH NOSTRIL NEEDED NASALLY EVERY 8 HRS PRN MDD=4 TAKING OMEPRAZOLE 40 MG CAPSULE DELAYED RELEASE 1 CAPSULE 30 MINUTES BEFORE MORNING MEAL ORALLY ONCE A DAY TAKING VITAMIN D-3 1000 UNIT CAPSULE 1 CAPSULE ORALLY BID TAKING VITAMIN B12 1000 MCG TABLET EXTENDED RELEASE 1 TABLET ORALLY ONCE A DAY TAKING BIOTIN 10 MG CAPSULE 1 CAPSULE ORALLY DAILY TAKING MULTIVITAMINS TABLET 1 TAB ORALLY ONCE DAILY TAKING AMBIEN CR 12.5 MG TABLET EXTENDED RELEASE 1 TABLET ORALLY BEFORE BEDTIME MDD=1 TAKING OXYCODONE HCL 10 MG TABLET 1 TABLET NEEDED ORALLY EVERY 8 HRS PRN PAIN NOT-TAKING HYDROCODONE-ACETAMINOPHEN 10-325 MG TABLET 1 TABLET NEEDED ORALLY EVERY 6 HRS MDD 4 75 TO LAST 1 MONTH NOT-TAKING LORAZEPAM 0.5 MG TABLET 1-2 TAB ORALLY THREE TIMES DAILY NEEDED MDD=6 NOT-TAKING PREDNISONE 10 MG TABLET 3 TABLETS ORALLY ONCE A DAY NOT-TAKING TRIAMCINOLONE ACETONIDE 0.1 % CREAM 1 APPLICATION TO GROIN EXTERNALLY TWICE A DAY NOT-TAKING PLUS/IRON 27-1 MG TABLET 1 TABLET ORALLY ONCE A DAY, NOTES: NOT TAKING NOT-TAKING ADVAIR DISKUS 250-50 MCG/DOSE AEROSOL POWDER BREATH ACTIVATED 1 PUFF INHALATION TWICE A DAY, NOTES: 4/5 6PM NOT-TAKING MAY HAVE - - IRON INFUSIONS INTRAVENOUSLY JUST STARTED MEDICATION LIST REVIEWED AND RECONCILED WITH THE PATIENT PAST MEDICAL HISTORY ASTHMA HYPERTENSION GERD ELEVATED CHOLESTEROL PCO S. MIGRANES OBESITY HIGH-203 [id number] BACK INJURY 1986, 2015 ANEMIA- RECEIVING IRON INFUSION ALLERGIES SIMVASTATIN: FATIGUE - SIDE EFFECTS IMITREX: NAUSEA - SIDE EFFECTS MAXALT HOME WORKER: NAUSEA - SIDE EFFECTS LYRICA: CONFUSION - SIDE EFFECTS GABAPENTIN: CONFUSION - SIDE EFFECTS PAXIL: DIDNT LIKE FEELING - SIDE EFFECTS SOCIAL HISTORY GENERAL: TOBACCO USE ARE YOU A:CURRENT SMOKER HOW OFTEN DO YOU SMOKE CIGARETTES?EVERY DAY HOW MANY CIGARETTES A DAY DO YOU SMOKE?11-20 ARE YOU INTERESTED IN QUITTING?NOT READY TO QUIT PATIENT COUNSELED ON THE DANGERS OF TOBACCO USE AND URGED TO QUIT:09/10/2020 COUNSELED THE PATIENT ON SMOKING EFFECTS, EDUCATION [id number]/20/2021 VAPORNO E-CIGARETTENO SMOKING CESSATION INFORMATION GIVEN08/04/2020 DECLINED ANY DEIRE TO QUIT SMOKING AT THIS TIME LATEX QUESTIONNAIRE LATEX ALLERGY : HAVE YOU EVER DEVELOPED ANY TYPE OF REACTION AFTER HANDLING LATEX PRODUCTS SUCH RUBBER GLOVES, CONDOMS, DIAPHRAGMS, BALLOONS, SOCKS, OR UNDERWEAR?NO LATEX ALLERGY : HAVE YOU EVER DEVELOPED ANY TYPE OF REACTION DURING OR AFTER DENTAL APPOINTMENT, VAGINAL/RECTAL EXAMINATION, SURGICAL PROCEDURE, OR ANY OTHER EXPOSURE?NO DATE ASKED : 10/29/2020 LATEX RISK : HAVE YOU EVER HAD ANY DIFFICULTY BREATHING OR HIVES AFTER EATING OR HANDLING ANY FRUITS, OR VEGETABLES; SUCH KIWI, BANANAS, STONE FRUITS, OR CHESTNUTSNO LATEX RISK : DO YOU HAVE A PREVIOUS PERSONAL HISTORY OF MORE THAN NINE SURGERIES, SPINA BIFIDA, OR REPEATED CATHERIZATIONS? NO LATEX RISK : ARE YOU FREQUENTLY EXPOSED TO LATEX PRODUCTS IN YOUR OCCUPATION?NO ALCOHOL SCREENING DID YOU HAVE A DRINK CONTAINING ALCOHOL IN THE PAST YEAR?YES HOW OFTEN DID YOU HAVE SIX OR MORE DRINKS ON ONE OCCASION IN THE PAST YEAR?NEVER (0 POINTS) HOW MANY DRINKS DID YOU HAVE ON A TYPICAL DAY WHEN YOU WERE DRINKING IN THE PAST YEAR?3 OR 4 (1 POINT) HOW OFTEN DID YOU HAVE A DRINK CONTAINING ALCOHOL IN THE PAST YEAR?TWO TO FOUR TIMES A MONTH (2 POINTS) POINTS3 INTERPRETATIONPOSITIVE RECREATIONAL DRUG USE DRUG USE?NO CAFFEINE CAFFEINE USE?YES OCC HOW OFTEN AND HOW MUCH? TWICE WEEKLY HIV / HEP-C SCREENING HIV TEST OFFERED TO PATIENT:YES DATE OFFERED:03/14/2020 TEST ACCEPTED:NO HEP-C TEST OFFERED TO PATIENT:YES DATE OFFERED:03/14/2020 REASON:PATIENT DECLINED TEST ACCEPTED:NO REASON:PATIENT DECLINED BROCHURE PROVIDED TO PATIENTYES JAINISM NO VOODOO BELIEFS THAT WOULD IMPACT HEALTH CARE. LANGUAGE DJIBOUTIAN. 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 LEARNING BARRIERS / SPECIAL NEEDS CHANGE FROM LAST VISIT?NO 08/04/2020 BARRIERS TO LEARNING?NO HEARING IMPAIRED?YES VISION IMPAIRED?YES COGNITIVELY IMPAIRED?NO : LEFT EAR NO HEARING AIDS : CORRECTED LENSES READINESS TO LEARN?YES LEARNING PREFERENCES?NO LEARNING CAPABILITIES PRESENT?YES EMOTIONAL BARRIERS?NO SPECIAL DEVICES?NO CLINICAL INFORMATICS MANAGER NEEDED?NO DOMESTIC VIOLENCE DO YOU FEEL SAFE IN YOUR ENVIRONMENT?YES OCCUPATION: [employer]. DIET: REGULAR. EXERCISE: REGULAR. MARITAL STATUS: . OTHERS AT HOME: SPOUSE. 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 WATER NAME OF PERSON DRIVING YOU HOME SPOUSE ASIM IS THERE A CHANCE YOU COULD BE ?NO HAVE YOU BEEN SICK IN THE LAST WEEK (COLD, COUGH, FEVER, FLU, ETC)NO DO YOU TAKE ANY BLOOD THINNERS?NO ANY CHANGE IN BOWEL OR BLADDER CONTROL?YES PT STATES THAT SHE IS TAKING IRON SUPPLEMENTS AND HAVING ISSUES WITH CONSTIPATION ARE YOU ALLERGIC TO SHELLFISH OR IV DYE?NO ARE YOU DIABETIC?NO DO YOU HAVE A PACEMAKER OR DEFIBRILLATOR?NO ANY NEW PROBLEMS WITH MEDICINES OR NEW ALLERGIESNO ANY NEW PATTERNS OF PAIN OR NUMBNESS?NO ANY CHANGE IN YOUR MEDICAL CONDITION?NO HAVE YOU FALLEN IN THE LAST 6 MONTHS?NO DO YOU USE ANY TYPE OF TOBACCO (SMOKE, SMOKELESS, CHEW, ETC.)YES ARE YOU ABUSED, NEGLECTED, OR IN AN UNSAFE ENVIRONMENT?NO DO YOU HAVE THOUGHTS OF HURTING YOURSELF OR SOMEONE ELSE?NO DO YOU NEED ANY PRESCRIPTIONS?NO DO YOU HAVE ANY OTHER QUESTIONS OR CONCERNS?NO INTENSITY SCALE REVIEWEDNUMBER SCORE8 - PFS REFERRAL NEEDED?NO WAS THE PROVIDER NOTIFIED OF ANY PERTINENT INFO?YES HAS THE PATIENT BEEN EDUCATED REGARDING HIS/HER PLAN OF CARE?YES HAS THE PATIENT BEEN EDUCATED REGARDING PAIN, THE RISK FOR PAIN, THE IMPORTANCE OF EFFECTIVE PAIN MANAGEMENT, AND THE PAIN ASSESSMENT PROCESS?YES PLEASE DOCUMENT ANY ADDTIONAL DETAILS. CERVICAL FACET BLOCK ADVANCE DIRECTIVE ADVANCE DIRECTIVE DISCUSSED WITH PATIENT:YES DECLINED INFORMATION AND ASSISTANCE WITH HCP PAPERWORK. REVIEW OF SYSTEMS CONSTITUTIONAL: ANY RECENT FEVER NO . CHILLS NO . WEIGHT CHANGE OF UNKNOWN REASONS NO . GASTROENTEROLOGY: NEW UNEXPLAINABLE CHANGES IN BOWEL CONTROL NO . CONSTIPATION NO . GENITOURINARY: ANY NEW CHANGE IN BLADDER CONTROL? NO . NEUROLOGY: NEW ONSET DIZZINESS OR NEUROLOGICAL CHANGES NOT MENTIONED NO . NEW NUMBNESS OR PAIN PATTERNS NOT MENTIONED AND PERTINENT TO TODAY'S VISIT NO . CARDIOLOGY: NEW CHEST PRESSURE NO . PATIENT DENIES NO . RESPIRATORY: UNEXPLAINABLE COUGH NO . NEW SHORTNESS OF BREATH NO . VITAL SIGNS WT 126.6 LBS, HT 62.5 IN, BMI 22.78 INDEX, BP 162/87 MM HG, HR 100 /MIN, RR 18 /MIN, TEMP 98.1 F, OXYGEN SAT % 98%, SAFE IN ENV? (Y/N) Y, NA INITIALS AW 1315, REVIEWED BY: EM. EXAMINATION GENERAL EXAMINATION: GENERALNO ACUTE DISTRESS, WELL NOURISHED AND HYDRATED. PSYCHAPPROPRIATE MOOD AND AFFECT . NECK: INCREASED PAIN WITH FACET LOADING. LUNGS:CLEAR TO AUSCULTATION BILATERALLY, NO WHEEZES, RHONCHI, RALES. HEART:NO MURMURS, REGULAR RATE AND RHYTHM. ASSESSMENTS OTHER CHRONIC PAIN - G89.29 (PRIMARY) SPONDYLOSIS OF CERVICAL REGION WITHOUT MYELOPATHY OR RADICULOPATHY - M47.812, RISK: (NULL) TREATMENT OTHER CHRONIC PAIN PAIN PROCEDURE LOGDATE OF PROCEDURE10/29/20PROCEDURE:LEFT CERVICAL DIAGNOSTIC FACET BLOCK #2AMOUNT OF PRE SEDATENONERESULT:PRE-9 OUT OF 10 POST 2 OUT OF 10X7-8 HOURS. NOTES: 55 YEAR OLD FEMALE IN FOR POST CERVICAL DIAGNOSTIC FACET BLOCK #2 FOLLOW-UP. GIVEN PRESENTING SYMPTOMS RECOMMEND COOL RADIOFREQUENCY C7-T1 WITH POST PROCEDURAL FOLLOW-UP. PATIENT HAS EXPRESSED UNDERSTANDING OF AND WAS IN AGREEMENT WITH TREATMENT PLAN. GIVEN TIME TO ASK QUESTIONS AND EXPRESS CONCERNS. ISTOP REGISTRY REVIEWED AND DEMONSTRATES COMPLLIANCE. (REF # [id number] ) BRINGS IN MEDICATIONS WHICH IS APPROPRIATE FOR WHAT WAS DISPENSED. RECENT URINE TOXICOLOGY REVIEWED. NO UNAUTHORIZED MEDICATIONS. NO ILLICIT SUBSTANCES AND PRESCRIBED MEDICATIONS WERE PRESENT. , RADIOFREQUENCY INFORMATION SHEET PRINTED, REVIEWED AND GIVEN TO PT. Urvashi GONZALEZ RN BSN. PROCEDURES PN WORKMANS' COMP OPINION IN YOUR OPINION, WAS THE INCIDENT THAT THE PATIENT DESCRIBED THE COMPETENT MEDICAL CAUSE OF THIS INJURY/ILLNESS? YES ARE THE PATIENT'S COMPLAINTS CONSISTENT WITH HIS/HER HISTORY OF THE INJURY/ILLNESS? YES IS THE PATIENT'S HISTORY OF THE INJURY/ILLNESS CONSISTENT WITH YOUR OBJECTIVE FINDING? YES WHAT IS THE PERCENTAGE OF TEMPORARY IMPAIRMENT? MODERATE TO MARKED = 66.7% IS THE PATIENT WORKING? YES DOCTOR ON SITE: FAIZAN STEVENS MD PROCEDURE CODES FA211 ESTABILISHED PATIENT [facility] FACILITY CHARGE DISPOSITION & COMMUNICATION FOLLOW UP POST PROCEDURE (REASON: BILATERAL CERVICAL COOL RADIOFREQUENCY C7-T1) ELECTRONICALLY SIGNED BY JAYLENE KELLER ON 12/16/2020 AT 01:06 PM EST DISCLAIMER : THIS IS A VISIT SUMMARY EXTRACTED FROM THE [employer] CHART. IT IS NOT A COPY OF THE [employer] PROGRESS NOTE. CARMITA
== END ==
LOC: M PAIN 13:30
PROVIDERS: ATTEND Family Medicine
DX: G89.29 Other chronic pain (principal); M47.812 Spondylosis without myelopathy or radiculopathy, cervical region; J45.909 Unspecified asthma, uncomplicated; K21.9 Gastro-esophageal reflux disease without esophagitis; G43.909 Migraine, unspecified, not intractable, without status migrainosus; F17.210 Nicotine dependence, cigarettes, uncomplicated; Z88.8 Allergy status to other drugs, medicaments and biological substances; Z79.899 Other long term (current) drug therapy

== ENCOUNTER → 2021-01-23 | Outpatient (CLI) | payer OTHER | LOC: M LABSMTC 13:03 | PROVIDERS: ATTEND Anesthesiology | DX: Z20.822 Contact with and (suspected) exposure to COVID-19 (principal) ==

== ENCOUNTER → 2021-01-23 | Outpatient (CLI) | payer OTHER ==
--- NOTE | 2021-02-04 02:02 | ECWPNPC ---
PATIENT NAME: LUIS KHALIL : 1965 GENDER: FEMALE VISIT DATE: 01/23/2021 DISCHARGE DATE: 01/23/21 0000 VISIT LOCKED DATE TIME: PHYSICIAN: FAIZAN FORREST MD PHYSICIAN PAGER NO: ACTIVE RESOURCE: FAIZAN FORREST MD REASON FOR APPOINTMENT 1. PRESEDATE FOR LEFT CERVICAL COOL RADIOFREQUENCY HISTORY OF PRESENT ILLNESS GENERAL: 55-YEAR-OLD FEMALE PATIENT WITH A HISTORY OF NECK PAIN. SHE SUFFERED A WORK RELATED INJURY IN 2017. THE PATIENT DESCRIBES THE PAIN ACHING, BURNING, SHARP AND STABBING WITH A PAIN SCORE RANGING FROM 8-10/10. SHE IS HAVING DIFFICULTY DOING ACTIVITIES SUCH CLEANING HER HOUSE, DOING HER JOB. THE PATEINT STATES THAT SHE CANNOT FUNCTION DUE TO THIS PAIN. WE HAVE DONE 2 DIAGNOSTIC TESTS OVER THE LEFT SIDE OF C7-T1. AFTER THE FIRST BLOCK, THE PAIN WENT FROM AN 8/10 TO A 2/10 AND AFTER THE SECOND BLOCK THE PAIN WENT FROM 9/10 TO 2/10. THE PATIENT IS INTERESTED IN MOVING FORWARD WITH RADIOFREQUENCY. FALL RISK SCREENING: SCREENING : NO FALLS REPORTED IN THE LAST YEAR. PAIN SCREENING: PATIENT HAS A COMPLAINT OF ACUTE OR CHRONIC PAIN :YES LOCATION OF PAIN:HEAD, NECK, MID BACK, LOW BACK, LEG(S), OTHER: LEFT ARM INTENSITY OF PAIN (SCALE OF 1 TO 10):7 STATES HAS BEEN A 12 FOR PAST 3 WEEKS WHAT DOES YOUR PAIN FEEL LIKE:ACHING, BURNING, STABBING STATES IS GETTING MIGRAINES DUE TO PAIN DURATION:CONTINOUS NURSING NOTE: -. PAIN CENTER INTAKE QUESTIONS: DO YOU HAVE A HISTORY OF MRSA? :NO DO YOU TAKE A BLOOD THINNERS? :NO DO YOU HAVE ANY BLEEDING DISORDERS? :NO ANY NEW NUMBNESS OR WEAKNESS IN YOUR LEGS OR ARMS? :NO ANY PACEMAKER,DEFIBRILLATOR, OR DORSAL COLUMN STIMULATOR? :NO DO YOU HAVE ANY RASHES OR OPEN SORES? :NO ARE YOU ALLERGIC TO IV DYE? :NO ARE YOU DIABETIC? :NO ANY NEW PROBLEMS WITH YOUR MEDICATIONS? :NO HAVE YOU RECEIVED A VACCINE IN THE PAST 30 DAYS? :NO DO YOU PLAN TO RECEIVE A VACCINE IN THE NEXT 21 DAYS? :NO DO YOU NEED ANY PRESCRIPTION? :NO DO YOU TAKE ANY IMMUNOSUPPRESSIVE MEDICATIONS? :NO DO YOU HAVE ANY KIDNEY OR LIVER DISEASE? :NO IS THERE A CHANCE YOU COULD BE ? :NO ARE YOU BREAST FEEDING? :NO CURRENT MEDICATIONS TAKING MULTIVITAMINS TABLET 1 TAB ORALLY ONCE DAILY TAKING ALBUTEROL SULFATE HFA 108 (90 BASE) MCG/ACT AEROSOL SOLUTION 2 PUFFS INHALATION DAILY PRN- CHET TAKING VITAMIN D-3 1000 UNIT CAPSULE 1 CAPSULE ORALLY BID TAKING VITAMIN B12 1000 MCG TABLET EXTENDED RELEASE 1 TABLET ORALLY ONCE A DAY TAKING AMBIEN CR 12.5 MG TABLET EXTENDED RELEASE 1 TABLET ORALLY BEFORE BEDTIME MDD=1 TAKING BUTORPHANOL TARTRATE 10 MG/ML SOLUTION 1 SPRAY EACH NOSTRIL NEEDED NASALLY EVERY 8 HRS PRN MDD=4 TAKING OMEPRAZOLE 20 MG CAPSULE DELAYED RELEASE 1 CAP ORALLY BID TAKING OXYCODONE HCL 10 MG TABLET 1 TABLET NEEDED ORALLY EVERY 8 HRS PRN PAIN NOT-TAKING BIOTIN 10 MG CAPSULE 1 CAPSULE ORALLY DAILY NOT-TAKING HYDROCODONE-ACETAMINOPHEN 10-325 MG TABLET 1 TABLET NEEDED ORALLY EVERY 6 HRS MDD 4 75 TO LAST 1 MONTH NOT-TAKING LORAZEPAM 0.5 MG TABLET 1-2 TAB ORALLY THREE TIMES DAILY NEEDED MDD=6 NOT-TAKING PREDNISONE 10 MG TABLET 3 TABLETS ORALLY ONCE A DAY NOT-TAKING TRIAMCINOLONE ACETONIDE 0.1 % CREAM 1 APPLICATION TO GROIN EXTERNALLY TWICE A DAY NOT-TAKING PLUS/IRON 27-1 MG TABLET 1 TABLET ORALLY ONCE A DAY, NOTES: NOT TAKING NOT-TAKING ADVAIR DISKUS 250-50 MCG/DOSE AEROSOL POWDER BREATH ACTIVATED 1 PUFF INHALATION TWICE A DAY, NOTES: 4/5 6PM NOT-TAKING MAY HAVE - - IRON INFUSIONS INTRAVENOUSLY JUST STARTED MEDICATION LIST REVIEWED AND RECONCILED WITH THE PATIENT PAST MEDICAL HISTORY ASTHMA HYPERTENSION GERD ELEVATED CHOLESTEROL PCO S. MIGRANES OBESITY HIGH-203 QQR=356 BACK INJURY 1986, 2015 ANEMIA- RECEIVING IRON INFUSION ALLERGIES SIMVASTATIN: FATIGUE - SIDE EFFECTS IMITREX: NAUSEA - SIDE EFFECTS MAXALT SHEET ROCK LAYER: NAUSEA - SIDE EFFECTS LYRICA: CONFUSION - SIDE EFFECTS GABAPENTIN: CONFUSION - SIDE EFFECTS PAXIL: DIDNT LIKE FEELING - SIDE EFFECTS SURGICAL HISTORY HYSTERECTOMY 2011 TUBAL LIGATION 1986 EXPLORITORY LAPROSCOPIC 1977 GASTRICBYPASS 05/03/2013 LYMPHECTOMY ON LEFT 07-02-2013 TRIGGER POINT INJECTIONS SHOULDER 2016 FACET JOIN INJECTIONS LUMBAR 2016 BLADDER SURGERY (THOMAS) 2019 LEFT BREAST BIOPSY SOCIAL HISTORY GENERAL: TOBACCO USE ARE YOU A:CURRENT SMOKER HOW OFTEN DO YOU SMOKE CIGARETTES?EVERY DAY HOW MANY CIGARETTES A DAY DO YOU SMOKE?11-20 ARE YOU INTERESTED IN QUITTING?NOT READY TO QUIT PATIENT COUNSELED ON THE DANGERS OF TOBACCO USE AND URGED TO QUIT:09/10/2020 COUNSELED THE PATIENT ON SMOKING EFFECTS, EDUCATION YONSWQQT70/20/2021 VAPORNO E-CIGARETTENO SMOKING CESSATION INFORMATION GIVEN08/04/2020 DECLINED ANY DEIRE TO QUIT SMOKING AT THIS TIME LATEX QUESTIONNAIRE LATEX ALLERGY : HAVE YOU EVER DEVELOPED ANY TYPE OF REACTION AFTER HANDLING LATEX PRODUCTS SUCH RUBBER GLOVES, CONDOMS, DIAPHRAGMS, BALLOONS, SOCKS, OR UNDERWEAR?NO LATEX ALLERGY : HAVE YOU EVER DEVELOPED ANY TYPE OF REACTION DURING OR AFTER DENTAL APPOINTMENT, VAGINAL/RECTAL EXAMINATION, SURGICAL PROCEDURE, OR ANY OTHER EXPOSURE?NO 6-8 MONTHS AGO, NERVE BLOCKS IN SPINE. ENTIRE BACK BROKE OUT IN RASH AFTER. MAY HAVE BEEN AN ALLERGIC REACTION TO CHLOROPREP OR BENADINE BUT UNSURE. DATE ASKED : 01/05/2021 LATEX RISK : HAVE YOU EVER HAD ANY DIFFICULTY BREATHING OR HIVES AFTER EATING OR HANDLING ANY FRUITS, OR VEGETABLES; SUCH KIWI, BANANAS, STONE FRUITS, OR CHESTNUTSNO LATEX RISK : DO YOU HAVE A PREVIOUS PERSONAL HISTORY OF MORE THAN NINE SURGERIES, SPINA BIFIDA, OR REPEATED CATHERIZATIONS? NO LATEX RISK : ARE YOU FREQUENTLY EXPOSED TO LATEX PRODUCTS IN YOUR OCCUPATION?YES ALCOHOL USE: 2-3 BEERS PER WEEK. ALCOHOL SCREENING DID YOU HAVE A DRINK CONTAINING ALCOHOL IN THE PAST YEAR?YES HOW OFTEN DID YOU HAVE SIX OR MORE DRINKS ON ONE OCCASION IN THE PAST YEAR?NEVER (0 POINTS) HOW MANY DRINKS DID YOU HAVE ON A TYPICAL DAY WHEN YOU WERE DRINKING IN THE PAST YEAR?3 OR 4 (1 POINT) HOW OFTEN DID YOU HAVE A DRINK CONTAINING ALCOHOL IN THE PAST YEAR?TWO TO FOUR TIMES A MONTH (2 POINTS) POINTS3 INTERPRETATIONPOSITIVE RECREATIONAL DRUG USE DRUG USE?NO CAFFEINE CAFFEINE USE?NO OCC HIV / HEP-C SCREENING HIV TEST OFFERED TO PATIENT:YES DATE OFFERED:03/14/2020 TEST ACCEPTED:NO HEP-C TEST OFFERED TO PATIENT:YES DATE OFFERED:03/14/2020 REASON:PATIENT DECLINED TEST ACCEPTED:NO REASON:PATIENT DECLINED BROCHURE PROVIDED TO PATIENTYES ALEVISM NO ORTHODOX BELIEFS THAT WOULD IMPACT HEALTH CARE. LANGUAGE [place]. 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 LEARNING BARRIERS / SPECIAL NEEDS CHANGE FROM LAST VISIT?NO 01/05/21 BARRIERS TO LEARNING?NO HEARING IMPAIRED?YES VISION IMPAIRED?YES COGNITIVELY IMPAIRED?NO : LEFT EAR NO HEARING AIDS : CORRECTED LENSES READINESS TO LEARN?YES LEARNING PREFERENCES?NO LEARNING CAPABILITIES PRESENT?YES EMOTIONAL BARRIERS?NO SPECIAL DEVICES?NO VIDEO GAME MAKER NEEDED?NO DOMESTIC VIOLENCE DO YOU FEEL SAFE IN YOUR ENVIRONMENT?YES OCCUPATION: [employer] INTER[employer]. DIET: REGULAR. EXERCISE: REGULAR. MARITAL STATUS: . OTHERS AT HOME: SPOUSE. 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 WATER NAME OF PERSON DRIVING YOU HOME SPOUSE ASIM IS THERE A CHANCE YOU COULD BE ?NO HAVE YOU BEEN SICK IN THE LAST WEEK (COLD, COUGH, FEVER, FLU, ETC)NO DO YOU TAKE ANY BLOOD THINNERS?NO ANY CHANGE IN BOWEL OR BLADDER CONTROL?YES PT STATES THAT SHE IS TAKING IRON SUPPLEMENTS AND HAVING ISSUES WITH CONSTIPATION ARE YOU ALLERGIC TO SHELLFISH OR IV DYE?NO ARE YOU DIABETIC?NO DO YOU HAVE A PACEMAKER OR DEFIBRILLATOR?NO ANY NEW PROBLEMS WITH MEDICINES OR NEW ALLERGIESNO ANY NEW PATTERNS OF PAIN OR NUMBNESS?NO ANY CHANGE IN YOUR MEDICAL CONDITION?NO HAVE YOU FALLEN IN THE LAST 6 MONTHS?NO DO YOU USE ANY TYPE OF TOBACCO (SMOKE, SMOKELESS, CHEW, ETC.)YES ARE YOU ABUSED, NEGLECTED, OR IN AN UNSAFE ENVIRONMENT?NO DO YOU HAVE THOUGHTS OF HURTING YOURSELF OR SOMEONE ELSE?NO DO YOU NEED ANY PRESCRIPTIONS?NO DO YOU HAVE ANY OTHER QUESTIONS OR CONCERNS?NO INTENSITY SCALE REVIEWEDNUMBER SCORE8 - PFS REFERRAL NEEDED?NO WAS THE PROVIDER NOTIFIED OF ANY PERTINENT INFO?YES HAS THE PATIENT BEEN EDUCATED REGARDING HIS/HER PLAN OF CARE?YES HAS THE PATIENT BEEN EDUCATED REGARDING PAIN, THE RISK FOR PAIN, THE IMPORTANCE OF EFFECTIVE PAIN MANAGEMENT, AND THE PAIN ASSESSMENT PROCESS?YES PLEASE DOCUMENT ANY ADDTIONAL DETAILS. CERVICAL FACET BLOCK ADVANCE DIRECTIVE ADVANCE DIRECTIVE DISCUSSED WITH PATIENT:YES DECLINED INFORMATION AND ASSISTANCE WITH HCP PAPERWORK. HOSPITALIZATION/MAJOR DIAGNOSTIC PROCEDURE HYSTERECTOMY 2011 CHILDBIRTH 1982, 1984 GASTRIC BYPASS 2013 SURGERY [id number] 05/2018 REVIEW OF SYSTEMS GLAUCOMA: NOTHYROID DISEASE: NOHYPERTENSION: NOHEART DISEASE: NOLUNG DISEASE: NODIABETES: NOGI DISEASE: NO LIVER DISEASE: NO KIDNEY DISEASE: NOSTERIOD USE: NONEUROLOGICAL DISEASE: NOBACK PROBLEMS: YES, PAINEXTREMITIES: YES, PAINGENITOURINARY: NOBLEEDING DISORDER: NOASA CLASS: IIAIRWAY CLASS: II. VITAL SIGNS WT 126 LBS, HT 62.5 IN, BMI 22.68 INDEX, BP 140/65 MM HG, HR 74 /MIN, RR 18 /MIN, TEMP 97.6 F, OXYGEN SAT % 100%, SAFE IN ENV? (Y/N) YES, NA INITIALS [place] 14:364/ 1453 REVIEWED. Nash MCKEON RN. EXAMINATION GENERAL: THE PATIENT IS ALERT, ORIENTED TIMES THREE AND COOPERATIVE. LUNGS ARE CLEAR TO AUSCULTATION. HEART SHOWS REGULAR RHYTHM, NO MURMURS AND NO GALLOPS. THERE IS TENDERNESS IN THE FACET JOINTS IN THE RIGHT AND LEFT NECK AREAS. MRI OF THE THORACIC SPINE DATED 02/27/2020 SHOWS FACET ARTHROPATHY CHANGES. MRI OF THE CERVICAL SPINE DATED 02/27/2020 SHOWS CERVICAL FACET ATHROPATHY. 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 IV LACTATED RINGER'S AT KVO (ORDERED FOR 01/30/2021)BIANCA CAMPBELL 01/28/2021 1:29:12 PM > IV #22 INITIATED ON 1ST ATTEMPT IN RIGHT WRIST AT 1130. PATIENT TOLERATED IV START WELL. BIANCA CAMPBELL 01/28/2021 2:53:16 PM > LR 600 CC'S INFUSED. CLINICAL NOTES: I DISCUSSED ALTERNATIVES WITH MS. KHALIL. WE AGREE ON DOING A LEFT CERVICAL COOL RADIOFREQUENCY C7-T1 WITH IV SEDATION DUE TO ANXIETY AND DISCOMFORT ASSOCIATED WITH THE PROCEDURE. THE PATIENT REPORTS UNDERSTANDING AND AGREES WITH THE PLAN. I, BOBO JUAREZ, DOCUMENTED THE ABOVE INFORMATION ACTING A SCRIBE FOR DR. FORREST. I HAVE REVIEWED THE ABOVE DOCUMENT, WRITTEN BY BOBO JUAREZ, [employer] HEAD INSPECTOR AND ADJUSTER, AND I VERIFY THAT IT IS ACCURATE. PROCEDURES PN WORKMANS' COMP OPINION IN YOUR OPINION, WAS THE INCIDENT THAT THE PATIENT DESCRIBED THE COMPETENT MEDICAL CAUSE OF THIS INJURY/ILLNESS? YES ARE THE PATIENT'S COMPLAINTS CONSISTENT WITH HIS/HER HISTORY OF THE INJURY/ILLNESS? YES IS THE PATIENT'S HISTORY OF THE INJURY/ILLNESS CONSISTENT WITH YOUR OBJECTIVE FINDING? YES WHAT IS THE PERCENTAGE OF TEMPORARY IMPAIRMENT? MODERATE TO MARKED = 66.7% IS THE PATIENT WORKING? YES DOCTOR ON SITE: FAIZAN STEVENS MD PROCEDURE CODES FA211 ESTABILISHED PATIENT [facility] FACILITY CHARGE [id number] OFFICE/OUTPATIENT VISIT EST DISPOSITION & COMMUNICATION FOLLOW UP OKAY TO BOOK (REASON: LEFT CERVICAL COOL RADIOFREQUENCY C7-T1) ELECTRONICALLY SIGNED BY FAIZAN FORREST MD, MD ON 02/03/2021 AT 02:29 PM EDT DISCLAIMER : THIS IS A VISIT SUMMARY EXTRACTED FROM THE [facility] CHART. IT IS NOT A COPY OF THE [facility] PROGRESS NOTE. MTDD
== END ==
LOC: M PAIN 14:45
PROVIDERS: ATTEND Anesthesiology
DX: M47.812 Spondylosis without myelopathy or radiculopathy, cervical region (principal); M54.2 Cervicalgia; M54.6 Pain in thoracic spine; M47.814 Spondylosis without myelopathy or radiculopathy, thoracic region; J45.909 Unspecified asthma, uncomplicated; I10 Essential (primary) hypertension; K21.9 Gastro-esophageal reflux disease without esophagitis; E78.00 Pure hypercholesterolemia, unspecified; G43.909 Migraine, unspecified, not intractable, without status migrainosus; D64.9 Anemia, unspecified; F17.210 Nicotine dependence, cigarettes, uncomplicated; Z98.84 Bariatric surgery status; Z79.891 Long term (current) use of opiate analgesic; Z79.899 Other long term (current) drug therapy; Z88.8 Allergy status to other drugs, medicaments and biological substances

== ENCOUNTER → 2021-01-28 | Outpatient (CLI) | payer OTHER ==
[~2021-01-28] MED LIST changes: +BUPIVACAINE HCL 0.25% 30ML VIAL As Ordered ONE; +LIDOCAINE 1% SDV 30ML VIAL As Ordered ONE; +MIDAZOLAM INJ 2MG/2ML VIAL (J2250 PER 1MG) As Ordered ONE; +dexameTHASONE 10MG/1ML VIAL PRES.FREE (J1100 PER 1MG) As Ordered ONE; +fentaNYL 100 MCG/2 ML INJECTION (J3010) As Ordered ONE
--- NOTE | 2021-01-28 14:24 | REP ---
INDICATION: PAIN. COMPARISON: None. TECHNIQUE: 6 views. 59.5 seconds of fluoroscopy time is reported. FINDINGS: A sequence of 6 last image hold fluoroscopically obtained spot radiograph(s) of the cervical spine document(s) needle position(s) and contrast injection associated with injection procedure. IMPRESSION: Procedural imaging. <Electronically signed by Chinmay Leon > 01/28/21 [id number]
--- NOTE | 2021-02-03 02:00 | ECWPNPC ---
PATIENT NAME: LUIS KHALIL : 1965 GENDER: FEMALE VISIT DATE: 01/28/2021 DISCHARGE DATE: 01/28/21 1442 VISIT LOCKED DATE TIME: PHYSICIAN: FAIZAN FORREST MD PHYSICIAN PAGER NO: ACTIVE RESOURCE: FAIZAN FORREST MD REASON FOR APPOINTMENT 1. LEFT CERVICAL COOL RADIOFREQUENCY C7-T1 HISTORY OF PRESENT ILLNESS GENERAL: -. FALL RISK SCREENING: SCREENING : NO FALLS REPORTED IN THE LAST YEAR. PAIN SCREENING: PATIENT HAS A COMPLAINT OF ACUTE OR CHRONIC PAIN :YES LOCATION OF PAIN:NECK, UPPER BACK LEFT INTENSITY OF PAIN (SCALE OF 1 TO 10):9 WHAT DOES YOUR PAIN FEEL LIKE:ACHING, BURNING, CONTINOUS, SHARP, STABBING, TENDER, THROBBING, SORE, SHOOTING DURATION:CONTINOUS PAIN IS INCREASED BY:ACTIVITIES PAIN IS DECREASED BY:USE OF PAIN MEDICATIONS, OTHERS HEAT/COLD NURSING NOTE: -. PAIN CENTER INTAKE QUESTIONS: DO YOU HAVE A HISTORY OF MRSA? :NO DO YOU TAKE A BLOOD THINNERS? :NO DO YOU HAVE ANY BLEEDING DISORDERS? :NO ANY NEW NUMBNESS OR WEAKNESS IN YOUR LEGS OR ARMS? :NO ANY PACEMAKER,DEFIBRILLATOR, OR DORSAL COLUMN STIMULATOR? :NO DO YOU HAVE ANY RASHES OR OPEN SORES? :NO ARE YOU ALLERGIC TO IV DYE? :NO ARE YOU DIABETIC? :NO ANY NEW PROBLEMS WITH YOUR MEDICATIONS? :NO HAVE YOU RECEIVED A VACCINE IN THE PAST 30 DAYS? :NO DO YOU PLAN TO RECEIVE A VACCINE IN THE NEXT 21 DAYS? :NO DO YOU TAKE ANY IMMUNOSUPPRESSIVE MEDICATIONS? :NO ANY HISTORY OF SEIZURES? :NO ANY HISTORY OF CARDIAC ISSUES OR EVENTS? :NO DO YOU HAVE ANY KIDNEY OR LIVER DISEASE? :NO DO YOU HAVE SLEEP APNEA? :YES ANY RECENT HEAD INJURY? :NO DO YOU HAVE ANY NEW INFECTIONS? :NO IS THERE A CHANCE YOU COULD BE ? :NO ARE YOU BREAST FEEDING? :NO WHEN DID YOU LAST EAT? : -01/27 2359 WHEN DID YOU LAST DRINK? : -01/28 09 WHAT DID YOU LAST DRINK? : -WATER NAME OF PERSON DRIVING YOU HOME? : -MOM DO YOU HAVE ANY OTHER QUESTIONS OR CONCERNS? : - CURRENT MEDICATIONS TAKING BIOTIN 10 MG CAPSULE 1 CAPSULE ORALLY DAILY NOT-TAKING PREDNISONE 10 MG TABLET 3 TABLETS ORALLY ONCE A DAY NOT-TAKING TRIAMCINOLONE ACETONIDE 0.1 % CREAM 1 APPLICATION TO GROIN EXTERNALLY TWICE A DAY NOT-TAKING MAY HAVE - - IRON INFUSIONS INTRAVENOUSLY JUST STARTED NOT-TAKING MULTIVITAMINS TABLET 1 TAB ORALLY ONCE DAILY NOT-TAKING ALBUTEROL SULFATE HFA 108 (90 BASE) MCG/ACT AEROSOL SOLUTION 2 PUFFS INHALATION DAILY PRN- CHET NOT-TAKING VITAMIN D-3 1000 UNIT CAPSULE 1 CAPSULE ORALLY BID NOT-TAKING VITAMIN B12 1000 MCG TABLET EXTENDED RELEASE 1 TABLET ORALLY ONCE A DAY NOT-TAKING AMBIEN CR 12.5 MG TABLET EXTENDED RELEASE 1 TABLET ORALLY BEFORE BEDTIME MDD=1 NOT-TAKING BUTORPHANOL TARTRATE 10 MG/ML SOLUTION 1 SPRAY EACH NOSTRIL NEEDED NASALLY EVERY 8 HRS PRN MDD=4 NOT-TAKING OMEPRAZOLE 20 MG CAPSULE DELAYED RELEASE 1 CAP ORALLY BID NOT-TAKING OXYCODONE HCL 10 MG TABLET 1 TABLET NEEDED ORALLY EVERY 8 HRS PRN PAIN UNKNOWN HYDROCODONE-ACETAMINOPHEN 10-325 MG TABLET 1 TABLET NEEDED ORALLY EVERY 6 HRS MDD 4 75 TO LAST 1 MONTH, NOTES: 01/27 0300 UNKNOWN LORAZEPAM 0.5 MG TABLET 1-2 TAB ORALLY THREE TIMES DAILY NEEDED MDD=6, NOTES: 2 MOS UNKNOWN PLUS/IRON 27-1 MG TABLET 1 TABLET ORALLY ONCE A DAY, NOTES: NOT TAKING UNKNOWN ADVAIR DISKUS 250-50 MCG/DOSE AEROSOL POWDER BREATH ACTIVATED 1 PUFF INHALATION TWICE A DAY MEDICATION LIST REVIEWED AND RECONCILED WITH THE PATIENT PAST MEDICAL HISTORY ASTHMA HYPERTENSION GERD ELEVATED CHOLESTEROL PCO S. MIGRANES OBESITY HIGH-203 XSP=556 BACK INJURY 1986, 2015 ANEMIA- RECEIVING IRON INFUSION ALLERGIES SIMVASTATIN: FATIGUE - SIDE EFFECTS IMITREX: NAUSEA - SIDE EFFECTS MAXALT ZINC FURNACE CHARGER: NAUSEA - SIDE EFFECTS LYRICA: CONFUSION - SIDE EFFECTS GABAPENTIN: CONFUSION - SIDE EFFECTS PAXIL: DIDNT LIKE FEELING - SIDE EFFECTS SURGICAL HISTORY HYSTERECTOMY 2010 TUBAL LIGATION 1985 EXPLORITORY LAPROSCOPIC 1977 GASTRICBYPASS 05/03/2013 LYMPHECTOMY ON LEFT 07-02-2013 TRIGGER POINT INJECTIONS SHOULDER 2015 FACET JOIN INJECTIONS LUMBAR 2016 BLADDER SURGERY (THOMAS) 2019 LEFT BREAST BIOPSY FAMILY HISTORY FATHER: , DIABETES, HYPERTENSION, HYPERLIPIDEMIA, DIAGNOSED WITH UNSPECIFIED HEART DISEASE MOTHER: ALIVE, HYPERTENSION, HYPERLIPIDEMIA, HYPERTENSION SIBLINGS: ALIVE SON(S): ALIVE 1 BROTHER(S) , 1 SISTER(S) - HEALTHY. 2 SON(S) - HEALTHY. FAMILY HISTORY IS POSITIVE FOR DIABETES, HYPERTENSION, HEART DISEASE. MATERNAL AUNT AND GRANDMOTHER WITH BREAST CANCER. SOCIAL HISTORY GENERAL: TOBACCO USE ARE YOU A:CURRENT SMOKER ARE YOU INTERESTED IN QUITTING?NOT READY TO QUIT COUNSELED THE PATIENT ON SMOKING EFFECTS, EDUCATION UIQXPURS01/20/2021 HOW MANY CIGARETTES A DAY DO YOU SMOKE?11-20 HOW OFTEN DO YOU SMOKE CIGARETTES?EVERY DAY PATIENT COUNSELED ON THE DANGERS OF TOBACCO USE AND URGED TO QUIT:09/10/2020 SMOKING CESSATION INFORMATION GIVEN08/04/2020 DECLINED ANY DEIRE TO QUIT SMOKING AT THIS TIME VAPORNO E-CIGARETTENO LATEX QUESTIONNAIRE LATEX ALLERGY : HAVE YOU EVER DEVELOPED ANY TYPE OF REACTION AFTER HANDLING LATEX PRODUCTS SUCH RUBBER GLOVES, CONDOMS, DIAPHRAGMS, BALLOONS, SOCKS, OR UNDERWEAR?NO LATEX ALLERGY : HAVE YOU EVER DEVELOPED ANY TYPE OF REACTION DURING OR AFTER DENTAL APPOINTMENT, VAGINAL/RECTAL EXAMINATION, SURGICAL PROCEDURE, OR ANY OTHER EXPOSURE?NO 6-8 MONTHS AGO, NERVE BLOCKS IN SPINE. ENTIRE BACK BROKE OUT IN RASH AFTER. MAY HAVE BEEN AN ALLERGIC REACTION TO CHLOROPREP OR BENADINE BUT UNSURE. LATEX RISK : HAVE YOU EVER HAD ANY DIFFICULTY BREATHING OR HIVES AFTER EATING OR HANDLING ANY FRUITS, OR VEGETABLES; SUCH KIWI, BANANAS, STONE FRUITS, OR CHESTNUTSNO LATEX RISK : DO YOU HAVE A PREVIOUS PERSONAL HISTORY OF MORE THAN NINE SURGERIES, SPINA BIFIDA, OR REPEATED CATHERIZATIONS? NO LATEX RISK : ARE YOU FREQUENTLY EXPOSED TO LATEX PRODUCTS IN YOUR OCCUPATION?YES DATE ASKED : 01/28/2021 ALCOHOL USE: 2-3 BEERS PER WEEK. ALCOHOL SCREENING DID YOU HAVE A DRINK CONTAINING ALCOHOL IN THE PAST YEAR?YES HOW OFTEN DID YOU HAVE SIX OR MORE DRINKS ON ONE OCCASION IN THE PAST YEAR?NEVER (0 POINTS) HOW MANY DRINKS DID YOU HAVE ON A TYPICAL DAY WHEN YOU WERE DRINKING IN THE PAST YEAR?3 OR 4 (1 POINT) HOW OFTEN DID YOU HAVE A DRINK CONTAINING ALCOHOL IN THE PAST YEAR?TWO TO FOUR TIMES A MONTH (2 POINTS) POINTS3 INTERPRETATIONPOSITIVE RECREATIONAL DRUG USE DRUG USE?NO CAFFEINE CAFFEINE USE?NO OCC HIV / HEP-C SCREENING HIV TEST OFFERED TO PATIENT:YES DATE OFFERED:03/14/2020 TEST ACCEPTED:NO HEP-C TEST OFFERED TO PATIENT:YES DATE OFFERED:03/14/2020 REASON:PATIENT DECLINED TEST ACCEPTED:NO REASON:PATIENT DECLINED BROCHURE PROVIDED TO PATIENTYES MORAVIAN NO MANDAEISM BELIEFS THAT WOULD IMPACT HEALTH CARE. LANGUAGE KYRGYZ. 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 LEARNING BARRIERS / SPECIAL NEEDS CHANGE FROM LAST VISIT?NO 01/05/21 BARRIERS TO LEARNING?NO HEARING IMPAIRED?YES : LEFT EAR NO HEARING AIDS VISION IMPAIRED?YES : CORRECTED LENSES COGNITIVELY IMPAIRED?NO READINESS TO LEARN?YES LEARNING PREFERENCES?NO LEARNING CAPABILITIES PRESENT?YES EMOTIONAL BARRIERS?NO SPECIAL DEVICES?NO SEAM STEAMER NEEDED?NO DOMESTIC VIOLENCE DO YOU FEEL SAFE IN YOUR ENVIRONMENT?YES OCCUPATION: [email or web address]. DIET: REGULAR. EXERCISE: REGULAR. MARITAL STATUS: . OTHERS AT HOME: SPOUSE. 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 WATER NAME OF PERSON DRIVING YOU HOME SPOUSE ASIM IS THERE A CHANCE YOU COULD BE ?NO HAVE YOU BEEN SICK IN THE LAST WEEK (COLD, COUGH, FEVER, FLU, ETC)NO DO YOU TAKE ANY BLOOD THINNERS?NO ANY CHANGE IN BOWEL OR BLADDER CONTROL?YES PT STATES THAT SHE IS TAKING IRON SUPPLEMENTS AND HAVING ISSUES WITH CONSTIPATION ARE YOU ALLERGIC TO SHELLFISH OR IV DYE?NO ARE YOU DIABETIC?NO DO YOU HAVE A PACEMAKER OR DEFIBRILLATOR?NO ANY NEW PROBLEMS WITH MEDICINES OR NEW ALLERGIESNO ANY NEW PATTERNS OF PAIN OR NUMBNESS?NO ANY CHANGE IN YOUR MEDICAL CONDITION?NO HAVE YOU FALLEN IN THE LAST 6 MONTHS?NO DO YOU USE ANY TYPE OF TOBACCO (SMOKE, SMOKELESS, CHEW, ETC.)YES ARE YOU ABUSED, NEGLECTED, OR IN AN UNSAFE ENVIRONMENT?NO DO YOU HAVE THOUGHTS OF HURTING YOURSELF OR SOMEONE ELSE?NO DO YOU NEED ANY PRESCRIPTIONS?NO DO YOU HAVE ANY OTHER QUESTIONS OR CONCERNS?NO INTENSITY SCALE REVIEWEDNUMBER SCORE8 - PFS REFERRAL NEEDED?NO WAS THE PROVIDER NOTIFIED OF ANY PERTINENT INFO?YES HAS THE PATIENT BEEN EDUCATED REGARDING HIS/HER PLAN OF CARE?YES HAS THE PATIENT BEEN EDUCATED REGARDING PAIN, THE RISK FOR PAIN, THE IMPORTANCE OF EFFECTIVE PAIN MANAGEMENT, AND THE PAIN ASSESSMENT PROCESS?YES PLEASE DOCUMENT ANY ADDTIONAL DETAILS. CERVICAL FACET BLOCK ADVANCE DIRECTIVE ADVANCE DIRECTIVE DISCUSSED WITH PATIENT:YES DECLINED INFORMATION AND ASSISTANCE WITH HCP PAPERWORK. HOSPITALIZATION/MAJOR DIAGNOSTIC PROCEDURE HYSTERECTOMY 2010 CHILDBIRTH 1982, 1984 GASTRIC BYPASS 2012 SURGERY [id number] 05/2018 VITAL SIGNS WT 124.4 LBS, HT 62.5 IN, BMI 22.39 INDEX, BP 134/63 MM HG, HR 71 /MIN, RR 18 /MIN, TEMP 95.1 F, OXYGEN SAT % 93%, SAFE IN ENV? (Y/N) YES, NA INITIALS AW 1047, REVIEWED BY: CHANDLER RN. EXAMINATION GENERAL EXAMINATION: A HISTORY AND PHYSICAL EXAM ON THE PATIENT WAS DONE ON 01/23/2021(DATE OF ORIGINAL ASSESSMENT) IN PREPARATION OF SURGERY/PROCEDURE. I HAVE NOW REASSESSED THIS PATIENT'S HEALTH STATUS AND PERFORMED AN UPDATED EXAM TODAY. ALL CHANGES IN THE PATIENT'S HISTORY, PHYSICAL EXAM, PRE-EXISTING CONDITONS, AND INDICATIONS/CONTRAINDICATIONS TO THE PLANNED PROCEDURE AND ANESTHESIA ARE DOCUMENTED AND EVALUATED BELOW. I ATTEST TO THE ADEQUACY AND APPROPRIATENESS OF MY ASSESSMENT, AND CONFIRM THE NECESSITY FOR THE PLANNED PROCEDURE. THE PATIENT IS ALERT, ORIENTED TIMES THREE AND COOPERATIVE. LUNGS ARE CLEAR TO AUSCULTATION. HEART SHOWS REGULAR RHYTHM, NO MURMURS AND NO GALLOPS. ASSESSMENTS SPONDYLOSIS WITHOUT MYELOPATHY OR RADICULOPATHY, CERVICAL REGION - M47.812 (PRIMARY) TREATMENT SPONDYLOSIS WITHOUT MYELOPATHY OR RADICULOPATHY, CERVICAL REGION [facility] FACET BLOCK (PAIN)[id number] COMPLETION OF PROCEDURAL VISIT WHEN MEETS CRITERIA MED: VERSED 1MG [facility] 01/28/2021 2:39:54 PM > VERIFIED AT 1304 WANG GONZALEZ 01/28/2021 2:45:37 PM > ADMINISTERED @ 1332 MEDICATION: FENTANYL CITRATE 50MCG IV [facility] 01/28/2021 2:40:16 PM > VERIFIED AT 1304 WANG GONZALEZ 01/28/2021 2:45:55 PM > ADMINISTERED @ 1332 OXYGEN AT 2 LITERS PER NASAL [facility] 01/28/2021 1:29:49 PM > 02 APPLIED AT 1310 [facility] 01/28/2021 2:53:44 PM > )2 N/C OFF 1415. IV LACTATED RINGER'S AT BIANCA KAT 01/28/2021 1:29:12 PM > IV #22 INITIATED ON 1ST ATTEMPT IN RIGHT WRIST AT 1130. PATIENT TOLERATED IV START WELL. BIANCA CAMPBELL 01/28/2021 2:53:16 PM > LR 600 CC'S INFUSED. PROCEDURES PAIN NURSING RECORD PROCEDURE IN ROOM 1304, PHYSICIAN IN ROOM 1330, START 1334, FINISH 1409, PHYSICIAN OUT OF ROOM 1410, OUT OF ROOM 1420, ECG OTHER SINUS KELIN 50'S, PATIENT SHIELDED YES, SAFETY STRAP YES, PREP CHLOROPREP Magi GONZALEZ RN, DRESSING TEGADERM DR. FORREST LOC: 1334, 1. ALERT, ORIENTED 1400, 1. ALERT, ORIENTED RESP: 1334, 1. REGULAR, NO DYSPNEA 1400, 1. REGULAR, NO DYSPNEA COLOR: 1334, 1. PINK 1400, 1. PINK SKIN: 1334, 1. WARM, DRY 1400, 1. WARM, DRY POSITION: 1334, 1. PRONE VITALS: 1330 B/P 163/96 HR 61 16 99% 2L N/C 1335 B/P 168/104 HR 58 16 99% 2L N/C 1340 B/P 139/96 HR 58 16 98% 2L N/C 1345 B/P 144/97 HR 59 16 99% 2L N/C 1350 B/P 151/100 HR 57 16 98% 2L N/C 1400 B/P 158/99 HR 59 16 97% 2L N/C B/P CUFF OFF PER DR FORREST'S INSTRUCTION. 1415 B/P 155/98 HR 61 16 98% R/A 1430 B/P 155/68 HR 66 16 97% R/A D/C V/S COMPLETION OF PROCEDURE APPOINTMENT: POST PAIN 5, DRESSING SITE DRY AND INTACT S/A OF BRIGHT RED BLEEDING NOTED AT CERVICAL SITE AFTER PROCEDURE. SITE VISUALIZED BY DR FORREST, PRESSURE APPLIED, AND NEW OPSITE APPLIED. NO NEW BLEEDING NOTED., IV DISCONTINUED, SITE CLEAR, CATHETER INTACT, GAIT OTHER PATIENT TRANSFERRED FROM ROOM VIA STRETCHER AND TRANSFERRED TO SON'S VEHICLE VIA WHEELCHAIR., TEACHING COMPLETED, PATIENT ACKNOWLEDGES UNDERSTANDING YES, PROCEDURE APPOINTMENT COMPLETED AT 1435 PN RADIOFREQUENCY DATE OF PROCEDURE 01/28/2021 THERMO LESION RADIOFREQUENCY > 80 DEGREES : COOL - AVANOS SYSTEM SET AT 60* WITH TISSUE TARGET TEMP > 80* OR MORE. STRAIGHT NEEDLE SIDE: : LEFT LEVELS: : C7-T1 NEEDLE/CATHETER/GAUGE: : 17 CANULA LENGTH: : 50 MM ACTIVE TIP: : 2 MM GROUNDING PAD PLACED ON AFFECTED SIDE (MUSCULAR AREA): : CERVIAL (LATERAL FLANK) 1 ST LEVEL: : C7, INITAL POSTIVE SENSORY RESPONE (50 HZ) 0.7, MOTOR RESPONSE (2 HZ-UP TO 3 VOLTS) 3.0, PRE-LOCAL IMPEDENCE READING OHMS 260, POST-LOCAL IMPEDENCE READING OHMS 205, DURING RF IMPEDENCE READING OHMS 220 2 ND LEVEL: : C8, INITIAL POSITIVE SENSORY RESPONSE (50 HZ) 0.2, MOTOR RESPONSE (2 HZ- UP TO 3 VOLTS) 3.0, PRE-LOCAL IMPEDENCE READING OHMS 240, POST-LOCAL IMEPEDENCE READING OHMS 195, DURING RF IMPEDENCE READING OHMS 200 PN WORKMANS' COMP OPINION IN YOUR OPINION, WAS THE INCIDENT THAT THE PATIENT DESCRIBED THE COMPETENT MEDICAL CAUSE OF THIS INJURY/ILLNESS? YES ARE THE PATIENT'S COMPLAINTS CONSISTENT WITH HIS/HER HISTORY OF THE INJURY/ILLNESS? YES IS THE PATIENT'S HISTORY OF THE INJURY/ILLNESS CONSISTENT WITH YOUR OBJECTIVE FINDING? YES WHAT IS THE PERCENTAGE OF TEMPORARY IMPAIRMENT? MODERATE TO MARKED = 66.7% IS THE PATIENT WORKING? YES DOCTOR ON SITE: FAIZAN STEVENS MD PRE PROCEDURE DIAGNOSIS CERVICAL SPONDYLOSIS POST PROCEDURE DIAGNOSIS CERVICAL SPONDYLOSIS PROCEDURE LEFT C7-T1 CERVICAL FACET COOL RADIOFREQUENCY SURGEON DR. FAIZAN FORREST TESTER ROCKET ENGINE NONE ANESTHESIA LOCAL WITH IV SEDATION PRE PROCEDURE NOTE THE PATIENT HAS A HISTORY OF CHRONIC NECK PAIN. I EVALUATED THE PATIENT AND REVIEWED THE CHART. I WENT OVER THE RISKS, BENEFITS AND ALTERNATIVES ASSOCIATED WITH THIS PROCEDURE. THE PATIENT WOULD LIKE TO PROCEED AND GIVES CONSENT TO PERFORM THE PROCEDURE. THE PATIENT WOULD LIKE TO MOVE FORWARD WITH IV SEDATION DUE TO ANXIETY AND DISCOMFORT ASSOCIATED WITH THE PROCEDURE. THE PATIENT DENIES UNEXPLAINABLE WEIGHT LOSS, FEVER, CHILLS OR NEW CHANGES IN URINARY OR BOWEL CONTROL. THE PATIENT IS COVID-19 NEGATIVE DESCRIPTION OF PROCEDURE THE PATIENT WAS BROUGHT TO THE PROCEDURE ROOM AND PLACED IN THE PRONE POSITION. THE CERVICOTHORACIC AREA WAS CLEANED WITH CHLORAPREP SOLUTION AND DRAPED ASEPTICALLY. THE PROCEDURE WAS DONE UNDER STERILE CONDITIONS. A TIMEOUT WAS PERFORMED WHERE THE CONSENTED SITE WAS VERIFIED WITH EVERYONE IN THE ROOM. UNDER FLUOROSCOPIC GUIDANCE, THE TARGET POINT WAS SELECTED CEPHALAD TO THE MEDIAL POINT OF THE CONCAVE CURVE AT THE MID POINT OF THE LEFT LATERAL ARTICULAR PROCESS OF C7 AND AT THE SUPERIOR AND LATERAL MARGIN OF THE LEFT TRANSVERSE PROCESS OF T1. I CONFIRMED THE SITE OF TARGET. LIDOCAINE WAS USED TO NUMB THE SKIN AND THE SUBCUTANEOUS TISSUE BELOW IT. RADIOFREQUENCY CANNULAS, 17-GAUGE 50 MM LONG WITH 2 MM ACTIVE TIP, WERE ADVANCED UNDER FLUOROSCOPIC GUIDANCE AND FOLLOWING PATIENT FEEDBACK UNTIL THE TARGET WAS REACHED. POSITION OF THE CANNULAS WAS VERIFIED WITH AP AND LATERAL VIEWS. WE MEASURED THE CORRESPONDING IMPEDANCE, SENSORY STIMULATION AND MOTOR RESPONSES INDICATED IN THE RADIOFREQUENCY WORK SHEET. POSITION OF THE CANNULAS WAS VERIFIED AGAIN WITH AP AND LATERAL VIEWS. LIDOCAINE 1%, 3 ML, WAS INJECTED AT EACH LEVEL. RADIOFREQUENCY WAS DONE AT EACH LEVEL USING THE [employer] SYSTEM-COOLED RF-WITH A SETTING AT THE MACHINE OF 60 DEGREES WITH A TARGET TISSUE TEMPERATURE OF 80 TO 90 DEGREES FOR A MINIMUM OF 150 SECONDS. THE ABLATION WAS DONE AT THE BRANCHES OF LEFT C7 AND LEFT C8. AFTER RADIOFREQUENCY WAS DONE, DEXAMETHASONE 3 MG WAS INJECTED AT EACH SITE. THEN, THE NEEDLES WERE FLUSHED WITH 3 ML OF BUPIVACAINE 0.125%. THE MEDICATIONS WERE VERIFIED WITH THE NURSE. THERE WAS NO EVIDENCE OF BLOOD, PARESTHESIA OR CEREBROSPINAL FLUID DURING THE PROCEDURE. THE PATIENT WAS SENT TO THE RECOVERY ROOM. THE PATIENT WAS MOVING THE EXTREMITIES AND DOING WELL. THERE WERE NO COMPLICATIONS DURING THE PROCEDURE. ESTIMATED BLOOD LOSS WAS LESS THAN 5 ML. FLUOROSCOPIC TIME WAS 59 SECONDS. THE PATIENT RECEIVED VERSED 1 MG AND FENTANYL 50 MCG IV IN DIVIDED DOSES. FACE TO FACE START TIME: 1332 FACE TO FACE END TIME: 1410 TOTAL FACE TO FACE TIME: 38 MINUTES POST PROCEDURE NOTE THE PATIENT WILL BE SEEN IN A FOLLOW UP IN THE NEXT FEW WEEKS. I AM LOOKING FOR LONG LASTING RELIEF FOR THE PATIENT WITH THIS INTERVENTION. INSTRUCTIONS WERE GIVEN, QUESTIONS WERE ANSWERED AND THE PATIENT EXPRESSED UNDERSTANDING AND AGREES WITH THE PAIN. I, BOBO JUAREZ, DOCUMENTED THE ABOVE INFORMATION ACTING A SCRIBE FOR DR. FORREST. I HAVE REVIEWED THE ABOVE DOCUMENT WRITTEN BY BOBO JUAREZ, STAYING MACHINE OPERATOR, AND I VERIFY THAT IT IS ACCURATE. PROCEDURE CODES 74025 DESTROY LUMB/SAC FACET JNT, MODIFIERS: LT DISPOSITION & COMMUNICATION FOLLOW UP F/UP WITH DR. Brooks 2 WEEKS (REASON: POST LEFT CERVICAL COOL RADIOFREQUENCY C7-T1) ELECTRONICALLY SIGNED BY FAIZAN FORREST MD, MD ON 02/02/2021 AT 07:42 PM EDT DISCLAIMER : THIS IS A VISIT SUMMARY EXTRACTED FROM THE [facility] CHART. IT IS NOT A COPY OF THE [facility] PROGRESS NOTE. CARMITA
== END ==
LOC: M PAIN 11:00
PROVIDERS: ATTEND Anesthesiology
DX: M47.812 Spondylosis without myelopathy or radiculopathy, cervical region (principal); J45.909 Unspecified asthma, uncomplicated; I10 Essential (primary) hypertension; K21.9 Gastro-esophageal reflux disease without esophagitis; E78.00 Pure hypercholesterolemia, unspecified; G43.909 Migraine, unspecified, not intractable, without status migrainosus; D64.9 Anemia, unspecified; Z98.84 Bariatric surgery status; F17.210 Nicotine dependence, cigarettes, uncomplicated; Z79.891 Long term (current) use of opiate analgesic; Z79.52 Long term (current) use of systemic steroids; Z79.899 Other long term (current) drug therapy; Z88.8 Allergy status to other drugs, medicaments and biological substances
CPT/HCPCS: 64635; J1100; J2250; J3010

== ENCOUNTER → 2021-02-13 | Outpatient (CLI) | payer OTHER, BC ==
[~2021-02-13] MED LIST changes: -BUPIVACAINE HCL 0.25% 30ML VIAL As Ordered ONE; -LIDOCAINE 1% SDV 30ML VIAL As Ordered ONE; -MIDAZOLAM INJ 2MG/2ML VIAL (J2250 PER 1MG) As Ordered ONE; -dexameTHASONE 10MG/1ML VIAL PRES.FREE (J1100 PER 1MG) As Ordered ONE; -fentaNYL 100 MCG/2 ML INJECTION (J3010) As Ordered ONE
--- NOTE | 2021-02-18 02:04 | ECWPNPC ---
PATIENT NAME: LUIS KHALIL : 1965 GENDER: FEMALE VISIT DATE: 02/13/2021 DISCHARGE DATE: 02/13/21 1447 VISIT LOCKED DATE TIME: PHYSICIAN: FAIZAN FORREST MD PHYSICIAN PAGER NO: ACTIVE RESOURCE: FAIZAN FORREST MD REASON FOR APPOINTMENT 1. POST LEFT CERVICAL COOL RADIOFREQUENCY C7-T1 HISTORY OF PRESENT ILLNESS GENERAL: 55-YEAR-OLD FEMALE PATIENT WITH A HISTORY OF CHRONIC NECK PAIN. SHE SUFFERED FROM A WORK RELATED INJURY. SHE HAS LEFT COOL RADIOFREQUENCY AT C7-T1. THE PATIENT REPORTS MORE THAN 80% IMPROVEMENT. THE LEFT SIDE OF HER NECK FEELS MUCH BETTER. SHE IS EXTREMELY SATISFIED WITH THE RESULT OF THE PROCEDURE. SHE STILL HAS PAIN ON THE RIGHT SIDE. THE PATIENT DESCRIBES THE PAIN ACHING AND SEVERE WITH A PAIN SCORE RANGING FROM 6-10/10 ON THE RIGHT SIDE. SHE IS HAVING DIFFICULTY MOVING HER NECK ON THE RIGHT SIDE. THIS IS AFFECTING HER ABILITY TO DO HER JOB. 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 SHE WOULD LIKE TO CONSIDER OPTIONS OVER THE RIGHT SIDE. SHE HAS DONE PHYSICAL THERAPY IN THE PAST. SHE IS ON MEDICATION MANAGEMENT AND THE PAIN PERSISTS. THE PATIENT REPORTS HAVING A BREAST MASS THAT THEY ARE IN THE PROCESS OF CHECKING. SHE IS GOING THROUGH THE PROCESS OF BEING EVALUATED BY DR. HEATH. FALL RISK SCREENING: SCREENING : NO FALLS REPORTED IN THE LAST YEAR. PAIN SCREENING: PATIENT HAS A COMPLAINT OF ACUTE OR CHRONIC PAIN :YES LOCATION OF PAIN:NECK LEFT NECK IS 1-2, RIGHT NECK 6/10 INTENSITY OF PAIN (SCALE OF 1 TO 10):2 WHAT DOES YOUR PAIN FEEL LIKE:ACHING, BURNING, CONTINOUS, STABBING LEFT NECK PAIN IS MUCH BETTER AFTER RF, RIGHT NECK PAIN IS 6/10 DURATION:CONTINOUS CONSTANT ACHE PAIN IS INCREASED BY:ACTIVITIES LEANING OVER, BENDING OVER PAIN IS DECREASED BY:OTHERS RADIOFREQUENCY NURSING NOTE: -. PAIN CENTER INTAKE QUESTIONS: DO YOU HAVE A HISTORY OF MRSA? :NO DO YOU TAKE A BLOOD THINNERS? :NO DO YOU HAVE ANY BLEEDING DISORDERS? :NO ANY NEW NUMBNESS OR WEAKNESS IN YOUR LEGS OR ARMS? :NO ANY PACEMAKER,DEFIBRILLATOR, OR DORSAL COLUMN STIMULATOR? :NO DO YOU HAVE ANY RASHES OR OPEN SORES? :NO ARE YOU ALLERGIC TO IV DYE? :NO ARE YOU DIABETIC? :NO ANY NEW PROBLEMS WITH YOUR MEDICATIONS? :NO HAVE YOU RECEIVED A VACCINE IN THE PAST 30 DAYS? :NO COVID SHOTS SEPTEMBER 2020 DO YOU PLAN TO RECEIVE A VACCINE IN THE NEXT 21 DAYS? :NO DO YOU NEED ANY PRESCRIPTION? :YES OXYCODONE DO YOU TAKE ANY IMMUNOSUPPRESSIVE MEDICATIONS? :NO DO YOU HAVE ANY KIDNEY OR LIVER DISEASE? :NO IS THERE A CHANCE YOU COULD BE ? :NO ARE YOU BREAST FEEDING? :NO CURRENT MEDICATIONS TAKING BIOTIN 10 MG CAPSULE 1 CAPSULE ORALLY DAILY TAKING HYDROCODONE-ACETAMINOPHEN 10-325 MG TABLET 1 TABLET NEEDED ORALLY EVERY 6 HRS MDD 4 75 TO LAST 1 MONTH, NOTES: 01/27 0300 TAKING DIAZEPAM 5 MG TABLET 1 TABLET NEEDED FOR ANXIETY RELATED TO MRI BREAST. YOU MUST NOT DRIVE AFTER YOU TAKE VALIUM ORALLY ONCE A DAY TAKING MULTIVITAMINS TABLET 1 TAB ORALLY ONCE DAILY TAKING ALBUTEROL SULFATE HFA 108 (90 BASE) MCG/ACT AEROSOL SOLUTION 2 PUFFS INHALATION DAILY PRN- CHET TAKING VITAMIN D-3 1000 UNIT CAPSULE 1 CAPSULE ORALLY BID TAKING VITAMIN B12 1000 MCG TABLET EXTENDED RELEASE 1 TABLET ORALLY ONCE A DAY TAKING AMBIEN CR 12.5 MG TABLET EXTENDED RELEASE 1 TABLET ORALLY BEFORE BEDTIME MDD=1 TAKING BUTORPHANOL TARTRATE 10 MG/ML SOLUTION 1 SPRAY EACH NOSTRIL NEEDED NASALLY EVERY 8 HRS PRN MDD=4 TAKING OMEPRAZOLE 20 MG CAPSULE DELAYED RELEASE 1 CAP ORALLY BID NOT-TAKING PREDNISONE 10 MG TABLET 3 TABLETS ORALLY ONCE A DAY NOT-TAKING TRIAMCINOLONE ACETONIDE 0.1 % CREAM 1 APPLICATION TO GROIN EXTERNALLY TWICE A DAY NOT-TAKING MAY HAVE - - IRON INFUSIONS INTRAVENOUSLY JUST STARTED NOT-TAKING OXYCODONE HCL 10 MG TABLET 1 TABLET NEEDED ORALLY EVERY 8 HRS PRN PAIN NOT-TAKING LORAZEPAM 0.5 MG TABLET 1-2 TAB ORALLY THREE TIMES DAILY NEEDED MDD=6, NOTES: 2 MOS NOT-TAKING PLUS/IRON 27-1 MG TABLET 1 TABLET ORALLY ONCE A DAY, NOTES: NOT TAKING NOT-TAKING ADVAIR DISKUS 250-50 MCG/DOSE AEROSOL POWDER BREATH ACTIVATED 1 PUFF INHALATION TWICE A DAY MEDICATION LIST REVIEWED AND RECONCILED WITH THE PATIENT PAST MEDICAL HISTORY ASTHMA HYPERTENSION GERD ELEVATED CHOLESTEROL PCO S. 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 GREETING CARD: NAUSEA - SIDE EFFECTS LYRICA: CONFUSION - SIDE EFFECTS GABAPENTIN: CONFUSION - SIDE EFFECTS PAXIL: DIDNT LIKE FEELING - SIDE EFFECTS SOCIAL HISTORY GENERAL: TOBACCO USE ARE YOU A:CURRENT SMOKER ARE YOU INTERESTED IN QUITTING?NOT READY TO QUIT COUNSELED THE PATIENT ON SMOKING EFFECTS, EDUCATION [id number]/20/2021 HOW MANY CIGARETTES A DAY DO YOU SMOKE?11-20 HOW OFTEN DO YOU SMOKE CIGARETTES?EVERY DAY PATIENT COUNSELED ON THE DANGERS OF TOBACCO USE AND URGED TO QUIT:09/10/2020 SMOKING CESSATION INFORMATION GIVEN02/13/2021 DECLINED ANY DEIRE TO QUIT SMOKING AT THIS TIME VAPORNO E-CIGARETTENO LATEX QUESTIONNAIRE LATEX ALLERGY : HAVE YOU EVER DEVELOPED ANY TYPE OF REACTION AFTER HANDLING LATEX PRODUCTS SUCH RUBBER GLOVES, CONDOMS, DIAPHRAGMS, BALLOONS, SOCKS, OR UNDERWEAR?NO LATEX ALLERGY : HAVE YOU EVER DEVELOPED ANY TYPE OF REACTION DURING OR AFTER DENTAL APPOINTMENT, VAGINAL/RECTAL EXAMINATION, SURGICAL PROCEDURE, OR ANY OTHER EXPOSURE?NO 6-8 MONTHS AGO, NERVE BLOCKS IN SPINE. ENTIRE BACK BROKE OUT IN RASH AFTER. MAY HAVE BEEN AN ALLERGIC REACTION TO CHLOROPREP OR BENADINE BUT UNSURE. DATE ASKED : 01/28/2021 LATEX RISK : HAVE YOU EVER HAD ANY DIFFICULTY BREATHING OR HIVES AFTER EATING OR HANDLING ANY FRUITS, OR VEGETABLES; SUCH KIWI, BANANAS, STONE FRUITS, OR CHESTNUTSNO LATEX RISK : DO YOU HAVE A PREVIOUS PERSONAL HISTORY OF MORE THAN NINE SURGERIES, SPINA BIFIDA, OR REPEATED CATHERIZATIONS? NO LATEX RISK : ARE YOU FREQUENTLY EXPOSED TO LATEX PRODUCTS IN YOUR OCCUPATION?YES ALCOHOL USE: 2-3 BEERS PER WEEK. ALCOHOL SCREENING DID YOU HAVE A DRINK CONTAINING ALCOHOL IN THE PAST YEAR?YES HOW OFTEN DID YOU HAVE SIX OR MORE DRINKS ON ONE OCCASION IN THE PAST YEAR?NEVER (0 POINTS) HOW MANY DRINKS DID YOU HAVE ON A TYPICAL DAY WHEN YOU WERE DRINKING IN THE PAST YEAR?3 OR 4 (1 POINT) HOW OFTEN DID YOU HAVE A DRINK CONTAINING ALCOHOL IN THE PAST YEAR?TWO TO FOUR TIMES A MONTH (2 POINTS) POINTS3 INTERPRETATIONPOSITIVE RECREATIONAL DRUG USE DRUG USE?NO CAFFEINE CAFFEINE USE?NO OCC HIV / HEP-C SCREENING HIV TEST OFFERED TO PATIENT:YES DATE OFFERED:03/14/2020 TEST ACCEPTED:NO HEP-C TEST OFFERED TO PATIENT:YES DATE OFFERED:03/14/2020 REASON:PATIENT DECLINED TEST ACCEPTED:NO REASON:PATIENT DECLINED BROCHURE PROVIDED TO PATIENTYES RELIGIOUS NO YAZIDISM BELIEFS THAT WOULD IMPACT HEALTH CARE. LANGUAGE AMERICAN. 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 DIET: REGULAR. EXERCISE: REGULAR. MARITAL STATUS: . OTHERS AT HOME: SPOUSE. 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 WATER NAME OF PERSON DRIVING YOU HOME SPOUSE ASIM IS THERE A CHANCE YOU COULD BE ?NO HAVE YOU BEEN SICK IN THE LAST WEEK (COLD, COUGH, FEVER, FLU, ETC)NO DO YOU TAKE ANY BLOOD THINNERS?NO ANY CHANGE IN BOWEL OR BLADDER CONTROL?YES PT STATES THAT SHE IS TAKING IRON SUPPLEMENTS AND HAVING ISSUES WITH CONSTIPATION ARE YOU ALLERGIC TO SHELLFISH OR IV DYE?NO ARE YOU DIABETIC?NO DO YOU HAVE A PACEMAKER OR DEFIBRILLATOR?NO ANY NEW PROBLEMS WITH MEDICINES OR NEW ALLERGIESNO ANY NEW PATTERNS OF PAIN OR NUMBNESS?NO ANY CHANGE IN YOUR MEDICAL CONDITION?NO HAVE YOU FALLEN IN THE LAST 6 MONTHS?NO DO YOU USE ANY TYPE OF TOBACCO (SMOKE, SMOKELESS, CHEW, ETC.)YES ARE YOU ABUSED, NEGLECTED, OR IN AN UNSAFE ENVIRONMENT?NO DO YOU HAVE THOUGHTS OF HURTING YOURSELF OR SOMEONE ELSE?NO DO YOU NEED ANY PRESCRIPTIONS?NO DO YOU HAVE ANY OTHER QUESTIONS OR CONCERNS?NO INTENSITY SCALE REVIEWEDNUMBER SCORE8 - PFS REFERRAL NEEDED?NO WAS THE PROVIDER NOTIFIED OF ANY PERTINENT INFO?YES HAS THE PATIENT BEEN EDUCATED REGARDING HIS/HER PLAN OF CARE?YES HAS THE PATIENT BEEN EDUCATED REGARDING PAIN, THE RISK FOR PAIN, THE IMPORTANCE OF EFFECTIVE PAIN MANAGEMENT, AND THE PAIN ASSESSMENT PROCESS?YES PLEASE DOCUMENT ANY ADDTIONAL DETAILS. CERVICAL FACET BLOCK ADVANCE DIRECTIVE ADVANCE DIRECTIVE DISCUSSED WITH PATIENT:YES DECLINED INFORMATION AND ASSISTANCE WITH HCP PAPERWORK. REVIEW OF SYSTEMS CONSTITUTIONAL: ANY RECENT FEVER NO . CHILLS NO . WEIGHT CHANGE OF UNKNOWN REASONS NO . GASTROENTEROLOGY: NEW UNEXPLAINABLE CHANGES IN BOWEL CONTROL NO . CONSTIPATION NO . GENITOURINARY: ANY NEW CHANGE IN BLADDER CONTROL? NO . NEUROLOGY: NEW ONSET DIZZINESS OR NEUROLOGICAL CHANGES NOT MENTIONED NO . NEW NUMBNESS OR PAIN PATTERNS NOT MENTIONED AND PERTINENT TO TODAY'S VISIT NO . CARDIOLOGY: NEW CHEST PRESSURE NO . PATIENT DENIES NO . RESPIRATORY: UNEXPLAINABLE COUGH NO . NEW SHORTNESS OF BREATH NO . VITAL SIGNS WT 127.8 LBS, HT 62.5 IN, BMI 23.00 INDEX, BP 144/90 MM HG, HR 71 /MIN, RR 18 /MIN, TEMP 97.2 F, OXYGEN SAT % 100%, SAFE IN ENV? (Y/N) YES, NA INITIALS SC 13:45, REVIEWED BY: Yari MAYORGA RN ]. EXAMINATION GENERAL EXAMINATION: THE PATIENT IS ALERT, ORIENTED TIMES THREE AND COOPERATIVE. LUNGS ARE CLEAR TO AUSCULTATION. HEART SHOWS REGULAR RHYTHM, NO MURMURS AND NO GALLOPS. THERE IS TENDERNESS OVER THE RIGHT CERVICAL FACET AREA MRI OF THE CERVICAL SPINE SHOWS FACET ARTHROPATHY CHANGES AND DEGENERATIVE CHANGES. 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 KHALIL. I WILL REQUEST AUTHORIZATION FOR A RIGHT C7-T1 DIAGNOSTIC TEST NUMBER 2. DEPENDING ON THE RESULTS, WE WILL CONSIDER RADIOFREQUENCY. SHE HAD EXCELLENT RESULT WITH THE RADIOFREQUENCY OVER THE LEFT SIDE SO WE WOULD LIKE TO MOVE FORWARD WITH THE RIGHT SIDE TO GET CONTROL OF HER CHRONIC PAIN. I FEEL COMFORTABLE MOVING FORWARD WITH THE RADIOFREQUENCY, BUT I WOULD LIKE TO TALK WITH HER BREAST SURGEON BEFORE MOVING FORWARD TO MAKE SURE SHE FEELS COMFORTABLE WITH ME USING STEROIDS DURING THE RADIOFREQUENCY. THE PATIENT REPORTS UNDERSTANDING AND AGREES WITH THE PLAN. I, BOBO DILEONARDO, DOCUMENTED THE ABOVE INFORMATION ACTING A SCRIBE FOR DR. FORREST. I HAVE REVIEWED THE ABOVE DOCUMENT, WRITTEN BY BOBO JUAREZ, YEAST MAKER, AND I VERIFY THAT IT IS ACCURATE. OTHERS NOTES: PRE PROCEDURE INSTRUCTIONS AND DIAGNOSTIC FACET INJECTION INFORMATION PRINTED AND REVIEWED WITH PATIENT. PATIENT VERBALIZES UNDERSTANDING OF PRE PROCEDURE INSTRUCTIONS REVIEWED. PROCEDURE CODES FA211 ESTABILISHED PATIENT [facility] CHARGE [id number] OFFICE/OUTPATIENT VISIT EST DISPOSITION & COMMUNICATION FOLLOW UP FOLLOW UP WITH PAINTING MACHINE OPERATOR FOR MED MANAGEMENT (REASON: REQUEST AUTH FOR RIGHT DIAGNOSTIC CERVICAL FACET BLOCK C7-T1 #2) ELECTRONICALLY SIGNED BY FAIZAN FORREST MD, MD ON 02/17/2021 AT 05:08 PM EDT DISCLAIMER : THIS IS A VISIT SUMMARY EXTRACTED FROM THE [email or web address] CHART. IT IS NOT A COPY OF THE [email or web address] PROGRESS NOTE. CARMITA
== END ==
LOC: M PAIN 13:45
PROVIDERS: ATTEND Anesthesiology
DX: G89.29 Other chronic pain (principal); M47.812 Spondylosis without myelopathy or radiculopathy, cervical region; J45.909 Unspecified asthma, uncomplicated; K21.9 Gastro-esophageal reflux disease without esophagitis; G43.909 Migraine, unspecified, not intractable, without status migrainosus; F17.210 Nicotine dependence, cigarettes, uncomplicated; Z88.8 Allergy status to other drugs, medicaments and biological substances; Z79.899 Other long term (current) drug therapy

== ENCOUNTER → 2021-02-18 | Outpatient (CLI) | payer BC, OTHER ==
[2021-02-18 11:23] LABS: BLOOD UREA NITROGEN 18 MG/DL (7-18); CALCIUM LEVEL 8.9 MG/DL (8.5-10.1); CARBON DIOXIDE LEVEL 29 MEQ/L (21-32); CHLORIDE LEVEL 106 MEQ/L (98-107); CREATININE FOR GFR 0.54 MG/DL (0.55-1.30); GLOMERULAR FILTRATION RATE > 60.0 (>51); GLUCOSE, FASTING 93 MG/DL (70-100); POTASSIUM SERUM 3.8 MEQ/L (3.5-5.1); SODIUM LEVEL 137 MEQ/L (136-145)
== END ==
LOC: M LAB 10:07
PROVIDERS: ATTEND Surgery
DX: N63.20 Unspecified lump in the left breast, unspecified quadrant (principal)

== ENCOUNTER → 2021-03-07 | Outpatient (CLI) | payer BC | LOC: M LABSMTC 11:39 | PROVIDERS: ATTEND Anesthesiology | DX: Z01.812 Encounter for preprocedural laboratory examination (principal); Z11.52 Encounter for screening for COVID-19 ==

== ENCOUNTER → 2021-03-12 | Outpatient (CLI) | payer OTHER, BC ==
[~2021-03-12] MED LIST changes: +BUPIVACAINE HCL 0.25% 30ML VIAL As Ordered ONE; +ISOVUE-M 300 61% 15ML VIAL As Ordered ONE; +LIDOCAINE 1% SDV 30ML VIAL As Ordered ONE
--- NOTE | 2021-03-13 09:46 | REP ---
INDICATION: DIAGNOSTIC CERVICAL FACET BLOCK #2. COMPARISON: None. TECHNIQUE: Three C-arm views cervical spine region performed. FINDINGS: Two needles are seen along the lower cervical spine region and a small amount of contrast is injected. IMPRESSION: 17 seconds of fluoroscopy time was utilized. <Electronically signed by Bijan Coburn > 03/13/21 0908
--- NOTE | 2021-03-19 02:21 | ECWPNPC ---
PATIENT NAME: LUIS KHALIL : 1965 GENDER: FEMALE VISIT DATE: 03/12/2021 DISCHARGE DATE: 03/12/211655 VISIT LOCKED DATE TIME: PHYSICIAN: FAIZAN FORREST MD PHYSICIAN PAGER NO: ACTIVE RESOURCE: FAIZAN FORREST MD REASON FOR APPOINTMENT 1. RIGHT DIAGNOSTIC CERVICAL FACET BLOCK C7-T1 #2 HISTORY OF PRESENT ILLNESS GENERAL: -. FALL RISK SCREENING: SCREENING : NO FALLS REPORTED IN THE LAST YEAR. PAIN SCREENING: PATIENT HAS A COMPLAINT OF ACUTE OR CHRONIC PAIN :YES LOCATION OF PAIN:NECK INTENSITY OF PAIN (SCALE OF 1 TO 10):8 WHAT DOES YOUR PAIN FEEL LIKE:ACHING, BURNING, SHARP, STABBING, THROBBING, SHOOTING DURATION:CONTINOUS, CONSTANT PAIN IS INCREASED BY:ACTIVITIES PAIN IS DECREASED BY:USE OF PAIN MEDICATIONS NURSING NOTE: -. PAIN CENTER INTAKE QUESTIONS: DO YOU HAVE A HISTORY OF MRSA? :NO DO YOU TAKE A BLOOD THINNERS? :NO DO YOU HAVE ANY BLEEDING DISORDERS? :NO ANY NEW NUMBNESS OR WEAKNESS IN YOUR LEGS OR ARMS? :NO ANY PACEMAKER,DEFIBRILLATOR, OR DORSAL COLUMN STIMULATOR? :NO DO YOU HAVE ANY RASHES OR OPEN SORES? :YES SORE TO RIGHT HAND ARE YOU ALLERGIC TO IV DYE? :NO ARE YOU DIABETIC? :NO ANY NEW PROBLEMS WITH YOUR MEDICATIONS? :NO HAVE YOU RECEIVED A VACCINE IN THE PAST 30 DAYS? :NO DO YOU PLAN TO RECEIVE A VACCINE IN THE NEXT 21 DAYS? :NO DO YOU TAKE ANY IMMUNOSUPPRESSIVE MEDICATIONS? :NO ANY HISTORY OF SEIZURES? :NO ANY HISTORY OF CARDIAC ISSUES OR EVENTS? :NO DO YOU HAVE ANY KIDNEY OR LIVER DISEASE? :NO DO YOU HAVE SLEEP APNEA? :NO ANY RECENT HEAD INJURY? :NO DO YOU HAVE ANY NEW INFECTIONS? :NO IS THERE A CHANCE YOU COULD BE ? :NO ARE YOU BREAST FEEDING? :NO WHEN DID YOU LAST EAT? : 03/11/21 9PM WHEN DID YOU LAST DRINK? : 03/12/21 1100 WHAT DID YOU LAST DRINK? : WATER NAME OF PERSON DRIVING YOU HOME? : MOM DO YOU HAVE ANY OTHER QUESTIONS OR CONCERNS? : - CURRENT MEDICATIONS TAKING BIOTIN 10 MG CAPSULE 1 CAPSULE ORALLY DAILY TAKING ALBUTEROL SULFATE HFA 108 (90 BASE) MCG/ACT AEROSOL SOLUTION 2 PUFFS INHALATION DAILY PRN- CHET TAKING OMEPRAZOLE 20 MG CAPSULE DELAYED RELEASE 1 CAP ORALLY BID TAKING OXYCODONE HCL 10 MG TABLET 1 TABLET NEEDED ORALLY EVERY 8 HRS PRN PAIN, NOTES: 03/10/21 TAKING CLONAZEPAM 0.25 MG TABLET DISINTEGRATING 1 TABLET ON THE TONGUE AND ALLOW TO DISSOLVE 30 MINUTES BEFORE BEDTIME ORALLY BID, NOTES: 03/09/21 TAKING BUPROPION HCL 75 MG TABLET 1 TABLETS ORALLY TWICE A DAY TAKING AMBIEN CR 12.5 MG TABLET EXTENDED RELEASE 1 TABLET ORALLY BEFORE BEDTIME MDD=1, NOTES: 03/11/21 TAKING BUTORPHANOL TARTRATE 10 MG/ML SOLUTION 1 SPRAY EACH NOSTRIL NEEDED NASALLY EVERY 8 HRS PRN MDD=4 TAKING MULTIVITAMINS - CAPSULE 1 CAP ORALLY ONCE DAILY TAKING VITAMIN B12 1000 MCG TABLET EXTENDED RELEASE 1 TABLET ORALLY ONCE A DAY TAKING VITAMIN D-3 1000 UNIT CAPSULE 1 CAPSULE ORALLY BID NOT-TAKING HYDROCODONE-ACETAMINOPHEN 10-325 MG TABLET 1 TABLET NEEDED ORALLY EVERY 6 HRS MDD 4 75 TO LAST 1 MONTH, NOTES: 01/27 0300 NOT-TAKING DIAZEPAM 5 MG TABLET 1 TABLET NEEDED FOR ANXIETY RELATED TO MRI BREAST. YOU MUST NOT DRIVE AFTER YOU TAKE VALIUM ORALLY ONCE A DAY NOT-TAKING PREDNISONE 10 MG TABLET 3 TABLETS ORALLY ONCE A DAY NOT-TAKING TRIAMCINOLONE ACETONIDE 0.1 % CREAM 1 APPLICATION TO GROIN EXTERNALLY TWICE A DAY NOT-TAKING MAY HAVE - - IRON INFUSIONS INTRAVENOUSLY JUST STARTED NOT-TAKING LORAZEPAM 0.5 MG TABLET 1-2 TAB ORALLY THREE TIMES DAILY NEEDED MDD=6, NOTES: 2 MOS NOT-TAKING PLUS/IRON 27-1 MG TABLET 1 TABLET ORALLY ONCE A DAY, NOTES: NOT TAKING NOT-TAKING ADVAIR DISKUS 250-50 MCG/DOSE AEROSOL POWDER BREATH ACTIVATED 1 PUFF INHALATION TWICE A DAY MEDICATION LIST REVIEWED AND RECONCILED WITH THE PATIENT PAST MEDICAL HISTORY ASTHMA HYPERTENSION GERD ELEVATED CHOLESTEROL PCO S. MIGRANES OBESITY HIGH-203 ZLE=959 BACK INJURY 1986, 2015 HISTORY OF ANMEIA DEPRESSION/ANXIETY ALLERGIES SIMVASTATIN: FATIGUE - SIDE EFFECTS IMITREX: NAUSEA - SIDE EFFECTS MAXALT RN FIRST ASSISTANT: NAUSEA - SIDE EFFECTS LYRICA: CONFUSION - SIDE EFFECTS GABAPENTIN: CONFUSION - SIDE EFFECTS PAXIL: DIDNT LIKE FEELING - SIDE EFFECTS SOCIAL HISTORY GENERAL: TOBACCO USE ARE YOU A:CURRENT SMOKER HOW OFTEN DO YOU SMOKE CIGARETTES?EVERY DAY HOW MANY CIGARETTES A DAY DO YOU SMOKE?- ARE YOU INTERESTED IN QUITTING?NOT READY TO QUIT PATIENT COUNSELED ON THE DANGERS OF TOBACCO USE AND URGED TO QUIT:09/10/2020 COUNSELED THE PATIENT ON SMOKING EFFECTS, EDUCATION [id number]/20/2021 VAPORNO E-CIGARETTENO SMOKING CESSATION INFORMATION GIVEN02/13/2021 DECLINED ANY DEIRE TO QUIT SMOKING AT THIS TIME LATEX QUESTIONNAIRE LATEX ALLERGY : HAVE YOU EVER DEVELOPED ANY TYPE OF REACTION AFTER HANDLING LATEX PRODUCTS SUCH RUBBER GLOVES, CONDOMS, DIAPHRAGMS, BALLOONS, SOCKS, OR UNDERWEAR?NO LATEX ALLERGY : HAVE YOU EVER DEVELOPED ANY TYPE OF REACTION DURING OR AFTER DENTAL APPOINTMENT, VAGINAL/RECTAL EXAMINATION, SURGICAL PROCEDURE, OR ANY OTHER EXPOSURE?NO 6-8 MONTHS AGO, NERVE BLOCKS IN SPINE. ENTIRE BACK BROKE OUT IN RASH AFTER. MAY HAVE BEEN AN ALLERGIC REACTION TO CHLOROPREP OR BENADINE BUT UNSURE. DATE ASKED : 01/28/2021 LATEX RISK : HAVE YOU EVER HAD ANY DIFFICULTY BREATHING OR HIVES AFTER EATING OR HANDLING ANY FRUITS, OR VEGETABLES; SUCH KIWI, BANANAS, STONE FRUITS, OR CHESTNUTSNO LATEX RISK : DO YOU HAVE A PREVIOUS PERSONAL HISTORY OF MORE THAN NINE SURGERIES, SPINA BIFIDA, OR REPEATED CATHERIZATIONS? NO LATEX RISK : ARE YOU FREQUENTLY EXPOSED TO LATEX PRODUCTS IN YOUR OCCUPATION?YES ALCOHOL USE: 2-3 BEERS PER WEEK. ALCOHOL SCREENING DID YOU HAVE A DRINK CONTAINING ALCOHOL IN THE PAST YEAR?YES HOW OFTEN DID YOU HAVE SIX OR MORE DRINKS ON ONE OCCASION IN THE PAST YEAR?NEVER (0 POINTS) HOW MANY DRINKS DID YOU HAVE ON A TYPICAL DAY WHEN YOU WERE DRINKING IN THE PAST YEAR?3 OR 4 (1 POINT) HOW OFTEN DID YOU HAVE A DRINK CONTAINING ALCOHOL IN THE PAST YEAR?TWO TO FOUR TIMES A MONTH (2 POINTS) POINTS3 INTERPRETATIONPOSITIVE RECREATIONAL DRUG USE DRUG USE?NO CAFFEINE CAFFEINE USE?NO OCC HIV / HEP-C SCREENING HIV TEST OFFERED TO PATIENT:YES DATE OFFERED:03/14/2020 TEST ACCEPTED:NO HEP-C TEST OFFERED TO PATIENT:YES DATE OFFERED:03/14/2020 REASON:PATIENT DECLINED TEST ACCEPTED:NO REASON:PATIENT DECLINED BROCHURE PROVIDED TO PATIENTYES WORSHIP NO ZOROASTRIAN BELIEFS THAT WOULD IMPACT HEALTH CARE. LANGUAGE GERMAN. 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 DIET: REGULAR. EXERCISE: REGULAR. MARITAL STATUS: . OTHERS AT HOME: SPOUSE. 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 WATER NAME OF PERSON DRIVING YOU HOME SPOUSE ASIM IS THERE A CHANCE YOU COULD BE ?NO HAVE YOU BEEN SICK IN THE LAST WEEK (COLD, COUGH, FEVER, FLU, ETC)NO DO YOU TAKE ANY BLOOD THINNERS?NO ANY CHANGE IN BOWEL OR BLADDER CONTROL?YES PT STATES THAT SHE IS TAKING IRON SUPPLEMENTS AND HAVING ISSUES WITH CONSTIPATION ARE YOU ALLERGIC TO SHELLFISH OR IV DYE?NO ARE YOU DIABETIC?NO DO YOU HAVE A PACEMAKER OR DEFIBRILLATOR?NO ANY NEW PROBLEMS WITH MEDICINES OR NEW ALLERGIESNO ANY NEW PATTERNS OF PAIN OR NUMBNESS?NO ANY CHANGE IN YOUR MEDICAL CONDITION?NO HAVE YOU FALLEN IN THE LAST 6 MONTHS?NO DO YOU USE ANY TYPE OF TOBACCO (SMOKE, SMOKELESS, CHEW, ETC.)YES ARE YOU ABUSED, NEGLECTED, OR IN AN UNSAFE ENVIRONMENT?NO DO YOU HAVE THOUGHTS OF HURTING YOURSELF OR SOMEONE ELSE?NO DO YOU NEED ANY PRESCRIPTIONS?NO DO YOU HAVE ANY OTHER QUESTIONS OR CONCERNS?NO INTENSITY SCALE REVIEWEDNUMBER SCORE8 - PFS REFERRAL NEEDED?NO WAS THE PROVIDER NOTIFIED OF ANY PERTINENT INFO?YES HAS THE PATIENT BEEN EDUCATED REGARDING HIS/HER PLAN OF CARE?YES HAS THE PATIENT BEEN EDUCATED REGARDING PAIN, THE RISK FOR PAIN, THE IMPORTANCE OF EFFECTIVE PAIN MANAGEMENT, AND THE PAIN ASSESSMENT PROCESS?YES PLEASE DOCUMENT ANY ADDTIONAL DETAILS. CERVICAL FACET BLOCK ADVANCE DIRECTIVE ADVANCE DIRECTIVE DISCUSSED WITH PATIENT:YES DECLINED INFORMATION AND ASSISTANCE WITH HCP PAPERWORK. VITAL SIGNS WT 127.4 LBS, HT 62.5 IN, BMI 22.93 INDEX, BP 129/67 MM HG, HR 78 /MIN, RR 18 /MIN, TEMP 97.4 F, OXYGEN SAT % 97%, SAFE IN ENV? (Y/N) Y, NA INITIALS AW 1329, REVIEWED BY: EM. EXAMINATION GENERAL: A HISTORY AND PHYSICAL EXAM ON THE PATIENT WAS DONE ON 02/13/2021 (DATE OF ORIGINAL ASSESSMENT) IN PREPARATION OF SURGERY/PROCEDURE. I HAVE NOW REASSESSED THIS PATIENT'S HEALTH STATUS AND PERFORMED AN UPDATED EXAM TODAY. ALL CHANGES IN THE PATIENT'S HISTORY, PHYSICAL EXAM, PRE-EXISTING CONDITONS, AND INDICATIONS/CONTRAINDICATIONS TO THE PLANNED PROCEDURE AND ANESTHESIA ARE DOCUMENTED AND EVALUATED BELOW. I ATTEST TO THE ADEQUACY AND APPROPRIATENESS OF MY ASSESSMENT, AND CONFIRM THE NECESSITY FOR THE PLANNED PROCEDURE. THE PATIENT IS ALERT, ORIENTED TIMES THREE AND COOPERATIVE. LUNGS ARE CLEAR TO AUSCULTATION. HEART SHOWS REGULAR RHYTHM, NO MURMURS AND NO GALLOPS. ASSESSMENTS SPONDYLOSIS WITHOUT MYELOPATHY OR RADICULOPATHY, CERVICAL REGION - M47.812 (PRIMARY) TREATMENT SPONDYLOSIS WITHOUT MYELOPATHY OR RADICULOPATHY, CERVICAL REGION [facility] FACET BLOCK (PAIN)[id number] [facility] 03/12/2021 2:46:33 PM > IV ACCESS OBTAINED IN RFA. PATIENT TOLERATED WELL COMPLETION OF PROCEDURAL VISIT WHEN [facility] 03/12[facility]2021 4:50:41 PM > CRITERIA MET AT 1645 PROCEDURES PAIN NURSING RECORD PROCEDURE IN ROOM 1555, PHYSICIAN IN ROOM 1617, START 1624, FINISH 1628, PHYSICIAN OUT OF ROOM 1629, OUT OF ROOM 1637, ECG NORMAL SINUS, PATIENT SHIELDED YES, SAFETY STRAP YES, PREP CHLOROPREP Scott KNOX RN, DRESSING TEGADERM DR. FORREST LOC: 1. ALERT, ORIENTED [facility] 03/12/2021 4:12:14 PM > RESP: 1. REGULAR, NO DYSPNEA [facility] 03/12/2021 4:12:19 PM > COLOR: 1. PINK [facility] 03/12/2021 4:12:23 PM > SKIN: 1. WARM, DRY [facility] 03/12/2021 4:12:28 PM > POSITION: 1. PRONE [facility] 03/12/2021 4:12:34 PM > VITALS: HR 62, 100%, 179/86, R14 BOLIVAR KNOX 03/12/2021 4:13:12 PM > HR 66, 141/86, 100% R14, 1630 TBRADLEYRN EXIT VITALS HR 60, 130/80, 100%, R14, PAIN 11/19, 1645 TBRADLYNNETTERN NOTES Scott KNOX RN COMPLETION OF PROCEDURE APPOINTMENT: POST PAIN 2, DRESSING SITE DRY AND INTACT, IV DISCONTINUED, SITE CLEAR, CATHETER INTACT, GAIT WHEELCHAIR, TEACHING COMPLETED, PATIENT ACKNOWLEDGES UNDERSTANDING YES, PROCEDURE APPOINTMENT COMPLETED AT 1645 PN WORKMANS' COMP OPINION IN YOUR OPINION, WAS THE INCIDENT THAT THE PATIENT DESCRIBED THE COMPETENT MEDICAL CAUSE OF THIS INJURY/ILLNESS? YES ARE THE PATIENT'S COMPLAINTS CONSISTENT WITH HIS/HER HISTORY OF THE INJURY/ILLNESS? YES IS THE PATIENT'S HISTORY OF THE INJURY/ILLNESS CONSISTENT WITH YOUR OBJECTIVE FINDING? YES WHAT IS THE PERCENTAGE OF TEMPORARY IMPAIRMENT? MODERATE TO MARKED = 66.7% IS THE PATIENT WORKING? YES DOCTOR ON SITE: FAIZAN STEVENS MD PRE PROCEDURE DIAGNOSIS CERVICAL SPONDYLOSIS POST PROCEDURE DIAGNOSIS CERVICAL SPONDYLOSIS PROCEDURE RIGHT C7-T1 DIAGNOSTIC CERVICAL FACET BLOCK NUMBER [address] FAIZAN FORREST CAMPAIGN COORDINATOR NONE ANESTHESIA LOCAL PRE PROCEDURE NOTE THE PATIENT HAS HISTORY OF CHRONIC CERVICAL PAIN. I EVALUATED THE PATIENT AND REVIEWED THE CHART. I WENT OVER THE RISKS, ALTERNATIVES, AND BENEFITS ASSOCIATED WITH THIS PROCEDURE. THE PATIENT WOULD LIKE TO PROCEED AND GIVE CONSENT TO PERFORMED THE PROCEDURE. AGREED WITH THE PATIENT, WE ARE DOING THIS PROCEDURE TO DETERMINE IF THE PATIENT IS A CANDIDATE FOR A RADIOFREQUENCY ABLATION OF THE FACETS JOINTS. THE PATIENT DENIES UNEXPLAINABLE WEIGHT LOSS, FEVER, CHILLS, OR NEW CHANGES IN URINARY OR BOWEL CONTROL. THE PATIENT IS COVID-19 NEGATIVE DESCRIPTION OF PROCEDURE THE PATIENT WAS BROUGHT TO THE PROCEDURE ROOM AND PLACED IN THE PRONE POSITION. THE CERVICOTHORACIC AREA WAS CLEANED WITH CHLORAPREP SOLUTION AND DRAPED ASEPTICALLY. THE PROCEDURE WAS DONE UNDER STERILE CONDITIONS. UNDER FLUOROSCOPIC GUIDANCE, THE TARGET POINT WAS SELECTED AT MEDIAL TO THE SUPERIOR LATERAL CORNER OF THE RIGHT TRANSVERSE PROCESS OF T1 AND JUST SUPERIOR TO THE MORE MEDIAL POINT OF THE CONCAVE CURSE AT THE MID POINT OF THE RIGHT LATERAL ARTICULAR PROCESS OF C7. TARGET POINTS WERE SELECTED AFTER LATERAL ROTATION AND TILT OF THE MAGNIFIER OF THE C-ARM. I CONFIRMED AGAIN THE SITE OF TARGET. LIDOCAINE 0.5% WAS USED TO NUMB THE SKIN AND THE SUBCUTANEOUS TISSUE BELOW IT. SPINAL NEEDLES, 22-GAUGE, WERE ADVANCED UNDER FLUOROSCOPIC GUIDANCE AND FOLLOWING PATIENT FEEDBACK UNTIL THE TARGETS WERE TOUCHED. THE POSITION OF THE NEEDLES WAS VERIFIED WITH AP AND LATERAL VIEWS. AFTER PROPER POSITION OF THE NEEDLES WAS ACHIEVED, ISOVUE-M DYE 30%, 0.2 ML, WAS INJECTED SHOWING SPREAD OF THE DYE. THEN A SOLUTION OF 0.25 ML OF BUPIVACAINE 0.25% WAS INJECTED AT EACH SITE. THE MEDICATION WAS VERIFIED WITH THE NURSE. THERE WAS NO EVIDENCE OF BLOOD, PARESTHESIA OR CEREBROSPINAL FLUID DURING THE PROCEDURE. THE PATIENT WAS SENT TO THE RECOVERY ROOM. THE PATIENT WAS MOVING THE EXTREMITIES AND DOING WELL. THERE WERE NO COMPLICATIONS DURING THE PROCEDURE. ESTIMATED BLOOD LOSS WAS LESS THAN 5 ML. FLUOROSCOPY TIME WAS 17 SECONDS POST PROCEDURE NOTE THE PATIENT WILL DOCUMENT PAIN LEVEL AND RESPONSE TO THIS PROCEDURE PER PAIN DIARY. THE PATIENT WILL BE SEEN IN A FOLLOW UP IN THE NEXT FEW WEEKS. INSTRUCTIONS WERE GIVEN, QUESTIONS WERE ANSWERED, AND THE PATIENT EXPRESSED UNDERSTANDING AND AGREES WITH THE PLAN. I, BOBO JUAREZ, DOCUMENTED THE ABOVE INFORMATION ACTING A SCRIBE FOR DR. FORREST. I HAVE REVIEWED THE ABOVE DOCUMENT, WRITTEN BY BOBO JUAREZ, MANAGER BRIDGE, AND I VERIFY THAT IT IS ACCURATE. PROCEDURE CODES 00125 INJ PARAVERT F JNT C/T 1 LEV, MODIFIERS: RT DISPOSITION & COMMUNICATION FOLLOW UP FOLLOW UP WITH FORENSIC ACCOUNTANT (REASON: POST RIGHT DIAGNOSTIC CERVICAL FACET BLOCK C7-T1 #2) ELECTRONICALLY SIGNED BY FAIZAN FORREST MD, MD ON 03/18/2021 AT 08:45 AM EDT DISCLAIMER : THIS IS A VISIT SUMMARY EXTRACTED FROM THE [employer] CHART. IT IS NOT A COPY OF THE [employer] PROGRESS NOTE. CARMITA
== END ==
LOC: M PAIN 13:20
PROVIDERS: ATTEND Anesthesiology
DX: M47.812 Spondylosis without myelopathy or radiculopathy, cervical region (principal); J45.909 Unspecified asthma, uncomplicated; I10 Essential (primary) hypertension; K21.9 Gastro-esophageal reflux disease without esophagitis; E78.00 Pure hypercholesterolemia, unspecified; G43.909 Migraine, unspecified, not intractable, without status migrainosus; F32.9 Major depressive disorder, single episode, unspecified; F41.9 Anxiety disorder, unspecified; F17.210 Nicotine dependence, cigarettes, uncomplicated; Z79.891 Long term (current) use of opiate analgesic; Z79.899 Other long term (current) drug therapy; Z88.8 Allergy status to other drugs, medicaments and biological substances
CPT/HCPCS: 64490; Q9967

== ENCOUNTER → 2021-04-17 | Outpatient (CLI) | payer OTHER, BC ==
[~2021-04-17] MED LIST changes: -BUPIVACAINE HCL 0.25% 30ML VIAL As Ordered ONE; -ISOVUE-M 300 61% 15ML VIAL As Ordered ONE; -LIDOCAINE 1% SDV 30ML VIAL As Ordered ONE
--- NOTE | 2021-04-21 00:24 | ECWPNPC ---
PATIENT NAME: LUIS KHALIL : 1965 GENDER: FEMALE VISIT DATE: 04/17/2021 DISCHARGE DATE: 04/17/21 1135 VISIT LOCKED DATE TIME: PHYSICIAN: HANDY ACEVES PHYSICIAN PAGER NO: ACTIVE RESOURCE: HANDY ACEVES REASON FOR APPOINTMENT 1. POST RIGHT DIAGNOSTIC CERVICAL FACET BLOCK C7-T1 #2 HISTORY OF PRESENT ILLNESS GENERAL: HPI 55-YEAR-OLD FEMALE IN FOR POST RIGHT DIAGNOSTIC CERVICAL FACET BLOCK FOLLOW-UP. PATIENT FEELS HER PROCEDURE WAS SUCCESSFUL RATING HER PAIN PREPROCEDURE AT A 6 OUT OF 10 AND POST PROCEDURE AT A 2 OUT OF 10 X 4 TO 5 HOURS. SHE RATES HER PAIN CURRENTLY AT A 6 OUT OF 10 AND DESCRIBES IT ACHING, BURNING, AND CONTINUOUS.. -. FALL RISK SCREENING: SCREENING : NO FALLS REPORTED IN THE LAST YEAR. PAIN SCREENING: PATIENT HAS A COMPLAINT OF ACUTE OR CHRONIC PAIN :YES LOCATION OF PAIN:NECK RIGHT, LEFT NECK PAIN RELATED TO RECENT SURGERIES INTENSITY OF PAIN (SCALE OF 1 TO 10):6 WHAT DOES YOUR PAIN FEEL LIKE:ACHING, BURNING, CONTINOUS, SHARP, STABBING DURATION:CONTINOUS PAIN IS INCREASED BY:ACTIVITIES PAIN IS DECREASED BY:USE OF PAIN MEDICATIONS NURSING NOTE: -. PAIN CENTER INTAKE QUESTIONS: DO YOU HAVE A HISTORY OF MRSA? :NO DO YOU TAKE A BLOOD THINNERS? :NO DO YOU HAVE ANY BLEEDING DISORDERS? :NO ANY NEW NUMBNESS OR WEAKNESS IN YOUR LEGS OR ARMS? :NO ANY PACEMAKER,DEFIBRILLATOR, OR DORSAL COLUMN STIMULATOR? :NO DO YOU HAVE ANY RASHES OR OPEN SORES? :NO ARE YOU ALLERGIC TO IV DYE? :NO ARE YOU DIABETIC? :NO ANY NEW PROBLEMS WITH YOUR MEDICATIONS? :NO HAVE YOU RECEIVED A VACCINE IN THE PAST 30 DAYS? :NO DO YOU PLAN TO RECEIVE A VACCINE IN THE NEXT 21 DAYS? :NO DO YOU NEED ANY PRESCRIPTION? :YES OXYCODONE DO YOU TAKE ANY IMMUNOSUPPRESSIVE MEDICATIONS? :NO DO YOU HAVE ANY KIDNEY OR LIVER DISEASE? :NO IS THERE A CHANCE YOU COULD BE ? :NO ARE YOU BREAST FEEDING? :NO CURRENT MEDICATIONS TAKING BIOTIN 10 MG CAPSULE 1 CAPSULE ORALLY DAILY TAKING ALBUTEROL SULFATE HFA 108 (90 BASE) MCG/ACT AEROSOL SOLUTION 2 PUFFS INHALATION DAILY PRN- CHET TAKING OMEPRAZOLE 20 MG CAPSULE DELAYED RELEASE 1 CAP ORALLY BID TAKING MULTIVITAMINS - CAPSULE 1 CAP ORALLY ONCE DAILY TAKING VITAMIN B12 1000 MCG TABLET EXTENDED RELEASE 1 TABLET ORALLY ONCE A DAY TAKING VITAMIN D-3 1000 UNIT CAPSULE 1 CAPSULE ORALLY BID TAKING OXYCODONE HCL 10 MG TABLET 1 TABLET NEEDED ORALLY EVERY 8 HRS PRN PAIN, NOTES: 03/10/21 TAKING CLONAZEPAM 0.25 MG TABLET DISINTEGRATING 1 TABLET ON THE TONGUE AND ALLOW TO DISSOLVE 30 MINUTES BEFORE BEDTIME ORALLY BID TAKING BUPROPION HCL 75 MG TABLET 1 TABLETS ORALLY TWICE A DAY TAKING AMBIEN CR 12.5 MG TABLET EXTENDED RELEASE 1 TABLET ORALLY BEFORE BEDTIME MDD=1, NOTES: 03/11/21 TAKING BUTORPHANOL TARTRATE 10 MG/ML SOLUTION 1 SPRAY EACH NOSTRIL NEEDED NASALLY EVERY 8 HRS PRN MDD=4 NOT-TAKING HYDROCODONE-ACETAMINOPHEN 10-325 MG TABLET 1 TABLET NEEDED ORALLY EVERY 6 HRS MDD 4 75 TO LAST 1 MONTH, NOTES: 01/27 0300 NOT-TAKING DIAZEPAM 5 MG TABLET 1 TABLET NEEDED FOR ANXIETY RELATED TO MRI BREAST. YOU MUST NOT DRIVE AFTER YOU TAKE VALIUM ORALLY ONCE A DAY NOT-TAKING PREDNISONE 10 MG TABLET 3 TABLETS ORALLY ONCE A DAY NOT-TAKING TRIAMCINOLONE ACETONIDE 0.1 % CREAM 1 APPLICATION TO GROIN EXTERNALLY TWICE A DAY NOT-TAKING MAY HAVE - - IRON INFUSIONS INTRAVENOUSLY JUST STARTED NOT-TAKING LORAZEPAM 0.5 MG TABLET 1-2 TAB ORALLY THREE TIMES DAILY NEEDED MDD=6, NOTES: 2 MOS NOT-TAKING PLUS/IRON 27-1 MG TABLET 1 TABLET ORALLY ONCE A DAY, NOTES: NOT TAKING NOT-TAKING ADVAIR DISKUS 250-50 MCG/DOSE AEROSOL POWDER BREATH ACTIVATED 1 PUFF INHALATION TWICE A DAY MEDICATION LIST REVIEWED AND RECONCILED WITH THE PATIENT PAST MEDICAL HISTORY ASTHMA HYPERTENSION GERD ELEVATED CHOLESTEROL PCO S. MIGRANES OBESITY HIGH-203 AXV=679 BACK INJURY 1986, 2016 HISTORY OF ANMEIA DEPRESSION/ANXIETY ALLERGIES SIMVASTATIN: FATIGUE - SIDE EFFECTS IMITREX: NAUSEA - SIDE EFFECTS MAXALT RAILWAY YARD ASSISTANT: NAUSEA - SIDE EFFECTS LYRICA: CONFUSION - SIDE EFFECTS GABAPENTIN: CONFUSION - SIDE EFFECTS PAXIL: DIDNT LIKE FEELING - SIDE EFFECTS SURGICAL HISTORY HYSTERECTOMY 2011 TUBAL LIGATION 1986 EXPLORITORY LAPROSCOPIC 1977 GASTRICBYPASS 05/03/2013 LYMPHECTOMY ON LEFT 07-02-2013 TRIGGER POINT INJECTIONS SHOULDER 2015 FACET JOIN INJECTIONS LUMBAR 2016 BLADDER SURGERY (THOMAS) 2019 LEFT BREAST BIOPSY RADIOFREQUENCY INJECTIONS IN BACK 2021 TUMOR REMOVED FROM LYMPH NODE LEFT BREAST 04/03/2021 HEMATOMA REMOVAL LEFT BREAST 04/04/2021 SOCIAL HISTORY GENERAL: TOBACCO USE ARE YOU A:CURRENT SMOKER ARE YOU INTERESTED IN QUITTING?NOT READY TO QUIT COUNSELED THE PATIENT ON SMOKING EFFECTS, EDUCATION SPEPURKG37/20/2021 HOW MANY CIGARETTES A DAY DO YOU SMOKE?11-20 HOW OFTEN DO YOU SMOKE CIGARETTES?EVERY DAY PATIENT COUNSELED ON THE DANGERS OF TOBACCO USE AND URGED TO QUIT:04/17/2021 SMOKING CESSATION INFORMATION GIVEN02/13/2021 DECLINED ANY DEIRE TO QUIT SMOKING AT THIS TIME VAPORNO E-CIGARETTENO LATEX QUESTIONNAIRE LATEX ALLERGY : HAVE YOU EVER DEVELOPED ANY TYPE OF REACTION AFTER HANDLING LATEX PRODUCTS SUCH RUBBER GLOVES, CONDOMS, DIAPHRAGMS, BALLOONS, SOCKS, OR UNDERWEAR?NO LATEX ALLERGY : HAVE YOU EVER DEVELOPED ANY TYPE OF REACTION DURING OR AFTER DENTAL APPOINTMENT, VAGINAL/RECTAL EXAMINATION, SURGICAL PROCEDURE, OR ANY OTHER EXPOSURE?NO 6-8 MONTHS AGO, NERVE BLOCKS IN SPINE. ENTIRE BACK BROKE OUT IN RASH AFTER. MAY HAVE BEEN AN ALLERGIC REACTION TO CHLOROPREP OR BENADINE BUT UNSURE. LATEX RISK : HAVE YOU EVER HAD ANY DIFFICULTY BREATHING OR HIVES AFTER EATING OR HANDLING ANY FRUITS, OR VEGETABLES; SUCH KIWI, BANANAS, STONE FRUITS, OR CHESTNUTSNO LATEX RISK : DO YOU HAVE A PREVIOUS PERSONAL HISTORY OF MORE THAN NINE SURGERIES, SPINA BIFIDA, OR REPEATED CATHERIZATIONS? NO LATEX RISK : ARE YOU FREQUENTLY EXPOSED TO LATEX PRODUCTS IN YOUR OCCUPATION?YES DATE ASKED : 04/17/2021 ALCOHOL USE: 2-3 BEERS PER WEEK. ALCOHOL SCREENING DID YOU HAVE A DRINK CONTAINING ALCOHOL IN THE PAST YEAR?YES HOW OFTEN DID YOU HAVE SIX OR MORE DRINKS ON ONE OCCASION IN THE PAST YEAR?NEVER (0 POINTS) HOW MANY DRINKS DID YOU HAVE ON A TYPICAL DAY WHEN YOU WERE DRINKING IN THE PAST YEAR?3 OR 4 (1 POINT) HOW OFTEN DID YOU HAVE A DRINK CONTAINING ALCOHOL IN THE PAST YEAR?TWO TO FOUR TIMES A MONTH (2 POINTS) POINTS3 INTERPRETATIONPOSITIVE RECREATIONAL DRUG USE DRUG USE?NO CAFFEINE CAFFEINE USE?NO OCC HIV / HEP-C SCREENING HIV TEST OFFERED TO PATIENT:YES DATE OFFERED:03/14/2020 TEST ACCEPTED:NO HEP-C TEST OFFERED TO PATIENT:YES DATE OFFERED:03/14/2020 REASON:PATIENT DECLINED TEST ACCEPTED:NO REASON:PATIENT DECLINED BROCHURE PROVIDED TO PATIENTYES MORMON NO LATTER-DAY BELIEFS THAT WOULD IMPACT HEALTH CARE. LANGUAGE SURINAMESE. 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 DIET: REGULAR. EXERCISE: REGULAR. MARITAL STATUS: . OTHERS AT HOME: SPOUSE. 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 WATER NAME OF PERSON DRIVING YOU HOME SPOUSE ASIM IS THERE A CHANCE YOU COULD BE ?NO HAVE YOU BEEN SICK IN THE LAST WEEK (COLD, COUGH, FEVER, FLU, ETC)NO DO YOU TAKE ANY BLOOD THINNERS?NO ANY CHANGE IN BOWEL OR BLADDER CONTROL?YES PT STATES THAT SHE IS TAKING IRON SUPPLEMENTS AND HAVING ISSUES WITH CONSTIPATION ARE YOU ALLERGIC TO SHELLFISH OR IV DYE?NO ARE YOU DIABETIC?NO DO YOU HAVE A PACEMAKER OR DEFIBRILLATOR?NO ANY NEW PROBLEMS WITH MEDICINES OR NEW ALLERGIESNO ANY NEW PATTERNS OF PAIN OR NUMBNESS?NO ANY CHANGE IN YOUR MEDICAL CONDITION?NO HAVE YOU FALLEN IN THE LAST 6 MONTHS?NO DO YOU USE ANY TYPE OF TOBACCO (SMOKE, SMOKELESS, CHEW, ETC.)YES ARE YOU ABUSED, NEGLECTED, OR IN AN UNSAFE ENVIRONMENT?NO DO YOU HAVE THOUGHTS OF HURTING YOURSELF OR SOMEONE ELSE?NO DO YOU NEED ANY PRESCRIPTIONS?NO DO YOU HAVE ANY OTHER QUESTIONS OR CONCERNS?NO INTENSITY SCALE REVIEWEDNUMBER SCORE8 - PFS REFERRAL NEEDED?NO WAS THE PROVIDER NOTIFIED OF ANY PERTINENT INFO?YES HAS THE PATIENT BEEN EDUCATED REGARDING HIS/HER PLAN OF CARE?YES HAS THE PATIENT BEEN EDUCATED REGARDING PAIN, THE RISK FOR PAIN, THE IMPORTANCE OF EFFECTIVE PAIN MANAGEMENT, AND THE PAIN ASSESSMENT PROCESS?YES PLEASE DOCUMENT ANY ADDTIONAL DETAILS. CERVICAL FACET BLOCK ADVANCE DIRECTIVE ADVANCE DIRECTIVE DISCUSSED WITH PATIENT:YES DECLINED INFORMATION AND ASSISTANCE WITH HCP PAPERWORK. HOSPITALIZATION/MAJOR DIAGNOSTIC PROCEDURE HYSTERECTOMY 2011 CHILDBIRTH 1982, 1984 GASTRIC BYPASS 2013 SURGERY [id number] 05/2018 REVIEW OF SYSTEMS CONSTITUTIONAL: ANY RECENT FEVER NO . CHILLS NO . WEIGHT CHANGE OF UNKNOWN REASONS NO . GASTROENTEROLOGY: NEW UNEXPLAINABLE CHANGES IN BOWEL CONTROL NO . CONSTIPATION NO . GENITOURINARY: ANY NEW CHANGE IN BLADDER CONTROL? NO . NEUROLOGY: NEW ONSET DIZZINESS OR NEUROLOGICAL CHANGES NOT MENTIONED NO . NEW NUMBNESS OR PAIN PATTERNS NOT MENTIONED AND PERTINENT TO TODAY'S VISIT NO . CARDIOLOGY: NEW CHEST PRESSURE NO . PATIENT DENIES NO . RESPIRATORY: UNEXPLAINABLE COUGH NO . NEW SHORTNESS OF BREATH NO . VITAL SIGNS WT 129 LBS, HT 62.5 IN, BMI 23.22 INDEX, BP 120/59 MM HG, HR 77 /MIN, RR 18 /MIN, TEMP 98.1 F, OXYGEN SAT % 96%, SAFE IN ENV? (Y/N) YES, NA INITIALS SC 10:51, REVIEWED BY: Yari MAYORGA RN. EXAMINATION GENERAL EXAMINATION: GENERALNO ACUTE DISTRESS, WELL NOURISHED AND HYDRATED. PSYCHAPPROPRIATE MOOD AND AFFECT . LUNGS:CLEAR TO AUSCULTATION BILATERALLY, NO WHEEZES, RHONCHI, RALES. HEART:NO MURMURS, REGULAR RATE AND RHYTHM. ASSESSMENTS OTHER CHRONIC PAIN - G89.29 (PRIMARY) SPONDYLOSIS OF CERVICAL REGION WITHOUT MYELOPATHY OR RADICULOPATHY - M47.812, RISK: (NULL) TREATMENT OTHER CHRONIC PAIN PAIN PROCEDURE LOGDATE OF PROCEDURE1PROCEDURE:RIGHT DIAGNOSTIC CERVICAL FACET BLOCK #2 C7-P4USOAPU OF PRE SEDATE0/0RESULT:PREPROCEDURE 6 OUT OF 10 POST PROCEDURE 2 OUT OF 10 X4 TO 5 HOURS. SALINE LOCK (ORDERED FOR 04/27/2021) MED: PAIN NORCO TABLET 5MG/325MG ORALLY HYDROCODONE/ACETAMINOPHEN (ORDERED FOR 04/27/2021) MEDICATION: PAIN VALIUM TAB 5MG ORALLY (DIAZEPAM) (ORDERED FOR 04/27/2021) SPONDYLOSIS OF CERVICAL REGION WITHOUT MYELOPATHY OR RADICULOPATHY NOTES: 55-YEAR-OLD FEMALE IN FOR POST CERVICAL DIAGNOSTIC FACET BLOCK #2 FOLLOW-UP. GIVEN PRESENTING SYMPTOMS AND RESULTS OF PHYSICAL EXAMINATION RECOMMEND RIGHT CERVICAL COOL RADIOFREQUENCY C7 AND T1 WITH POSTPROCEDURAL FOLLOW-UP. PATIENT HAS EXPRESSED UNDERSTANDING OF AND WAS IN AGREEMENT WITH TREATMENT PLAN. GIVEN TIME ASKED QUESTIONS AND EXPRESS CONCERNS. ISTOP REGISTRY REVIEWED AND DEMONSTRATES COMPLLIANCE. (REF #[id number] ) BRINGS IN MEDICATIONS WHICH IS APPROPRIATE FOR WHAT WAS DISPENSED. RECENT URINE TOXICOLOGY REVIEWED. NO UNAUTHORIZED MEDICATIONS. NO ILLICIT SUBSTANCES AND PRESCRIBED MEDICATIONS WERE PRESENT. OTHERS NOTES: PATIENT DECLINED PROCEDURE INFORMATION. PRE PROCEDURE INSTRUCTIONS PRINTED AND REVIEWED WITH PATIENT. PATIENT VERBALIZES UNDERSTANDING 04/17/2021 Adilene MAYORGA RN . PROCEDURES PN WORKMANS' COMP OPINION IN YOUR OPINION, WAS THE INCIDENT THAT THE PATIENT DESCRIBED THE COMPETENT MEDICAL CAUSE OF THIS INJURY/ILLNESS? YES ARE THE PATIENT'S COMPLAINTS CONSISTENT WITH HIS/HER HISTORY OF THE INJURY/ILLNESS? YES IS THE PATIENT'S HISTORY OF THE INJURY/ILLNESS CONSISTENT WITH YOUR OBJECTIVE FINDING? YES WHAT IS THE PERCENTAGE OF TEMPORARY IMPAIRMENT? MODERATE TO MARKED = 66.7% IS THE PATIENT WORKING? YES DOCTOR ON SITE: FAIZAN STEVENS MD PROCEDURE CODES FA211 ESTABILISHED PATIENT [facility] CHARGE DISPOSITION & COMMUNICATION FOLLOW UP POST PROCEDURE (REASON: RIGHT CERVICAL COOL RADIOFREQUENCY C7-T1) ELECTRONICALLY SIGNED BY JAYLENE KELLER ON 04/20/2021 AT 01:08 PM EDT DISCLAIMER : THIS IS A VISIT SUMMARY EXTRACTED FROM THE [employer] CHART. IT IS NOT A COPY OF THE [employer] PROGRESS NOTE. CARMITA
== END ==
LOC: M PAIN 11:00
PROVIDERS: ATTEND Family Medicine
DX: G89.29 Other chronic pain (principal); M47.812 Spondylosis without myelopathy or radiculopathy, cervical region; J45.909 Unspecified asthma, uncomplicated; K21.9 Gastro-esophageal reflux disease without esophagitis; G43.909 Migraine, unspecified, not intractable, without status migrainosus; F17.210 Nicotine dependence, cigarettes, uncomplicated; Z86.59 Personal history of other mental and behavioral disorders; Z98.84 Bariatric surgery status; Z88.8 Allergy status to other drugs, medicaments and biological substances; Z79.899 Other long term (current) drug therapy

== ENCOUNTER → 2021-05-06 | Outpatient (CLI) | payer BC ==
[2021-05-06 08:23] LABS: BASO # 0.1 10^3/uL (0.0-0.2); BASO % 0.9 % (0.0-1.0); EOS # 0.1 10^3/uL (0.0-0.5); EOS % 0.9 % (0.0-3.0); HEMATOCRIT 42.1 % (36.0-47.0); HEMOGLOBIN 14.1 g/dl (12.0-15.5); LYMPH % 31.2 % (24.0-44.0); MEAN CORPUSCULAR HEMOGLOBIN 31.6 pg (27.0-33.0); MEAN CORPUSCULAR HGB CONC 33.5 g/dl (32.0-36.5); MEAN CORPUSCULAR VOLUME 94.4 fl (80.0-96.0); MONO # 0.5 10^3/uL (0.0-0.8); MONO % 7.5 % (2.0-8.0); NEUTROPHILS # 3.8 10^3/uL (1.5-8.5); NEUTROPHILS % 59.3 % (36.0-66.0); PLATELET COUNT, AUTOMATED 235 10^3/uL (150-450); RED BLOOD COUNT 4.46 10^6/uL (4.00-5.40); WHITE BLOOD COUNT 6.4 10^3/uL (4.0-10.0)
[2021-05-06 08:56] LABS: ALBUMIN 4.1 GM/DL (3.2-5.2); ALT/SGPT 43 U/L (12-78); BILIRUBIN,TOTAL 0.5 MG/DL (0.2-1.0); BLOOD UREA NITROGEN 19 MG/DL (7-18); CARBON DIOXIDE LEVEL 27 MEQ/L (21-32); CHLORIDE LEVEL 107 MEQ/L (98-107); CREATININE FOR GFR 0.66 MG/DL (0.55-1.30); FERRITIN 28 NG/ML (8-252); GLOMERULAR FILTRATION RATE > 60.0 (>51); GLUCOSE, FASTING 102 MG/DL (70-100); IRON (FE) 105 UG/DL (50-170); MAGNESIUM LEVEL 1.9 MG/DL (1.8-2.4); PHOSPHORUS LEVEL 3.7 MG/DL (2.5-4.9); POTASSIUM SERUM 3.6 MEQ/L (3.5-5.1); SODIUM LEVEL 141 MEQ/L (136-145); TOTAL PROTEIN 7.2 GM/DL (6.4-8.2)
[2021-05-06 08:58] LABS: MONO SCRN NEGATIVE (NEGATIVE)
== END ==
LOC: M LAB 08:00
PROVIDERS: ATTEND Physician Assistant Medical
DX: R53.83 Other fatigue (principal)

== ENCOUNTER → 2021-05-21 | Outpatient (CLI) | payer BC | LOC: M LABSMTC 13:13 | PROVIDERS: ATTEND Anesthesiology | DX: Z01.818 Encounter for other preprocedural examination (principal) ==

== ENCOUNTER → 2021-05-26 | Outpatient (CLI) | payer OTHER, BC ==
[~2021-05-26] MED LIST changes: +BUPIVACAINE HCL 0.25% 30ML VIAL As Ordered ONE; +LIDOCAINE 1% SDV 30ML VIAL As Ordered ONE; +NORCO, ANEXSIA 5/325MG TABLET (HYDROcodone/ACETAMINOPHEN) As Ordered ONE; +dexameTHASONE 10MG/1ML VIAL PRES.FREE (J1100 PER 1MG) As Ordered ONE; +diazePAM 5MG TABLET As Ordered ONE
--- NOTE | 2021-05-26 18:23 | REP ---
INDICATION: INSPIRATION/EXPIRATION, R/O PNEUMOTHORAX. COMPARISON: 11/05/2019 TECHNIQUE: Inspiratory and expiratory PA views FINDINGS: The lung platt are clear and unchanged. There is no pneumothorax. Surgical clips are seen in the left axillary region. The cardiomediastinal silhouette is within normal limits. The heart is not enlarged. The pleural angles are sharp. IMPRESSION: There is no acute cardiopulmonary disease. <Electronically signed by Ty Burr > 05/26/21 0256
--- NOTE | 2021-05-27 10:26 | REP ---
INDICATION: RIGHT CERVICAL RADIOFREQUENCY. COMPARISON: None. TECHNIQUE: Three C-arm views cervical spine. FINDINGS: [place] are seen along the right cervical spine. IMPRESSION: 36 seconds fluoroscopy time utilized. <Electronically signed by Bijan Coburn > 05/27/21 1029
== END ==
LOC: M PAIN 14:20
PROVIDERS: ATTEND Anesthesiology
DX: M47.812 Spondylosis without myelopathy or radiculopathy, cervical region (principal); J45.909 Unspecified asthma, uncomplicated; K21.9 Gastro-esophageal reflux disease without esophagitis; G43.909 Migraine, unspecified, not intractable, without status migrainosus; F17.210 Nicotine dependence, cigarettes, uncomplicated; Z86.59 Personal history of other mental and behavioral disorders; Z88.8 Allergy status to other drugs, medicaments and biological substances; Z79.899 Other long term (current) drug therapy
CPT/HCPCS: 64633; 71046; J1100

== ENCOUNTER → 2021-06-12 | Outpatient (CLI) | payer BC ==
[~2021-06-12] MED LIST changes: -BUPIVACAINE HCL 0.25% 30ML VIAL As Ordered ONE; -LIDOCAINE 1% SDV 30ML VIAL As Ordered ONE; -NORCO, ANEXSIA 5/325MG TABLET (HYDROcodone/ACETAMINOPHEN) As Ordered ONE; -dexameTHASONE 10MG/1ML VIAL PRES.FREE (J1100 PER 1MG) As Ordered ONE; -diazePAM 5MG TABLET As Ordered ONE
== END ==
LOC: M OUTALCOH 07:52
PROVIDERS: ATTEND Psychiatry & Neurology Psychiatry
DX: F10.10 Alcohol abuse, uncomplicated (principal)

== ENCOUNTER 2021-07-03 14:00 | Outpatient (RCR) | payer BC | END 2021-07-09 | LOC: M OUTALCOH 14:00 | PROVIDERS: ATTEND Psychiatry & Neurology Psychiatry | DX: F10.10 Alcohol abuse, uncomplicated (principal); Z72.0 Tobacco use ==

== ENCOUNTER → 2021-07-20 | Outpatient (REF) ==
[2021-07-20 12:21] LABS: INFLUENZA A AMPLIFICATION NEGATIVE (NEGATIVE); INFLUENZA B AMPLIFICATION NEGATIVE (NEGATIVE)
== END ==
LOC: M EMP 07:59
PROVIDERS: ATTEND Family Medicine
DX: Z11.52 Encounter for screening for COVID-19 (principal)

== ENCOUNTER 2021-08-03 13:29 | Outpatient (RCR) | payer BC | END 2021-08-09 | LOC: M OUTALCOH 13:29 | PROVIDERS: ATTEND Psychiatry & Neurology Psychiatry | DX: F10.10 Alcohol abuse, uncomplicated (principal); Z72.0 Tobacco use ==

== ENCOUNTER 2021-08-31 14:00 | Outpatient (RCR) | payer BC | END 2021-09-08 | LOC: M OUTALCOH 14:00 | PROVIDERS: ATTEND Psychiatry & Neurology Psychiatry | DX: F10.10 Alcohol abuse, uncomplicated (principal); Z72.0 Tobacco use ==

== ENCOUNTER → 2021-09-05 | Outpatient (REF) | LOC: M EMP 15:09 | PROVIDERS: ATTEND Family Medicine | DX: Z20.822 Contact with and (suspected) exposure to COVID-19 (principal) ==

== ENCOUNTER → 2021-09-23 | Outpatient (REF) | payer BC | LOC: M LAB 15:47 | PROVIDERS: ATTEND Psychiatry & Neurology Psychiatry | DX: F10.20 Alcohol dependence, uncomplicated (principal) ==

== ENCOUNTER → 2021-09-30 | Outpatient (CLI) | payer OTHER, BC | LOC: M PAIN 13:30 | PROVIDERS: ATTEND Anesthesiology | DX: M47.812 Spondylosis without myelopathy or radiculopathy, cervical region (principal); G89.29 Other chronic pain; J45.909 Unspecified asthma, uncomplicated; K21.9 Gastro-esophageal reflux disease without esophagitis; G43.909 Migraine, unspecified, not intractable, without status migrainosus; Z86.59 Personal history of other mental and behavioral disorders; Z98.84 Bariatric surgery status; Z79.899 Other long term (current) drug therapy ==

== ENCOUNTER 2021-10-05 14:00 | Outpatient (RCR) | payer BC | END 2021-10-09 | LOC: M OUTALCOH 14:00 | PROVIDERS: ATTEND Psychiatry & Neurology Psychiatry | DX: F10.10 Alcohol abuse, uncomplicated (principal); Z72.0 Tobacco use ==

== ENCOUNTER → 2021-10-08 | Outpatient (CLI) | payer BC ==
--- NOTE | 2021-10-08 11:08 | REP ---
INDICATION: CHEST CONGESTION CALL [phone] OR VOCERA PLEASE. COMPARISON: 05/26/2021 TECHNIQUE: PA and lateral FINDINGS: The superior mediastinal structures are midline. The cardiac silhouette is unremarkable in size, shape, and position. The diaphragmatic surfaces of the lungs are regular, and the costophrenic angles are clear. The pulmonary platt are clear. The imaged osseous structures are intact. IMPRESSION: There is no acute cardiopulmonary disease. <Electronically signed by Ty Burr > 10/08/21 3068
== END ==
LOC: M RAD 10:21
PROVIDERS: ATTEND Nurse Practitioner Family
DX: R09.89 Other specified symptoms and signs involving the circulatory and respiratory systems (principal)

== ENCOUNTER → 2021-11-09 | Outpatient (RCR) | payer BC | LOC: M OUTALCOH 10-12 15:04 | PROVIDERS: ATTEND Psychiatry & Neurology Psychiatry | DX: F10.10 Alcohol abuse, uncomplicated (principal); Z72.0 Tobacco use ==

== ENCOUNTER 2021-11-30 16:00 | Outpatient (RCR) | payer BC | END 2021-12-07 | LOC: M OUTALCOH 16:00 | PROVIDERS: ATTEND Psychiatry & Neurology Psychiatry | DX: F10.10 Alcohol abuse, uncomplicated (principal); Z72.0 Tobacco use ==

== ENCOUNTER → 2021-12-17 | Outpatient (CLI) | payer BC | LOC: M LABSMTC 09:39 | PROVIDERS: ATTEND Anesthesiology | DX: Z01.818 Encounter for other preprocedural examination (principal); Z11.52 Encounter for screening for COVID-19 ==

== ENCOUNTER → 2021-12-21 | Outpatient (CLI) | payer BC ==
[~2021-12-21] MED LIST changes: +BUPIVACAINE HCL 0.25% 30ML VIAL As Ordered ONE; +ISOVUE-M 300 61% 15ML VIAL As Ordered ONE; +LIDOCAINE 1% SDV 30ML VIAL As Ordered ONE
== END ==
LOC: M PAIN 09:30
PROVIDERS: ATTEND Anesthesiology
DX: M47.813 Spondylosis without myelopathy or radiculopathy, cervicothoracic region (principal); J45.909 Unspecified asthma, uncomplicated; K21.9 Gastro-esophageal reflux disease without esophagitis; G43.909 Migraine, unspecified, not intractable, without status migrainosus; Z88.8 Allergy status to other drugs, medicaments and biological substances; Z79.899 Other long term (current) drug therapy
CPT/HCPCS: 64490; Q9967

== ENCOUNTER 2021-12-25 09:36 | Emergency (ER) | payer BC ==
[~2021-12-25] VITALS: Ht 157.5 cm; Wt 62.0 kg
[~2021-12-25 09:36] MED LIST changes: -BUPIVACAINE HCL 0.25% 30ML VIAL As Ordered ONE; -ISOVUE-M 300 61% 15ML VIAL As Ordered ONE; -LIDOCAINE 1% SDV 30ML VIAL As Ordered ONE
[2021-12-25 09:37] VITALS: BP 144/95
[2021-12-25] MEDS ORDERED: ONDANSETRON 4MG/2ML VIAL IV ONE (10:35)
[2021-12-25] MEDS ORDERED: MORPHINE 4 MG/ML 1ML VIAL/SYRINGE (J2270) IV ONE (10:35)
[2021-12-25 10:58] LABS: HEMATOCRIT 41.4 % (36.0-47.0); HEMOGLOBIN 13.9 g/dl (12.0-15.5); MEAN CORPUSCULAR HEMOGLOBIN 29.4 pg (27.0-33.0); MEAN CORPUSCULAR HGB CONC 33.6 g/dl (32.0-36.5); MEAN CORPUSCULAR VOLUME 87.5 fl (80.0-96.0); PLATELET COUNT, AUTOMATED 246 10^3/uL (150-450); RED BLOOD COUNT 4.73 10^6/uL (4.00-5.40); WHITE BLOOD COUNT 4.7 10^3/uL (4.0-10.0)
[2021-12-25 11:08] LABS: INR 0.93; PROTHROMBIN TIME 12.9 SECONDS (12.7-14.5)
[2021-12-25 11:09] LABS: PARTIAL THROMBOPLASTIN TIME 25.8 SECONDS (25.9-37.0)
[2021-12-25 11:23] LABS: BLOOD UREA NITROGEN 13 MG/DL (7-18); CARBON DIOXIDE LEVEL 28 MEQ/L (21-32); CHLORIDE LEVEL 106 MEQ/L (98-107); CREATININE FOR GFR 0.53 MG/DL (0.55-1.30); GLOMERULAR FILTRATION RATE > 60.0 (>51); GLUCOSE, FASTING 69 MG/DL (70-100); POTASSIUM SERUM 3.4 MEQ/L (3.5-5.1); SODIUM LEVEL 139 MEQ/L (136-145)
[2021-12-25 11:25] LABS: ERYTHROCYTE SEDIMENTATION RATE 6 mm/hr (0-30)
[2021-12-25 11:37] LABS: ATYPICAL LYMPH 4 % (0-5); BASOPHILS 1 % (0-1); EOSINOPHILS 2 % (0-3); LYMPHOCYTES 50 % (16-44); MONOCYTES 10 % (0-5); NEUTROPHILS 33 % (28-66); PLATELET ESTIMATE NORMAL (NORMAL)
[2021-12-25] MEDS ORDERED: PERCOCET 5MG/325MG TAB PO ONE (11:55)
[2021-12-25] MEDS ORDERED: oxyCODONE 10 MG CR TAB PO ONE (12:20)
== END 2021-12-25 12:34 | disposition left against medical advice (07) ==
LOC: M ED 09:36
DX: R51.9 Headache, unspecified (principal); R53.1 Weakness; R20.2 Paresthesia of skin; F32.A Depression, unspecified; Z79.899 Other long term (current) drug therapy; Z88.8 Allergy status to other drugs, medicaments and biological substances; Z86.69 Personal history of other diseases of the nervous system and sense organs
CPT/HCPCS: 70450; 80048; 85025; 85610; 85652; 85730; 86140; 96374; 96375; 99282; J2270; J2405

== ENCOUNTER 2021-12-27 09:09 | Emergency (ER) | payer BC ==
[~2021-12-27] VITALS: Ht 157.5 cm; Wt 61.4 kg
[2021-12-27] MEDS ORDERED: OXYC10TA12 (09:19)
[2021-12-27 11:52] LABS: HEMATOCRIT 40.1 % (36.0-47.0); HEMOGLOBIN 13.2 g/dl (12.0-15.5); MEAN CORPUSCULAR HEMOGLOBIN 28.9 pg (27.0-33.0); MEAN CORPUSCULAR HGB CONC 32.9 g/dl (32.0-36.5); MEAN CORPUSCULAR VOLUME 87.9 fl (80.0-96.0); PLATELET COUNT, AUTOMATED 269 10^3/uL (150-450); RED BLOOD COUNT 4.56 10^6/uL (4.00-5.40); WHITE BLOOD COUNT 6.1 10^3/uL (4.0-10.0)
[2021-12-27 12:32] LABS: INR 0.98; PARTIAL THROMBOPLASTIN TIME 27.9 SECONDS (25.9-37.0); PROTHROMBIN TIME 13.4 SECONDS (12.7-14.5)
[2021-12-27 12:54] LABS: CK-MB VALUE MASS 2.9 NG/ML (<3.6); MB/CK RELATIVE INDEX 1.39 (< OR =4)
[2021-12-27] MEDS ORDERED: LORazepam 2 MG/ML VIAL IV STA ×2 (13:48)
[2021-12-27 15:51] VITALS: BP 155/67
== END 2021-12-27 16:07 | disposition home or self-care (01) ==
LOC: M ED 09:09
DX: G43.909 Migraine, unspecified, not intractable, without status migrainosus (principal); M54.12 Radiculopathy, cervical region; I10 Essential (primary) hypertension; F33.9 Major depressive disorder, recurrent, unspecified; Z79.899 Other long term (current) drug therapy; Z88.8 Allergy status to other drugs, medicaments and biological substances; F17.210 Nicotine dependence, cigarettes, uncomplicated
CPT/HCPCS: 70551; 72141; 80047; 82550; 82553; 84484; 85027; 85610; 85730; 93041; 96374; 99284; J2060

== ENCOUNTER → 2022-02-03 | Outpatient (CLI) | payer OTHER, BC ==
[~2022-02-03] MED LIST changes: +OXYC10TA12
== END ==
LOC: M PAIN 11:30
PROVIDERS: ATTEND Nurse Practitioner Family
DX: G89.29 Other chronic pain (principal); M47.812 Spondylosis without myelopathy or radiculopathy, cervical region; M47.813 Spondylosis without myelopathy or radiculopathy, cervicothoracic region; J45.909 Unspecified asthma, uncomplicated; I10 Essential (primary) hypertension; J21.9 Acute bronchiolitis, unspecified; E78.5 Hyperlipidemia, unspecified; E28.2 Polycystic ovarian syndrome; G43.909 Migraine, unspecified, not intractable, without status migrainosus; F32.A Depression, unspecified; F41.9 Anxiety disorder, unspecified; F17.210 Nicotine dependence, cigarettes, uncomplicated; Z79.891 Long term (current) use of opiate analgesic; Z79.899 Other long term (current) drug therapy; Z88.8 Allergy status to other drugs, medicaments and biological substances

== ENCOUNTER → 2022-02-10 | Outpatient (CLI) | payer BC | LOC: M RAD 13:35 | PROVIDERS: ATTEND Nurse Practitioner Family | DX: Z12.2 Encounter for screening for malignant neoplasm of respiratory organs (principal); F17.210 Nicotine dependence, cigarettes, uncomplicated ==

== ENCOUNTER 2022-03-08 11:36 | Emergency (ER) | payer BC ==
[~2022-03-08] VITALS: Ht 157.5 cm; Wt 61.5 kg
[2022-03-08] MEDS ORDERED: NS 500 ML IV ONE (12:25)
[2022-03-08 13:02] LABS: BASO % 0.6 % (0.0-1.0); EOS # 0.2 10^3/uL (0.0-0.5); EOS % 3.2 % (0.0-3.0); HEMATOCRIT 37.3 % (36.0-47.0); LYMPH # 2.3 10^3/uL (1.5-5.0); LYMPH % 48.7 % (24.0-44.0); MEAN CORPUSCULAR HEMOGLOBIN 28.8 pg (27.0-33.0); MEAN CORPUSCULAR HGB CONC 32.2 g/dl (32.0-36.5); MEAN CORPUSCULAR VOLUME 89.7 fl (80.0-96.0); MONO # 0.4 10^3/uL (0.0-0.8); MONO % 7.8 % (2.0-8.0); NEUTROPHILS # 1.9 10^3/uL (1.5-8.5); NEUTROPHILS % 39.5 % (36.0-66.0); PLATELET COUNT, AUTOMATED 273 10^3/uL (150-450); RED BLOOD COUNT 4.16 10^6/uL (4.00-5.40); WHITE BLOOD COUNT 4.7 10^3/uL (4.0-10.0)
[2022-03-08] MEDS ORDERED: ISOVUE-370 76% 100ML VIAL As Ordered ONE (13:04)
[2022-03-08 13:13] LABS: INR 0.97; PARTIAL THROMBOPLASTIN TIME 27.5 SECONDS (25.9-37.0); PROTHROMBIN TIME 13.3 SECONDS (12.7-14.5)
[2022-03-08 13:36] LABS: ALBUMIN 3.7 GM/DL (3.2-5.2); BILIRUBIN,DIRECT 0.1 MG/DL (0.0-0.2); BILIRUBIN,TOTAL 0.4 MG/DL (0.2-1.0)
[2022-03-08] MEDS ORDERED: MORPHINE 2 MG/ML 1ML VIAL IV ONE (13:40)
[2022-03-08 13:55] VITALS: BP 163/77
== END 2022-03-08 14:02 | disposition home or self-care (01) ==
LOC: M ED 11:36
DX: K92.2 Gastrointestinal hemorrhage, unspecified (principal); K76.89 Other specified diseases of liver; I10 Essential (primary) hypertension; J45.909 Unspecified asthma, uncomplicated; Z79.899 Other long term (current) drug therapy; Z88.8 Allergy status to other drugs, medicaments and biological substances; Z98.84 Bariatric surgery status; F17.210 Nicotine dependence, cigarettes, uncomplicated
CPT/HCPCS: 36415; 74177; 80047; 80076; 82150; 83605; 83690; 85025; 85610; 85730; 86850; 86900; 86901; 87040; 93005; 99284; Q9967

== ENCOUNTER 2022-04-02 07:12 | Emergency (ER) | payer BC ==
[~2022-04-02] VITALS: Ht 157.5 cm; Wt 60.4 kg
[2022-04-02] MEDS ORDERED: SUCR1TAB56 (07:22)
[2022-04-02] MEDS ORDERED: ALBU8.5H (07:22)
[2022-04-02] MEDS ORDERED: OMEP-173 (07:22)
[2022-04-02 08:04] LABS: BASO # 0.1 10^3/uL (0.0-0.2); BASO % 0.8 % (0.0-1.0); EOS # 0.3 10^3/uL (0.0-0.5); EOS % 4.6 % (0.0-3.0); HEMATOCRIT 35.7 % (36.0-47.0); HEMOGLOBIN 11.4 g/dl (12.0-15.5); LYMPH # 1.5 10^3/uL (1.5-5.0); LYMPH % 25.1 % (24.0-44.0); MEAN CORPUSCULAR HEMOGLOBIN 27.3 pg (27.0-33.0); MEAN CORPUSCULAR HGB CONC 31.9 g/dl (32.0-36.5); MEAN CORPUSCULAR VOLUME 85.6 fl (80.0-96.0); MONO # 0.4 10^3/uL (0.0-0.8); MONO % 7.5 % (2.0-8.0); NEUTROPHILS # 3.7 10^3/uL (1.5-8.5); NEUTROPHILS % 61.8 % (36.0-66.0); PLATELET COUNT, AUTOMATED 373 10^3/uL (150-450); RED BLOOD COUNT 4.17 10^6/uL (4.00-5.40); WHITE BLOOD COUNT 5.9 10^3/uL (4.0-10.0)
[2022-04-02] MEDS ORDERED: KETOROLAC 30 MG/ML 1ML VIAL IV ONE (08:15)
[2022-04-02] MEDS ORDERED: PANTOPRAZOLE 40MG VIAL IV ONE (08:15)
[2022-04-02] MEDS ORDERED: GI COCKTAIL 50ML BTL(HYOSCYAMINE/MAALOX/LIDOCAINE VISCOUS)(1:3:1) PO ONE (08:15)
[2022-04-02 08:37] LABS: ALBUMIN 3.8 GM/DL (3.2-5.2); ALT/SGPT 33 U/L (12-78); BILIRUBIN,DIRECT 0.1 MG/DL (0.0-0.2); BILIRUBIN,TOTAL 0.5 MG/DL (0.2-1.0); BLOOD UREA NITROGEN 11 MG/DL (7-18); CARBON DIOXIDE LEVEL 25 MEQ/L (21-32); CHLORIDE LEVEL 108 MEQ/L (98-107); CREATININE FOR GFR 0.63 MG/DL (0.55-1.30); GLOMERULAR FILTRATION RATE > 60.0 (>51); GLUCOSE, FASTING 93 MG/DL (70-100); LIPASE 587 U/L (73-393); POTASSIUM SERUM 4.9 MEQ/L (3.5-5.1); SODIUM LEVEL 139 MEQ/L (136-145); TOTAL PROTEIN 6.9 GM/DL (6.4-8.2)
[2022-04-02] MEDS ORDERED: ONDA4TAB6 PO (10:25)
[2022-04-02 10:36] VITALS: BP 132/72
== END 2022-04-02 11:11 | disposition home or self-care (01) ==
LOC: M ED 07:12
DX: R10.13 Epigastric pain (principal); R74.8 Abnormal levels of other serum enzymes; D64.9 Anemia, unspecified; K76.89 Other specified diseases of liver; I10 Essential (primary) hypertension; J45.909 Unspecified asthma, uncomplicated; E78.5 Hyperlipidemia, unspecified; Z98.84 Bariatric surgery status; Z79.899 Other long term (current) drug therapy; Z88.8 Allergy status to other drugs, medicaments and biological substances; F17.210 Nicotine dependence, cigarettes, uncomplicated
CPT/HCPCS: 76705; 80048; 80076; 83690; 85025; 93005; 96374; 96375; 99284; C9113; J1885